=== PATIENT | female | born 1980 | race Caucasian/White ===

== ENCOUNTER 2022-12-22 07:25 | Outpatient (OUT) | payer OTHER, SELFPAY ==
[2022-12-22 08:07] LABS: Basophils Absolute Auto 0.1 10^3/uL (0.0-0.1); Basophils Percent Auto 1.2 % (0.2-2.0); Eosinophils Absolute Auto 0.4 10^3/uL (0.0-0.7); Eosinophils Percent Auto 6.7 % (0.9-7.0); Hematocrit 36.4 % (36.0-48.0); Hemoglobin 11.6 g/dL (12.0-16.0); Immature Granulocytes Abs Auto 0.01 10^3/uL (0.00-0.03); Immature Granulocytes Pct Auto 0.2 % (0.0-0.5); Lymphocytes Absolute Auto 1.7 10^3/uL (1.2-3.8); Lymphocytes Percent Auto 29.3 % (20.5-60.0); Mean Corpuscular HGB Conc 31.9 g/dL (29.9-35.2); Mean Corpuscular Hemoglobin 26.4 pg (26.7-34.0); Mean Corpuscular Volume 82.7 fL (81.0-99.0); Mean Platelet Volume 9.5 fL (9.5-13.5); Monocytes Absolute Auto 0.6 10^3/uL (0.3-0.8); Monocytes Percent Auto 10.1 % (1.7-12.0); Neutrophils Percent Auto 52.5 % (43.0-75.0); Platelet Count 278 10^3/uL (150-450); Red Cell Distribution Width 15.1 % (11.0-15.0); White Blood Count 5.7 10^3/uL (4.0-11.0)
[2022-12-22 08:34] LABS: Free T4 0.96 ng/dL (0.76-1.46)
[2022-12-22 08:36] LABS: Alanine Aminotransferase 23 U/L (14-59); Albumin Level 3.4 g/dL (3.4-5.0); Alkaline Phosphatase 83 U/L (46-116); Anion Gap 9.2; Aspartate Amino Transferase 15 U/L (15-37); BUN Creatinine Ratio 13.8; Bilirubin Total 0.2 mg/dL (0.2-1.0); Calcium 8.1 mg/dL (8.5-10.1); Carbon Dioxide 26.9 mmol/L (21.0-32.0); Chloride 104 mmol/L (98-107); Cholesterol 161 mg/dL (<=200); Estimated GFR (African America >60 (>=60); Estimated GFR (Non-African Ame >60 (>=60); Globulin 3.5 g/dL; Glucose 99 mg/dL (74-106); HDL Cholesterol 40 mg/dL (40-60); LDL Cholesterol Calculated 104.4 mg/dL; Potassium 4.1 mmol/L (3.5-5.1); Sodium 136 mmol/L (136-145); Total Protein 6.9 g/dL (6.4-8.2); Triglycerides 83 mg/dL (<=150); VLDL CHOLESTEROL 16.6 mg/dL
== END 2022-12-22 07:26 | disposition home or self-care (01) ==
LOC: LAB 09:13
PROVIDERS: Visit Provider Physician Assistant
DX: Z00.00 Encounter for general adult medical examination without abnormal findings (principal); N93.8 Other specified abnormal uterine and vaginal bleeding; D50.9 Iron deficiency anemia, unspecified; Z13.228 Encounter for screening for other metabolic disorders; E03.9 Hypothyroidism, unspecified; Z13.220 Encounter for screening for lipoid disorders
CPT/HCPCS: 36415; 80053; 80061; 84439; 84443; 85025

== ENCOUNTER 2023-03-27 20:06 | Outpatient (REF) | payer OTHER, SELFPAY ==
--- OUTSIDE RECORDS SUMMARY | 2023-03-28 10:11 | XMS_ITS | CCD ---
Author Name Unknown Address [address] [facility] [address] [place] [address] Organization [facility] Care Team Providers Care Instrument Repair Specialist Name Role Phone PAMELA RUIZ Admitting Unavailable PAMELA RUIZ Attending Unavailable PAMELA RUIZ Primary Care Unavailable PAMELA RUIZ Consulting Unavailable KARASIK, DR RODRIGUEZ Admitting Unavailable KARASIK, DR RODRIGUEZ Attending Unavailable PAMELA RUIZ Primary Care Unavailable KARASIK, DR RODRIGUEZ Consulting Unavailable LISETTE, ANTWAN Admitting Unavailable LISETTE, ANTWAN Attending Unavailable PAMELA RUIZ Primary Care Unavailable WEST, DR VINEET Cruz Consulting Unavailable LISETTE, ANTWAN Consulting Unavailable KARASIK, DR RODRIGUEZ Admitting Unavailable KARASIK, DR RODRIGUEZ Attending Unavailable REQUEST, DR GOMES LISTED Primary Care Unavaila ble KARISABELK, DR RODRIGUEZ Consulting Unavailable WEST, DR VINEET Cruz Consulting Unavailable Guillermo Esparza Attending Unavaila ble Angelina, Taiwo Bahena Referring Unavailable Alfaro, Taiwo Bahena Admitting Unavailable Alfaro, Taiwo Bahena Attending Unavailable Alfaro, Taiwo Bahena Referring Unavailable Allergies Allergy Classification Reported Allergen(s) Allergy Type Date of Onset Reaction(s) Facility (1 source) No Known Medication Allergies; Translations: [No Known Medication Allergies] Propensity to adverse reactions (disorder) [facility] Repository Problems Active Problems Problem Classification Problem Date Documented Da te Episodic/Chronic Other screening for suspected conditions (not mental disorders or infectious disease) (8 sources) Encounter for screening mammogram for malignant neoplasm of breast; Translations: [Encounter for screening for malignant neoplasm of cervix] Onset: 06-27-2021 Episodic Unclassified (3 sources) CONTACT W/AND (SUSP) EXPOS COVID-19; Translations: [CONTACT W/AND (SUSP) EXPOS COVID-19] Onset: 04-20-2021 Past or Other Problems Problem Classification Problem Date Documented Date Episodic/Chronic Immunizations and screening for infectious disease (1 source) Encounter for screening for human papillomavirus (HPV); Translations: [ENC SCREENING HUMAN PAPILLOMAVIRUS] Onset: 06-30-2021 Episodic Other skin disorders (4 sources) Localized swelling, mass and lump, neck; Translations: [LOCALIZED SWELLING MASS AND LUMP NECK] Onset: 10-19-2021 Episodic Unclassified (1 source) CONTACT W/AND (SUSP) EXPOS COVID-19; Translations: [CONTACT W/AND (SUSP) EXPOS COVID-19] Onset: 04-14-2021 Results Test Name Value Interpretation Reference Range Facil ity Coding Summary.on 08-09-2022 Coding Summary. CD:[id number] Ww +PGhlYWQ+IX5MBWVbM47sy YJzgU2iK2CPXPvBDgmgCVK HHJfCLdOcxpPzIE1lqZIqV XJu IC8+PF4iPRVcAzfxnINoj6 R0dOP6M33aky5gYUmkmKZ1 BCGnNvAbjnpmw1tzcTc7TC cuNmluOyBt YEXasL76MNN5yG78Xs19pG JvfQEkj9aabRz2NfPmASWo OMP8yPujGOunm5IeTOZiW5 2gmSHdh5Z8 ZPMecXlxuCPeXyUjlBN4oA 2yOOizjubbq4rfcyesHao3 lv26zSLtg0C4aBZ1M0Cvox V6OPYnlTGo KyogaQFWxH7jdohfs4xcbr kmXxCvCCTjKXn9IIq9KZJr xAbvDcXrEK06ADH4HGQcwl ExO3YcKJHw oWfvHuE8o8S8Lk3IZ9QOKs ccP9STLUGDJDnriUB+PC90 tx93C8ToVgzdMvf6UCQeFU V4gNG6gB5u TTHqVKazb0O7pBB0G3Iewv Hduj6sm3erRRHzODhgO11l tZKbc5R6AUDdpXO3DADqyN scOdXmtW16 Oyc+XPRomCnnp2TwTkcvv5 rdt2lhwQu0NgdfKCRhoeZj dZpiWOO1o0UsIy7gGOGjvO J4oXW8uI6q NqShPpF3DQqaA519FvLidC PjWcxdO78rG8TtjRK+PHRy Auh8RAZvzVlpNB4iP4GvSJ RpbmctbGVm nCukOA6xWMGqhxvaDVCnzT 9tWAAdR6j8XcVxCrL5YTfc B1RnJRNzubjhGm45qO6xYd ZvLhF7UOzs E9FmmaT0OXFboQDhDVroUL V7B61hj1K8XDDpOABmDGA0 oKU3tH1tlTecrmgfiGQioU sgdmVydGlj MXwhKJszS932HBVngDvuDf NvZGluZyBEYXRlOiAgMDUv MDQvMjAyMzwvdGQ+PHRkIH R8wXfzAHIs tFZwQRmbYp0bmGkdfOteQL 5aTTAcqqdhRRXahA4qRDGs rLQncEueEF3fGUCawtukk9 75IyLeZPW7 YFQktKClB9XiaW3dPmVvON YaNNYdO9RtsSVkSMztW153 LOaxBpO9VYHvvyKiO8YbOY FsaWduOiB0 h9M1Uv7Sg6HsavszR3OdxL AwBlBxHbpgIRc1M0UcJrst dHI+QV33NRXeAE94XHt9XE C8tEwtLOtt GVLgD1WnjE2aXuOmBPJiJN RkOyc+PHRhYmxlIHdpZHRo HJapOONzXyQcrQxeKK5oSa 9yZGVyLWNv sNylxYRpNiIeq2moNNMpMI eaUN1deMppE8DptXH4AJSf n5x6Ph52A61jE5LozTF+PG CifCU6vUZ8 gC1wFtPrBjK8WGdwI196Sp BuxLLuEmifu3cpu0auvXg4 ExW3TLNyvqRvsEmeCUP5d5 SsQn07Z09h IHdpZHRoPSIxNSUiIHZhbG bozc8rmN1mXg0+PGNvbCB3 qEC2mJ1wUfZuEnL6DRtoK0 49InRvcCIv Rrncj3qff2sukHl0YpPpBL BixsKguNseRDC1c0PsHe53 H1DlfLbrb5NpSql2zj63aB Pjn4P9qNP6 J0IaZAGusmbnkXOdwYrwDP 3vIBGobaxhPHYjkS0rOXWb A5g6EoXzBvT5XEqsW7Qnze U8UTQduOHc GBFpbGVXqQ6pzksxs6mwum dnLzGwRJXnXQh7BJi6VHRh fWxeHxUsKBY8KaN4QFT3bX CfpP8jdQdm ackzvI9oRmx+IWB9rROznX RSUF2bZtccjGC+PHRkIHN0 tNzmZYcbZSSqiW9aNNCxU8 b0JuMaZxR2 EUocB8CjssK5ZRHldFLhIW WrgNDKvN9bztsrp0ixudva GzKbOJIzUQy3WYk3SGAggB duOiBsZWZ0 HjG3TIM7fVCxjL0ekTbllz bxyQ6gMdr+QmlydGggRGF0 NZt4G3UtSaf7QTNlmDucOV 0ncGFkZGlu Mw9meNhodPpdGP0iVRWnyc zfg188JiOmo2wpOXJrvSUm HMluSJR7M68pw3R9BZZqSK GvIJO2uEQ8 mH7xxEqgqnxdgDYkiViiyf OyvVicSWxeWFuuM247YKAk cIinBbJrMYb8F2IzRex1EC XhxKlhWJ7v yOTgJQywIz7pdUqytIqxCA 1iXCDttgpqg382HuDbj8js CTZwgTQfDAkgXTA4G68jk8 J5YCKlCVPz DKF5kQU1uN8neVjnkkxjdC VmdDsgdmVydGljYWwtYWxp K583MXQewBmkYbSwhSm8A9 OrQfd5LSGz yGekLC1soHKbHOtfDe9xlS pxjZedFE9mATEvdyhhu761 SnYsd6iqIEKkmDLtSHkoDR Z3Q00ba5X9 XPMpRMOuHRZ4fDL0rT9zhB lnbjogbGVmdDsgdmVydGlj EKilSPhpE669GWLlfYwcTw BhdGllbnQg BVzqFLh5K9SfYsxijWA+PC 73UYToZZ24aYFsmSZkv0au dYl0VeYjTYPkSJV7jPooGW rmq4DkBYQr T61vgTKwy9U1DQRcwWbyjL IjKiJlbAE1vU8cFYylskrr a8cvtrsgZwsml8djvz62rW 06Z17dRNxu ZHRoPSIzMCUiIHZhbGlnbj 2yeK6jYx2+AIAxxCJ9mBR4 iI6gRPSfNkY0QFaqM163Md RvcCIvPjxj y1akr8cajNw7GhW9LNLqws XzvInkIHT4i7IoPn75N20k IHdpZHRoPSIyMCUiIHZhbG rtpj9boB7q Ii8+AQEyoOV1bUP3rN7kKz NjKdU5UOazL981PjYojLNa KaulW98rU0EteUJ+PHRyPj y4DLNvmNxa UO0klAExWLpgCg5aSNH8Vu NtAjBwPRpoR4RpWLCciqgg vldavDS6ACBeBGFtaG59Aa 9udDogMTBw gSFXaZ2yropfx4nwulfvFq CeJVWbJKa5FNd4IPQmeYdo FxVvESF7SwP5LFG2sFRtgP 1hbGlnbjog tX6wA2TsPALhkgjmOw89gS 5uAbJzOzL9HUjaOwp+SkFS RuBSRGoaQIJLP0dxGlodwU Q+PHRkIHN0 nYeiOOnqXHKwiW2pMQLnX3 g8WxEeByD9CAntN4QdUPNf stsgEr97fZ8zIvPnCiM0XB woD9LcbeP3 LUTxoIMuFOjvGIU2E28qg7 P8SGOsBHVoVYB4vYP1aG8d bGlnbjogbGVmdDsgdmVydG ljYWwtYWxp S400YHLqhStsWyO6HmN1Qz C2ASI3C4IaBqu0DYBvdEvb ZG0ymYNfTRlrNq7plPnhrA wcUX5cXRUf ogvnBPMheA4rQCZhqKHtoK qlDU0lJCBqacqaw422TzFy VHC5SXRygKKqW8DjoE2eNd AjMDAwMDAw J4TelTZcOCpqJ304INinMm J8MJBtalUbI1LqJZFhyPmn KrY2q8W0Zx54LXBETXYeaa wvdGQ+PHRk FQP1yJeeXLsxFHFqkP7iHX LfO8e9HmJpJdE5HCkgQ9Uo SFOfkkreJe98jP1hJtNlZm U6SHwmT2Ti qwG0NLGaaNPwGBcuSDP9Q7 1dd9M6BAAzIJSyDQT3gJJ0 uD4arAvykvdztUExfOdysq VydGljYWwt TTtpN916HJPbhTqyRbMwrZ FsZTwvdGQ+USNcQGJ7qPzk RHmjIPXdaB3lPSLgO7o2Yt RqVwQ6TXjx D9RgTRCumwhxUu55pL6tLc JkLeX7LHplX6MreyX5LSDv qIGbUOllYFM3P14ka9C1RZ MwMDAwMDA7 lKC9eK6ktKbikxdlrNPvwP bbgxTxdMsfDQbaPSbpL745 ZWSigYdgFq89lBDtbZvpao W4B3PpAsmc dHI+JB88MTMyFO07qGZooT Hsq3jseUp8ToAnRNJuADX1 kQmeZMhax5TuCUOlU32stY Nql1E1OLWi pNlaqPTvNtCibYA3lO6uLK lfxizon5kizlboYkbip1wi ip80iG89C07vIAtvIFXzHU IzMCUiIHZh jKiyjg6nkF2tQk5+PGNvbC Y6zAL3hA3eLoPbEhX6TBvo Q488DfGmfTPnBluxw1ykc2 gmvLk7OlJy DWNygnUouHcdCXL9t5HoYu 83C73mFIdeTZWdQNQcEOMe IYXeiEqntt3lsH2rXu7+PC 3nu3eror67 hZ55iRH+VLEzNWJ9sDyhFB eyCQOqnX2vLEncLsU4BNOv NdOapO37yJYsJJsgAm5wrE hiyAcnAN2f XMVbjrlba197JxJdx3ygLO RooYXrSRzcSOV0G02rw3J1 CDQgNKQqZPR2yBE8jQ3jmM lnbjogbGVm dDsgdmVydGljYWwtYWxpZ2 65FLJcaWgsSkImsDKbL8ph tqMAPI0fIgvswRZ+PHRkIH W2gCzfGEnw XFNhoZ9vRQXjW5f8PdVxPh V2FOyyB7HzgrO3JHSkdSUe XGMuhJMXxJ3vfogai2vjre ogIzAwMDAw OLl7BZs0OHIpdXnxZoWwPZ H9PdA5DKP0sWIhqK9pcRiu ltrveM0vLrt+RklOOjwvdG Q+PHRkIHN0 uQgoQNuxTBHetJ2cPUEjZ1 u5SeGhRtU0HKpwM7HlexP4 ODFjhILvCLHbcIOWzQ0xbg mlg4buhqms DfAqDEAgBIy5KIi3QVOjfK sfWeLsEVT5OmJ8YEZ1eEXf gB8snZzruwjjeD5yThw+TV JOOjwvdGQ+ UHKrBCK3zTtoPIemQOVjhF 1hKYZhS6w8JfMrVoJ1CUti T4NbnzF0RHFitMMsDFEljH WYtZ8huxfb w6ohzifqLxXqQCEyRRt0YS g4WUVrvKxqHdHzTTA5TgP6 VNS1nXYmbY5fzUsxpfdsqS 9wOyc+UGF5 UQN2XM73KI98A3ZbCitpnE FibGU+PHRhYmxlIHdpZHRo EBaxIXLdIdZpuKbaON3fCb 9yZGVyLWNv bGxhcHNl (more content not included)... Normal [facility] Coding Summary.on 07-25-2022 Coding Summary. CD:[id number] Ww +PGhlYWQ+YY0NGXOdQ54ej PXinD0vL2ZAETgRFfonDRL NCArUUxBbptIeBU4odMGoD XJu IC8+TP3jCLGsImoyqQFif6 Y3oAC1E28eoh2iYUmhlMJ3 XGVdFlCzrjrdh6bymIc6RZ cuNmluOyBt JTKxiG93AZX5pR34Vq68pR KylECch6rcrQy0MbKrBBIj BYO0wHnwZFntq5PpXUTvH8 2hzSOqh0H8 EQYjeHbnmINnMbTavSU2fC 9mBKghlekmj1vrhshhIkf5 hv08vWPde8H3uDK9K8Wxtu A8FGIlaICy NagvcHQZmO7ifleoh4fcho avTxYsMJAfRFq4IIr4IGXf bMwsZqPdDK62DJI1NEUbwg XrD2NnGONw pWboJcC8l1F7Jm4BA0DHOt irT2WNBGXOMHttkYE+PC90 xs83P5QdCxfmAdv9JZPoJP G6jSU4pX7a QALaAApij2F0gZH2R1Egdg Yjab4by9czWCIrUZjtN67h iIEam6J6DZIfvND5FGEafK dgTiAunN48 Oyc+QWYwwGxhf7OnEtvwd2 ino4qwdVh9IfxtWMWojrHo kArlQYW6y7KbDv9bRMMvvX W9aFN0qY2q DjTgVrZ4ACxwI152RoEpiN UoJtscB60aO0KpwGR+PHRy Ave2PWDndWpsTZ2iW2IpEX RpbmctbGVm nNacJP4dMKJskixsLNFhqS 5vMTKeS2n3GqWhQgH5LVoy L0YlNSFbavudVn82zA3bFc QjXsA3GMkt D8HwsxF4SEYpdCTpGUofRB B5A19sg8U6WEBtBMVbSAH5 wDR2cQ9qsQosjfgrxFShvR sgdmVydGlj VBzbAKuzB040GHYogXecMb NvZGluZyBEYXRlOiAgMDQv MTkvMjAyMzwvdGQ+PHRkIH L7uUumSJUx wJMwWOihQm3htNbwrNjoYE 4eQUSiqscfSSGrtL7vDVMz nQPonIgvFE7rXLLgbjukm5 69QkOsJLB6 RMXkbAUcM6GqkW4nRvHpZB QlTAJuN3WheGGpDJboC758 VIfrWqV7LJNqzbGkH4CzWO FsaWduOiB0 v8Q4Rm4Lz2YzxkxnN9NohR HyDtNcYjaiBNr1F0ElZfng dHI+ZO04NZCrRG60DDw9BA Y6xCnsHAey DZSsS5HthP4pGoPmYUPjPG RkOyc+PHRhYmxlIHdpZHRo ECyoPWOjXfRufJnsLD1xXb 9yZGVyLWNv iRclbYExKlAtn2ddEROnQZ arVS5ivYifR2UhzKR8LGPx u1n2Fm17T84oM5TycHB+PG XmnQU8rIE8 rG2cIbEhSoM3GJgzG971Gv BukLXhIvnib5dsw3ywlGc7 BwJ3FCWkxnZbcUgwWPN2i5 BqAc98I12b IHdpZHRoPSIxNSUiIHZhbG rdex1muJ6hZf4+PGNvbCB3 aGV1nZ7jQwOuViF7YYapV5 49InRvcCIv Fmuee4vqj4zbeLp8WjIaPB WkmhSkdYxoCDG5j0VkUk54 F9GzpLmxq0SoMde4kh26yF Llc6N5xLL3 D9WiPAYcswhmfRVwmWwfIO 7jNQMckuvwMRDebR2wFKCr S9z8DcWrHdQ3RLppI8Lsbl K2UZXqyAXn AJKqsWXAeU5rzyzxx4bimr qsUeDoLZHhMFh6VRa5AASn mDgmYdTvUDL8HxK5KJO0jN IjeP3hfCcc oeuzoK5yRnd+SVU5oTDpjP UQBL7dWrbdyUU+PHRkIHN0 tShuPDvzLWVtkI2tIOEoG3 z5FwPjLlI8 ITguE6WhodB4TZMelDSvCN LqwQZFyA4jgvzti3xdazcc MyNqNXLmOJw5NUf7DARfoE duOiBsZWZ0 BoT7GVX2zZQydQ9gsPwnfa gxwT4rCtv+QmlydGggRGF0 LOe3M2XiDnl3VUCsbNuxYI 0ncGFkZGlu Rn6qrHoxiJcvDO4wKGGqtg epm048EuSne3glMWCehQIt DIbbERP9P53xk2Y8IOPfJL FaMTF1bDY4 aM6tjUmnrbtepLFbzDbkvn XufMkwZEmhYWseT053XNDn oKksEtXkIUw9W5AaGrg7UM KeyAwqBK2j gADwCTxuFq1hyRjfwGblZZ 0vJRLyotchj892KxNqy3ap THMghGAvMCnkVVY8B17bo1 Y1AAWpNZXs KNP0xKD5jO8gkYqglgenmA VmdDsgdmVydGljYWwtYWxp O610QXIxfBsbSmJkdWo8U2 WgWha1ZLWv uAjuHQ0ppHCyRLyhIi5huS ouoYzqNG9gTWGtejojw246 NfOzb1zdSGKpwVRwDXglPQ Y3J64ev3P5 TAHjIEAwPPV9jQP6jC2qgF lnbjogbGVmdDsgdmVydGlj JUqzNHpcC609PSQkuPzzYo BhdGllbnQg HGvfROf2F1KqAnhehYM+PC 66TIIxSX39qZLlpJUge7ro qQx4YiPmNLLmAFZ0jOroHJ xfz2NfWMPz T97jrDEdm6I5VKAiaPalhS MsVaZtlCT9mY4nDXflqnck m6lxzlggEfmqx4gsty97hD 90Y38lXWdw ZHRoPSIzMCUiIHZhbGlnbj 8hrI4kOo7+TZEypRY0nUH0 rN8sRSDkHcY5NApqL744Gm RvcCIvPjxj i1qbd4jgkOs3XzY6PPNbjj WsuGlgXLX3h5HkDr42O92e IHdpZHRoPSIyMCUiIHZhbG ckya8eeQ4a Ii8+IVRokXH6sLM4hV1vQx FpFzJ8OCesK663GtRygOEk WuadX58tY8TkqVQ+PHRyPj j5YYVnrAbe LZ8mrXMwRTouOn3qTGX4Fb UtBfUjFDpkD6DyACZjgowk knoscTQ8CAWgTGHnsI69Rx 9udDogMTBw wTXFsI6whusky7ndfwjgSx RdGYTxCGp7FSw3WDGguBxp XdFaLAC5EuZ3GZI0iCJwbY 1hbGlnbjog mE0bJ4ZhCMRieqwdVe52xL 6uBtVmLqX9IVnyKqu+SkFS HkRTVZyuCMCZK5lfKzsczO Q+PHRkIHN0 aUxwCIrcFUKmpE8oEOYnB7 g0TpWrQhY4RAjyK1JxIURe lrcnKf75kW4rJeDqKqU8YY wkR5QkghI5 DHBoyWHsDUefJEN1E58xg1 M1JQYzYBVdZCD1uVW7zZ4d bGlnbjogbGVmdDsgdmVydG ljYWwtYWxp J742MSFacZubTwO1JuQ3Xy N1RZS0K9PbKlb0RFNwkIoo CD7yuIOrWGitXn8qnKarlR skVX8bIADp ecjmSTAdoK0jGTAubSHzaF wlAY9uWYGsrvsqn634EuJz UXJ9VKPpgCHqE7KfaE4pOg AjMDAwMDAw D9ZldQCcWPgaW964GNnnKv H8SXKohmYsI9JgCMCbmRsk UdD2t3B7Iv36UNJBEHSrea wvdGQ+PHRk RNX2hKltHBegVYIfgA6jRO XsJ0k8JsSsDoB6OVziO8Td LGPzvazoJx80mK0sQfNmHv O8DNkxE4Lx xiU0LNHfcYDpFPmwRHY5P8 7zk6W6KNNpNRKdCDB9dHY1 vS9thCbbzqluuFIdhNrfaf VydGljYWwt NWxqN609WPEqtIpzVvPcnT FsZTwvdGQ+UHImSPQ2lVch BAssTWUngI1vOJLkP9x1Hl ExPfL1BJve Z4YwHPHuegurLk31xT2hEt AlNsU1DPvbI7OhkmY7ARHi iLQrYExtKRD7D02mp1B3WR MwMDAwMDA7 yWR9cI1wiWubbahnvQQtsC bhmvJzzDabTKeuWOrcP173 CXRcgJggQp02rMDmmLgygb A9N8GlHlih dHI+HD89DXSxSL33kMGwwF Jnx1casAn8SfRgXNWeIEA4 fZmiPNfcm6FwPOOcF01ttU Cms4Q4PKMk mZpnyMXsIrPrqZZ9eC9lLJ kvjowit8fhgikyUceeu9rv bs48xC63H21dQCwyXEMqMP IzMCUiIHZh kCpvcw5hyK3gPd3+PGNvbC M2fRX0cH1pQcWlFmQ3BVps N392MfQaxXLbLygpm5olq1 blmZf5YbSb DYPxtnUamTnrCGZ7h4WzXe 17G00eUIhuPIQmBONoISWu ECIfrBmptv8hqM3hOo5+PC 1yk6cguo38 pV37oRQ+NHZjQUM3bCjqJY giBUJklX5pIVyiKkW8KSMa ShWjkQ65mXJhHHjoHf8fyW ezhYsqLK6c IRKeobsie804CvEjg4kxPI CbhTQfOCvaHBG5V17wf6N2 WBSoKLVpJPY1dAI0wR6qbD lnbjogbGVm dDsgdmVydGljYWwtYWxpZ2 23LCXwaKutFoXktFIcQ5wb eiDMLZ2kWwqfhWN+PHRkIH L2pIlkGDkk XFHepJ0eJRArL9w4SoOrXo R0QNyjG0HrbbI7XHIydIJi NGZeeKBWmA4xncyds4pjzp ogIzAwMDAw BGl4SZx6ISJcrCkrUuCfYG S9DnL3PIO4oIJokJ8hsCxo kjkytZ4jDef+RklOOjwvdG Q+PHRkIHN0 oCpuLAoeZOVjmS3zZRQgV6 x4UmTcIjA3KDzlN3WjutV2 IMGbvLVyXZDsaKTXkL8mds urj3lwpylw BaUbICYjSIk8JPn1CIUhwG rsRsJsZZH1RcZ3HCG6mKSa gD0rjKtyxuhvpC2xXla+TV JOOjwvdGQ+ HLMqXLH2jPwcPSlvOATsvE 2xMAGaJ2a2QuCfMrZ4HTxc P0KssaU8WQMqdFTdAFGnrW COwR5kotch e9mnshszZrKpTIEsFQk3BR q2MPHrmDzuWfAvVRJ2IaA6 QIF7sONhkD9jdIbxjqsptR 9wOyc+UGF5 IZQ4RV82FX29Q2BuGutjmM FibGU+PHRhYmxlIHdpZHRo EJrpDRMoIzSliUktTF9oMc 9yZGVyLWNv bGxhcHNl (more content not included)... Normal [facility] Consent for Treatmenton 07-07 Consent for Treatment [id number]#[id number] 0CD:127 Normal [facility] Heart and Vascular Office/Cl inic Noteon 07-24-2022 Heart and Vascular Office/Clinic Note Chief Complaint patient here for cardiac clearance History of Present Illness Karma Nieto is a 41-year-old female who presents today for cardiac clearance for an abnormal EKG. She is accompanied by an adult male. Karma reports that she is scheduled for a knee arthroscopy on 07/27/2022. She had a presurgical EKG last 07/20/2022. She was called today and was told that there was something abnormal. She denies any cardiac history. She denies any chest pain or difficulty breathing. Prior to her knee issues, she was able to walk upstairs, go uphill, and ride a bike. She did a walking challenge from [employer] in 05/2022. She is not diabetic. She denies any pain in the posterior aspect of her legs when she walks. Review of Systems Constitutional: no fever, no sweats, no weakness Skin: no rash, no lesions, no bruising/petechiae ENMT: no sore throat, no congestion, no hoarseness Respiratory: no shortness of breath, no cough, no orthopnea, no wheezing Cardiovascular: no chest pain, no palpitations, no edema Gastrointestinal: no nausea, no vomiting, no diarrhea, no GI bleeding Genitourinary: no anuria/oliguria no hematuria Musculoskeletal: no back pain, no trauma Neurologic: no headache, no dizziness, no numbness, no weakness Psychiatric: no sleeping problems, no irritability, no anxiety/depression. Heme/Lymph: no bleeding tendency, no bruising tendency Allergy/Immunologic: no recurrent infections, no impaired immunity Additional ROS info: Except as noted in the above Review of Systems and in the History of Present Illness all other systems have been reviewed and are negative or noncontributory Physical Exam Vitals & Measurements HR: 91(Peripheral) BP: 132/82 SpO2: 98% HT: 68 in HT: 173 cm WT: 122 kg WT: 268.4 lb BMI: 40.76 General: alert, no acute distress Skin: warm, dry intact Head: atraumatic, normocephalic Neck: trachea midline, no JVD, no bruit Eye: normal conjunctiva, sclera clear ENMT: oral mucosa moist Cardiovascular: regular rate and rhythm, no murmur, normal peripheral perfusion Respiratory: lungs CTA, respirations non labored Chest wall: no deformity. Gastrointestinal: soft, non-distended, no tenderness, no guarding. Back: no tenderness, normal ROM, normal alignment. Extremities: no edema, no deformity, no trauma Neurological: oriented x 4, LOC appropriate for age, sensation equal & normal bilaterally, speech normal Psychiatric: cooperative, affect appropriate for age, normal judgement, normal psychiatric thoughts. Assessment/Plan Karma Nieto is a 41-year-old female with cardiac clearance, had abnormal EKG, said septal myocardial infarction, has a history of hypertension, and family history of coronary disease. She is not a smoker. She does not have any chest pain or angina before her knee had a problem. She was able to exercise without symptoms. The EKG here does not have septal infarct. She actually has R wave, so I think it was a false reading on the previous EKG. She is not symptomatic. We will say she is acceptable risk for surgery. Follow Up: As needed. Chest pain (R07.9: Chest pain, unspecified) Documentation services were performed after patient or guardian consented to allow Olamide Martínez Yue to record this visit. GAEL talent acquisition specialist and provider reviewed before signing. GAEL: Jenn Meza Follow-up No qualifying data available Problem List/Past Medical History Ongoing No qualifying data Historical No qualifying data Procedure/Surgical History bilateral carpel tunnel release, dx laproscopy, Hysteroscopy, Tonsillectomy and adenoidectomy. Medications biotin Multiple Vitamins Tab, 1 tab(s), Oral, Daily Synthroid 100 mcg Tab, 100 mcg= 1 tab(s), Oral, Daily Vitamin D 1000 intl units Tab, 2000 International_Unit= 2 tab(s), Oral, Daily Zyrtec-D Allergies No Known Medication Allergies Social History Alcohol - Low Risk, 02/10/2015 Substance Abuse - Denies Substance Abuse, 02/10/2015 Tobacco - Denies Tobacco Use, 02/10/2015 Never (less than 100 in lifetime) Tobacco Use:., 07/24/2022 Family History Heart disease: Father. [facility] Comment on above: Result Comment: Elec tronically Signed By: Isaias TUTTLE, Guillermo Arteaga\.br\Date and Time Signed: 07/24/22 21:56 EDT\.br\Electronically Co-Signed By: Jenn Meza\.br\Date and Time Co-Signed: 07/24/22 16:08 EDT Physician Orderon 07-24-2022 Physician Order [id number]. 00CD:127 [facility] Physician Order [id number]. 00CD:127 Normal [facility] BMPon 07-19-2022 Anion gap [Moles/Vol] 11 mmol/L Normal 6-16 [facility] Comment on above: Performed By: #### 2 [id number], [id number], [id number] #### [facility] [address] [place] [address] Calcium [Mass/Vol] 8.8 mg/dL Low 8.9-11.1 [facility] Comment on above: Performed By: #### 2 [id number], [id number], [id number] #### [facility] [address] [place] [address] Chloride [Moles/Vol] 103 mmol/L Normal 101-111 [facility] Comment on above: Performed By: #### 2 639689, [id number], [id number] #### [facility] [address] [place] [address] CO2 [Moles/Vol] 27 mmol/L Normal 21-31 [facility] Comment on above: Performed By: #### 2 [id number], [id number], [id number] #### [facility] [address] [place] [address] Creatinine [Mass/Vol] 0.9 mg/dL Normal 0.5-1.3 [facility] Comment on above: Performed By: #### 2 412295, 7851751, [id number] #### [facility] [address] [place] [address] Glucose [Mass/Vol] 95 mg/dL Normal 55-199 [facility] Comment on above: Result Comment: If t his glucose result represents a fasting glucose, interpretation should refer to the following reference range: 55-99 mg/dL Performed By: #### 2 404378, [id number], [id number] #### [facility] [address] [place] [address] Potassium [Moles/Vol] 4.4 mmol/L Normal 3.5-5.3 [facility] Comment on above: Performed By: #### 2 537674, [id number], [id number] #### [facility] [address] [place] [address] Sodium [Moles/Vol] 137 mmol/L Normal 135-145 [facility] Comment on above: Performed By: #### 2 863408, 5995091, [id number] #### [facility] [address] [place] [address] Urea nitrogen [Mass/Vol] 12 mg/dL Normal 5-21 [facility] Comment on above: Performed By: #### 2 582761, 2162306, [id number] #### [facility] [address] [place] [address] Urea nitrogen/Creatinin e [Mass ratio] 13 No Units Normal 10-20 [facility] Comment on above: Performed By: #### 2 565844, 8558394, [id number] #### [facility] [address] [place] [address] CBC w/Indiceson 07-19-2022 Erythrocyte distribution width (RBC) [Ratio] 16.2 % High 10.9-14.2 [facility] Comment on above: Performed By: #### 2 556834, 3131591, [id number] #### [facility] [address] [place] [address] Hematocrit (Bld) [Volume fraction] 36.4 % Normal 34.0-46.0 [facility] Comment on above: Performed By: #### 2 350996, 6369027, [id number] #### [facility] [address] [place] [address] Hemoglobin (Bld) [Mass/Vol] 12.0 g/dL Normal 12.0-16.0 [facility] Comment on above: Performed By: #### 2 454995, 6171972, [id number] #### [facility] [address] [place] [address] MCH (RBC) [Entitic mass] 26.1 pg Low 27.0-34.0 [facility] Comment on above: Performed By: #### 2 757862, 4883893, [id number] #### [facility] [address] [place] [address] MCHC (RBC) [Mass/Vol] 33.1 g/dL Normal 31.4-36.0 [facility] Comment on above: Performed By: #### 2 341722, 2837019, [id number] #### [facility] [address] [place] [address] MCV (RBC) [Entitic vol] 78.8 fL Low 80.0-100.0 [facility] Comment on above: Performed By: #### 2 361591, 2772159, [id number] #### [facility] [address] [place] [address] Platelet mean volume (Bld) [Entitic vol] 7.6 fL Normal 6.4-10.8 [facility] Comment on above: Performed By: #### 2 845947, 2356792, [id number] #### [facility] [address] [place] [address] Platelets (Bld) [#/Vol] 346.0 E9/L Normal 150.0-500.0 [facility] Comment on above: Performed By: #### 2 987835, 6360018, [id number] #### [facility] [address] [place] [address] RBC (Bld) [#/Vol] 4.6 E12/L Normal 4.3-5.9 [facility] Comment on above: Performed By: #### 2 315295, 1771165, [id number] #### [facility] [address] [place] [address] WBC corrected for nucl RBC Auto (Bld) [#/Vol] 7.5 E9/L Normal 4.0-11.0 [facility] Comment on above: Performed By: #### 2 511256, 7494883, [id number] #### [facility] [address] [place] [address] Consent for Treatmenton 07-07 Consent for Treatment [id number] 0CD:127 Normal [facility] Physician Orderon 07-19-2022 Physician Order [id number] 0CD:127 Normal [facility] eGFRon 07-19-2022 GFR/1.73 sq M.predicted among blacks MDRD (S/P/Bld) [Vol rate/Area] mL/min/{1.73_m2} Normal >=59 [facility] Comment on above: Order Comment: Order added by Discern Expert. Result Comment: eGFR is race adjusted. AA=. Performed By: #### 2 406727, 4000671, [id number] #### [facility] [address] [place] [address] GFR/1.73 sq M.predicted among non-blacks MDRD (S/P/Bld) [Vol rate/Area] mL/min/{1.73_m2} Normal >=59 [facility] Comment on above: Order Comment: Order added by Discern Expert. Result Comment: Child Support Specialist mark kidney disease could be indicated at eGFR's of less than 60 mL/min/1.73m2. Kidney failure is indicated at less than 15 mL/min/1.73m2. Performed By: #### [id number] #### [facility] [address] [place] [address] MG MAMM SCREEN 3D RONEN CADon 04-03-2022 MG MAMM SCREEN 3D RONEN CAD Patient: KARMA NIETO Exam Date: 04/03/2022 : 1980 Gender:F Ordering : DR MICHAEL RUSSO . Admission #: [id number] Family : Order #: [id number] CLICK HERE TO VIEW EXAM RADIOLOGY REPORT PROCEDURE: MAMMOGRAM SCREENING 3D BILATERAL CAD COMPARISON: None. INDICATIONS: Screening mammography Calculator Name NCI Breast Cancer Risk Assessment Tool 5 Year Breast Cancer Risk 0.60% Lifetime Breast Cancer Risk 11.10% Personal Breast Cancer No Personal Ovarian Cancer No Treatments None Family Cancers None LOCATION: [facility] BREAST COMPOSITION: Extremely dense, which lowers the sensitivity of mammography. FINDINGS: DIAGNOSTIC CATEGORY 1--NEGATIVE. Scattered benign-appearing calcifications are present. Scattered benign-appearing lymph nodes are present. RIGHT BREAST: No significant suspicious finding. LEFT BREAST: No significant suspicious finding. RECOMMENDATIONS: ROUTINE MAMMOGRAM AND CLINICAL EVALUATION IN 12 MONTHS. PLEASE NOTE: A NORMAL MAMMOGRAM DOES NOT EXCLUDE THE POSSIBILITY OF BREAST CANCER. A CLINICALLY SUSPICIOUS PALPABLE LUMP SHOULD BE BIOPSIED. Dictated by: Vineet Woods MD on 04/05/2022 at 07:59 Approved by: Vineet Woods MD on 04/05/2022 at 08:01 Normal [facility] MRI Knee w/o Lefton 12-28-19 MRI Knee w/o Left HISTORY: Left knee pain and weakness. Concern for medial meniscal tear. TECHNIQUE: Routine non-contrast MRI of the knee LEFT COMPARISON: Radiographs 12/19/2021. RESULT: MENISCI: Medial Meniscus: Intact Lateral Meniscus: Intact LIGAMENTS: ACL, PCL, MCL, LCL complex: Intact. CARTILAGE: Moderate area of full-thickness chondral loss involving the medial compartment. No distinct full-thickness chondral loss within the lateral or patellofemoral compartments. TENDONS: Distal quadriceps, patellar tendon, and popliteus tendon intact. BONES AND MARROW: No evidence of fracture or bone marrow replacing process. MUSCLES: Muscle bulk and signal intensity are normal. JOINT FLUID AND SYNOVIUM: No joint effusion. No synovitis. No Malcolm's cyst. OTHER: Subcutaneous edema anteriorly. Small amount of edema signal in the superior lateral infrapatellar fat pad. Patella ambrocio. TT-TG distance measures around 7 mm. IMPRESSION: Intact menisci and ligaments. Moderate medial compartment osteoarthritis. 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 Report reported and signed by Patel Bhardwaj on 12/27/2021 1455 Normal [facility] Parts Representative US ST HEAD_NECKon 10-19-[address] HEAD_NECK EXAM: US ST HEAD_NEC K HISTORY: Mass of neck COMPARISON: None. TECHNIQUE: Grayscale and color ultrasound FINDINGS: In the area of the patient's palpable abnormality, right neck. 2 focal lesions are identified. Lesion 1:1.1 x 0.6 x 1.0 cm. Oval, well-circumscribed. Hyperechogenic hypervascular hilum Lesion 2:0.7 x 0.3 x 0.6 cm, oval, well-circumscribed, hyperechogenic hypervascular hilum IMPRESSION: 2 normal size normal morphology lymph nodes Electronically authenticated by: VINEET WOODS Date: 2021-10-19 19:21 Normal [facility] PAP ACOG PANEL 2: 30 to 65on 06-30-2021 . . Normal [facility] Comment on above: Result Comment: Perf ormed at: WB Performed By: #### [id number] #### [facility] [address] [address] [address] Rosa Maria Frazier Age Gdln ACOG Testing 30-65 Normal [facility] Comment on above: Performed By: #### [id number] #### [facility] [address] [place] [address] Dr. Rosa Maria Frazier DIAGNOSIS: Comment Normal [facility] Comment on above: Result Comment: NEGA TIVE FOR INTRAEPITHELIAL LESION OR MALIGNANCY. Performed at: WB Performed By: #### [id number] #### [facility] [address] [address] [address] Rosa Maria Frazier HPV Aptima Negative Normal Negative [facility] Comment on above: Result Comment: This nucleic acid amplification test detects fourteen high-risk HPV types (16,18,31,33,35,39,45,51,52,56,58,59,66,68) without differentiation. Performed at: =G Performed By: #### [id number] #### [facility] [address] [address] [address] Rosa Maria Frazier Methodology: Comment Normal [facility] Comment on above: Result Comment: This liquid based ThinPrep(R) pap test was screened with the use of an image guided system. Performed at: WB Performed By: #### [id number] #### [facility] [address] [address] [address] Rosa Maria Frazier Note: Comment Normal [facility] Comment on above: Result Comment: The Pap smear is a screening test designed to aid in the detection of premalignant and malignant conditions of the uterine cervix. It is not a diagnostic procedure and should not be used as the sole means of detecting cervical cancer. Both false-positive and false-negative reports do occur. . Performed at: WB Performed By: #### [id number] #### [facility] [address] [place] [address] Dr. Rosa Maria Frazier Performed by: Comment Normal [facility] Comment on above: Result Comment: Dayo De Guzman, Edi Programmer Analyst (ASCP) Performed at: WB Performed By: #### [id number] #### [facility] [address] [place] [address] Dr. Rosa Maria Frazier Specimen adequacy: Comment Normal [facility] Comment on above: Result Comment: Sati sfactory for evaluation. Endocervical and/or squamous metaplastic cells (endocervical component) are present. Performed at: WB Performed By: #### [id number] #### [facility] [address] [place] [address] Dr. Rosa Maria Frazier Covid-19 PCR (CVDTB)on SARS-CoV-2 (COVID-19) RNA OLU+probe Ql (Unsp spec) Not detected Normal NOT DETECTED [facility] Comment on above: Result Comment: This test is not yet approved or cleared by the [place] FDA. When there are no FDA-approved or cleared tests available, and other criteria are met, FDA can make tests available under an emergency access mechanism called an Emergency Use Authorization (EUA). The EUA for this test is supported by the [place] of Health and Human Service's (HHS's) declaration that circumstances exist to justify the emergency use of in vitro diagnostics for the detection and/or diagnosis of the virus that causes COVID-19. This EUA will remain in effect (meaning this test can be used) for the duration of the COVID-19 declaration justifying emergency of IVDs, unless it is terminated or revoked by FDA (after which the test may no longer be used). When diagnostic testing is negative, the possibility of a false negative should be considered in the context of a patient's recent exposures and the presence of clinical signs and symptoms consistent with SARS-CoV-2. Performed By: #### C [id number] #### [facility] [address] [address] [address] Rosa Maria Frazier Encounters Encounter Date Encounter Type Care Provider Facility Start: 07-24-2022 End: 07-25-2022 ambulatory Guill[place] Esparza [place] [place]: 07-19-2022 End: 07-20-2022 ambulatory Taiwo Alfaro [place] [place]: 04-03-2022 End: 04-04-[address] MICHAEL RUSSO Facility: Start: 10-19-2021 End: 10-20-2021 ambulatory ANTWAN KNOX Facility:[facility] Start: 06-27-2021 End: 06-27-[address] MICHAEL RUSSO Facility:[facility] Start: 04-14-2021 End: 04-14-2021 ambulatory PAMELA RUIZ Facility:[facility] Payers Date Payer Category Payer Unknown [id number] 1980 Unknown [id number] 2.16.84 [id number] 1980 Unknown [id number] 2.16.84 [id number] 1980 Unknown [id number] 2.16.84 [id number] 1980 Unknown [id number] 2.16.84 [id number] 1980 Unknown [id number] 2.16.8 [id number] 1980 Unknown [id number] 2.16.8 [id number] 1958 Unknown [id number] Summary Purpose Family History No Family History Records FoundNo Family History Records FoundNo Family History Records Found Advance Directives No Advanced Directives Records FoundNo Advanced Directives Records FoundNo Advanced Directives Records Found Additional Source Comments INFORMATION SOURCE (unrecogn ized section and content) DATE CREATED AUTHOR 01/07/2022 [facility] dical Specialist DATE CREATED AUTHOR AUTHOR'S ORGANIZ ATION 04/06/2022 [facility] DATE CREATED AUTHOR AUTHOR'S BELTRAN ATION 09/15/2022 [facility] FOR RECORDS PERTAINING TO PATIENTS WHO ARE OR HAVE BEEN ENROLLED IN A CHEMICAL DEPENDENCY/SUBSTANCEABUSE PROGRAM, SOME INFORMATION MAY BE OMITTED. This clinical summary was aggregated from multiple sources. Caution should be exercised in using it in the provision of clinical care. This summary normalizes information from multiple sources, and as a consequence, information in this document may materially change the coding, format and clinical context of patient data. In addition, data may be omitted in some cases. CLINICAL DECISIONS SHOULD BE BASED ON THE PRIMARY CLINICAL RECORDS. [facility]. provides no warranty or guarantee of the accuracy or completeness of information in this document.
[2023-04-03 00:07] LABS: Age Gdln ACOG Testing Note (.); HPV Aptima Negative (Negative); IGP, Aptima HPV, rfx 16/18,45 Note (.)
== END 2023-03-27 20:07 | disposition home or self-care (01) ==
LOC: LAB 20:06
PROVIDERS: Visit Provider Obstetrics & Gynecology
DX: Z01.419 Encounter for gynecological examination (general) (routine) without abnormal findings (principal)
CPT/HCPCS: 87624; G0145

== ENCOUNTER 2023-05-13 08:49 | Outpatient (OUT) | payer OTHER, SELFPAY ==
--- OUTSIDE RECORDS SUMMARY | 2023-05-13 08:51 | XMS_ITS | CCD ---
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 Name Role Phone PAMELA RUIZ Admitting Unavailable ROSS, PAMELA DE PAZ Attending Unavailable ROSS, PAMELA DE PAZ Primary Care Unavailable ROSS, PAMELA DE PAZ Consulting Unavailable KARASIK, DR RODRIGUEZ Admitting Unavailable KARASIK, DR RODRIGUEZ Attending Unavailable ROSS, PAMELASRI DE PAZ Primary Care Unavailable KARASIK, DR RODRIGUEZ Consulting Unavailable LISETTE, ANTWAN Admitting Unavailable LISETTE, ANTWAN Attending Unavailable ROSS, PAMELASRI DE PAZ Primary Care Unavailable WEST, DR VINEET Cruz Consulting Unavailable LISETTE, ANTWAN Consulting Unavailable KARASIK, DR RODRIGUEZ Admitting Unavailable KARASIK, DR RODRIGUEZ Attending Unavailable REQUEST, DR GOMES LISTED Primary Care Unavaila ble KARASIK, DR RODRIGUEZ Consulting Unavailable WEST, DR VINEET Curz Consulting Unavailable Guillermo Esparza Attending Unavaila ble Chen, Aleja Bahena Referring Unavailable Chen, Aleja Bahena Admitting Unavailable Chen, Aleja Bahena Attending Unavailable Chen, Aleja Bahena Referring Unavailable HOLDENDWAYNE SIN Attending Unavailable HOLDENDWAYNE Attending Unavailable CHEN, ALEJA Bahena Attending Unavailable CHEN, ALEJA T Referring Unavailable CHEN, ALEJA Bahena Referring Unavailable Allergies Allergy Classification Reported Allergen(s) Allergy Type Date of Onset Reaction(s) Facility (1 source) No Known Medication Allergies; Translations: [No Known Medication Allergies] Propensity to adverse reactions (disorder) [facility] Repository Problems Active Problems Problem Classification Problem [...] Facil ity Coding Summary.on 08-09-2022 Coding Summary. CD:[id number] Ww +PGhlYWQ+PG4PQQKoG58hj LBsuS8bP7FGSIdWXfjaFHY LIZuLNySakiHmXY0nwXGwD XJu IC8+XW5cIXJtHhqjvIZtu8 U5nDQ4A13fpz6lFZsiiDR6 RXJmSgLdrqicu5bxtVo6BZ cuNmluOyBt WAKhgX95RQZ3yC19Vy24zK VkcXVxh8irhBu2EyOfKILb VZL0hZveQTkvk0InKTTsI1 3twZAvm1R9 WHWiyUsdaCUnHyVtoLF0lD 7mSReijpoiv5gahkhoDvd0 zg94oCZoa8D4aEH9U9Cqqe Q5RFRnkKZu AdfagGGClT8vksyrc3yhva qtYfEeEXNqCOc3OXr7AFGo vQivLmLzUL44XAP4CHJobo CrT3CpZVUk cGalMpD4j0Q3Do6LU4NLHk xyI9ZFFTZHSGncxPG+PC90 rz02M5DuVdjsRwn3ZKVaLB E0cVH3iR8b ZYKtEIqob8F3oTN3R6Jlku Nvpe0xd0nrRZTpCLsmK85c lZUac5P0FRAdtSY8XXEsjI hyLrVzrD51 Oyc+CTXinBrwz3OuEdcgz2 jls7cglFy3UbqzPQAvvaSk pUidJQL0j8QdQz6bAMCglS D4hZW8xY4o CwPjYuC4NSxqY709SmEunW AhVfzzI30zY0NfqXQ+PHRy Rsg6PQWirXjeCC0mL8CnLP RpbmctbGVm hDozVV2yMNLdsmxeOJTjjY 9uZBIbK0t1LnLoWaV4HIiv M7TeUUYnwpcmEq70xX3bGc HsPjJ1BHpk Q5MabrY8XVZuvUAmNJgnSD D1A97jh9X1LFBfEUBzNJO6 cJL4qP6trWcipvefdHDrhH sgdmVydGlj KCpbEFrcS561NNTxpNyhYv NvZGluZyBEYXRlOiAgMDUv MDQvMjAyMzwvdGQ+PHRkIH P5lBcvNFCa rMJjXKynGa7xuMqgnVhdZY 3tPPIorijsRIOurL3xMDKg xFQnxLzxBB4bKZOvsrvqv3 17IiQeRXH3 JIVdkJNiW4FyhD4lJwSoRV VvQLNqF2BqtTBiMNsgA376 HZerGyH2NKQdvhQlN5PvEH FsaWduOiB0 z7O7Wy1Sn1NxhcxfM4ZqdH RiIeYrSdifDTp8H3TjDdwr dHI+XM07ITLsUE61QPt4EQ T6uEadVUqx UBQtT8VfhN8jLdVbBTOoJB RkOyc+PHRhYmxlIHdpZHRo DQarJIVqBxOthVbsHV7wKh 9yZGVyLWNv fFbzaQJdQsJwk2qhXNYuYM ndLW3axMocE1WaoEH5YYYw o5z1Th31L99sK0IcpRD+PG SvrZN4lMQ4 cC0xBvVaJmG9FKvsL145Kd EphJKwYxpjc4zxg2zmxKx9 YcE9OYKhqyNmzDwlUBQ1h1 NoYp68O08b IHdpZHRoPSIxNSUiIHZhbG byet5jdS4aBh3+PGNvbCB3 iQN9kA9vGpTvWvT3VMbpS5 49InRvcCIv Wbhpm4hxr0gzcLg2IbCvJV RkpzYdqYivEUR5t8GqEb68 Q1XchMpzx3MfBko5ji73iC Wmb4M1jGD9 L8IgCSUkwoiyuXBddHuuXR 8vBAQaztqbJXHjcW8hAXXg U9c3UyDxNuF7WCrpX1Riow I1NNLzlTGi YLPdaRCXhZ2pfztkr9cawm egDkIzXEJoYUd6PKi2LJBk xQouViDdQTA7LtX6UMB5cU FpqD6fiPav noodnQ6kXwx+OWH1cAWjlT ESBL8xJjxgsVF+PHRkIHN0 zEyfGUapOQItyP6qIKVwG9 o9EkWvWlH7 FTiwF5EzdhR2BZRzxYViUO KtuYDLeF1duvltf2oirgrj WnVdVYZxEMz9HMw5BSXmaX duOiBsZWZ0 XpE0ZTF8yLMhdI1etOsxlf obfC6tYsg+QmlydGggRGF0 UVe2E8GkBll3FKKsiRpmKB 0ncGFkZGlu Tu8jiSyzyBxcXT8pSDFtzb dkj256VsVgu1waKXLwvXTw VIbtLQM9J69tk4H8NRBoIB NaUDH6sIM6 fK0miRsneznfjKKhlKrobs KbrXpxDMbkBQwnR416YTGg vTglEiDqFQd0L8AlTtl5VB MbiTjwZZ5z nOTdZUykBw5jkDcdyGgsAJ 5gKWViilkih950MmCwp0mp MHMxjEWmRSbhMCB0L12ta7 K0TFHvTFAf AGG1nZD6pV7sfVkgpxpffH VmdDsgdmVydGljYWwtYWxp U597JLSmbXjlVlTszAx3Y1 LbCax0VKYl nHxbUR3slNEtYOotGu1uwP bhdWvmNP8dKNUtkfrda273 FeHsu6bsCAMepKByVEfmDR W9O57qz2X7 SXKpIVMaKHR4zOA5fM6vdB lnbjogbGVmdDsgdmVydGlj BPxjCSodD856KGHbzZkyFu BhdGllbnQg VJbaKDy9W1ZwPwwisHF+PC 93ULGiDS00mJTfdUXvl1ld hJg8DnUvJSSeEWM9bKilBJ hhd7EiBRJg M09qwBGiu5L9OQBzqJtqbC SkXhNukWT3zS5sACsxapnb k7jsfdavTjssz4nplm75hN 82P81jSVsr ZHRoPSIzMCUiIHZhbGlnbj 8yuR5eQd5+TIYndAP0vPK5 iJ0rTETdNoW5RDotS290Lf RvcCIvPjxj v7kre5ruiWx5DbW0RHThnn ZyzChyOXB5n5YcGs18L71k IHdpZHRoPSIyMCUiIHZhbG gcbu1fyO3q Ii8+LDGgoNH8fXU4gE7pCo LdHgY8UWqeX968HtNimDCh IblmJ32jH7UsvCU+PHRyPj a6DYNfbUdx MR6euYQlQLqjVq6cRTO2Tr GgWwMgRDytD5QtPPSexzar vymdnMD1QQJrXOLrmN22Qz 9udDogMTBw uEWAdZ5bqldhb8lsbqvoBm BaFKZdJUe8WJa0KZZeoVck SlZpBVF8WeB6LQL9pFZlpP 1hbGlnbjog jW2sF3InCDZzajkbBu00hM 6oQdThFuU7WDmaPrb+SkFS AoYBEQigWXVXT4qdCfynwG Q+PHRkIHN0 yNqbVJuwBICwiN8cOCLcE4 l6RrPoRlY3JDvzU3RfBPYd gpvwSh19mQ6zRfFrIuP9OJ caJ0YugpE6 UMXjiLZiMEzuLKM4L13fj7 P5QQRlFOAsUCO0rFN1rR3x bGlnbjogbGVmdDsgdmVydG ljYWwtYWxp C872NNPdmDlzRfU3QlB2Or J3YWR7S6BiAdz0ACHbbDay EN4zrVQpHAcfRu8gxRbmhN ycDG3uZKKn ugacGYYlmT1rWQFsrIGkrY tnBK2xGFKhkaqnx403FtTc FVL2DECvuNKpE7MwsK1uJi AjMDAwMDAw K3VgvSYbIZbkL707XNkwOa S9FREphrReZ8XtJKAwgZmc GhS8f5O0Dl98VNJHKBWvzf wvdGQ+PHRk SRT0mEywDOurHIMfbA7jLF ZkB2c2BxNtPhD3OWvqP3Vz DXKwabdnRe77kA5aRkCaVa D4JGkjK8Qy hnL8WMTiaZHtCEbcHLZ5S7 0nb0K8NVWvDNTtEYB1dJU5 vT9qaCbsfuywiYBvhDuhrr VydGljYWwt PXpiM196QHLyoEkaCeUfkB FsZTwvdGQ+JUGxHNL8vJoq MJovDEEzbT6yBUAeQ8r6Oi JpWkM4BGvs R7CkIMDmohvkAv54pS5fZw PuExA4BNutR8UafdO6XNRt lTDaWKygYSD9K25ht5O6KD MwMDAwMDA7 dDG3jT2zmPgnifujgJEfjB gbphOpmOnfWMakIXloD667 RPJglNnyPp73zAXdtHtbvh I4M1AzIjoy dHI+FV50BSNsKV38uZMqgK Auh1jfwOc5VtSwJTJoGFR3 gRomTBgwp8BzJOHgC88ulJ Vrg9Q1XBAy xTogkVGoYxVjyGE6lL2tWP tqtgkqn7agqqswZdusr6un rp78eP84E45sLZzePDKlKR IzMCUiIHZh tVwacc1pyS0qHo5+PGNvbC F7qBU9wI4wSnSpKuL6SNil K050ZfUqdBIdQorar4shp3 iviUj1XvNl OZOgrbPmdVxhIJB7q5WcEj 37M75xWPrqCATbLUWzCOQx VTSgdTppse1veP5pKh0+PC 2rb4trcn70 iW38dVJ+ABUjEOW8zOlpKY lnKDUwlS2tEEfzSfO3XNYc SnGirC89rJRyRZtjJz4maD hmvMvuCK7d ONKomedze860XgCxx0qfOX QbvQLhAXwvOPS7N57gg7F0 EYNuNTOgWKO7aNS2tZ3ivX lnbjogbGVm dDsgdmVydGljYWwtYWxpZ2 33AIMvjIinIzUdoVBkP6js epMZHZ5jYzofeLP+PHRkIH R3qZoaABbb BWXwqC5sXTNpB4e3KyXrKl I6RNifU8AhyfT8ILBlqDXe CXQsnFRBmK0xjsuvi4apfq ogIzAwMDAw LUo5PJr8WXFerEtcRaGpZJ D1PaP3VMP8kNOwnX1zuFgm jwikeL1pJbs+RklOOjwvdG Q+PHRkIHN0 sZvxLZqkJFGriB8zACKjS4 i6LhQbRbD8CQvbV9UkdbP1 HSDdrJAfPQKeuEJCnW5tdm ffn5dlfdco AtGvQJWzUKj8LJz3HWXpkA miHnKmKFK5LyZ9WRP8zEDc iL6ueEhhhqlimX7oXhb+TV JOOjwvdGQ+ EBRiYRC0cFxnDMqwYTFktP 8tMGCdO3i2HrXtJeT4KRmi J5MaarS9SKYicKZtCOOkxK BTxP3rczim r5jqsqtcYoWkKGCgTBb8LW e4EDGsrEupMuIjQJJ5JkL7 TFZ9wHUazC0psXexdcamyH 9wOyc+UGF5 NSF0VX55ND46S4IaEdynpI FibGU+PHRhYmxlIHdpZHRo KXmxTGSeRpSdhNwkWD6jSr 9yZGVyLWNv bGxhcHNl (more content not included)... Normal [facility] Coding Summary.on 07-25-2022 Coding Summary. CD:[id number] Ww +PGhlYWQ+GJ0LPJQoV67su RCwzI1tT8SYNIkTZjmhIVG CZBfWSwLmmjGtEQ8qvQQdD XJu IC8+AK5wVMAjOywtmORsw7 A2mUV2M97bry5uZEmpbNC2 BAKhZgUmodnhq1hdeNd9JN cuNmluOyBt XFRsiE56TYR9gE56Da07rJ BahJSlc2kaoNr4LhUmNOKf SSC5mYrqKNcaj9IbDCPtY6 2xeRCwx9Y5 EESduIekmZXcFpDtoEA5lL 5lCLdyogaur1ypcfyxDff4 qb67zUKzd8E8yWL0S3Glkj D6JWLdxVZh NydqsAVWyM3kotuca5ikal iaOlDpVFDjMFb2GAd2DBXt yRtfCmUmGH89JQS1FWWbsq HuL7DmEGPr jDmjQgG8c1X0Al4ZT0RDDa nwH8BAIHMNPVgqoAU+PC90 gu91S5QaNtnrNfe7KTJoUD O9yAZ3mW2s WAIeJPpsd3E3vKJ3V8Kppa Gpsn4tb7qeJFGjBTroP87s uKKdl9Z4ZHEieGG6NJXuzO poGcThaX31 Oyc+CUAcnFjeo9CeJltbi2 iez3ilcSp7DtkdRLStmeDy kDetKTL3d2FlJw2gFMKjtC T1oDQ7iC7v ElAxZpM2QNnsB394RvRxaS EfQyfjV62uM0PbrKT+PHRy Tal0LCNoyQzjOH8aQ4IxKK RpbmctbGVm vVcuQK1oJCNlmgorOPPcbW 3eUWLqV4t1EiPyJoD9CDtb Q6HfGYGvmaazVb08dF9aBb SmJkN1QErp E8FatgS0ESDraYMuBUtpWF L6W44ej4L1NQCqDAExHYZ1 dEX0nD8gkHwzqeuonYSwyS sgdmVydGlj ENxmXSjiV825DFLwrXirUd NvZGluZyBEYXRlOiAgMDQv MTkvMjAyMzwvdGQ+PHRkIH D3bVntCUKk rZYsRWhvAo7cjGhkjWrzQE 9pCJShgribEMPbpE5hKUDd bKRlrUbkPB8iLFEqfthlt5 00OuTgYNX0 UCNmfEDdQ5HhkB3xDxYtYS AmOWIuI9NiqMPfYJehH826 FKskUwD6EBVwlrKgU2ItMU FsaWduOiB0 g0O1Yo0Fa7RblhgyA3XdoY AgDvSiMqdoYVi4I2ZbZdhk dHI+JY06MKUzHT36NJn2DF I0gXfnTBgj WTTfW9UyrB8wLrRjZVDoAY RkOyc+PHRhYmxlIHdpZHRo OEviAOXlOrAdrMpmDJ3gTn 9yZGVyLWNv dWqgtNJhZnLiq1zzVLKpSM rtBL5dbYmmD5NevPZ5FBJl i8r4Ty23K32hV7AlrNU+PG GucAL0cNE0 oP8dIgUqIzQ5LSzhH066Rj MgdEQoTrpll3cvs4qfyTy1 RgI5JXRccqNnuHpqXCV9t1 OtVn13S87z IHdpZHRoPSIxNSUiIHZhbG oggq3hjD5lWz5+PGNvbCB3 nYW1zV5aVfYlDhG2DPmpU9 49InRvcCIv Ncduk1ytg3bbxRu6QpWxFX DqrlIklKnyRCO9d6KjRz06 U6LvhYdyy0CfXyt4ej38zS Tyg6O8zQO7 U0TeSBXekypknUKsrWohUQ 5tGSGmrvqxFXXsjS7zQLMn O7n6LeCbIhN3DCscQ7Urnm G2QQFdfWLt TYVwiGKHeH8axwavf9gaym twVrXxKICyJEh6MMl9NASl fRwfVtZsNEA4TrS7WHS9wY SqhP5rqSmn gqnsjI1wOld+YLL9jWLtcY BKHL0uXyxkqBL+PHRkIHN0 gAqyFNndYDHsiA0jRQDzM2 w1YpHlEzJ2 OMqyT9UnqdU6WRYkhRFkOM BosGEYjU8mkcylr4iccfij PrHfJNBwWUz8ZOm1PQHknR duOiBsZWZ0 GjW1HNW9uVIghL3ncVifee eeqU2mQet+QmlydGggRGF0 QWi6B3DbRcf3HBKorYufPJ 0ncGFkZGlu Pk0mqOkreZgnMJ1uGAOliq rxr394VlQft2ctZRAwdSQp TIzrHXJ4B81bt9R1NSNiFE AlXBY3iZM5 mN5ubQtkdetdzCBpvPykza NqoLhtDCtmTYlhI848XXXr tXztDaKcTUp8F9YtXue5JM AvjEacWR9l gXYdWJixHh9sfCxojJoxNO 0sRTAoetwva333LeIqv9gh RZGxmOKyKVbsEES2T82ne8 T1UEQrBSHl XOW6pNQ3oL6fgIlalpslsA VmdDsgdmVydGljYWwtYWxp U731IKIvcOvwWnEnlSa6A6 FdQig1QDPi oCpwLB2jzNOsZScsFo3itN zdcBdnLL4wGAPscyrze941 UfSpx6otMSJeoYXwUMiiAE V7W67iq7Q0 DDJgSYTvIVR5hYA1sY8zgS lnbjogbGVmdDsgdmVydGlj JDjfMMuhJ963MZNmwGarIa BhdGllbnQg KAcuPEr9Q2BgOdwheWX+PC 05KAPlFT41mCXbmSGoa9ns eFu7RcYiQXQtUYY0gMqxKQ akx6DcGPOz G26lfZDyw9T2EUEzkSknhF OfPtZobCS6gE8kBWnghctt p6midninIusnn3povh97pO 48U54jIJjr ZHRoPSIzMCUiIHZhbGlnbj 7pxO3vMu2+GBNnrEJ6xLI8 gU2eEORjBgD2PVecD547El RvcCIvPjxj d5wrj1mlzQk6PeB7LOJacf JdaReoAYL3l9ZhCi73Z19n IHdpZHRoPSIyMCUiIHZhbG hcmw5otZ8m Ii8+ACBcySC2dVX9vT2zHa PsPtQ0UDvkQ900OqZvgFVh TkliQ26vB4KypXV+PHRyPj m2ANIlwOde TD6erOHrURwsNo2nZTV0Vp KwUkZjRXddZ5AnUMSuexvd vwfwgHV7KTJxBXNmhN01Wu 9udDogMTBw dNYBgD2werbdy2agjbsnMc ZgSANoFSx5DHr4YSJtgVaw OfCnRZJ1ZnH0REC2nIGxoU 1hbGlnbjog pZ6dX3UnVCRdgifzCg38vE 7vIfEnPpR8RKblYaj+SkFS YrQTFCqjCBEQJ0nmRvakwK Q+PHRkIHN0 pNzvHApcSCSstY8nEEYfK6 f9PkHrJgQ0YJyxF1GoCKOa firyXu58pV4sWzFkKnN3KI mbL9JxwdF0 FEJhlDHgCNrkQFF8C29mh1 U3WZVpOOJpNWI4vXK3lY4q bGlnbjogbGVmdDsgdmVydG ljYWwtYWxp E529HIFndTjsZlV7OlK1Fb I1AWL9M2BkUai9QPVsnVeb OO5qeFVgPRwySd1arRrgvM gfFH3sFULv xbjvCVYdwA3mKXRxtLUzzI lrWR5qGBBedevvc736FzNj PAW6EHEhrNXkY5EbpD7qQp AjMDAwMDAw K0YtuTVtAMqmP141EEhrGd H7DSEwyfKeH1HoOZDchRio DiD1c7B5Nf19TREBKQVozw wvdGQ+PHRk XVN9lGwvDWeeQGHdqI0rHM BdS6b4UmVsRlZ2WYrfH5Nk QZHdqhtbAq01zN6vOtNkAo W0CSrwD3Hq fcT7OYPmsVDwJRcnAMM2N3 6wb6C9CDGoRYXyBCU5lVT2 xJ7ttNgtaavxrDVkjJigwt VydGljYWwt MCvuV502UHRejJuqIxTzdY FsZTwvdGQ+TIOcOUQ2mCik JHhxEBRprL7tBSKpF7e5Sg WjPuS3NYdr R6HfVYRgcgajSo99yN1xWd PpAcO3QZirL1OpzcV7YOAj dSRrKVxwJSS9R09tx6N3UE MwMDAwMDA7 tKZ3mU1lpUtzddorsOUhdT oiulJzbBatOWwiWEzuI336 EUJcyCczGd71yPYmpBfade N0R6NfJzed dHI+TF59NUOlOT49uUXxsN Rcd4xelYh1XxXnDYCtWHX6 kCjnNBqht1ZbCTYxK96irJ Opf8P8XGCo fZjqvZDgObGltNC4nC5vTM nfedkga5jeculzEawwa4ds ze38qR37F95yQDupEETkHA IzMCUiIHZh gSfegc3nhI1qLv4+PGNvbC W9tNC8yV5eNdYoJjS7SImp S816EfAfkWJvCsoea2zln6 jyqAo0IaCh BPDhvdLowBynVOJ1z9ZpNb 10X10xRWrzEUXqBCEsUBXh MCDqtBgujt1xmB5nPz6+PC 0bn6osel01 sQ24hZG+QJQlNYW9kAjaKV uoHWWhsF0kLDtpRxK6YBXx CoSnmE36aQErMLgiJn7uzJ aecCczWT7o YABaabcfa619WrXko1waPX NsmTWmLXlmGES9Z87tk6K0 LTJrEUHgGED2eCM8cQ7aqX lnbjogbGVm dDsgdmVydGljYWwtYWxpZ2 62PNHleKsdTsNyrAEoN6ve bwTSUO5aFjwrzVN+PHRkIH V9fPfpTHqe ZZGisC9eMCMpS9j8IiHkFh A0SLddV3BpolV3LPRtoZLv LSYpvVCKnQ0cicywy9amzw ogIzAwMDAw WYl4UUq5FBDjsOqiXhKsVM Z8MdF9YJT0gXGvjZ0izDfr hdxlxI4uJdx+RklOOjwvdG Q+PHRkIHN0 hDvyUZllYUGvtC1uAEVhJ4 c0YlKqTmI7RHvwI3RbtvS7 QFCztBMyYYCtyZMRfM9qcp gkp6tfcaye BmOoRTXtCTp5QLd8TBIxwZ yjStRqRNT5WrX3WPR9eGKz mQ5ynZuhipvbdX8pCru+TV JOOjwvdGQ+ NKYfJDC2tLlcUVzaSIQstZ 4yTQNxM0z2UwXdPlK4FKpn O7OujnP3AHYqtLGwGFJzbU GIpQ3cquze k8drcfsnTxFsOVMkTFq7SW x2DBDbuYaiEcEyZXV1GwQ9 XZA4bTHefL8fmTzypeuwfA 9wOyc+UGF5 OBV3UO06MB67U9PzQoiphY FibGU+PHRhYmxlIHdpZHRo MLvoVOYnQcOykCseIX7jNj 9yZGVyLWNv bGxhcHNl (more content not included)... Normal [facility] Consent for Treatmenton 07-07 Consent for Treatment [id number] 0CD:127 Normal [facility] Heart and Vascular Office/Cl inic Noteon 07-24-2022 [...] bike. She did a walking challenge from [employer] in 05/2022. She is not diabetic. She [...] patient or guardian consented to allow Olamide Tanya Turner to record this visit. GAEL loan documentation specialist and provider reviewed before signing. GAEL: [...] Use:., 07/24/2022 Family History Heart disease: Father. Normal [facility] Comment on above: Result Comment: Elec tronically Signed By: Isaias TUTTLE, Guillermo Arteaga\.br\Date and Time Signed: 07/24/22 21:56 EDT\.br\Electronically Co-Signed By: Jenn Meza.br\Date and Time Co-Signed: 07/24/22 16:08 EDT Physician Orderon 07-24-2022 Physician Order [id number]. 00CD:127 Normal [facility] Physician Order [id number]#1. 00CD:127 Normal [facility] BMPon 07-19-2022 Anion gap [Moles/Vol] 11 mmol/L Normal 6-16 [facility] Comment on above: Performed By: #### 2 [id number], [id number], [id number] #### [facility] [address] [place] [address] Calcium [Mass/Vol] 8.8 mg/dL Low 8.9-11.1 [facility] Comment on above: Performed By: #### 2 [id number], [id number] #### [facility] [address] [place] [address] Chloride [Moles/Vol] 103 mmol/L Normal 101-111 [facility] Comment on above: Performed By: #### 2 679657, 3378278, [id number] #### [facility] [address] [place] [address] CO2 [Moles/Vol] 27 mmol/L Normal 21-[address] [facility] Comment on above: Performed By: #### 2 010365, [id number], [id number] #### [facility] [address] [place] [address] Creatinine [Mass/Vol] 0.9 mg/dL Normal 0.5-1.3 [facility] Comment on above: Performed By: #### 2 007321, 5351204, [id number] #### [facility] [address] [place] [address] Glucose [Mass/Vol] 95 mg/dL Normal 55-199 [facility] Comment on above: Result Comment: If t his glucose result represents a fasting glucose, interpretation should refer to the following reference range: 55-99 mg/dL Performed By: #### 2 899847, 7189432, [id number] #### [facility] [address] [place] [address] Potassium [Moles/Vol] 4.4 mmol/L Normal 3.5-5.3 [facility] Comment on above: Performed By: #### 2 377154, 6780662, [id number] #### [facility] [address] [place] [address] Sodium [Moles/Vol] 137 mmol/L Normal 135-145 [facility] Comment on above: Performed By: #### 2 878726, 9254360, [id number] #### [facility] [address] [place] [address] Urea nitrogen [Mass/Vol] 12 mg/dL Normal 5-21 [facility] Comment on above: Performed By: #### 2 727535, 4147764, [id number] #### [facility] [address] [place] [address] Urea nitrogen/Creatinin e [Mass ratio] 13 No Units Normal 10-20 [facility] Comment on above: Performed By: #### 2 036532, 4721530, [id number] #### [facility] [address] [place] [address] CBC w/Indiceson 07-19-2022 Erythrocyte distribution width (RBC) [Ratio] 16.2 % High 10.9-14.2 [facility] Comment on above: Performed By: #### 2 386680, 9469996, [id number] #### [facility] [address] [place] [address] Hematocrit (Bld) [Volume fraction] 36.4 % Normal 34.0-46.0 [facility] Comment on above: Performed By: #### 2 895046, 5801285, [id number] #### [facility] [address] [place] [address] Hemoglobin (Bld) [Mass/Vol] 12.0 g/dL Normal 12.0-16.0 [facility] Comment on above: Performed By: #### 2 898988, 2938937, 82902585 #### [facility] [address] [place] [address] MCH (RBC) [Entitic mass] 26.1 pg Low 27.0-34.0 [facility] Comment on above: Performed By: #### 2 489252, 2734985, [id number] #### [facility] [address] [place] [address] MCHC (RBC) [Mass/Vol] 33.1 g/dL Normal 31.4-36.0 [facility] Comment on above: Performed By: #### 2 085071, 2217468, 35406962 #### [facility] [address] [place] [address] MCV (RBC) [Entitic vol] 78.8 fL Low 80.0-100.0 [facility] Comment on above: Performed By: #### 2 905960, 4703435, 16924234 #### [facility] [address] [place] [address] Platelet mean volume (Bld) [Entitic vol] 7.6 fL Normal 6.4-10.8 [facility] Comment on above: Performed By: #### 2 716397, 4126384, [id number] #### [facility] [address] [place] [address] Platelets (Bld) [#/Vol] 346.0 E9/L Normal 150.0-500.0 [facility] Comment on above: Performed By: #### 2 029605, 0041164, 11279798 #### [facility] [address] [place] [address] RBC (Bld) [#/Vol] 4.6 E12/L Normal 4.3-5.9 [facility] Comment on above: Performed By: #### 2 963427, 2786781, 49038190 #### [facility] [address] [place] [address] WBC corrected for nucl RBC Auto (Bld) [#/Vol] 7.5 E9/L Normal 4.0-11.0 [facility] Comment on above: Performed By: #### 2 823961, 9039826, 24752497 #### [facility] [address] [place] [address] Consent for Treatmenton 07-07 Consent for Treatment [id number] 0CD:127 Normal [facility] Physician Orderon 07-19-2022 Physician Order [id number] 0CD:127 Normal [facility] eGFRon 07-19-2022 GFR/1.73 sq M.predicted among blacks MDRD (S/P/Bld) [Vol rate/Area] mL/min/{1.73_m2} Normal >=59 [facility] Comment on above: Order Comment: Order added by Discern Expert. Result Comment: eGFR is race adjusted. AA=. Performed By: #### 2 451997, 9931635, [id number] #### [facility] [address] [place] [address] GFR/1.73 sq M.predicted among non-blacks MDRD (S/P/Bld) [Vol rate/Area] mL/min/{1.73_m2} Normal >=59 [facility] Comment on above: Order Comment: Order added by Discern Expert. Result Comment: Lead Massage Therapist mark kidney disease could be indicated at eGFR's of less than 60 mL/min/1.73m2. Kidney failure is indicated at less than 15 mL/min/1.73m2. Performed By: #### 2 133360, 9354900, [id number] #### [facility] [address] [place] [address] MG MAMM SCREEN 3D RONEN CADon 04-03-2022 MG MAMM SCREEN 3D RONEN CAD Patient: KARMA NIETO Exam Date: 04/03/2022 : 1980 Gender:F Ordering : DR MICHAEL RUSSO . Admission #: [id number] Family : Order #: [id number] CLICK HERE TO VIEW EXAM RADIOLOGY REPORT PROCEDURE: MAMMOGRAM SCREENING 3D BILATERAL CAD COMPARISON: None. INDICATIONS: Screening mammography Calculator Name NCI Breast Cancer Risk Assessment Tool 5 Year Breast Cancer Risk 0.60% Lifetime Breast Cancer Risk 11.10% Personal Breast Cancer No Personal Ovarian Cancer No Treatments None Family Cancers None LOCATION: [facility] BREAST COMPOSITION: Extremely dense, which lowers the [...] MD on 04/05/2022 at 08:01 Normal [facility] MRI Knee w/o Lefton 12-28-19 [...] by Patel Bhardwaj on 12/27/2021 1455 Normal [facility] Artists' Model US ST HEAD_NECKon 10-19-[address] HEAD_NECK [...] by: VINEET WOODS Date: 2021-10-19 19:21 Normal [facility] PAP ACOG PANEL 2: 30 to 65on 06-30-2021 . . Normal [facility] Comment on above: Result Comment: Perf ormed at: WB Performed By: #### 4 [id number] #### [facility] [address] [place] [address] Dr. Rosa Maria Frazier Age Gdln ACOG Testing 30-65 Normal [facility] Comment on above: Performed By: #### 4 [id number] #### [facility] [address] [place] [address] Dr. Rosa Maria Frazier DIAGNOSIS: Comment Normal [facility] Comment on above: Result Comment: NEGA TIVE FOR INTRAEPITHELIAL LESION OR MALIGNANCY. Performed at: WB Performed By: #### 4 [id number] #### [facility] [address] [place] [address] Dr. Rosa Maria Frazier HPV Aptima Negative Normal Negative [facility] Comment on above: Result Comment: This nucleic acid amplification test detects fourteen high-risk HPV types (16,18,31,33,35,39,45,51,52,56,58,59,66,68) without differentiation. Performed at: =G Performed By: #### 4 [id number] #### [facility] [address] [address] [address] Rosa Maria Frazier Methodology: Comment Normal [facility] Comment on above: Result Comment: This liquid based ThinPrep(R) pap test was screened with the use of an image guided system. Performed at: WB Performed By: #### 4 [id number] #### [facility] [address] [place] [address] Dr. Rosa Maria Frazier Note: Comment Normal [facility] Comment on above: Result Comment: The Pap smear is a screening test designed to aid in the detection of premalignant and malignant conditions of the uterine cervix. It is not a diagnostic procedure and should not be used as the sole means of detecting cervical cancer. Both false-positive and false-negative reports do occur. . Performed at: WB Performed By: #### 4 [id number] #### [facility] [address] [place] [address] Dr. Rosa Maria Frazier Performed by: Comment Normal [facility] Comment on above: Result Comment: Dayo De Guzman, Artists' Model (ASCP) Performed at: WB Performed By: #### 4 [id number] #### [facility] [address] [place] [address] Dr. Rosa Maria Frazier Specimen adequacy: Comment Normal [facility] Comment on above: Result Comment: Sati sfactory for evaluation. Endocervical and/or squamous metaplastic cells (endocervical component) are present. Performed at: WB Performed By: #### 4 [id number] #### [facility] [address] [place] [address] Dr. Rosa Maria Frazier Covid-19 PCR ([facility])on SARS-CoV-2 (COVID-19) RNA OLU+probe Ql (Unsp spec) Not detected Normal NOT DETECTED [facility] Comment on above: Result Comment: This test is not yet approved or cleared by the [place] FDA. When there are no FDA-approved or cleared tests available, and other criteria are met, FDA can make tests available under an emergency access mechanism called an Emergency Use Authorization (EUA). The EUA for this test is supported by the [employer] of Health and Human Service's (HHS's) declaration [...] consistent with SARS-CoV-2. Performed By: #### C COUNTS INCLUDE 234 BEDS AT THE [facility] #### [facility] [address] [place], [place] [id number] Dr. Rosa Maria Frazier Encounters Encounter Date Encounter Type Care Provider Facility Start: 04-24-2023 End: 04-24-2023 ambulatory DWAYNE HATCH Not Available Start: 03-29-2023 End: 03-29-2023 ambulatory ALEJA CHEN Not Available Start: 03-27-2023 End: 03-27-2023 ambulatory DWAYNE HATCH Not Available Start: 07-24-2022 End: 07-25-2022 ambulatory Guillermo Esparza [place] [place]: 07-19-2022 End: 07-20-2022 ambulatory Aleja Chen Facility[place] [place] Start: 04-03-2022 End: 04-04-[address] MICHAEL RUSSO Facility:[facility] Start: 10-19-2021 End: 10-20-2021 ambulatory ANTWAN KNOX Facility:[facility] Start: 06-27-2021 End: 06-27-[address] MICHAEL RUSSO Facility:[facility] Start: 04-14-2021 End: 04-14-2021 ambulatory PAMELA RUIZ Facility:[facility] Payers Date Payer Category Payer Unknown [id number] 1980 Unknown [id number] 2.16.84 [id number] 1980 Unknown [id number] .16.84 [id number] 1980 Unknown [id number] .16.84 [id number] 1981 Unknown [id number] .16.84 [id number] 1981 Unknown [id number] 2.16.8 40.1.881935.3.579.2.727 1981 Unknown [id number] 2.16.8 40.1.689201.3.579.2.727 1981 Unknown [id number] 2.16.84 0.1.592269.3.579.2.9 1981 Unknown [id number] 2.16.840 .1.641562.3.579.2.1259 1980 Unknown [id number] 2.16.840 .1.908049.3.579.2.9 1980 Unknown [id number] 2.16.840 .[id number] 1959 Unknown [id number] Summary Purpose Family History No Family History Records FoundNo Family History Records FoundNo Family History Records FoundNo Family History Records Found Advance Directives No Advanced Directives Records FoundNo Advanced Directives Records FoundNo Advanced Directives Records FoundNo Advanced Directives Records Found Additional Source Comments INFORMATION SOURCE (unrecogn ized section and content) DATE CREATED AUTHOR 01/07/2022 [facility] dical Specialist DATE CREATED AUTHOR AUTHOR'S ORGANIZ ATION 04/06/2022 [facility] DATE CREATED AUTHOR AUTHOR'S ORGANIZ ATION 09/15/[address] [facility] DATE CREATED AUTHOR AUTHOR'S ORGANIZ ATION 04/25/2023 [facility] dical Specialists [facility] FOR RECORDS PERTAINING TO PATIENTS WHO ARE [...] BE BASED ON THE PRIMARY CLINICAL RECORDS. [facility] [employer] provides no warranty or guarantee of the accuracy or completeness of information in this document.
--- NOTE | 2023-05-13 09:21 | ECG_ITS ---
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
== END 2023-05-13 08:50 | disposition home or self-care (01) ==
LOC: PST 08:50
PROVIDERS: Visit Provider Obstetrics & Gynecology
DX: Z01.810 Encounter for preprocedural cardiovascular examination (principal); R10.2 Pelvic and perineal pain; Q51.3 Bicornate uterus; N92.6 Irregular menstruation, unspecified
CPT/HCPCS: 93005

== ENCOUNTER 2023-05-14 15:52 | Outpatient (OUT) | payer OTHER, SELFPAY ==
--- NOTE | 2023-05-14 15:54 | MM_ITS ---
Patient Name: RUIZ NIETO MR#: [id number] : 1980 Exam Date: 05/14/2023 Ordering Doctor: DR Vincent Edmonds . RADIOLOGY REPORT PROCEDURE: MM TOMOSYNTHESIS SCREENING BI COMPARISON: MG MAMM SCREEN 3D RONEN CAD, 04/03/2022. INDICATIONS: screening Calculator Name NCI Breast Cancer Risk Assessment Tool 5 Year Breast Cancer Risk 0.70% Lifetime Breast Cancer Risk 11.00% Personal Breast Cancer No Personal Ovarian Cancer No Treatments None Family Cancers None LOCATION: [facility] BREAST COMPOSITION: Extremely dense, which lowers the sensitivity of mammography. FINDINGS: DIAGNOSTIC CATEGORY 1--NEGATIVE. NO CHANGE FROM COMPARISON ASSESSMENT. Scattered benign-appearing lymph nodes are present. RIGHT BREAST: No significant suspicious finding. LEFT BREAST: No significant suspicious finding. RECOMMENDATIONS: ROUTINE MAMMOGRAM AND CLINICAL EVALUATION IN 12 MONTHS. PLEASE NOTE: A NORMAL MAMMOGRAM DOES NOT EXCLUDE THE POSSIBILITY OF BREAST CANCER. A CLINICALLY SUSPICIOUS PALPABLE LUMP SHOULD BE BIOPSIED. Dictated by: Felix Simon MD on 05/15/2023 at 07:23 Approved by: Felix Simon MD on 05/15/2023 at 07:24
--- NOTE | 2023-05-14 15:55 | US_ITS ---
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 FINDINGS: The uterus measures 9.2 x 5.2 x 5.6 cm. No focal myometrial mass. Identified in the cervix is a complex soft tissue echogenicity mass with vascularity measuring 2.1 x 1.5 x 1.9 cm. Endometrium measures 1.9 cm, correlate with the menstrual cycle. 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 The right ovary measures 4.1 x 3.7 x 3.4 cm. Area of anechoic echogenicity measuring 2 cm, simple cyst. Normal color Doppler flow The left ovary measures 5.1 x 3.5 x 6.0 cm. Normal color and Doppler flow. Area of hypoechogenicity with no vascularity measuring 3.3 x 2.6 x 2.5 cm, complex cyst favored. No free fluid US/US pelvis w/ transvaginal IMPRESSION: 2.1 cm vascular mass in the cervix, direct visualization is recommended Electronically authenticated by: VINEET WOODS Date: 05/15/2023 09:27
--- OUTSIDE RECORDS SUMMARY | 2023-05-14 16:12 | XMS_ITS | CCD ---
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 Name Role Phone PAMELA RUIZ Admitting Unavailable [...] Attending Unavailable Chen, Aleja Bahena Referring Unavailable DWAYNE HATCH Attending Unavailable HOLDENDWAYNE Attending Unavailable CHEN, ALEJA Bahena Attending Unavailable CHEN, ALEJA T Referring Unavailable CHEN, ALEJA Bahena Referring Unavailable Allergies Allergy Classification Reported Allergen(s) Allergy Type Date of Onset Reaction(s) Facility (1 source) No Known Medication Allergies; Translations: [No Known Medication Allergies] Propensity to adverse reactions (disorder) [facility] Repository Problems Active Problems Problem [...] Facil ity Coding Summary.on 08-09-2022 Coding Summary. CD:[id number] Ww +PGhlYWQ+SN4YLDZaH10ao LNgyO7lB3GUHIaRHwtnEUV VXLcOYdFcriNoQV7lqUBhW XJu IC8+CY1qGWNwMmkkzJVkj4 S3iLY3H88jtu0uUXhgxDO3 OZDnRnLyprkmi6ccaEe4XO cuNmluOyBt ILOunZ34AEG1zH24Jl99eK LcfTRft4gaeTe2DsDyZFAu ZKV3uIdzRZbkk8AzPIMfX0 7ivHGym7M7 TVNfsOatxVKhBwAyiLL5kT 6zLPjtwvurn6cseayaCyz9 fb00eENhf4L0kAX0E7Prut F9DMJwtJXp NqeteIUGvB8obzqzp6dfbf ggZxOdZFFvIXv4OGe0EAPn nWsmFfVxGR80BCR2FWGyle JpB8GbRNNw kNraFtO8b5E9Tk9FR5QIWb duF2UIUTWHVUtymPS+PC90 dz78O0HnIxqcGyd4EZZeNS G1gNK7nB9z KKHaWDxdp7P0cCM9Q6Oznq Eyip8cl6tmPMYwXCtjY21w aTWvf5L8XCOzaXR2OTRexE oyAcWfdK55 Oyc+RRThvJaft6IwJlxik5 yay6ggyDh5SybsXQQhyjEp wMhsGTU8f0OuRm1kOIQbmZ X8zXH2iM4n ZcDfWoE1ZGlzX666TpQcaA IkJdckY98cZ7VrmKI+PHRy Bhs0LQUghLtvTO2bS0CgGH RpbmctbGVm dVyyCC0tMYOpjtufTIXgsS 9pGDDfZ5d0BnIyJrJ2UOiv X5ZhMXLmdkicBy58eG9iIm BoDjB7ZYcu G3DhodO5QIAqtKJbZGcjFD L7V68rq7T5MHJpKADoORW6 hCZ8mK2oeEyoejeriCEqsZ sgdmVydGlj CVljZKpkI130XHStgJymBt NvZGluZyBEYXRlOiAgMDUv MDQvMjAyMzwvdGQ+PHRkIH X9cKwvMFPv wJYbOPelSx1edSwgcBvuQL 2pJYRskemgEWKfjG5lPCFc tJMvhEzeAY6vRGTluoxyk6 32MrNuPDG0 IIBhcKBoB6ThzP9pYiKjXZ QyQEZsM1OgsKBcSEblH134 VIhyCvA2QTOgxoTuA9EcZE FsaWduOiB0 y0Q2Va4Ah7CakjowK5LqoX LlFlEpEajhIPl4Y5ZgGhlq dHI+EI63LXTtEZ87CNt7WU X2zEidOPde ODWjB6FekK4eGhYrOQFoQU RkOyc+PHRhYmxlIHdpZHRo MIrpEDSpKtAlyZsyXF3sMh 9yZGVyLWNv wPfqwMQnIhSpm2cjYTMwCE utQM2lyNnfC7TivNW0DPEe f5v9Gm34V20gZ0VrtYF+PG NvgKE8vKA5 xQ9jRbOmKwM4DJrbG791Ue CujCEuCkdbw7dpr4nydEj4 RnQ5UXKzxjLuxZnxVYK6c3 AcRo66R39o IHdpZHRoPSIxNSUiIHZhbG kdif4mvK6mGu1+PGNvbCB3 yDR8jR6kVsWfXjU5QHaoR0 49InRvcCIv Ujcya1dlk2ndkPb7RkKmVM WgerAztPvrNTF7z9DqMf64 B5NlySejp8AeIfs3ko21yG Khi7Z8hDR1 V7HmAZIutzhooMJqnYqoUY 2tSNYkovlyYMLduM6nYTLn U1n7EeUhYkX0SGvvJ2Zdvq H5KRDvdJSx RTEjrYKBuA2oyucgq9wutp tzJoHcQTUxXJv1VPb5JGQq nGwcExNgFZB9DhH3VJN0cJ XouD1hnKkw iujvzQ9qFkz+OQO2wFNdfT QRGV7gOxtanGS+PHRkIHN0 dPjhVCyzGGAjvO6pYUJbO4 k3MyZcCdA2 BCvsU0QnzzH8RGQmgTWjOQ FpyOJUkA3augkef0rrhqll MdReNMFrZAb6IJn6UYCgaK duOiBsZWZ0 CkD4WFU5fCHfcW2znChkqv nkhH4xWkw+QmlydGggRGF0 RIg4U0IaSmd3TDRrmZreSK 0ncGFkZGlu He5jmYzjnCajMB7vZEQkjo kws879YrGso1bhNUPutYLh IHseAOK6I21vv8Y9KGAkMR ZuBMX6rRP6 oG2bvNsllkswoRDzcIeobz BowOglHBjfIQhiS930KQNx pFyvIeIdZFg4M1YmSsn9VF RiuQncXZ0a eGGuXKbgPo7lpOkzlBakZX 8lOACuxpnut781OpQvp6hr ATOlzQAwEAebVUO6M50zm3 K0OSIrULEr DVI0iCM4kT9kiUjguhpwcT VmdDsgdmVydGljYWwtYWxp O977MXBbpUeaDzNszNh6C7 SrHgq6AXQg cAftNW9fnBPmIGeaJv9iyI wteJgzGO6nTUOyheydw755 ZiIbe1khZNNmbNKoNGxlWN T9X11tl7T8 BPGjEGKlHXB7wRK5nS7pxU lnbjogbGVmdDsgdmVydGlj CUslICfyS326PURbkXvzXf BhdGllbnQg JCguWVy4G8TxYzjtjNK+PC 22CGUoOH04lGBflINyv4ge vMx7IqUdSASyBKR6iUpaZZ spq3NvGIGw N74zbTHhf7I3WZRwbLvnfK QaHiIrjBJ0eV5eZEnwaiuf j2nqjxpyNoltw9rvns22jO 64B60pWQae ZHRoPSIzMCUiIHZhbGlnbj 1deM9wWm8+QFUpqMI4sYJ5 iV4sXFLgOvQ6NRubJ268Pi RvcCIvPjxj l1blq9tsuJi1SaF8BNAorq ZszSxzIMG2x0AnAv55Z51t IHdpZHRoPSIyMCUiIHZhbG eemi6slX9j Ii8+EBCiaKH7gSH0uS0fMz XhSfD6XJouA703AfWptHZg AulcR49gW9BseBT+PHRyPj f7ZBRnvEzw PQ2piRCiFTaaSw9uOOW5Op XrXePvQEajV3GyPVWiuifu hzsvtLP9GKMsRCIrtH95Gq 9udDogMTBw uNZSrG8juezpi9edocsfWp BlQYIeWVl6MGx2NCNfmNrt YoAzWVF5TgO5YZN9aBVrfG 1hbGlnbjog lT5xC1FaTCJdxzssUy78zY 9eHbAzNpP5XDplGug+SkFS AjWAVZffYICZV1cdOdpwgR Q+PHRkIHN0 bKqqOVsuXRJwjA3zNCWwP0 l1RaHkHkF2NYinU9JzBEEo phyzKt98iZ8sNgIeNuE0PD cnD3FmgqL8 JDGkgLSwIKztCQZ1O87sn6 H5QHHvUJNrKUC6aXT0oY2s bGlnbjogbGVmdDsgdmVydG ljYWwtYWxp S313LPBfoGfyJdE5WpU0Tq E1DDR8C1MkHle5XPXkoOjc OI8ocMSjSTrpOg4yyDakmM xqOU0pHXFz qhtmKFGdnA2lSXLuwOBtcN hfJC7dUVMnzapyp201McCq GXL7KFMwdODnJ9LkxN4bMj AjMDAwMDAw D3EggUJlXXbjY460ZXtdEf W1AGDmhvRfV5FdBVKatNav HsN3q8W3Hu14ODVPHZPhzu wvdGQ+PHRk QIY0jKjqKSpzOUZpwL1rLO NhK7u2PmGzSnB9SVorS8Ze CZEmtsztDy79wZ4gCaHtJq Y1UHkuG3Ot sqV3XPPbySKtYBukICC0C4 1iv0I5PFEhEIZyINW4zAA2 nE7oxAvcwqtbmQTcpNbfcl VydGljYWwt KDjkF822QCIowXmrLfRrkQ FsZTwvdGQ+XFPgSPR4jNlj IRqlCNKzyX6rDXHoO9o4Qf TxDfR4OKpv G9QgOZZdphqcFq37iZ7zJd EjBoH6WIrcL8KoxoW7NGNm kTGlGKdxAPS3H67eg7U6YR MwMDAwMDA7 cIO2vD3aoNeijbtkyKTqmT cmbdSveRqeDRveIKofO855 QSBfgQaaJb75mIHwlSbpqb F1E2YsEvqo dHI+NM70VKGpYA42pUGaqY Oey4hygCr1LwWqOZUbWNW0 qDkyFHscx6XpAPYgR02btK Wxx3T1XWTw nDchoQPbUgTwmDV3nT7cKS ckkyoeq6angemlAdcsu9sx wr36xR75X25cUByjYYBuMH IzMCUiIHZh wYjciy4jnS7qWq7+PGNvbC A3oJY8bG9dBxEfYvH0OQha W610AgBpxBQbDeadw2npx7 ksmWg2KeHb ABYxdnKetNwcXAO7t3KxTs 07D77eDPqhDYVcRCMiZIWn AWRkvRfwvv8cgV9fDf3+PC 6xk5udgw57 bQ93kCT+NYGiOYQ2gPgpXK waDQGraT3xDQtkBhI0VVMg StUtcS13cOAaMDslIl7tqH axnQjgEA8d OJXhtcpnz428BrSeb1hyKI IqiNHoIIszXUR6I71lf3U2 BCNsPZGmZXO8eEC8pP0shQ lnbjogbGVm dDsgdmVydGljYWwtYWxpZ2 85HXRnpSyvRrHadNQlJ1wz heHYOD3kScyqgGS+PHRkIH M3yGoeXHxl BUVdpN6fPXHvC0n1RzWbQw M1JPvjX9UhjuE6TLJukZTe QPDhyOJEtW5jwfeyw7jojk ogIzAwMDAw DZk9ZNj1MZLdeAfhGhXgAA Q7DhB2GKP5fRFppN3isPaa qnhvwE7iDlk+RklOOjwvdG Q+PHRkIHN0 kXmhKZycFELyvM0xCRWfY2 x7VsYrDeD6TMgnA7HqroX8 XOEesUMwIGCgjPONaR3qsg igj0pugkxi KtXkAWOoOYj8AMf9YUUagB lmOqDiFHX5NeJ7ISX4vPVv nD7ijQcnofnpuT9jQsg+TV JOOjwvdGQ+ QSTvWQN3sGapIEunWALynX 8yWGXhG7d0HwSmKtZ9GRgj P3KscyT1MZVocZJyRZVyeE QOuP2ezzjw e3sjozyoLgEgSNHwLWx7LS x3AWGcpBdkKnKbDKZ4MzZ0 ZBW7fBAmkQ9pqIfsifbmfD 9wOyc+UGF5 HYT8QN26KJ20L0OyDewnsD FibGU+PHRhYmxlIHdpZHRo EZzeBWClNhEhdIliAA2qSj 9yZGVyLWNv bGxhcHNl (more content not included)... Normal [facility] Coding Summary.on 07-25-2022 Coding Summary. CD:[id number] Ww +PGhlYWQ+SQ2TAXHrS37ur JAthP1xA9CZKRpHXipeGKC ZKSmBIkExixMoZR0wiRLiA XJu IC8+UT5vOSIjAoytsFLnx7 J8xKS0W42fac8rIUbwzDC5 APZtHqAbwbwgr8uixFx1PQ cuNmluOyBt ROLfwP04KWH6qY64Jo08rI XqyKIfm0xlwPe1HqNhJUVl LGB3pTamQYoge4XxYWDoS9 4zuZCyg1R4 SYZalBmolDVhOuEniWT8tM 3cYArlnwpfy9zfqqddUnh6 gu65vGBhr3T6wPM4E7Grwp G3ELFlzQLi EkeqzRSYxS5hqsnya9niyf zwWaUuXVBlCNv4BUt2PQMg iYreNyWbPW93UGM2WIGdof BoV4JtLUTo mQroToJ0n4B7Yf7XU8UYLk clC5SHKPFMDEybvUD+PC90 jp73R8DhNqqwJsg6CEPnXP D4hSC5tU0b CWNwNGstz3B9uCG8I7Dvyn Hvjh7rh6atPJLsIUkxT37i hESkd0G2HGSyaEK2TWAfyZ jlRdAqdL06 Oyc+KTIsfKuut3ZuDaqas0 sst9virDb0KtqwSZJcbjWe yNqyDKV1n9GyGg6qIZBghC K9zEY9jB1z UaZvRjM7OCbzG970MpGqtH VaPopwR47yA7ElhFH+PHRy Ueg0EEAawTvbSW1kB1HsVJ RpbmctbGVm uMuyIZ5dYOWddugeLKJrgV 4jEIBjV9v3ZiOsVhO2MNay P3JyAMQencxuId02kX2uHn RtNvR2DFlz B1WnbyT9DWOvlEKxLBisFN W7K84eg8X9QHKfATKnTDM7 uEV2mP0ahDjufocbkTBquF sgdmVydGlj BUwmJXvmL757BGTzeGzuBb NvZGluZyBEYXRlOiAgMDQv MTkvMjAyMzwvdGQ+PHRkIH Z8pUyhGGRs pMTbGKvzSn0phAvcnKagRZ 1gKGYvlotjFKIuvK9wQESn wSUhaUcfUA9aHMVhssqkx1 63YjVhPVS8 YPNbxELwW7IsjX4wRdSuMX VqDGYmS7YnqEXuJTzdP578 TXawToP9MGKrgbTcX1EqQS FsaWduOiB0 k3C8Sq4Cu4EoenthJ7PsxM OxFnAjRdbnPVg4K6YqCgtd dHI+BL26FSIaEW79HUe8XN U8mRhvHVpa JOAlQ4AirP6oMkXkWIBuZF RkOyc+PHRhYmxlIHdpZHRo JLqoHITzZeDirAcwLV6kTm 9yZGVyLWNv vCcovYZdScGqs8bfLROgWP hzDG1ihTcaO3NupGV6YWWd a1u8Yk75N65dP3RioTX+PG GnqKY8sUP4 oH0aMmShVaT7DLhcY871Nz KjsEFfDsauv3una8tojLu9 UyV2IJPopkHswBatXWJ0g8 YrEf69A89i IHdpZHRoPSIxNSUiIHZhbG xfbq6gxR1fEk5+PGNvbCB3 gFP0uD8lSmOaDhT6NPuzA2 49InRvcCIv Wyyff9hve8hctPh0VzIpSP EefsTjtEfqKLY1a2TsCe31 E4SwhFtqo0YoYrb1zq25gY Est6Z4mPP4 I6CzVOYaniatbBSzbVwwNS 9dTHNzugqiGUBwfW7fKEOi J5j7IwQbNaW3JPouR4Rqsx U0UKAifGBf CKBquTXJyC7pqycct5lfdz nbVpTaXWDsDPx8XZr1XJGp lWzfKfQrJXC3UiD0LWB2uG IsvS3ekSmn whskwX7iSxn+DAA3tZZgoP SUUJ4tQnoqiDN+PHRkIHN0 kYraQRlyUZDksL9pFZMtD8 s9LvJhEhH2 WZcgI0JhpyA5KUDiuOCoLZ ZqgUTQpT5kwvcdb0ifiywg ZgLaESTfTJy6AIx4MKWmzK duOiBsZWZ0 DrM1PAE9sWRvkB4bfFlmip sneV6gDfr+QmlydGggRGF0 WZt8B4AtZyb6AGFpiRisDN 0ncGFkZGlu Ah2twVjaiZasPN5eNUSbdc nka452CcLvf8fgKWAtbMZv QSwhJTW3X74bp4Y7VJPxBW EcLOD6pMV0 pQ8xvLietshocBBtjWhcoq LpcJosMOmbXZfxC165DSRd tTtaGhMzWPf7E6EuMrm0MO BzdEiqCV6f jGJiSNchEn6jdBqisObaWR 4cMPSdomfoi373PnHze5tf DVGymOPxIHbuCAE5Z28oi4 B8MDUgNWPl ZYV4jTC4eM0jbOxncibfqE VmdDsgdmVydGljYWwtYWxp O738XJMlhEpgNcJqdLf3G0 BnAlx0WWVp lFwnME2evQFvFGwuVf8pxN yikFtnGZ5zOMKpryqzx734 HaNvk5vfUENoiJIoFNgiQH T1A49ft7B3 ZHPdTNSmOHY7mGR7rK2pdH lnbjogbGVmdDsgdmVydGlj PBmeMIlrR456QNWjrDnwBr BhdGllbnQg DJlsSJq4C1FnWlbkfCA+PC 36YJQpBY39xWBjyRGfx2dd tGw6XmPjXONpHSF7hLizWM idb2BnBPQk M35blYOzm9K6RFKibJywjH GoDrIdzWP8tI5mVVsoxrwq o6mcwdafTtkid5sdqy38aP 34G68sKVrr ZHRoPSIzMCUiIHZhbGlnbj 3kiU3qIu1+DFPrtZT2oDY9 iU9xYNPtRtK6YQquC902Ac RvcCIvPjxj v4dlx5sqqUw3YxJ3VWRjan QdjQkwEEQ1u4VjPy71J84b IHdpZHRoPSIyMCUiIHZhbG qmss5epQ9i Ii8+YRNiyQM7fSA5mW2iWb TaMxR4DWdwL532HmZnzRRt UpuvP34xD9PbaUL+PHRyPj y1NVFeqVjb ZE4zvVPiOPixYg4uXZQ0Am YfKfAnDUlbE9NvWDSixwsa hjbbjWC1BRXhGRMdcZ58Ni 9udDogMTBw aUGAvP6lzlobk5yktbbzZq AzNBWvGNd3XKf1DGOimLbk HcJgNPZ3AcP3NXG7uMIsjF 1hbGlnbjog nQ3xW8FqQNBgioucUz02tQ 6aNiTgPdK6UZuhVja+SkFS ZaIILVxkZBSHZ1ukHaidxI Q+PHRkIHN0 fDqhENlyFRMwdK0kWOLqO6 w5GeUcDvM7YThsX1TcHPTd bapiDx45oU0yWoIcGmF7XV atJ5FctnZ4 UXGbtYIiLYhwFTZ3V93xj9 W4OUGzYCFiTSZ4kKU7oF2c bGlnbjogbGVmdDsgdmVydG ljYWwtYWxp M639QXGcdQrnWxO2RpF6Kn E2OYQ0J8ItSch4EMEdvAjy VJ0jmCZcLSxoXi5zkLexfA wnMX9aFLFz kidzJUCjvV6qPGCvyVCdoN evRO4dOJWlbokhj087LtMd TNM9GDKkkMWsK1QzeJ3eBl AjMDAwMDAw K2ZmvGXrKHrvW668AVurIf Y4QNMbviBoC5SxCUOsgYhm NfG1c3I7Og24SKSGVOMfer wvdGQ+PHRk LDW5yRvzDFyaHQXglE4eYP PiC3y2LyOzFuZ6AGdoO9Lx TBMkqpctIv87nW1rIcRvQv R7LMyqX0Vv noU9OFEvxHElUNxkXVV4U7 8jl5C8ZKZxRZGoOOV4kSX6 fM6seOiptvthaXGpuWzfrd VydGljYWwt FLdvX276VLAwqTgeKcQkkO FsZTwvdGQ+EFHzWOJ9tBfr UOjeJCUmyS6dGMPlI1a3Zg ZkKcO4PBwy G9YjDDAhbfchEr35zT9mKm XyKtQ6QBzuO7JdyaH1AZAg iJQwAFpwDKD4S80jg3D8DP MwMDAwMDA7 uET3pG4lvIlflohgbQTjnS mbbaSbuVunXWcrDGmpA992 YUGwoCwlCr43rPUzxHclqd V6U2YlJrbs dHI+ZI14AFQqQD81wWSxrV Mrd7gufSd4SpIsSAEaNWV2 hHzeGFspt3SlGVEvB57nfN Aga9K3BPXd lIuanCQkOeGubTK6jL1uOT ezhjonu6ecohvvGsdyl8fo cg04xV01H88bBEnwAEBlGI IzMCUiIHZh rCgwmx9uoL7fPn4+PGNvbC J5aVO8xU1zNoIkWrH8NAwk G439DgKpeHHgJizlf7adn7 fmzBu2QkIz RLNrncTsaWffJFH8q3JsXn 62Q31vALxeBJVqMWXqEKHz KDBueKqkae3kiY9xPh6+PC 0zn8ulrr84 oR14vUQ+AYTaERJ5cVhaFW yeATRenM4mNJpmZoB9FNAx IgZeqZ25nEOgEHsnMz5kjK ldsIvbQT4l VSPwdmpes996VmVys2fzCI TpyPOtNCktHXW2F17ke8X5 PWQpWHJyTDA1tCL6hH5hxY lnbjogbGVm dDsgdmVydGljYWwtYWxpZ2 30AABtgGhyMwRlvAKsQ7sv nxEFQN9nBjdchXX+PHRkIH J3zGquNTuu ONPgqR4mXETuJ0i3LgLuKk C4WGesU7TgiiY2JWLptNZg NGNibDVOhE8uaszmm4wgwx ogIzAwMDAw TGd1TRl2QAPszLpfRhJqFD W9ElK6NWW3yVXuvL4puTao yvobiC1tVek+RklOOjwvdG Q+PHRkIHN0 cDxqOBeyZOYzeA1qEZDhU6 r9FfYyYiM9VDoxU2FiuwE8 ELAimKQwEDFsxSIHwK0tnz biy6dytyow GoJdLHFfUQw2VOo8VBJnwK inJdLiAWH9AiM1SGL8eGRc fG5rvYjghxkejK2mHlm+TV JOOjwvdGQ+ ONDkFTL7nNzwQGxvAFXtwT 9iDGJxM7v1GdEiJyS3AHtm Z1DyngH8SAFjqTWbVWGwdR MGjG6dlvdj a8wxytpaFhSbBHBqVOv1PA x3HUWduBhfEhOxMRN5PcK0 DQB0fJZniR1hvOndhbsgsM 9wOyc+UGF5 VYQ0MJ43BJ88S4DmZtnpaZ FibGU+PHRhYmxlIHdpZHRo RLwyVNVcVkKhtTufJD9jIq 9yZGVyLWNv bGxhcHNl (more content not included)... Normal [facility] Consent for Treatmenton 07-07 Consent for Treatment [id number] 0CD:127 Normal [facility] Heart and Vascular Office/Cl inic [...] bike. She did a walking challenge from [employer] in 05/2022. She is not diabetic. She [...] Tanya Turner to record this visit. GAEL customer quality specialist and provider reviewed before signing. GAEL: [...] 07/24/2022 Family History Heart disease: Father. Normal [facility] Comment on above: Result Comment: Elec tronically Signed By: Isaias TUTTLE, Guillermo Arteaga\.br\Date and Time Signed: 07/24/22 21:56 EDT\.br\Electronically Co-Signed By: Jenn Meza.br\Date and Time Co-Signed: 07/24/22 16:08 EDT Physician Orderon 07-24-2022 Physician Order [id number] 00CD:127 Normal [facility] Physician Order [id number]#1. 00CD:127 Normal [facility] BMPon 07-19-2022 Anion gap [Moles/Vol] 11 mmol/L Normal 6-16 [facility] Comment on above: Performed By: #### 2 [id number], [id number], [id number] #### [facility] [address] [place] [address] Calcium [Mass/Vol] 8.8 mg/dL Low 8.9-11.1 [facility] Comment on above: Performed By: #### 2 [id number], [id number], [id number] #### [facility] [address] [place] [address] Chloride [Moles/Vol] 103 mmol/L Normal 101-111 [facility] Comment on above: Performed By: #### 2 923256, [id number], [id number] #### [facility] [address] [place] [address] CO2 [Moles/Vol] 27 mmol/L Normal 21-31 [facility] Comment on above: Performed By: #### 2 852600, [id number], [id number] #### [facility] [address] [place] [address] Creatinine [Mass/Vol] 0.9 mg/dL Normal 0.5-1.3 [facility] Comment on above: Performed By: #### 2 995109, [id number], [id number] #### [facility] [address] [place] [address] Glucose [Mass/Vol] 95 mg/dL Normal 55-199 [facility] Comment on above: Result Comment: If t his glucose result represents a fasting glucose, interpretation should refer to the following reference range: 55-99 mg/dL Performed By: #### 2 686386, [id number], [id number] #### [facility] [address] [place] [address] Potassium [Moles/Vol] 4.4 mmol/L Normal 3.5-5.3 [facility] Comment on above: Performed By: #### 2 590070, [id number], [id number] #### [facility] [address] [place] [address] Sodium [Moles/Vol] 137 mmol/L Normal 135-145 [facility] Comment on above: Performed By: #### 2 730004, [id number], [id number] #### [facility] [address] [place] [address] Urea nitrogen [Mass/Vol] 12 mg/dL Normal 5-21 [facility] Comment on above: Performed By: #### 2 882810, 3369155, [id number] #### [facility] [address] [place] [address] Urea nitrogen/Creatinin e [Mass ratio] 13 No Units Normal 10-20 [facility] Comment on above: Performed By: #### 2 717758, 9061766, [id number] #### [facility] [address] [place] [address] CBC w/Indiceson 07-19-2022 Erythrocyte distribution width (RBC) [Ratio] 16.2 % High 10.9-14.2 [facility] Comment on above: Performed By: #### 2 112713, 8740001, [id number] #### [facility] [address] [place] [address] Hematocrit (Bld) [Volume fraction] 36.4 % Normal 34.0-46.0 [facility] Comment on above: Performed By: #### 2 373768, 3101175, [id number] #### [facility] [address] [place] [address] Hemoglobin (Bld) [Mass/Vol] 12.0 g/dL Normal 12.0-16.0 [facility] Comment on above: Performed By: #### 2 754054, 4535523, [id number] #### [facility] [address] [place] [address] MCH (RBC) [Entitic mass] 26.1 pg Low 27.0-34.0 [facility] Comment on above: Performed By: #### 2 610296, 7483753, [id number] #### [facility] [address] [place] [address] MCHC (RBC) [Mass/Vol] 33.1 g/dL Normal 31.4-36.0 [facility] Comment on above: Performed By: #### 2 314578, 1269083, [id number] #### [facility] [address] [place] [address] MCV (RBC) [Entitic vol] 78.8 fL Low 80.0-100.0 [facility] Comment on above: Performed By: #### 2 358529, 3547269, [id number] #### [facility] [address] [place] [address] Platelet mean volume (Bld) [Entitic vol] 7.6 fL Normal 6.4-10.8 [facility] Comment on above: Performed By: #### 2 212126, 4594592, [id number] #### [facility] [address] [place] [address] Platelets (Bld) [#/Vol] 346.0 E9/L Normal 150.0-500.0 [facility] Comment on above: Performed By: #### 2 683622, 9147119, 37067962 #### [facility] [address] [place] [address] RBC (Bld) [#/Vol] 4.6 E12/L Normal 4.3-5.9 [facility] Comment on above: Performed By: #### 2 074232, 3427661, [id number] #### [facility] [address] [place] [address] WBC corrected for nucl RBC Auto (Bld) [#/Vol] 7.5 E9/L Normal 4.0-11.0 [facility] Comment on above: Performed By: #### 2 332063, 8323694, [id number] #### [facility] [address] [place] [address] Consent for Treatmenton 07-07 Consent for Treatment [id number] 0CD:127 Normal [facility] Physician Orderon 07-19-2022 Physician Order [id number] 0CD:127 Normal [facility] eGFRon 07-19-2022 GFR/1.73 sq M.predicted among blacks MDRD (S/P/Bld) [Vol rate/Area] mL/min/{1.73_m2} Normal >=59 [facility] Comment on above: Order Comment: Order added by Discern Expert. Result Comment: eGFR is race adjusted. AA=. Performed By: #### 2 404958, 1732142, [id number] #### [facility] [address] [place] [address] GFR/1.73 sq M.predicted among non-blacks MDRD (S/P/Bld) [Vol rate/Area] mL/min/{1.73_m2} Normal >=59 [facility] Comment on above: Order Comment: Order added by Discern Expert. Result Comment: Propeller Inspector mark kidney disease could be indicated at eGFR's of less than 60 mL/min/1.73m2. Kidney failure is indicated at less than 15 mL/min/1.73m2. Performed By: #### 2 377905, 6860851, [id number] #### [facility] [address] [place] [address] MG MAMM SCREEN 3D RONEN CADon 04-03-2022 MG MAMM SCREEN 3D RONEN CAD Patient: KARMA NIETO Exam Date: 04/03/2022 : 1980 Gender:F Ordering : DR MICHAEL RUSSO . Admission #: [id number] Family : Order #: [id number] CLICK HERE TO VIEW EXAM RADIOLOGY REPORT PROCEDURE: MAMMOGRAM SCREENING 3D BILATERAL CAD COMPARISON: None. 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 . Normal [facility] Comment on above: Result Comment: Perf ormed at: WB Performed By: #### 4 [id number] #### [facility] [address] [place] [address] Dr. Rosa Maria Frazier Age Gdln ACOG Testing 30-65 Normal [facility] Comment on above: Performed By: #### 4 [id number] #### [facility] [address] [place] [address] Dr. Rosa Maria Frazier DIAGNOSIS: Comment Normal [facility] Comment on above: Result Comment: NEGA TIVE FOR INTRAEPITHELIAL LESION OR MALIGNANCY. Performed at: [facility] Performed By: #### 4 [id number] #### [facility] [address] [place] [address] Dr. Rosa Maria Frazier HPV Aptima Negative Normal Negative [facility] Comment on above: Result Comment: This nucleic acid amplification test detects fourteen high-risk HPV types (16,18,31,33,35,39,45,51,52,56,58,59,66,68) without differentiation. Performed at: =G Performed By: #### 4 [id number] #### [facility] [address] [address] [address] Rosa Maria Frazier Methodology: Comment Normal [facility] Comment on above: Result Comment: This liquid based ThinPrep(R) pap test was screened with the use of an image guided system. Performed at: WB Performed By: #### 4 [id number] #### [facility] [address] [place] [address] Dr. Rosa Maria Frazier Note: Comment Normal [facility] Comment on above: Result Comment: The Pap smear is a screening test designed to aid in the detection of premalignant and malignant conditions of the uterine cervix. It is not a diagnostic procedure and should not be used as the sole means of detecting cervical cancer. Both false-positive and false-negative reports do occur. . Performed at: WB Performed By: #### 4 [id number] #### [facility] [address] [place] [address] Dr. Rosa Maria Frazier Performed by: Comment Normal [facility] Comment on above: Result Comment: Dayo De Guzman, Groundman (ASCP) Performed at: WB Performed By: #### 4 [id number] #### [facility] [address] [place] [address] Dr. Rosa Maria Frazier Specimen adequacy: Comment Normal [facility] Comment on above: Result Comment: Sati sfactory for evaluation. Endocervical and/or squamous metaplastic cells (endocervical component) are present. Performed at: WB Performed By: #### 4 [id number] #### [facility] [address] [place] [address] Dr. Rosa Maria Frazier Covid-19 PCR ([facility])on SARS-CoV-2 (COVID-19) RNA OLU+probe Ql (Unsp spec) Not detected Normal NOT DETECTED [facility] Comment on above: Result Comment: This test is not yet approved or cleared by the [place] FDA. When there are no FDA-approved or cleared tests available, and other criteria are met, FDA can make tests available under an emergency access mechanism called an Emergency Use Authorization (EUA). The EUA for this test is supported by the Integration Aide of Health and Human Service's (HHS's) declaration [...] consistent with SARS-CoV-2. Performed By: #### C [facility] #### [facility] [address] [place], [place] [id number] Dr. Rosa Maria Frazier Encounters Encounter Date Encounter Type Care Provider Facility Start: 04-24-2023 End: 04-24-2023 ambulatory DWAYNE HATCH Not Available Start: 03-29-2023 End: 03-29-2023 ambulatory ALEJA CHEN Not Available Start: 03-27-2023 End: 03-27-2023 ambulatory DWAYNE HATCH Not Available Start: 07-24-2022 End: 07-25-2022 ambulatory Guillermo Esparza Facility[facility] Start: 07-19-2022 End: 07-20-2022 ambulatory Aleja Chen Facility:[facility] Start: 04-03-2022 End: 04-04-[address] MICHAEL RUSSO Facility:[facility] Start: 10-19-2021 End: 10-20-2021 ambulatory ANTWAN KNOX Facility:[facility] Start: 06-27-2021 End: 06-27-[address] MICHAEL RUSSO Facility:[facility] Start: 04-14-2021 End: 04-14-2021 ambulatory PAMELA RUIZ Facility:[facility] Payers Date Payer Category Payer Unknown [id number] 1980 Unknown [id number] 2.16.84 [id number] 1980 Unknown [id number] .16.84 [id number] 1980 Unknown [id number] .16.84 [id number] 1980 Unknown [id number] .16.84 [id number] 1980 Unknown [id number] 2.16.8 40.1.003539.3.579.2.727 1980 Unknown [id number] 2.16.8 [id number] 1980 Unknown [id number] 2.16.84 0.1.374577.3.579.2.9 1980 Unknown [id number] 2.16.840 .1.359960.3.579.2.1259 1980 Unknown [id number] 2.16.840 .1.172945.3.579.2.9 1980 Unknown [id number] 2.16.840 .1.821890.3.579.2.1259 1958 Unknown [id number] Summary Purpose Family History No Family History Records FoundNo Family History Records FoundNo Family History Records FoundNo Family History Records Found Advance Directives No Advanced Directives Records FoundNo Advanced Directives Records FoundNo Advanced Directives Records FoundNo Advanced Directives Records Found Additional Source Comments INFORMATION SOURCE (unrecogn ized section and content) DATE CREATED AUTHOR 01/07/2022 [facility] dical Specialist DATE CREATED AUTHOR AUTHOR'S ORGANIZ ATION 04/06/2022 [facility] DATE CREATED AUTHOR AUTHOR'S ORGANIZ ATION 09/15/2022 [facility] DATE CREATED AUTHOR AUTHOR'S ORGANIZ ATION 04/25/2023 [facility] dical Specialists [facility] FOR RECORDS PERTAINING TO PATIENTS WHO [...] BE BASED ON THE PRIMARY CLINICAL RECORDS. [facility] [employer] provides no warranty or guarantee of the accuracy or completeness of information in this document.
== END 2023-05-14 15:53 | disposition home or self-care (01) ==
LOC: US 15:52
PROVIDERS: Visit Provider Obstetrics & Gynecology
DX: Z12.31 Encounter for screening mammogram for malignant neoplasm of breast (principal); N83.291 Other ovarian cyst, right side; Q51.3 Bicornate uterus; N92.6 Irregular menstruation, unspecified
CPT/HCPCS: 76830; 76856; 77063; 77067

== ENCOUNTER 2023-05-24 06:09 | Day surgery (SDC) | payer OTHER, SELFPAY ==
[2023-05-13 09:25] VITALS: BP 135/91; PULSE 79; RESP 20; TEMP 36.2; O2SAT 97; BMI 42.7
[2023-05-24] VITALS (9 sets, daily range): BP systolic 103–143; BP diastolic 69–99; PULSE 66–73; RESP 12–20; TEMP 36.5–36.7; O2SAT 93–99; BMI 42.5
--- OUTSIDE RECORDS SUMMARY | 2023-05-24 06:11 | XMS_ITS | CCD ---
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 CD:[id number] Ww +PGhlYWQ+IN1QXKNiT44od LHsaQ4oM9VGHNcGUuvmZSL ANUvNZqVuomIzZC1enVFkP XJu IC8+UR6rNVJsTomksJGqk6 B8qLY5H70ige5uEPpasVC2 EFShSxJhpsydf8ftbQa8KH cuNmluOyBt PBAzgE06ONG3gB13Mo32gG PajJMld9jmjDh4VePcTXKj UBP6cNslCWfyw2NdKOWwR2 9mpOWdl2Z8 USKanImpuICtTdPvzLS6dL 9sVJylkclgn7uqljzjEkn1 ry64nRJtr2T0bJV7B0Ocqd I8QGQgfYWv HmldcTCOoL8flbdgc0thru wsRyJlHDJoGBi2ZXw1IAKe sMssFoCcAA26AGG4DEMcqq JcP6SdVJVf oUitWyK7n7A6Yx5EI4IVBt hdK6WOIFQTPRuvbVG+PC90 qm85H9IqGwiyAfc4XWWsSD A0kHL4vJ2h AIWhJLyfo0Y4vAO0G6Xnmo Sjdi0ab1mkYLLfLXxhL60b nOCvj5D6CPIkgFR6PTRokQ zdKfTxbI52 Oyc+EFEwrBsqi4CmOtjkr3 sum7qaoDy0UwwhTFBeobGf qVsuQWE6q4RyZp9vCDCtcK Y3tSW1uT8q HjRwLkX7JOwzL600FtVszX EvNqhaK54xP7LviKR+PHRy Jab0OHXchGgdGU8gU0LsZL RpbmctbGVm fVvbXA1vVFErjajuOVDfbQ 8lKOShU8d9EqMrCiM5OYjd G4NxGVFiqsoxDz28uB6kXt SpMtH9JNbr O9NtbzX1ARPbzOOnUIdrSU F6L74xn8Z8QQFaYQYkRXA2 yPV4oT6wdWkuoehnaDSmkP sgdmVydGlj AGfuQGheG677XKBgsZdlLo NvZGluZyBEYXRlOiAgMDUv MDQvMjAyMzwvdGQ+PHRkIH B2rKjdJSIe oORoUDrwLr4yjWjsrWcyCQ 0bTRKosezdTLNavH5yMGPt zXDsiOxjVF1cIWLxpinzn0 28UyTzZSU7 SHLfmINqI1GgqC3bNnHfBR QqKREmU4IqiIIsBPcbV668 NNrhZtG2LGFgocGeD8GqFI FsaWduOiB0 g8R5Dd9Ll6JlvmowG4RlmN OzLzCmRpvpRBm9H8KpTlvi dHI+ZM53SOQyQP13DNp7PR F0tExoNEjy URDlS0NizZ4xWbTqEXSpEK RkOyc+PHRhYmxlIHdpZHRo VVgjWJIoCjPwyGajUY7jXg 9yZGVyLWNv fRcbuBZrKcZzo6hzOTNqXJ uyIO8zqCssC7IglPG2UAGp q6r7Wx88U07dI3IeqUN+PG NdbDK7nZV6 zC4mZbKmXbM8WVksO684Hk QsuRYtOdziy3cin3ntfUg5 YzS3TPDbyjUuzMcrNHG3p3 YpKi05N75i IHdpZHRoPSIxNSUiIHZhbG bynu8hkP0gTb0+PGNvbCB3 vPE1lK4lIkAzJwC0NXznV5 49InRvcCIv Fsavz3gct1edqZh0PlWoHD EsxgLcxLjpBDE3j3WoEw82 Q9EsrKyez2TnZcv0kl61uG Onf0L2zXR6 O4DvLZIcpkabzYQhmPwqXK 2oINEsxsugGUByrH2lMCWu B2g6UpJjHuJ7SNwoB8Dosl A7NGEzgSJt GVBuyYLOpI9trnmig0cjsy rzGsOkIVCnJCk3BLr8MDHd sKlrQnNbBLT1DaF0FYA4tB ItbT7dfVme dmwasO3hGkj+MLJ0eWIpvP DKCN4tAldprCO+PHRkIHN0 hBlkTUmkBANqyH4kIBElH0 h5EmGiWeN6 DYiaQ7IiyqM1TACnjHOtFN CjwIXKnO6awhkre4qlowkc BeSbKNSnXYf1KRf6STOiuR duOiBsZWZ0 GuN3HJW4pYLnuT3qoHmucv pvqC9eMuj+QmlydGggRGF0 GMs2L7RgZec0KJOhjTfqSH 0ncGFkZGlu Ml1cwEysqZzrPT3aUKHmds haq417YkDev5huIGDklWDu BUlcIUC9G88ql7W0BJBlTI PgXYA5gRD9 aM3nmWozbpoafHUwzYgqpx AvhHmqYCioYGgyQ019POSi vNzdIdCdXQz8V2KvEhy1IF BwvDohKD0a kNUnBLptKp1inHfagOaeGN 3gHCCsmkgdv943BuXmv7iv AUNckCUfCQpkTRC9S44hi9 W1OOOnFTQg NEN2mRC7tQ7akElcyyvnrC VmdDsgdmVydGljYWwtYWxp N807RRGejWefFzAdcDc3V7 VbSwl9LGRx wBuiZW5tmWSgDTggBu3osR ctnTarBX9cMHKpptnyd383 CmGek9wqLQGxgSUxZBusPI G2B71lu8E1 QBQlCBErDKX4eGR1sX9ucX lnbjogbGVmdDsgdmVydGlj AKopMBgbM963FLVsgBkzTd BhdGllbnQg NTdvVEy5D4TuPklidRT+PC 52LIXtCV44qBJrhBQlp3uq tEq1XzJxOXOrAXV1mAnjSQ itv1FpYVCm B92muVKxi5H0JUXghJhqxA IkQlPfwCW8qR2fZJojbbui y6egfbggEwyoz7mwgk42aT 78D62nKWxy ZHRoPSIzMCUiIHZhbGlnbj 5iqB5fRb3+AOEslRO0gWN0 lX9iGKRsInN8KPneO735Gf RvcCIvPjxj g4yhl6toyRp9WoH7ZTJufq DhcUqiYSN4y8ClAm90V88n IHdpZHRoPSIyMCUiIHZhbG uysk2giP3u Ii8+PSCksKI4yFU8fJ4gSb SaEeN4EPmcJ731NtAscMPw GlrvX10eZ0SlnOW+PHRyPj v3GRFasQhl KG6bxXQgDImmMs6fKMB9Hp BaOdFaQUrxW6ArUOBvfgfu ioajjNL5VJFpUNZhtW39Xk 9udDogMTBw xCKHgZ8tzwykw5xkrazkHy VnYOPuKNy3KIx1ZCYxqRls JvKqZSJ2QaD3HBP2eBDgtH 1hbGlnbjog gF6gQ9McRUEneeijSn37vY 3cYeDsApP5PWyePhx+SkFS RtTRVCbfUJPMQ5cvEqazlA Q+PHRkIHN0 vFtmGXpjIDNyvV5rEWSxH2 s9ZrPeGkM4FCxeU6TiCWJv efabNd08hK3sSnVuPpY5KL ioI6PrnqR9 OGXatYSaDAvwJGC1P36cp1 P5TBUkCSLiQSC6rFF0uV8z bGlnbjogbGVmdDsgdmVydG ljYWwtYWxp Y614FVIeeNqiXgX2OmL3Hg N5RXG7K7SdLzn8KAPgrLjx NW0dhILlVXhmNm6juAnkrX gyAB4rDQTr vufiNOXeyL3rSYFvwDEukP zlXG3pQAQkwempc250EpVd JXW3MKUadVCeJ9BtpV8zGb AjMDAwMDAw K1KisFMdCNrlF125TOgxCe E8WLBhufLyJ2KvNDRmrIct WkY6c5T5Pu49SJNZYEJzwj wvdGQ+PHRk PZR9tBfyCSxiYQJpoR9lFY ZwM4n5SbMpMkA8EOegX7Xm KIWutxigYp20bL0fDtLoTv Q3TQheI8Sn ljY1WWNssDSfPMwlWWT2L1 9co8G9YTHlRUBqMOQ1eWL4 yO5shBxwljqokCCvjQeqha VydGljYWwt HMvlN612TKRosQnfRkLypO FsZTwvdGQ+QJSoAMN1uOeg LWpaKHUuhJ6hRJYeK5j1Yp PwItX2WNla C0YcFFYepfbfUo19eK7vYn CvCsY1TGueV5AkkkG7DCFs wVYhLZgvHDX8F72mt4F4RG MwMDAwMDA7 oZX1fF1gmPzqinifgYLlzV wwukValIuxTJhwFVpqL630 BQDxzDlkOq01zLUpeIoivt E8A9JoVqqr dHI+UL51LPCdNM49tHVuoF Ckp4ygzOu2GrBhLKPyJCO9 jDjjBYihf6OrAOCuY98hnB Eis0K1FBLk zYcbgATgLjLccGQ3pT8rZC jrrbfis7scawibGwzmg6ph bq96rT45F79jRYkyKDEnZF IzMCUiIHZh tJdzdn5mzD9hOs0+PGNvbC R9mIJ2iK4mLsAjLwJ3CYyr F299JkNswGKoWfqcx3ria9 aeiJn9CzBb UWKtuyHesOchLTT4d8OzHa 61H87nDFqoMSHaSBPpQYVz IGUzdOktrz8yrI6fWg9+PC 3wi0lmax34 fL40qUU+ZMDhOVC6jMfvSI geWDPhqX1tEOaaIsO8KIDr WoHgbY18xQEhCGupYo2ufA yglQmsNE4w OHXmuuvor914LaYwv5rhDI QoaSYrKZkeHBX2B65cn3K5 ADCxTMWkQJL5wUX1sT8teO lnbjogbGVm dDsgdmVydGljYWwtYWxpZ2 65MBVzuPzrZxQnfVRzY1cf ucWFBI5dKdfyeSH+PHRkIH T4lQabZHhd EOInpT3vAUQfL2e0EuXvBg J8YLsyS5TxvyP6MQYpcEBp ORZflBCGzW5xisfan6gcaj ogIzAwMDAw XWk8JTk0OHOzvAioEsUiRF O6ZaT6BGI1fEMziZ2cpWfz tifqkI4mFgy+RklOOjwvdG Q+PHRkIHN0 yQwrIYkdNCOgmE5tXNQfA9 e9BbWcDsQ7ADclO2XgpqV6 CCBiuIAbCAWcmIBStC0tfo ceq4bmzauv BpBiDEHqCZb3YXl1DCTwqB ndNbImLLW7WyF5CZS0dVOi dU4alMracupuiV0vRvm+TV JOOjwvdGQ+ JKRzVBB0uSfzIZhxRMNxdG 1nIECvS6g3XrFpIrZ6THkc N1BjmeM1WRQmhTIzHVVpzP YUjC8lwrly m7lqicggAdJrQVHkLSc6BY e6NJLbwOzuByPvPXS1LhE7 ZAW4eHRgtE6mzRzcajabgF 9wOyc+UGF5 BTL9AW28FZ34O4AzBbmatI FibGU+PHRhYmxlIHdpZHRo CJcvHNZfUrTriOchVR3gOo 9yZGVyLWNv bGxhcHNl (more content not included)... Normal [facility] Coding Summary.on 07-25-2022 Coding Summary. CD:[id number] Ww +PGhlYWQ+MV7DJUVkW49fx XAuoY9oS3LKNLpQHcsmTPB DPQhROgNoxhLsMO3qeIMoF XJu IC8+OF5jKMOzAdkoyCYoe8 X5gTE0P11ory0hEJtdgHF1 BMEcEtEzxfxuo9mkfNt8CH cuNmluOyBt IGNzmD45BSE4iW37Kz00dA FagDDws0docPs2ZrBxRYCo GFZ8vNdeRTmfk6EqROPaQ2 2khVCyl7N4 CRHraDyriWHkEgGpdVH0uC 5uGJbxcywqe0qbbogpUis2 kn08uTMox6M2jSJ0A5Eigi D0HRPacLUy ZyeqhZGPlV9vusijo2lmcp rdImMbEDGgAYh5IIi6FXSg sJmxAjYvNW62OTW9WJYsue CcQ2DrJLMu gIqxAuA3z9Z2Ke0CK7GTHp urX2PBXCMJIRvxeVO+PC90 xp37I7QyJdshYwe9TEGxZL G7cRV0wH5o QOGlOVkoq7H1iSV4P9Ywyp Upan4iu8zzXURjBBhoU19e kWStd5H1VAZjbVH4TNQquW lrGlSeoV15 Oyc+UWQqpUzkn1JeTnovl5 uhz7crqNc2BzqmDPCrdtIl jMcdSQN8g5VeZd7gLSAwxL Z8aMH9kS1r SuGyToN5JHprP780CpAyrU LuRkgpJ35eP0CsyZR+PHRy Qwk6IPBdhYkwHB2pS7KhYZ RpbmctbGVm jCxlAU4rLXIgygncCELuyZ 1aFFDqF4e8VdRpXbG0RAak X0PoVHYyboveCd60wY6kWk QvOsJ2LLze C2YcngP9TMKywVYiHCtqXS F4V39rw0V8DCNmMNCoYGV8 eMS4jO9lgIfudouwvFOpwX sgdmVydGlj GCdfSSdzL249QBVhfJkoWd NvZGluZyBEYXRlOiAgMDQv MTkvMjAyMzwvdGQ+PHRkIH T0jYxcABFa bUGiWXkeXo8lgPdnkLujFF 1eFKMwlewzEXTseM3rVTIk bNNayAvxHV1kXJPbafriy5 96MsHaNAO1 EAOlpPDmR3HkjD6uIiHvBQ GnGQJhC3NmeOIqSFpvR812 RMpdQxX4BZGqixTyM0VpRR FsaWduOiB0 z0Y9Ri6Yg1MluhaoA1OupH GcGdFgHvywKNw7P6LjFypf dHI+SG81VAJmBW99UQg5DT O6sAvrDTni WTXvP6IvtW4nAzDmQSIyHR RkOyc+PHRhYmxlIHdpZHRo YXliTFViJzCvxNcfQB0dDi 9yZGVyLWNv qIeroHAkIrJcw6otBWDuUO jeUU3cgRcpL4AjiLN7EZXe b0x3Tu07P75dX3MefQQ+PG PzmGC5lLD1 qB3mYtCtNjZ2CKkbY951Da MroNLuGpxfs2ehf0jfrZn5 KtO9IUZkzoXamFvwMZB0o0 DrZp90Z67a IHdpZHRoPSIxNSUiIHZhbG aiwg9xvA0aGj4+PGNvbCB3 sIZ0sY4hArClAhO1IAepV9 49InRvcCIv Vcuga2fwa3qapAf1CpRmPA ZxpxHtcRyiZNN1u3SfAg40 N7YziFmlc0CrNgm2aa36tO Qkc9Y8cFV1 X2TpKRVooqalgJYjlBwjSS 1wGZOberznGTTmuD4iCWBx H9h0BpXkLlW7QHztL3Cwrt Q4LMGkiVQb CTOtjQEQhU2wkhapm4pora rbChWqGSBuPOv3EQv6KUAm kMnjBiOfSMC7PcF4DNQ9bS CetO8nxOzg wosteL0lEtu+BEG2zGMhpH YDXZ1pMuiviLG+PHRkIHN0 wNcpOJzkOOIpoB7rJNNmE3 e0HfAbXmS9 MVsbD0HobwK8GIJqeGTgHS TumLEAsP4vuhlch1qcauvg CfFmJRGaLTa2DIw4MYPsdF duOiBsZWZ0 EgM6IEB1cYIshF7lfFerax jvhB2fZft+QmlydGggRGF0 NBw2O2AqOsl4OTUvzWjyII 0ncGFkZGlu Yz2beTsrnHogIL3uDUJnfb mmf331JkPum7voBLTkaUCc YCqcMJM0M67ps7O7EOLaKJ WjXFJ1tDR9 dT4fjQumzbdmvUMqxStxfw YqhPguBUfzMAlwS326KTBd zMxfBtHuQOh0L6DoSeo3BT JbxFqpVH8m kCArXGuxEi1uvMzdjSugWO 6kVOVfrtsvo698GbGja8sq NQTzjSSvOAyaSVD2Z93ay5 I9SQUzALNw CXE2aIN6aV3yxEajlwuchK VmdDsgdmVydGljYWwtYWxp S139MEBpgUkhRpNtmXo5V2 PdJiq7MPMg cBjzOX4ccRNeMCjcQa9jkN dkuXvoUZ9qCDFzenqbd218 YbNyz5wtHWOryEKuQZydLX F3C38uj2V1 EASzNHOhTJV8jVK7cB2dzX lnbjogbGVmdDsgdmVydGlj EQnsKXxiH492SBGvnEuwDo BhdGllbnQg WKvoUZy7L0PuCylduHZ+PC 86TONcRN94rZSjjGPjl3wq aLh2FdRaPRRcWEP2mEftVI mzv2IxCXJe F03biPNys1Y1MEDhlVmxgF DuEnCirSW9dE1xDQcucwpy j7aouhquJozdp0aaew05wD 78B82gXRic ZHRoPSIzMCUiIHZhbGlnbj 5jhM9dVl1+ULOxqAZ8gJI1 hC9qVDZfSiX3MYzpS668Cu RvcCIvPjxj t7dcc4yvuOf3EdM0RCBesk VxiZipLDZ6a0HsSy21D95c IHdpZHRoPSIyMCUiIHZhbG qaea3rdP4s Ii8+VJLmpKF7cNK2sQ8dJw XxSbY1UKaxS076ZbWrsUZy DhbuR91qB5TxvXW+PHRyPj a2TQXxpDyc OR0nsHGdAKzhZu8nKYL0Wq BqXeWuQGrkX9UzGMUnmgbj zopjrRC3GQKhEBNzrH97Dh 9udDogMTBw rFAVxB2cpxtbe9iiwzsgNl SwMFCqRGc1VHj4VSQkdWqr AbRbMMB1CaN8ZIN1iMRajJ 1hbGlnbjog bD5yD3JkEPGeafjdIj03hX 6lVjCtWaX8IPneZwe+SkFS CcQBCKneVWEQX8rtMcccvJ Q+PHRkIHN0 yJfsFTbcPNYrtO4xCNHbP3 o4FqRtIcS1HSanC3PtSMNf lrfbBk09jM7yTuGuCgV9FH nbD5ExqqD4 GMPrpSKdNAynKRA8P16gh7 F3YRIvBQLwLEY0sMT1dK6j bGlnbjogbGVmdDsgdmVydG ljYWwtYWxp T535NEEbwIqjKhN0KfT0Zj W0DIB4M3DfXhl3HFQwrGzb DE3exABxUIhiWo3txLgaxR wtYO9aXLQc ewozVHVslA6yMXZyqMAchH nqJL0wUGRetisfz258CtIv UMU2QCVupDIjW1PjqL1qPq AjMDAwMDAw E8QveMInDIqzL238DEpiZa G1IYLefcDiE6NyVGXyzYlz YyX4g7I3Po26INEOPDWuss wvdGQ+PHRk KCP2fVpzRVgdMSRbiC9oYS UfQ3t7PhVsXqQ1SEaoG3Ex JMAtcywpIq30mL9mNaVoZu A1AGaeH2Ps tkW2SOXqaZXiIRvzTCV6Q1 3qr0M6BZOlYFLlHNW8iSQ3 cP3ymInjrfohnJQedVtall VydGljYWwt SLtrM973ASOimSutSmRisE FsZTwvdGQ+YAHtMDJ0pIhf ZEwnDZFwaT8yZCEkR6j7Dv BlXpG9ANon L0NvWHSflqykTm44zZ3vTz CkLmU2UPraP4YrgxM7JSAm oCOtVAhfIAG2Y31bb2M6CU MwMDAwMDA7 uAW0oM7rdYobtvvmwGDfvJ bdiaFwmCvuYEjiDHkdH732 MFEcvXybAy11tCJbcZbtap Z4X0PuHphn dHI+EM13PBUcTA99gQUzwV Pwt1gsfZn6RmNwMTVeLVM2 yHbpODvwy5GnXBSpW74ivH Bxz1S2FGKq jStjfXXqFrYqaOU1jZ1nDC jnncrtb8jhdyiuYnclo3zf lf39pF18A90pBTahSAVeGP IzMCUiIHZh qDcgco2voP6oGa8+PGNvbC L6pRP1gR6aVwFtNwF6VWbe Y444CaYeaWOzZzlxw3pak5 xgcIn0OyYp CQWgssXcwOyfSQE9p1AeFg 69Y63kVIfzWIDnJOMtPMFn GMRjdQyvzv7nbC9pUh4+PC 9yu0kiwu79 wE17oTP+WPIpNUD2iThqPY taTBFalN1hRDsxAbB9XEAd YfQudN23nGOvVNkcTs1pqF nbrTyjDF9p UFRblljme551TdPxn4gcYE LocOBtLUnlHEV4E40ye9V4 ELXaGMVqQRT5fMR5qV0lqL lnbjogbGVm dDsgdmVydGljYWwtYWxpZ2 56BLBcyNkqZxQewOCyZ2wp lmHLLS3dZtoocJX+PHRkIH E1eBnxGIyc UMAfkJ3pIIXiI9h4DzMnXd N6EVsiS6HcyiY9XGRqnXLs YOWnbJTLxU2nfcgot4dwuq ogIzAwMDAw QAr6VGr2AERgsLvxCwSyFO D6YtC8HQN6nHFfnO7efYbb cgxzaZ3mTvh+RklOOjwvdG Q+PHRkIHN0 aBdgWWkbQWJrqO2oNUGnI4 s6TgLpFhF6NLeqV0GksfP1 KJPvwJNnBKNyyGDRpY2qlh drz1zgwufi KoJsTIRyJLt7PIe4PRFvvK fwWiRuJML2MnW6UPV7nDWg dG3plEateicsyF0sJdd+TV JOOjwvdGQ+ FJIbJFF4bUgpHCbxAAYfbD 2aBXZuW6n8WbFuHmM9QKpc Y7WqdrO2EKOvrVQxEQOhnH FVvU3fmoqr k5fsprrhFlRrRIVdTJe2JF t6MRIlrFebQjQaOJT3NtN4 LJP8xQFseX8fvRqbgemkyP 9wOyc+UGF5 IYA8ZZ37JX88B9TgBsaybP FibGU+PHRhYmxlIHdpZHRo FTyvOTGrUlIogPnpOA1qBo 9yZGVyLWNv bGxhcHNl (more content not included)... Normal [facility] Consent for Treatmenton 07-07 Consent for Treatment [id number] 0CD:127 Normal [facility] Heart and Vascular Office/Cl inic Noteon [...] bike. She did a walking challenge from [employer] in 05/2022. She is not diabetic. She [...] Tanya Turner to record this visit. GAEL legal contracts specialist and provider reviewed before signing. GAEL: [...] 07/24/2022 Family History Heart disease: Father. Normal [facility] Comment on above: Result Comment: Elec tronically Signed By: Isaias TUTTLE, Guillermo Arteaga\.br\Date and Time Signed: 07/24/22 21:56 EDT\.br\Electronically Co-Signed By: Jenn Meza.br\Date and Time Co-Signed: 07/24/22 16:08 EDT Physician Orderon 07-24-2022 Physician Order [id number]:127 Normal [facility] Physician Order [id number]:127 Normal [facility] BMPon 07-19-2022 Anion gap [Moles/Vol] 11 mmol/L Normal 6-16 [facility] Comment on above: Performed By: #### 2 [id number], [id number], [id number] #### [facility] [address] [place] [address] Calcium [Mass/Vol] 8.8 mg/dL Low 8.9-11.1 [facility] Comment on above: Performed By: #### 2 [id number], [id number], [id number] #### [facility] [address] [place] [address] Chloride [Moles/Vol] 103 mmol/L Normal 101-111 [facility] Comment on above: Performed By: #### 2 [id number], [id number], [id number] #### [facility] [address] [place] [address] CO2 [Moles/Vol] 27 mmol/L Normal 21-31 [facility] Comment on above: Performed By: #### 2 446439, [id number], [id number] #### [facility] [address] [place] [address] Creatinine [Mass/Vol] 0.9 mg/dL Normal 0.5-1.3 [facility] Comment on above: Performed By: #### 2 506757, [id number], [id number] #### [facility] [address] [place] [address] Glucose [Mass/Vol] 95 mg/dL Normal 55-199 [facility] Comment on above: Result Comment: If t his glucose result represents a fasting glucose, interpretation should refer to the following reference range: 55-99 mg/dL Performed By: #### 2 244709, [id number], [id number] #### [facility] [address] [place] [address] Potassium [Moles/Vol] 4.4 mmol/L Normal 3.5-5.3 [facility] Comment on above: Performed By: #### 2 792659, [id number], [id number] #### [facility] [address] [place] [address] Sodium [Moles/Vol] 137 mmol/L Normal 135-145 [facility] Comment on above: Performed By: #### 2 612570, [id number], [id number] #### [facility] [address] [place] [address] Urea nitrogen [Mass/Vol] 12 mg/dL Normal 5-21 [facility] Comment on above: Performed By: #### 2 [id number], [id number], [id number] #### [facility] [address] [place] [address] Urea nitrogen/Creatinin e [Mass ratio] 13 No Units Normal 10-20 [facility] Comment on above: Performed By: #### 2 281990, [id number], [id number] #### [facility] [address] [place] [address] CBC w/Indiceson 07-19-2022 Erythrocyte distribution width (RBC) [Ratio] 16.2 % High 10.9-14.2 [facility] Comment on above: Performed By: #### 2 186351, [id number], [id number] #### [facility] [address] [place] [address] Hematocrit (Bld) [Volume fraction] 36.4 % Normal 34.0-46.0 [facility] Comment on above: Performed By: #### 2 040454, [id number], [id number] #### [facility] [address] [place] [address] Hemoglobin (Bld) [Mass/Vol] 12.0 g/dL Normal 12.0-16.0 [facility] Comment on above: Performed By: #### 2 651871, 0997968, [id number] #### [facility] [address] [place] [address] MCH (RBC) [Entitic mass] 26.1 pg Low 27.0-34.0 [facility] Comment on above: Performed By: #### 2 471585, [id number], [id number] #### [facility] [address] [place] [address] MCHC (RBC) [Mass/Vol] 33.1 g/dL Normal 31.4-36.0 [facility] Comment on above: Performed By: #### 2 986761, [id number], [id number] #### [facility] [address] [place] [address] MCV (RBC) [Entitic vol] 78.8 fL Low 80.0-100.0 [facility] Comment on above: Performed By: #### 2 682581, 6646574, [id number] #### [facility] [address] [place] [address] Platelet mean volume (Bld) [Entitic vol] 7.6 fL Normal 6.4-10.8 [facility] Comment on above: Performed By: #### 2 428147, 9769956, [id number] #### [facility] [address] [place] [address] Platelets (Bld) [#/Vol] 346.0 E9/L Normal 150.0-500.0 [facility] Comment on above: Performed By: #### 2 694482, 1973550, [id number] #### [facility] [address] [place] [address] RBC (Bld) [#/Vol] 4.6 E12/L Normal 4.3-5.9 [facility] Comment on above: Performed By: #### 2 428143, 6511243, [id number] #### [facility] [address] [place] [address] WBC corrected for nucl RBC Auto (Bld) [#/Vol] 7.5 E9/L Normal 4.0-11.0 [facility] Comment on above: Performed By: #### 2 928263, 0299459, [id number] #### [facility] [address] [place] [address] Consent for Treatmenton 07-07 Consent for Treatment [id number] 0CD:127 Normal [facility] Physician Orderon 07-19-2022 Physician Order [id number] 0CD:127 Normal [facility] eGFRon 07-19-2022 GFR/1.73 sq M.predicted among blacks MDRD (S/P/Bld) [Vol rate/Area] mL/min/{1.73_m2} Normal >=59 [facility] Comment on above: Order Comment: Order added by Discern Expert. Result Comment: eGFR is race adjusted. AA=. Performed By: #### 2 255821, [id number], [id number] #### [facility] [address] [place] [address] GFR/1.73 sq M.predicted among non-blacks MDRD (S/P/Bld) [Vol rate/Area] mL/min/{1.73_m2} Normal >=59 [facility] Comment on above: Order Comment: Order added by Discern Expert. Result Comment: Video News Editor mark kidney disease could be indicated at eGFR's of less than 60 mL/min/1.73m2. Kidney failure is indicated at less than 15 mL/min/1.73m2. Performed By: #### 2 538224, [id number], [id number] #### [facility] [address] [place] [address] MG MAMM SCREEN 3D RONEN CADon 04-03-2022 MG MAMM SCREEN 3D RONEN CAD Patient: KARMA NIETO Exam Date: 04/03/2022 : 1980 Gender:F Ordering : DR MICHAEL RUSSO . Admission #: [id number] Family : Order #: [id number] CLICK HERE TO VIEW EXAM RADIOLOGY REPORT PROCEDURE: MAMMOGRAM SCREENING 3D BILATERAL CAD COMPARISON: None. 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 . Normal [facility] Comment on above: Result Comment: Perf ormed at: [facility] Performed By: #### 4 [id number] #### [facility] [address] [place] [address] Dr. Rosa Maria Frazier Age Gdln ACOG Testing 30-65 Normal [facility] Comment on above: Performed By: #### 4 [id number] #### [facility] [address] [place] [address] Dr. Rosa Maria Frazier DIAGNOSIS: Comment Normal [facility] Comment on above: Result Comment: NEGA TIVE FOR INTRAEPITHELIAL LESION OR MALIGNANCY. Performed at: [facility] Performed By: #### 4 [id number] #### [facility] [address] [place] [address] Dr. Rosa Maria Frazier HPV Aptima Negative Normal Negative [facility] Comment on above: Result Comment: This nucleic acid amplification test detects fourteen high-risk HPV types (16,18,31,33,35,39,45,51,52,56,58,59,66,68) without differentiation. Performed at: =G Performed By: #### 4 [id number] #### [facility] [address] [address] [address] Rosa Maria Frazier Methodology: Comment Normal [facility] Comment on above: Result Comment: This liquid based ThinPrep(R) pap test was screened with the use of an image guided system. Performed at: [facility] Performed By: #### 4 [id number] #### [facility] [address] [place] [address] Dr. Rosa Maria Frazier Note: Comment Normal [facility] Comment on above: Result Comment: The Pap smear is a screening test designed to aid in the detection of premalignant and malignant conditions of the uterine cervix. It is not a diagnostic procedure and should not be used as the sole means of detecting cervical cancer. Both false-positive and false-negative reports do occur. . Performed at: [facility] Performed By: #### 4 [id number] #### [facility] [address] [place] [address] Dr. Rosa Maria Frazier Performed by: Comment Normal [facility] Comment on above: Result Comment: Dayo De Guzman, Office Messenger (ASCP) Performed at: WB Performed By: #### 4 [id number] #### [facility] [address] [place] [address] Dr. Rosa Maria Frazier Specimen adequacy: Comment Normal [facility] Comment on above: Result Comment: Sati sfactory for evaluation. Endocervical and/or squamous metaplastic cells (endocervical component) are present. Performed at: WB Performed By: #### 4 [id number] #### [facility] [address] [place] [address] Dr. Rosa Maria Frazier Covid-19 PCR ([facility])on SARS-CoV-2 (COVID-19) RNA OLU+probe Ql (Unsp spec) Not detected Normal NOT DETECTED [facility] Comment on above: Result Comment: This test is not yet approved or cleared by the [place] FDA. When there are no FDA-approved or cleared tests available, and other criteria are met, FDA can make tests available under an emergency access mechanism called an Emergency Use Authorization (EUA). The EUA for this test is supported by the [place] of Health and Human Service's (HHS's) declaration [...] consistent with SARS-CoV-2. Performed By: #### C [facility] #### [facility] [address] [place], [place] [id number] Dr. Rosa Maria Frazier Encounters Encounter Date Encounter Type Care Provider Facility Start: 04-24-2023 End: 04-24-2023 ambulatory DWAYNE HATCH Not Available Start: 03-29-2023 End: 03-29-2023 ambulatory ALEJA CHEN Not Available Start: 03-27-2023 End: 03-27-2023 ambulatory DWAYNE HATCH Not Available Start: 07-24-2022 End: 07-25-2022 ambulatory Guillermo Esparza Facility[place] Start: 07-19-2022 End: 07-20-2022 ambulatory Aleja Chen Facility:[facility] Start: 04-03-2022 End: 04-04-[address] MICHAEL RUSSO Facility:[facility] Start: 10-19-2021 End: 10-20-2021 ambulatory ANTWAN KNOX Facility:[facility] Start: 06-27-2021 End: 06-27-[address] MICHAEL RUSSO Facility:[facility] Start: 04-14-2021 End: 04-14-2021 ambulatory PAMELA RUIZ Facility:[facility] Payers Date Payer Category Payer Unknown [id number] 1980 Unknown [id number] 2.16.84 [id number] 1980 Unknown [id number] .16.84 [id number] 1980 Unknown [id number] .16.84 [id number] 1980 Unknown [id number] .16.84 [id number] 1980 Unknown [id number] 2.16.8 [id number] 1980 Unknown [id number] 2.16.8 [id number] 1980 Unknown [id number] 2.16.84 0.1.528787.3.579.2.9 1980 Unknown [id number] 2.16.840 .[id number] 1980 Unknown [id number] 2.16.840 .[id number] 1980 Unknown [id number] 2.16.840 .[id number] 1958 Unknown [id number] Summary Purpose Family History No Family History Records FoundNo Family History Records FoundNo Family History Records FoundNo Family History Records Found Advance Directives No Advanced Directives Records FoundNo Advanced Directives Records FoundNo Advanced Directives Records FoundNo Advanced Directives Records Found Additional Source Comments INFORMATION SOURCE (unrecogn ized section and content) DATE CREATED AUTHOR 01/07/2022 [facility] dical Specialist DATE CREATED AUTHOR AUTHOR'S ORGANIZ ATION 04/06/2022 [facility] DATE CREATED AUTHOR AUTHOR'S ORGANIZ ATION 09/15/2022 [facility] DATE CREATED AUTHOR AUTHOR'S ORGANIZ ATION 04/25/2023 [facility] dical Specialists [facility] FOR RECORDS PERTAINING TO PATIENTS WHO [...] BE BASED ON THE PRIMARY CLINICAL RECORDS. [facility] [employer] provides no warranty or guarantee of the accuracy or completeness of information in this document.
[2023-05-24 06:37] LABS: Basophils Absolute Auto 0.1 10^3/uL (0.0-0.1); Basophils Percent Auto 0.9 % (0.2-2.0); Eosinophils Absolute Auto 0.4 10^3/uL (0.0-0.7); Eosinophils Percent Auto 5.7 % (0.9-7.0); Hematocrit 35.5 % (36.0-48.0); Hemoglobin 11.3 g/dL (12.0-16.0); Immature Granulocytes Abs Auto 0.01 10^3/uL (0.00-0.03); Immature Granulocytes Pct Auto 0.2 % (0.0-0.5); Lymphocytes Percent Auto 31.2 % (20.5-60.0); Mean Corpuscular HGB Conc 31.8 g/dL (29.9-35.2); Mean Corpuscular Hemoglobin 26.9 pg (26.7-34.0); Mean Corpuscular Volume 84.5 fL (81.0-99.0); Mean Platelet Volume 9.6 fL (9.5-13.5); Monocytes Absolute Auto 0.5 10^3/uL (0.3-0.8); Monocytes Percent Auto 8.1 % (1.7-12.0); Neutrophils Absolute Auto 3.5 10^3/uL (1.4-6.5); Neutrophils Percent Auto 53.9 % (43.0-75.0); Platelet Count 279 10^3/uL (150-450); Red Cell Distribution Width 15.6 % (11.0-15.0); White Blood Count 6.5 10^3/uL (4.0-11.0)
[2023-05-24 06:56] LABS: HCG Quantitative <1 mIU/mL
--- NOTE | 2023-05-24 08:19 | PM.ONB ---
Brief Operative Note Date of procedure: 05/24/23 Pre-op diagnosis: thickened endometrium, menorrhagia Post-op diagnosis: same as pre-op Procedure: NAME OF PROCEDURE: [ D&c hysteroscopy with myosure] PROCEDURE: The patient was taken back to the Operating Room where she was prepped and draped in normal sterile fashion after being placed under general anesthesia without difficulty. She was also placed in the dorsal lithotomy position. A weighted speculum was placed in the patient?s vagina. The anterior lip of the cervix was identified and grasped with a single tooth tenaculum. The patient?s uterus was then sounded roughly to [? 9] cm. The patient was then gently dilated using Hegar dilators. The hysteroscope was passed through the patient?s cervix into the uterus. Both ostia were identified. fluffy appearing endometrium. No gross evidence of malignancy, no gross evidence of polyps or fibroids. The hysteroscope was then removed from the uterus. Gentle currettage was performed until a gritty texture was noted. The endometrial curettings were sent out to pathology. The single tooth tenaculum was then removed from the patient's anterior lip of the cervix where excellent hemostasis was noted. All instruments were removed from the patient?s vagina. The patient tolerated the procedure well. Sponge, lap and needle counts were correct times two. The patient was taken to the Recovery Room in stable condition.Room in stable condition. Anesthesia: MAC Surgeon: Vincent Edmonds Estimated blood loss (mL): 5 Pathology: other (endometrial currettings) Condition: stable Disposition: PACU Urinary Catheter Management Urinary Catheter Management Urethral: Cath placed during this visit: no
[2023-05-24] MEDS: LACTATED RINGER'S SOLUTION 1,000 ML 50 ML IV (09:14)
--- NOTE | 2023-05-24 09:56 | PC.NURSE ---
suresh pad has small amount of bloody discharge
== END 2023-05-24 09:55 | disposition home or self-care (01) ==
PROVIDERS: Visit Provider Obstetrics & Gynecology
PROC: (CPT 952; principal; 2023-05-24 07:30)
DX: R10.2 Pelvic and perineal pain (principal); Q51.3 Bicornate uterus; N92.6 Irregular menstruation, unspecified; R93.89 Abnormal findings on diagnostic imaging of other specified body structures; D50.9 Iron deficiency anemia, unspecified
CPT/HCPCS: 58558; 84702; 85025; 88305; J1100; J1885; J2250; J2405; J2704; J3010

== ENCOUNTER 2023-08-21 09:55 | Outpatient (OUT) | payer OTHER, SELFPAY ==
--- OUTSIDE RECORDS SUMMARY | 2023-08-21 10:19 | XMS_ITS | CCD ---
Author Organization [facility] Care Team Providers Care Explosives Engineer Name Role Phone PAMELA RUIZ Admitting Unavailable PAMELA RUIZ Attending Unavailable PAMELA RUIZ Primary Care Unavailable PAMELA RUIZ Consulting Unavailable KARASIK, DR RODRIGUEZ Admitting Unavailable KARASIK, DR RODRIGUEZ Attending Unavailable PAMELA RUIZ Primary Care Unavailable KARASIK, DR RODRIGUEZ Consulting Unavailable LISETTE, ANTWAN Admitting Unavailable LISETTEANTWAN CELESTE Attending Unavailable PAMELA RUIZ Primary Care Unavailable WEST, DR VINEET Cruz Consulting Unavailable LISETTE, ANTWAN Consulting Unavailable KARASIK, DR RODRIGUEZ Admitting Unavailable KARASIK, DR RODRIGUEZ Attending Unavailable REQUEST, DR ELISEO LISTED Primary Care Unavaila ble KARNICA, DR RODRIGUEZ Consulting Unavailable WEST, DR VINEET Cruz Consulting Unavailable Guillermo Esparza Attending Unavaila ble Angelina, Aleja Bahena Referring Unavailable Chen, Aleja Bahena Admitting Unavailable Chen, Aleja Bahena Attending Unavailable Angelina, Aleja Bahena Referring Unavailable Dwayne Edmonds Attending Provider Dwayne Edmonds Attending Unavailable Tomás Edmondsy Admitting Unavailable KENDALDWAYNE Singh Attending Unavailable SUZAN BLEDSOE Attending Unavailable DWAYNE EDMONDS Attending Unavailable CHEN, ALEJA T Attending Unavailable CHEN, ALEJA T Referring Unavailable CHEN, ALEJA T Referring Unavailable DWAYNE EDMONDS Attending Unavailable Allergies Allergy Classification Reported Allergen(s) Allergy Type Date of Onset Reaction(s) Facility (1 source) No Known Medication Allergies; Translations: [No Known Medication Allergies] Propensity to adverse reactions (disorder) [facility] Repository Problems Active Problems Problem Classification [...] Facil ity Coding Summary.on 08-09-2022 Coding Summary. CD:[id number] Ww +PGhlYWQ+IW4IRRDrN01ng CSeoS7wN0OKTTaGHemeJDA NSHvTVtQofcSgPF5huJLjN XJu IC8+OH7rVRJsRsuglLIca8 A0yWS0M87hwo7qWUcxsXY1 UUYgKgAwfmohm6ddqWz9ON cuNmluOyBt MRFeyO75VGD7pR35Yt53lT EktEWkx2xqvWu5FzQsMOSs QWC4vNczRYgeb5JwURVbG8 3wxKJgx5Z2 CVXoaXbfmKZfUwIkrOW6fW 5nEQqwgzpmx3sefglaJvr2 qb37lIRkf7U9jPO1E7Csjp H4GDRghPFs BsjfsTSGeL4gtrruo5jzhm jtNzSdXEJwMId7ERm6DREi kEygZxOfNF47AAF9DDVqcm RfP4TfKWZa gDlcWpJ8s1O7Vu8WM2OTAu abS9PDVCLXVXatfEN+PC90 kz19K0EjBdyxWbm9PHNiFY X1fBQ0yZ4w MIHmTAqki1T8hBC6R6Oqav Nzbw0kw0ezMXPnEXxkF73r mSXsn9X1SBPqeQV2JPYhgA laUqLfwM35 Oyc+DUXzfYjnn0QvTixwq6 geq7yyhXc0PqbnWVCrxnFw iWozKBW8j2GtIx9uZKJneO D0rGD1kZ8h YkDmDpC3MBolM981HnPvjR XaWyyhE39rG5WchNP+PHRy Oqr9DFCceEadNQ8dH1CmMY RpbmctbGVm jPomFU8sHALcqjhiXREqkM 6xUQKqW0g1XgRqVcQ7XHpy G2TdLMEmeahfMl80iM1hWj TqXoU4FPba W0PjxwH0HIEvuXTcBPrbDD W9C77ni7U1DKAtIMTfANW3 bQL4gQ2oaYdsyimwiIPurB sgdmVydGlj UDshTAnuH977PAFrsKmjMc NvZGluZyBEYXRlOiAgMDUv MDQvMjAyMzwvdGQ+PHRkIH N2vDhxLGKg dGPzQWvbTw4fpHeniVpaNL 5nDXKsaszcBXJsxF8hMYLo eKKtrFatPQ8xPXBwuycoa4 24ZbNwNMX4 HYGzrGArV8DeaC2bYnKbZX JtTIPnT3RtwCFqNEazM406 KFtsQfL2KCKxhzHpU1NkSP FsaWduOiB0 t3Q1Ad9Xg5IiwfobG1DnnA KaCrZbZovyDOx3S8KnGkzk dHI+MQ37JTLtNC36FAm4EU N7sIyaCElb LQWrQ1VifH9cXoVcXSQlES RkOyc+PHRhYmxlIHdpZHRo QJnpQHIzGzQnwShyKE0iOs 9yZGVyLWNv mNpksPBeZfHcs1dnQQSeDV ltPE3mmSpiD5TvqNC8BROi u8v2Xw13M27wW3YycXA+PG AxnPM8zFZ2 oL2yWcCwZpK5UYmhX718Az VnqSIiXgmmn4hhh4dhzXr6 MxI9LUEqktCyzKuqZZC0d9 AlZy71T59y IHdpZHRoPSIxNSUiIHZhbG wlol2tdV1bSi9+PGNvbCB3 iWW3nF9nGpDgGkM1WEtcL6 49InRvcCIv Qqchm4hjw0scsSy1QhDeHM CehsFtpExsQGE5o5UuUj20 M4EafIswl4CyIpe5sk90hM Ekf2S6yDT2 G7UmVOXlbvswnBMhlGepYM 2iDVOkyyzeARQwfJ9lQVLn Z6s2CgCcTyJ9XShdT9Yvdo W0BWOoiUTj TBVumMLVeY7rivndw1tmgj hsZfCfNFFnGJn9GTx4MFKe hErrNrEwZIT9TqS9LHK3dS TgxN7pqTvm nrzmhU3gPay+ZQD8pCXhgB MDGG0rJqlqlAE+PHRkIHN0 wMioXQuqABPxmP6eMYWhR2 z1CmOePbN7 SAtaD9YiphS7SLXayNXlDP LjrFWSoR1agbipa3uomcrj RuYbCJCnGYq1FSo6TUQxtT duOiBsZWZ0 GcQ1BGP7sARgeK2ifXfxjs devO8hFib+QmlydGggRGF0 XAs0N8SdKte6MNJznJgqMB 0ncGFkZGlu Bx2lkJnwwNqjIQ9dGFHxjm hbp182ZxFhz4knPFJmoMPu FFznUFI4R97xm8R3YNMrZT CoZIW9eNJ8 zF3ayKjvyqgatAUgwNuzhc MgkFqyARvpJPrmX311EGRz yJwcFkPnEVd4G8JiWqv8NC GjhCapWB0i yEQkFZmmZd7vwHzrcSaaEW 7uRMAfvxpzf062KqPvs6hw RJAsoNIyOIylDPG4S63um5 T9PIHsGSFe FCA4kGZ2xM6gbGdumtdbmE VmdDsgdmVydGljYWwtYWxp B583GVAspCoqRlSqbCb0G5 XvIal5HTXn qJcjAZ6fzETeIZjbMu9jhN wlmGgtIN1xIILbwgxnq388 FtVae0qpOJCrxYGiFOuvUQ W8F12tw9Q2 PAQaEHOzMSF4vYF8nV0ngA lnbjogbGVmdDsgdmVydGlj QMjxEAqxJ524JIUjzEgaDl BhdGllbnQg RVnnVDt9M3KvQfeioXO+PC 75ZARsCK32lUClyJJza8dn fKw0FkKuLRPpCLQ5hDjvIG euh7PaPVZd J67ypIPbu8G0LVNasUvbsH FlNpEanKU8lC2vQEfrvlka h7dguznlBjaqk6blib46rB 34C01oEEew ZHRoPSIzMCUiIHZhbGlnbj 0bpU2rGe9+FQMseFD8dRU9 jW6uTCYpUkB5WMcgL181Cv RvcCIvPjxj j8jll5lckQi6JiM9LDXqwj LfkFzeVDY1i7AwGq56Y73d IHdpZHRoPSIyMCUiIHZhbG mupl2skM4k Ii8+ONQagYO0bNK2lX3cXm ZjVlU6RVyzK834PrQgpGSw XhfcH28bN2IwiLR+PHRyPj d8KCEghKum HN1waAVyBXjzFq9iPOP5Kz BxNbPzBBqwE0UuKUGdaijt pcionCT4DVFmNVNvbH62Rn 9udDogMTBw tSLFfG7ohammp7rvcyrpIm IuDEXkQDc1ZMj4LFMmeNyp UmUdWZR3KoD3FZU5fHNrkG 1hbGlnbjog yC9cI6WpYZYxaotgMq32cL 8hFgJhVeQ3HIbnMef+SkFS GpRQILfxFBISS8mmRpsalR Q+PHRkIHN0 xVvaZCtyCPLksY8jLOUuV2 n9NxVmYiU1NCdyH3VxOAVe tknnVa09iI6pIlBjXoC8JR phX3OheuZ4 MAObpSIbPRrkUGC1P19yv8 W9BBVgNIEjPKB5iUN3kM2m bGlnbjogbGVmdDsgdmVydG ljYWwtYWxp R011CDLqcXpiKbR4GuN4Mh H8KWE0N1BnBxu2NXPnrWps QX0vbEAqAFylKp3tjHdiwH lnRI2vIRXk fznfRCEjnY3yVGZwtGKaeS ydIP7pINMyjpqxp920LsDz VLZ3CGHwmOJxH1ZjtD8fXv AjMDAwMDAw F8WgsSPsMYntN958BAjgIr E6HLWdoyXtY9UgRWXbwVos OpC0p3A7Ix59RHEYIAQrgr wvdGQ+PHRk PFW7eMuyBWkeEFTzgC2hJW GkT8w7UpUtXfH3PXvrJ9La CTTtkzcuBz68yX0cXwBcQm U4AGwoB7Zr luO3STVmfAYfJFjnTRF5I0 8hz8L8REWuDBVgSZU4tLP3 jK9wzTylikjzfXJqtOaxwv VydGljYWwt CYwsV038QJXvuMuuOsEcsB FsZTwvdGQ+CMEoFCE8jMrn CBmaQDTftO5xGSXtM3e6Hm XvJrA5LEtt Y1ArTNWuuanjRa82sK4mZy KtGiW6CJycK3FurnE7RDWw xUYaPRfqRXH7R42rw5Q1ML MwMDAwMDA7 dES1kP0thVuehvgssDOszG dnpfKvbRtpVRdpGRboN008 TOUyuUqsUv56qOKclAqhsu Q5X8UnKpah dHI+VG37FYZvXT59pDDuxX Lux2jsfTk3NmLkUAHyIPT2 qOiiTRcrr6RfEJRtU71vcS Mbi1Z2LNEr xHcrhFAoKmNloYA0pS6cFM torxnlf3qbmtxmVicsw2oo wo53pL14K62rFRjjICYhAK IzMCUiIHZh aEzpmq4gjM6mBq5+PGNvbC A3zDX8vM4dTlEwFpM5FFdh V910XpShcXVyEquts6lna9 jrkTd2FlYw AGRhcgUkbNkuLTE6u5AaKl 91A34uZRbhQDMgLCFrYCBy ESOrzYrurx2vqB7sVo2+PC 6yf3jkbn13 lW58nLA+AKWzJZB7fIquUM kjOZIapR8kSLhzMfE8SITw KjLccP39kJLwMPmhIi3vpA kbcWpyWA0k XXHwliszw895TjMzy5irGY NroLSjMNhmHRC1M11ci1R3 IMQiUAQnXHO6yPW5nW4vlJ lnbjogbGVm dDsgdmVydGljYWwtYWxpZ2 50VKYgdTvkMbKjcZQmZ6qs vfMQEY3aTudusEF+PHRkIH L9fNgwUHpk XHPrzL4zTLEiL6w8MuVeMm X7YImiA6XbcjF0BAQpuRYq VAKeuPHOeX9hgrvon2wlad ogIzAwMDAw DTj0GWx8QTErjOypUeNgSX K9HmI1ZVK8jSJotQ7ekMpd xebyjU7sUwx+RklOOjwvdG Q+PHRkIHN0 zGnmTDftKOKdqK8oGCFwR0 f5YgArIvN2KConY5BludP7 QYIjuRZiMDGffAONtM2aag spi9ucfyrp JnTvYRJsCVz4WLk7TDGbhZ tuUhNyYQO3DqS7OVN3qREd lL4iuApbnpbwrL9kCwu+TV JOOjwvdGQ+ NCElIPK1eYzpFKbcBJBuhN 8yUHZeV5y5VaMsVtS3WQvb W7CxzjG5RRDvkTWsPGVakZ CGjZ9zjfsb e8tahpckFhPiSYNrJEi7GN p6ZQIeaWakDiEbODD8EqU9 AJX6fDVzcI9gpEzmntfmfR 9wOyc+UGF5 BYS7GV98UM26S8OfQzikdF FibGU+PHRhYmxlIHdpZHRo RLwuULAvAfUzcZeyIW2yXa 9yZGVyLWNv bGxhcHNl (more content not included)... Normal [facility] Coding Summary.on 07-25-2022 Coding Summary. CD:[id number] Ww +PGhlYWQ+HL8YCPNxR38sq YQwqD8vM1JMNVkFDpdiZZA DRTfYLkHcvpOyLY9kwHPrD XJu IC8+IC3fMAOdPijhgPPeq4 C6eZP9A41cex0cBDmsjEE8 GACrCfYtffuhz3ynmOj4IG cuNmluOyBt STHheR01BGC6pX89Ub35fS YbnRJut8zawDb1YzFpXWDc MZN7pZheLYwet7NuMHYtH6 2nrXKzg1F4 ZIKoxVsnpMOdVgFlmRZ6yC 3aQJpeoaova3lhiwiiJzt4 gi91jHLvr2T0bHQ4U4Okso P0LUNquTOg ClosmGCBsE5zczuse1fltx lwVdBuQEOeKGp8KEv1LAFd cQfpQvIoHK91QKR0YZOenc JbR4DbLHCf lNsaBwD3g9I2Xf8VB1ORFk wcB9VYERKBVTwczWQ+PC90 cu28B4PcXklbAba8GKGjCE U4hTY8yI5w JMNtPAjnj8F4uVG1Q0Jftt Dkcc6ry0yoOMEhWTjqM39u yOPth8L6XMDclWT6PBFyjQ ekArOuuZ85 Oyc+YMTbvFbae9KgBpjku1 bva0hmeLa7VwdrQDMsckBl pUkrZHJ8u8XjWm4jFOSrsX I9vFX0uG4z JjWiUoN0EUwbS079GzHmfR GdJpshY54cZ8NmfBD+PHRy Pqm0ESIepAjfIZ9tC2MgZR RpbmctbGVm eZecRB6uTPAhybucKIVszZ 8pHFCnU1k2JhByXzS3ZMvc G3HjCIOdegxaZr70zV6rOw UsQtA7CYep P2JympP0NNHacWMuHSblKL L8Q08qk4U1VJWtQMDmJRQ0 mUJ0eV3poAcqzdfcqHNjcG sgdmVydGlj YAlpLWnmE437NSEvyBkeGp NvZGluZyBEYXRlOiAgMDQv MTkvMjAyMzwvdGQ+PHRkIH V9oQayJDIo tKPuXPgjZo9wxBtwjMefHB 0dIXFabrfnDJAkcN3fFFXc nFWzbRiuAH8lGBOtemutd7 02EvDwMBZ4 GWMrfXRuT5LdiJ7oMyWuYP BtXYMpB1ThfKPaFNeiL900 OEzaBsV5RMUytbDtP4MgSI FsaWduOiB0 l5O8Yu5Yq6ZdqlirW7XztY TqOgScXfkaGGe3W5PqFtjy dHI+NG82XSLgXU39IBv4ND F7gQtyEMlx IIIkW1WcwZ7hGeKnPSTwNW RkOyc+PHRhYmxlIHdpZHRo ZMkmEMDwAuNhtGkrYC5aHi 9yZGVyLWNv vEgklXXuKdAly0uqXVDlLQ taJX5aiXbpB2LxpIW3UOWq t6l2Xl05O57bU9QidPG+PG McqYY3pGX0 mO8aAsXgBsF8RSbcP984Qd CtzFCnCaxmb5gsi1ohaLk5 KoJ4ZMXfqiSovZpeNQR0r0 WsNm90X99m IHdpZHRoPSIxNSUiIHZhbG nbxg4uvW0aVq3+PGNvbCB3 fIE8tN6eOeHvWnL6RVsgH1 49InRvcCIv Hjatm8iaa9lxbKc0ZpIbCW CbsmEwpGydSBH5u7CnVu16 R7QkdGpju7YeIyf3fk75bV Wpd8E6uUB2 C8IiXIQufjdcxQLodNuaUF 1vDTDaybilVHWaaY0nXBRe Q3g8NkNuKcT4ACwdR8Cwuv N9CKApkBLn RAMhvQYXuG0tovzcc2sxmt quQdMlHWRlLQg6ARu2DQFd bOxyMrZvBXR5BaZ1JFH1mJ ApmJ3npDyg uuoeoK6aUvk+JIX1mPHurS ILLA8yMgnbfFM+PHRkIHN0 xOyrRRsqLZHkbJ0lMWBaJ3 k2JrUoFoN7 NGtpU6HclyP5WHPbzHElYE CuzDNBqL6jiajwx0wsspuk HaIlCXVrTXs6LSj7ICDolA duOiBsZWZ0 ApP7AUK6qESdeU1orWaukp jlfQ4jBqw+QmlydGggRGF0 YPo2U6UlAnu3KFSdjMjlZQ 0ncGFkZGlu Ou9uyWgivGtgLV9yQJJnbz ndn528JjVpg2eoUYTkgWNv FEpgUWY0I45cv5C9FUNgMD HeGIH3pQA8 oP4mcSfafqlrbGQotMdpuw OhaJsvXCbtFWvnA244QUSv sKeaZrZvUKi9Y0GfDhk1PU OdkVgpIZ7p rRUcOLhkId5oeLdtiVilRH 3pOESnkxiih203OgFle1gn XNRyzDXkBSivCAW9T02aj0 K4ZUXaDJVi XFE9eRR8yR3ieYastsghwC VmdDsgdmVydGljYWwtYWxp B747ZYMgkKrtFrWqpPi4X7 JmRgr0KUQr sRxgBB3feOAsHVmwQq8sjU hfrAfeFG0lIKWqwyqtu730 QiXvh0miZCAvwHEnCAjeON P5P40tv6X0 POYlQYFrPXW5xDJ4iJ2qrW lnbjogbGVmdDsgdmVydGlj EJufOXgjD592SAFucVjhFu BhdGllbnQg THcoQVe2D3JgImpfaCH+PC 54LKToIL46sMFihWDvl7bs zOn5LkTpMYOmRLP6eXvnGN clh8TbXKTq S95mvGEjm8U9EGPitFygxS SjQbDkfFQ5rK1zHXqomhhf a6lfsqzcJgtay1zyho68sS 29B19wOVsg ZHRoPSIzMCUiIHZhbGlnbj 7qbJ4pHd2+LZXwvYG0lHQ4 lB9pRJNhOwA9BEfvH571Uk RvcCIvPjxj o5sog8anvAg9CmD4JZXcov OvtHnjWHI0v0HwRg90F53u IHdpZHRoPSIyMCUiIHZhbG pfbx0thU4k Ii8+LJFrtUP5oUO9pX4wLa JbSbB8NBrcU733CfYlmPFj RjlcG79kT6LubEW+PHRyPj q6QDIrbHsr KI3dcCFjFQcdSh1zJHQ8Pb RxSiKtAHtfF7WmLYOxmazv wuquxNA7MOUoGUTkjQ94Bp 9udDogMTBw dWYQzM5otqfmb2mqljsyYl KzCFNtGHp5LGt7AETnnYly HiZxVFG9ChK0ASW1pXPflI 1hbGlnbjog jQ3kG2CnHQOwbsffHj62vD 9dFkHkFcJ1ZPtgNlc+SkFS HaJEBXtsUUWKF3mzWvezxI Q+PHRkIHN0 kOnoFKtfLTDdyS3xYFRfO1 w6WyZsKqP5FQwyD3HwLKQm qltwGp35cV2gOxNmQuJ0RJ yjP0KbftB7 FHWqvVXqZGsfACD4P60ir6 I3SXPqZRQfRUV3cDZ4xV8m bGlnbjogbGVmdDsgdmVydG ljYWwtYWxp R405GMXyvRjiSwE3YuD0Cu U0OFP7K6NvHki5PHZwaLyo YF4kyOEvEUhcAe2mpKnyzE jkEB3pMWNt pfkmLFXbfU5xDACgwXXcyJ xeVV6nUIKiibnlv602ZdOn KIG3AEIfbYXjF5FvkR9oBg AjMDAwMDAw G4DplEMzXPkvA052JYxaOz V9ILXkqlMmE8DdDUXmyWfd AjW5y6S7At75BHZGUUUcrd wvdGQ+PHRk QVP5nWjcSFuaNFXtjK9aRO CfI8t7YqFsIgP0TGlbW6Fg TAKzvrjgIu24uL9yIaGcQo W6PZmrA3Lq xvU9CGRmvAGpCFkcANP0V3 4rm2N1EMCkCQBcAKJ6eKE6 hU1bvPuywkdrlVZotEiurz VydGljYWwt RFhoI852FQEgcIbtTvMqaC FsZTwvdGQ+WQDoOKM1mNum DFenHIKnuV1sNNNrQ5t3Ap MtAaD4TAqu S6AoCUZbecgmNb31bX7aLu DdCwW8GBojD0JelrI0JFHc zITuALrtFQH5R19se7J1TM MwMDAwMDA7 qPN9hS9onJdtossojNZtuG unjgEtrUzdECssWZrtQ134 RLThbWwzHp49jTAszCjbih G6Q6JhVlie dHI+KQ71SVUwTZ44nXCzwA Wja6vljFa7HcGoJRYjTAN9 kKbkCYins7OaDXDoN75iqR Oel3B6PAXp eRmciNRmXvWqwNG9tQ9sOQ ytosivs3aqnfptAddkv3hf vl89eH93J99gYOmvWHYhRL IzMCUiIHZh sWbomr0mdA2hJb7+PGNvbC N6gKL5oW9nEnJtPeP1ZGyt U859EyVemVJoKcdtz0thr1 xfeJi9AxCg CQTecaRklCtnJPJ5l6FdDu 53G07cDCvuTQVbMMZlKRMk PFQiiVcqwn9rjT8iIz4+PC 9et2cbkt97 vI45wGG+RFOeMMZ4kMhyHN rhQVCbsM7eONhlGkD5VWSd FkEgyC92gZEfQPkqDn6tuD xmnTfiDZ9d DLRqnlibv095YtZbo6quUP PtrPHjAAcdHME3L98ld5M9 FDPnKITdBVH6mQP2zR5xwK lnbjogbGVm dDsgdmVydGljYWwtYWxpZ2 06EZPsvYlwIuLlaPIwU5dc ztFTXZ0xOtareUU+PHRkIH O9uGpoULco UUBbiE9rNEYoS1b8TcImMn U2JTceK4KscdS1NESzhWAk XPFchFUWhO7islano2lshs ogIzAwMDAw GTm4CKh3DXGboGlfWoXzEN L4KzS8CGC1uKYmwK4txOaf xnihaT8fXec+RklOOjwvdG Q+PHRkIHN0 mZtkTJlwZYGjwW8eFIXbX6 b1UdYdXwE7VWxnF6RuysE9 BAVnyXPoKMAqmUCPhV6nkk apy3lbntkq SoZsDASkFMv7VNt5VGYazQ wbXsLsHLP6VzU0NLI7dPYm gJ9dcTauozrgtB5sLwu+TV JOOjwvdGQ+ GPEhJES3bNfwTRmmWZKbkU 4rWKRuI2p5LdYgPaN7PFqu Z2WjzrU8LVTouJHvVBDoyN VCkA6ricvv q7jfkitrNsLvMVZlIMp7AU e9QQZjtLdwUgYeWYC4WsS4 WOK0wJEduH3qaCyuxkszkN 9wOyc+UGF5 YSS7NR02CT45X9WxSyqpoI FibGU+PHRhYmxlIHdpZHRo GWiyAFXdJmMznRzyQF3yQv 9yZGVyLWNv bGxhcHNl (more content not included)... [facility] Consent for Treatmenton 07-07 Consent for Treatment [id number]#1.0 0CD:127 Normal [facility]/Cl inic Noteon [...] bike. She did a walking challenge from [employer] in 05/2022. She is not diabetic. She [...] patient or guardian consented to allow Olamide Turner to record this visit. GAEL digital media specialist and provider reviewed before signing. GAEL: [...] 07/24/2022 Family History Heart disease: Father. [facility] Comment on above: Result Comment: Elec tronically Signed By: Isaias TUTTLE, Guillermo Arteaga\.br\Date and Time Signed: 07/24/22 21:56 EDT\.br\Electronically Co-Signed By: Jenn Meza.br\Date and Time Co-Signed: 07/24/22 16:08 EDT Physician Orderon 07-24-2022 Physician Order [id number]#1. 00CD:127 Normal [facility] Physician Order [id number]#1. 00CD:127 Normal [facility] BMPon 07-19-2022 Anion gap [Moles/Vol] 11 mmol/L Normal 6-16 [facility] Comment on above: Performed By: #### 2 [id number], [id number], [id number] #### [facility] [address] [place] [address] Calcium [Mass/Vol] 8.8 mg/dL Low 8.9-11.1 [facility] Comment on above: Performed By: #### 2 [id number], [id number], [id number] #### [facility] [address] [place] [address] Chloride [Moles/Vol] 103 mmol/L Normal 101-111 [facility] Comment on above: Performed By: #### 2 181962, [id number], [id number] #### [facility] [address] [place] [address] CO2 [Moles/Vol] 27 mmol/L Normal 21-31 [facility] Comment on above: Performed By: #### 2 124360, 1196626, [id number] #### [facility] [address] [place] [address] Creatinine [Mass/Vol] 0.9 mg/dL Normal 0.5-1.3 [facility] Comment on above: Performed By: #### 2 816213, 5937552, [id number] #### [facility] [address] [place] [address] Glucose [Mass/Vol] 95 mg/dL Normal 55-199 [facility] Comment on above: Result Comment: If t his glucose result represents a fasting glucose, interpretation should refer to the following reference range: 55-99 mg/dL Performed By: #### 2 128844, 6219322, [id number] #### [facility] [address] [place] [address] Potassium [Moles/Vol] 4.4 mmol/L Normal 3.5-5.3 [facility] Comment on above: Performed By: #### 2 859535, 4582648, [id number] #### [facility] [address] [place] [address] Sodium [Moles/Vol] 137 mmol/L Normal 135-145 [facility] Comment on above: Performed By: #### 2 976221, 9419884, 92340855 #### [facility] [address] [place] [address] Urea nitrogen [Mass/Vol] 12 mg/dL Normal 5-21 [facility] Comment on above: Performed By: #### 2 750951, 1061687, [id number] #### [facility] [address] [place] [address] Urea nitrogen/Creatinin e [Mass ratio] 13 No Units Normal 10-20 [facility] Comment on above: Performed By: #### 2 982182, 4897614, [id number] #### [facility] [address] [place] [address] CBC w/Indiceson 07-19-2022 Erythrocyte distribution width (RBC) [Ratio] 16.2 % High 10.9-14.2 [facility] Comment on above: Performed By: #### 2 702634, 8345754, 44150999 #### [facility] [address] [place] [address] Hematocrit (Bld) [Volume fraction] 36.4 % Normal 34.0-46.0 [facility] Comment on above: Performed By: #### 2 630015, 4250047, 70869212 #### [facility] [address] [place] [address] Hemoglobin (Bld) [Mass/Vol] 12.0 g/dL Normal 12.0-16.0 [facility] Comment on above: Performed By: #### 2 226264, 2759959, 28818637 #### [facility] [address] [place] [address] MCH (RBC) [Entitic mass] 26.1 pg Low 27.0-34.0 [facility] Comment on above: Performed By: #### 2 183465, 4777714, [id number] #### [facility] [address] [place] [address] MCHC (RBC) [Mass/Vol] 33.1 g/dL Normal 31.4-36.0 [facility] Comment on above: Performed By: #### 2 428885, 5100585, 17101726 #### [facility] [address] [place] [address] MCV (RBC) [Entitic vol] 78.8 fL Low 80.0-100.0 [facility] Comment on above: Performed By: #### 2 009498, 5432527, 63897741 #### [facility] [address] [place] [address] Platelet mean volume (Bld) [Entitic vol] 7.6 fL Normal 6.4-10.8 [facility] Comment on above: Performed By: #### 2 934466, 3495841, 56188105 #### [facility] [address] [place] [address] Platelets (Bld) [#/Vol] 346.0 E9/L Normal 150.0-500.0 [facility] Comment on above: Performed By: #### 2 514250, 3302219, 43589659 #### [facility] [address] [place] [address] RBC (Bld) [#/Vol] 4.6 E12/L Normal 4.3-5.9 [facility] Comment on above: Performed By: #### 2 728257, 2422407, 64546175 #### [facility] [address] [place] [address] WBC corrected for nucl RBC Auto (Bld) [#/Vol] 7.5 E9/L Normal 4.0-11.0 [facility] Comment on above: Performed By: #### 2 597165, 7211116, 99554494 #### [facility] [address] [place] [address] Consent for Treatmenton 07-07 Consent for Treatment [id number] 0CD:127 Normal [facility] Physician Orderon 07-19-2022 Physician Order [id number] 0CD:127 Normal [facility] eGFRon 07-19-2022 GFR/1.73 sq M.predicted among blacks MDRD (S/P/Bld) [Vol rate/Area] mL/min/{1.73_m2} Normal >=59 [facility] Comment on above: Order Comment: Order added by Discern Expert. Result Comment: eGFR is race adjusted. AA=. Performed By: #### 2 150516, 2957113, 84024565 #### [facility] [address] [place] [address] GFR/1.73 sq M.predicted among non-blacks MDRD (S/P/Bld) [Vol rate/Area] mL/min/{1.73_m2} Normal >=59 [facility] Comment on above: Order Comment: Order added by Discern Expert. Result Comment: Appeals Coordinator mark kidney disease could be indicated at eGFR's of less than 60 mL/min/1.73m2. Kidney failure is indicated at less than 15 mL/min/1.73m2. Performed By: #### 2 925985, 3894020, [id number] #### [facility] [address] [place] [address] MG MAMM SCREEN 3D RONEN CADon 04-03-2022 MG MAMM SCREEN 3D RONEN CAD Patient: KARMA NIETO Exam Date: 04/03/2022 : 1980 Gender:F Ordering : DR MICHAEL RUSSO . Admission #: [id number] Family : Order #: [id number] CLICK HERE TO VIEW EXAM RADIOLOGY REPORT PROCEDURE: MAMMOGRAM SCREENING 3D BILATERAL CAD COMPARISON: None. INDICATIONS: Screening mammography Calculator Name NCI Breast Cancer Risk Assessment Tool 5 Year Breast Cancer Risk 0.60% Lifetime Breast Cancer Risk 11.10% Personal Breast Cancer No Personal Ovarian Cancer No Treatments None Family Cancers None LOCATION: [facility] BREAST COMPOSITION: Extremely dense, which [...] Woods MD on 04/05/2022 at 08:01 Normal [facility] MRI Knee w/o Lefton 12-28-19 MRI [...] by Patel Bhardwaj on 12/27/2021 1455 Normal [facility] US [facility] HEAD_NECKon 10-19-[address] HEAD_NECK [...] by: VINEET WOODS Date: 2021-10-19 19:21 Normal [facility] PAP ACOG PANEL 2: 30 to 65on 06-30-2021 . . Normal [facility] Comment on above: Result Comment: Perf ormed at: WB Performed By: #### 4 [id number] #### [facility] [address] [place] [address] Dr. Rosa Maria Frazier Age Gdln ACOG Testing - Normal [facility] Comment on above: Performed By: #### 4 [id number] #### [facility] [address] [place] [address] Dr. Rosa Maria Frazier DIAGNOSIS: Comment Normal [facility] Comment on above: Result Comment: NEGA TIVE FOR INTRAEPITHELIAL LESION OR MALIGNANCY. Performed at: WB Performed By: #### 4 [id number] #### [facility] [address] [place] [address] Dr. Rosa Maria Frazier HPV Aptima Negative Normal Negative [facility] Comment on above: Result Comment: This nucleic acid amplification test detects fourteen high-risk HPV types (16,18,31,33,35,39,45,51,52,56,58,59,66,68) without differentiation. Performed at: =G Performed By: #### 4 [id number] #### [facility] [address] [place] [address] Dr. Rosa Maria Frazier Methodology: Comment Normal [facility] Comment on above: Result Comment: This liquid based ThinPrep(R) pap test was screened with the use of an image guided system. Performed at: WB Performed By: #### 4 [id number] #### [facility] [address] [place] [address] Dr. Rosa Maria Frazier Note: Comment Normal [facility] Comment on above: Result Comment: The Pap smear is a screening test designed to aid in the detection of premalignant and malignant conditions of the uterine cervix. It is not a diagnostic procedure and should not be used as the sole means of detecting cervical cancer. Both false-positive and false-negative reports do occur. . Performed at: WB Performed By: #### 4 [id number] #### [facility] [address] [place] [address] Dr. Rosa Maria Frazier Performed by: Comment Normal [facility] Comment on above: Result Comment: Dayo De Guzman, Power Digger Operator (ASCP) Performed at: WB Performed By: #### 4 [id number] #### [facility] [address] [place] [address] Dr. Rosa Maria Frazier Specimen adequacy: Comment Normal [facility] Comment on above: Result Comment: Sati sfactory for evaluation. Endocervical and/or squamous metaplastic cells (endocervical component) are present. Performed at: WB Performed By: #### 4 [id number] #### [facility] [address] [place] [address] Dr. Rosa Maria Frazier [facility]on SARS-CoV-2 (COVID-19) RNA OLU+probe Ql (Unsp spec) Not detected Normal NOT DETECTED [facility] Comment on above: Result Comment: This test is not yet approved or cleared by the [place] FDA. When there are no FDA-approved or cleared tests available, and other criteria are met, FDA can make tests available under an emergency access mechanism called an Emergency Use Authorization (EUA). The EUA for this test is supported by the [place] of Health and Human Service's (HHS's) declaration [...] consistent with SARS-CoV-2. Performed By: #### C VDTB #### [facility] [address] [address] [address] Rosa Maria Frazier Encounters Encounter Date Encounter Type Care Provider Facility Start: 08-07-2023 End: 08-07-2023 ambulatory DWAYNE KENDAL Not Available Start: 06-05-2023 End: 06-05-2023 ambulatory SUZAN BLEDSOE Not Available Start: 05-24-2023 End: 05-24-2023 ambulatory Dwayne Kendal Facility:[facility] Start: 05-24-2023 End: 05-24-2023 ambulatory Dwayne Kendal Work Phone: [facility] Work Phone: Start: 05-24-2023 End: 05-24-2023 Departed Referred Dwayne Kendal Work Phone: [facility] Start: 04-24-2023 End: 04-24-2023 ambulatory DWAYNE KENDAL Not Available Start: 03-29-2023 End: 03-29-2023 ambulatory ALEJA CHEN Not Available Start: 03-27-2023 End: 03-27-2023 ambulatory DWAYNE KENDAL Not Available Start: 07-24-2022 End: 07-25-2022 ambulatory Guillermo Esparza Facility:[facility] Start: 07-19-2022 End: 07-20-2022 ambulatory Aleja Chen Facility:[facility] Start: 04-03-2022 End: 04-04-[address] MICHAEL RUSSO Facility:[facility] Start: 10-19-2021 End: 10-20-2021 ambulatory ANTWAN KNOX Facility:[facility] Start: 06-27-2021 End: 06-27-[address] MICHAEL RUSSO Facility:[facility] Start: 04-14-2021 End: 04-14-2021 [facility] Facility:[facility] Payers Date Payer Category Payer Self-pay [id number] 2022 Unknown [id number] 1980 Unknown [id number] 1980 Unknown [id number] 1980 Unknown [id number] 2.16.84 0.1.512424.3.579.2.593 1980 Unknown [id number] 2.16.84 0.1.310152.3.579.2.593 1980 Unknown [id number] 2.16.8 40.1.888896.3.579.2.727 1981 Unknown [id number] 2.16.8 40.1.186497.3.579.2.727 1981 Unknown [id number] 2.16.84 0.1.708455.3.579.2.1259 1981 Unknown [id number] 2.16.84 0.1.146672.3.579.2.1259 1981 Unknown [id number] 2.16.84 0.1.582522.3.579.2.1259 1981 Unknown [id number] 2.16.840 .1.964033.3.579.2.1259 1981 Unknown [id number] 2.16.840 .1.160823.3.579.2.1259 1981 Unknown [id number] 2.16.840 .1.300063.3.579.2.1259 1959 Unknown [id number] Unknown [id number] 2.16.8 40.1.112906.3.579.2.531 Social History Date Type Detail Facility Tobacco smoking stat [facility] Unknown if ever smoked [facility] Work Phone: Start: 1980 Sex Assigned At Female [facility] Evaluation note Note Date & Type Note Facility Evaluation note No assessment information availa lizandro [facility] Work Phone: Summary Purpose Family History No Family History Records FoundNo Family History Records FoundNo Family History Records FoundNo Family History Records FoundNo Family History Records Found Advance Directives No Advanced Directives Records Found Advance Directive Response Recorded Date/ Time Advance Directives No August 20 8 10:20am Additional Source Comments INFORMATION SOURCE (unrecogn ized section and content) DATE CREATED AUTHOR 01/07/2022 [facility] Specialist DATE CREATED AUTHOR AUTHOR'S ORGANIZ ATION 04/06/2022 [facility] DATE CREATED AUTHOR AUTHOR'S ORGANIZ ATION 09/15/2022 [facility] DATE CREATED AUTHOR AUTHOR'S ORGANIZ ATION 05/26/2023 [facility] DATE CREATED AUTHOR AUTHOR'S ORGANIZ ATION 08/09/2023 [facility] d[facility] Specialists [employer] Care Teams (unrecognized sec tion and content) Team Status: Inactive Member Role Status Dates Dwayne Edmonds Attending Provider Active Start: [place] 2023 End: May 24, 2023 Goals (unrecognized section and content) Goals may be documented in a n alternate section FOR RECORDS PERTAINING TO PATIENTS WHO ARE [...] BE BASED ON THE PRIMARY CLINICAL RECORDS. [facility]. provides no warranty or guarantee of the accuracy or completeness of information in this document.
[2023-08-21 10:43] LABS: Basophils Absolute Auto 0.1 10^3/uL (0.0-0.1); Basophils Percent Auto 0.9 % (0.2-2.0); Eosinophils Absolute Auto 0.3 10^3/uL (0.0-0.7); Eosinophils Percent Auto 3.9 % (0.9-7.0); Hematocrit 40.3 % (36.0-48.0); Hemoglobin 13.5 g/dL (12.0-16.0); Immature Granulocytes Abs Auto 0.01 10^3/uL (0.00-0.03); Immature Granulocytes Pct Auto 0.1 % (0.0-0.5); Lymphocytes Absolute Auto 1.9 10^3/uL (1.2-3.8); Lymphocytes Percent Auto 27.2 % (20.5-60.0); Mean Corpuscular HGB Conc 33.5 g/dL (29.9-35.2); Mean Corpuscular Hemoglobin 28.5 pg (26.7-34.0); Mean Corpuscular Volume 85.2 fL (81.0-99.0); Mean Platelet Volume 9.6 fL (9.5-13.5); Monocytes Absolute Auto 0.5 10^3/uL (0.3-0.8); Monocytes Percent Auto 7.1 % (1.7-12.0); Neutrophils Absolute Auto 4.3 10^3/uL (1.4-6.5); Neutrophils Percent Auto 60.8 % (43.0-75.0); Platelet Count 312 10^3/uL (150-450); Red Blood Count 4.73 10^6/uL (4.20-5.40); Red Cell Distribution Width 13.9 % (11.0-15.0)
[2023-08-21 11:02] LABS: INR 1.01; Prothrombin Time 10.7 sec (9.0-11.6)
[2023-08-21 11:15] LABS: Alanine Aminotransferase 20 U/L (14-59); Albumin Level 3.7 g/dL (3.4-5.0); Alkaline Phosphatase 85 U/L (46-116); Anion Gap 14.2; Aspartate Amino Transferase 13 U/L (15-37); BUN Creatinine Ratio 23.5; Bilirubin Direct 0.1 mg/dL (0.0-0.2); Bilirubin Total 0.3 mg/dL (0.2-1.0); Carbon Dioxide 24.7 mmol/L (21.0-32.0); Chloride 102 mmol/L (98-107); Estimated GFR (African America >60 (>=60); Estimated GFR (Non-African Ame >60 (>=60); Globulin 3.7 g/dL; Glucose 102 mg/dL (74-106); Potassium 3.9 mmol/L (3.5-5.1); Sodium 137 mmol/L (136-145); Total Protein 7.4 g/dL (6.4-8.2)
== END 2023-08-21 09:56 | disposition home or self-care (01) ==
LOC: PST 09:55
PROVIDERS: Visit Provider Obstetrics & Gynecology
DX: Z01.812 Encounter for preprocedural laboratory examination (principal); N92.0 Excessive and frequent menstruation with regular cycle; R10.2 Pelvic and perineal pain; N94.6 Dysmenorrhea, unspecified; N94.10 Unspecified dyspareunia
CPT/HCPCS: 80048; 80076; 85025; 85610; 85730; 86850; 86900; 86901

== ENCOUNTER 2023-09-04 06:00 | Day surgery (SDC) | payer OTHER, SELFPAY ==
[2023-08-21 10:19] VITALS: BP 128/90; PULSE 101; TEMP 36.4; O2SAT 99; BMI 42.2
[2023-09-04] VITALS (11 sets, daily range): BP systolic 94–158; BP diastolic 66–90; PULSE 75–89; TEMP 36.4–36.9; O2SAT 95–100; BMI 42.7
--- OUTSIDE RECORDS SUMMARY | 2023-09-04 06:02 | XMS_ITS ---
Patient Summarization (C-CDA 2.1 CCD) Created on: September 04, 2023 EMILIAKARMA Bahena : 1980 Sex: Female Author Organization Sample organization Care Team Providers Care Clinical Data Management Director Name Role Phone PAMELA RUIZ Admitting Unavailable PAMELA RUIZ Attending Unavailable PAMELA RUIZ Primary Care Unavailable PAMELA RUIZ Consulting Unavailable KARASIK, DR RODRIGUEZ Admitting Unavailable KARASIK, DR RODRIGUEZ Attending Unavailable PAMELA RUIZ Primary Care Unavailable KARASIK, DR RODRIGUEZ Consulting Unavailable LISETTEANTWAN SULLIVAN Admitting Unavailable ANTWAN KNOX Attending Unavailable PAMELA RUIZ Primary Care Unavailable WEST, DR VINEET Cruz Consulting Unavailable LISETTE, ANTWAN Consulting Unavailable KARASIK, DR RODRIGUEZ Admitting Unavailable KARASIK, DR RODRIGUEZ Attending Unavailable REQUEST, DR ELISEO LISTED Primary Care Unavaila ble KARAN, DR RODRIGUEZ Consulting Unavailable WEST, DR VINEET Cruz Consulting Unavailable Guillermo Esparza Attending Unavaila lizandro Chen, Aleja Bahena Referring Unavailable Chen, Aleja Bahena Admitting Unavailable Angelina, Aleja Bahena Attending Unavailable Angelina, Aleja Bahena Referring Unavailable Dwayne Edmonds Attending Provider [phone] Dwayne Edmonds Attending Unavailable Dwayne Edmonds Admitting Unavailable KENDAL, DWAYNE Attending Unavailable SUZAN BLEDSOE Attending Unavailable DWAYNE EDMONDS Attending Unavailable CHEN, ALEJA Bahena Attending Unavailable CHEN, ALEJA Bahena Referring Unavailable CHEN, ALEJA Bahena Referring Unavailable DWAYNE EDMONDS Attending Unavailable Allergies Allergy Classification Reported Allergen(s) Allergy Type Date of Onset Reaction(s) Facility (1 source) No Known Medication Allergies; Translations: [No Known Medication Allergies] Propensity to adverse reactions (disorder) [facility] Repository Encounters Encounter Date Encounter Type Care Provider Facility Start: 08-07-2023 End: 08-07-2023 ambulatory DWAYNE EDMONDS Not Available Start: 06-05-2023 End: 06-05-2023 ambulatory SUZAN BLEDSOE Not Available Start: 05-24-2023 End: 05-24-2023 ambulatory Dwayne Reynoldso Facility:[facility] Start: 05-24-2023 End: 05-24-2023 ambulatory Dwayne Reynoldso Work Phone: [facility] Work Phone: Start: 05-24-2023 End: 05-24-2023 Departed Referred Dwayne Reynoldso Work Phone: [facility] Start: 04-24-2023 End: 04-24-2023 ambulatory DWAYNE REYNOLDSO Not Available Start: 03-29-2023 End: 03-29-2023 ambulatory ALEJA CHEN Not Available Start: 03-27-2023 End: 03-27-2023 ambulatory DWAYNE QUINTEROZIO Not Available Start: 07-24-2022 End: 07-25-2022 ambulatory Guillermo Esparza [facility] Start: 07-19-2022 End: 07-20-2022 ambulatory Aleja Chen Facility[place] Start: 04-03-2022 End: 04-04-[address] MICHAEL RUSSO Facility:[facility] Start: 10-19-2021 End: 10-20-2021 ambulatory ANTWAN KNOX Facility:[facility] Start: 06-27-2021 End: 06-27-[address] MICHAEL RUSSO Facility:[facility] Start: 04-14-2021 End: 04-14-2021 ambulatory PAMELA RUIZ Facility:[facility] Payers Date Payer Category Payer Self-pay [id number] 2022 Unknown [id number] 1980 Unknown [id number] .[id number] 0.1.212035.3.579.2.593 1980 Unknown [id number] 0.1.069955.3.579.2.593 1980 Unknown [id number] ..[id number] 0.1.371788.3.579.2.593 1980 Unknown [id number] 2.16.84 0.1.944783.3.579.2.593 1980 Unknown [id number] 2.16.8 40.1.658790.3.579.2.727 1980 Unknown [id number] 2.16.8 40.1.725898.3.579.2.727 1980 Unknown [id number] 2.16.84 0.1.103299.3.579.2.1259 1980 Unknown [id number] 2.16.84 0.1.044406.3.579.2.9 1980 Unknown [id number] 2.16.84 0.1.338475.3.579.2.9 1980 Unknown [id number] 2.16.840 .1.589354.3.579.2.9 1980 Unknown [id number] 2.16.840 .1.009622.3.579.2.9 1980 Unknown [id number] 2.16.840 .1.719085.3.579.2.1259 1959 Unknown [id number] Unknown [id number] 2.16.8 40.1.382788.3.579.2.531 Problems Active Problems Problem Classification Problem Date [...] Facil ity Coding Summary.on 08-09-2022 Coding Summary. CD:[id number] Ww +PGhlYWQ+PI4KUMWiM31ii IQvsO0kL7EXYSlRZkrxGWR KECxSEtAdakNfZE1dlTXwM XJu IC8+VW3hONJyGgdswTHug7 K0gLX7L69odu0oWVvhxSS2 SFMgBkKwnmsse1hcwHp6SA cuNmluOyBt RLTbbA82HXH6gU30Gj56yF IwsAQhr9mlsVm6OlKoCLAr FJS3bEguZLxnv2WyQPBdG1 6xnHFzp1T4 OSAahZqxvWHmRsZoqLA9zG 0dQQwplraee9yqbbvwJdu8 fm32iVMwu4D9gLA3X2Bjze J9OLTsfPPm RvqzaYGVkL3vgtdvp7ktnf fbKsLeNMSnQDf8SNn3KGZy hEclNtOqKC42HYE7PTZcfa OfW9PtIJHp mAttOvH8a3A0Td0AZ0ZGCl bjA4OIXNQCTAnpiUR+PC90 yc91A6ZxIlorWkm0RPXySB D9zKF5tS5s ZDWeAHnwk9S2sIC5K7Kgjo Iamt0fv6yjHKUoPBpxV56e qRSmo9I2ODDiyXJ5EPYnlO avSoZsjY08 Oyc+FQRmqLixh4BnFgsnj5 mnj1dyoDr2VsgkFJPrrrEi vFgbQWW5a2RkBl4pBPTdmL F3rDS5aF9x VfGuWvH6XZnoW642YkJwtI WeFlfzQ41jT7AcvPR+PHRy Szu3YLPzlJglOO6jY7RcEM RpbmctbGVm aFkzFN7zDITdfcviIFQwgR 0zBWJcX6z1EmGmLbG7MGxl E8RkOOCxvfgmZw71hG3yUj BnLdP6NRao I9AdzsR2BTMylEVsSXbdWQ Y9O91mc9I0LXZxXQBwVTI1 tSO7dT4tlIyzyenlnKPloR sgdmVydGlj VIaqQKgkD335ZFJurLibZy NvZGluZyBEYXRlOiAgMDUv MDQvMjAyMzwvdGQ+PHRkIH K6qZdjKTYh uLFzJZcyOa6wnDpqnQnnFH 9aYFIyootoEVHhdD8kFRZd zAEdkVxxOL6cVGApzrogo1 64BiRlHOK8 YIYroVOqD7YpaR2tUrJuBG GcGUHpN2EjaUGxRSeqC780 EPbxUhD8NHAkkpAsK5WvQV FsaWduOiB0 o6H2Fy3Xh4BouxcfU9ZsoY TsKaKpXfmqFYh6P8OdEdpu dHI+DA19ZOEuYO89QFp6ZM Q0dDzkOBxw QOTqF9ZgeO4aPoQcKGXmQR RkOyc+PHRhYmxlIHdpZHRo LUcnRNOuTxChrXomTW7cNh 9yZGVyLWNv iJwrvFHuBxIjh8uyNTMeTF kiRW4pkEwzZ4AinIW4PUFn e6m1Ss65Y40mP9UhnYU+PG DdzES0iRZ6 iY3yGcCvZqI0UFqxN271Wa IhlGZnThjml4utm6poyQi6 VsW4WRYprtCctVboIGG2i8 ZfXo99P98f IHdpZHRoPSIxNSUiIHZhbG okef9naL6zOy3+PGNvbCB3 kJR5xR3uXsVcFzT8YVqxM3 49InRvcCIv Txqge3tcq9bhoUf1CoVyRA EyizVnhVqiZAL1f8VvYn03 S8AjbQuvv3UsStv4en01xM Wsj9H6xNZ4 S3YgHQXzamizdYZfjBhjXB 7zGKFfnmnbKJKhzM8yWLJz Y1t2UpWvIhE2ISyqT7Bwqr T4TXBptOCp CHZmyMRUfE7fsonns9mehj ohZgAbALQfGQb1PIh6KJPq fPsrPbNaOOH3QwC7TIF4bD LrcT8yjLrq zrzchY0hFxw+MJX9eXNptV VTFX2vMfvrwFW+PHRkIHN0 nPudWMynIMVqlN0nRRCrP2 g3YsJdHxU7 HVcyT4JhmwH8BREnuQHjTK CbeHUOpM4xuwcdd5rmwvue VcLpAOQkGQq9TJx0HJJowE duOiBsZWZ0 UsO8VVZ6iCBldB5ooAocea rmuU9gIzy+QmlydGggRGF0 DNj0A2YpCtw7RENpqQecCS 0ncGFkZGlu Ax4piYqidKbtTU9jLIKxvs raq065TiDzk5hdOXZauHHm LKixQFX2W64dt5J4SZJwRM JvDRI6zKD1 mT3fnZmeqzspmRAeuSpgqi DjmHlzKWizCSyeF566CVOe fAfzWjGeBOp5G1YmHlj9MS LbsSkpMJ7w lVSmQHqfOh4mcFcbhLhmSL 7mSPTbapkne702OeOco6sx VOFdfTPqNRdzOCB4A92dk5 Z1NIHnOXNa DGM6aJL1tU8okLgrwutpdH VmdDsgdmVydGljYWwtYWxp T783KWFxpQujImPhyPm5M8 BsHnl4WVEu xAxaNI7ypYLmLKkxXb4jgE tegOtoQG5jWSLkaerom350 KpBts5exHNOsiNMgYXjzYH O8I35ho6L4 GREwKRToMBE6nGL4gQ4urV lnbjogbGVmdDsgdmVydGlj ZPkdJZebF928KJXnuRtoVy BhdGllbnQg RCssTAz7D6KsImdvfCA+PC 25GENvCI63bBTuwPCge2ls cNc4CkSdXYGiAHE3nBhjJV yxm1IxOXJe L10mvTQmh6T0IZQayWjhkH RcDzIigAK4uY4yNJhmqouz q2hojkuvGrszh3brqs74cA 81F68gTWvb ZHRoPSIzMCUiIHZhbGlnbj 0xwI3eAj2+JDUsnBL0dKF5 tK1tULRuUwC1MRhtA469Yl RvcCIvPjxj r8zsl4yqhCz8XpB8GEPmlf AsyRqjFRE7m4ShGp95X35w IHdpZHRoPSIyMCUiIHZhbG qcll5qeD4t Ii8+OLOpbBM0sEW4aH7iIi HnWbS3XXppE858WrVtvFJs ZhceK48oN1NhkKS+PHRyPj r9PRYjrRty GQ8crBYeEOqxUw0nNUO8Wn WkAoZyGGynD2QwQNTokgfr punxiVK1BBKfRPBbqK63Bi 9udDogMTBw sKYEwZ2qfhspt1stlzqpDp ThUMAeSMn0OMc1YLMenZaf LjOcJTE9RtY1RBE1uZOgcW 1hbGlnbjog hW1oT4QsFXLkfylnVx65bP 2yPzPuQuV6AAjcTow+SkFS StBWGDdjPFBVB5tmSjtjuL Q+PHRkIHN0 cSuzZTlxGKEcgK1gRUCsS0 y6OfOwJwR5KButA9NkTHYl qxvcZs98iN8lMcBhHdE6NB gyF6DszfG8 RFCptPRoYNohTJP5Z78he8 H6FKHqVBHrFXG5lOL2fN6c bGlnbjogbGVmdDsgdmVydG ljYWwtYWxp N069WQAcvYnuSvP3UhC9Rl G5YZQ8L9OmNol4CGXbhWum AV1vmNSjAXtmXc9psEfpeK grCK6kMFNk nvswMIZhgJ9qILYogXIzkB eaJI7oBBKcnhxak356QjDk XCM4ALPvuCHaU4WkiK0sIa AjMDAwMDAw S3JbvOChAIloX744COhwOc W3EGDxzjQqC4FdAADqsAgw UpT7i2S3Im15EPKPYHOddv wvdGQ+PHRk NSF6iLoiAKclFXNdwM0xVW AvG8p9NlQwZxU9YPuhG3Xj OTSklhkrXj14aE9vMkXfLt S8EPghD7Gd wuC3FTDytTXqYEcaHGX5X9 6wj0T0GAKoPMUmGUH8ePQ6 tC3xuBcrrlaijXInpVvblc VydGljYWwt DPxqJ579ROOshVfsAsMyhY FsZTwvdGQ+OOBpRVN1nXmy UTncUDZhtE9xGJJdR1k8Cf RwWcJ7XCwx Q6HrYVVxfoutEm45iZ6jBu HsSbQ1JJbhV0DdbvE1PWWf cKGkOGasZHT0O96be6V7TH MwMDAwMDA7 gMB9zT6zlQtfbzutqOMwqQ xzmtUfiXtaJNowRScjK884 XTCroZwrDz28zLPjkOxtia K3M5FpOlhb dHI+NG81PZGbAW78aKYakY Geq2pwiYo0EcDlMUOyYIQ9 jQerNCptp5HmUGHrK90nkF Vgw2G4UNNy oPwquOAaAeLmnCS8mA5jOO ueiwmgd3pwftggJtnpm2oz en47xN97V98gXPgrLYEtUI IzMCUiIHZh dUvxym6sqO9bYt5+PGNvbC F9tGM2fP6lInFqUoE9ZJpp V159QfQopRPlStxhn4fxo5 ovgMk2PnXm DYXliaOzzNqmWEE5n3GtZf 83S45fPLjuHXUpWSQzEBDr WIXjfLpwdl2riO9aOn5+PC 5sr3sxhl47 oD85mWY+NAGsRWM7oDfpBF bvDBTohR3gJQitPnA4ZUPp VeKkzS44hLOcZIkvKy3moS zirHjmAG3e FIOtukqgo212AdMeh9anSS LygLHkZPltYLC3I36be1A7 LXPrQUMpQFH1eQD5jB4jpL lnbjogbGVm dDsgdmVydGljYWwtYWxpZ2 18MZTlwMafHlKdmIKbS7uj saKFSU2tWbmgnCJ+PHRkIH O1gFcfVIgk SLDiuA4yIKHkG9u9UyEuLl S0SHhkU5UhezI5OLAvaLKr XCAvvQQXrG0yppgpl7mozj ogIzAwMDAw HMk3RQe2ZYQsuWfwZfAdUL F6CiK7IKG8hEJpgI0oiIlf anhgtC0gQqx+RklOOjwvdG Q+PHRkIHN0 fLliAQkkHTDmfY2wWVHpL1 g5JySnNwS1AUzsS5KurrF4 HGUqsVDcHXPusTBQkC4psf xfp5dmkszn OzFmMWDvEBu7ERk0YAZhtW kmEvIcSUL6NqZ8OYV3pIDs fX2diXrzbmcelL7vMpx+TV JOOjwvdGQ+ DYQpSGZ6eEyuYTnwQWJesO 3zVXJkS5h0MaGlZtV4WCvb U3WfelD7SBLtqBTiPFNmkT BEtH2bzkpx v1zclmkaEiBcBMCoYZw6JO s9CNRhaTdnCqUnWVC6EbG3 BKF4oDYomA9itQmapnvqiE 9wOyc+UGF5 ZKN5VU13HQ77Z0GvZfkpjE FibGU+PHRhYmxlIHdpZHRo JPviVQYpSlAlmXjbFU2tHs 9yZGVyLWNv bGxhcHNl (more content not included)... Normal [facility] Coding Summary.on 07-25-2022 Coding Summary. CD:[id number] Ww +PGhlYWQ+UO5IMOKnA52en OVpcB1zR9OUCUcKYjldRSG CQOzVKeRrqhYzSY1erZYxR XJu IC8+NP0xJGMvWneoeROwu6 W2zLA9Q38rry3qSZlcsVU5 IVOdVgDghcjsd7qjcFx1PV cuNmluOyBt EJKttT51ZJL9yN74Kn28pG PxpKGnc6vhpEi2PyEdOBFv SUJ1oSwhDMdiv3IjGBFhA2 9fiKKav9C4 HGRhjKizxFHnUnRfpYA8fV 2aITzthswft4ugtnkkXau2 jf77pCPkb5L0ePM3O5Gusn F1NTRswZIc ZyndgXFZuN8wtclor5cpgp rrZaAmSIXgCGc9KJz0JFLk sGapHcGiZN62JYU4HFAoqs WwN4KoVCEn qJqjCqN3v9M5Wq9HF4SLRk uiZ7KOSMHFBRrypWX+PC90 fi16P8EiVtnlRhk5LXYiWO I0cIM4uG0v PKJyBDvuc8O3fHE8J8Xeed Zntq6ek7ioWXIiQBfrB39y rPDrn3C5OZPwlDV2ISPpxG zoZgQrmS87 Oyc+AWEttUnuj0DlQrbgo5 xcq6pdyHe0AfmlEXAzapOm jLxmFIB1q5FaVs6yHLCanA L4yHA4iH2e WfNdQoL1MPiuE228DjXjwD NwQjkiE32gY7WacCO+PHRy Fno8HQEmtAknTY3iG3WfWM RpbmctbGVm oNebBY7kGTZzqyqiNIWamB 3oNDFoE0x2EpTmVgJ1AOnv B7JuDFKiccsgIn88dZ9qSr RgXzH4MIjf R6XwffZ2CQMdyMWjGMhsMO I7I26ms1I3WZGyWGUsDHU4 xWB6bT3zrNvqpnhepYOjsQ sgdmVydGlj WWndXKddK657XZYwySppKx NvZGluZyBEYXRlOiAgMDQv MTkvMjAyMzwvdGQ+PHRkIH P2lQuoGISe cAGdELjlSq0qvWgyqVvvDC 1sLRJmiaqzEUJugV9nZWKl zCXkbWfiNL6dKAIxmqmjy0 28HcPsINL7 VMKygQMsN4DjgK5mNnSeGP FsGZJiN9AbbIOsFAiiL012 DPrjFuP1MZNspwGcJ5NyDG FsaWduOiB0 j6L4Yv6Yl3AlzozbE5TygR BqDqSzNaqbUUw3V8YmIixq dHI+LN48ANKzBC16JEm3YR I2oJpiXIst MGOlH2CntT3fUzRiZJWuVB RkOyc+PHRhYmxlIHdpZHRo CUvcPEHzVsNscBnjRI1fNq 9yZGVyLWNv qLnkoBKyNlUfn9kdLWXkYH puEM2ohHmsH8KwgUJ6LSFn f7s1Hi83C33gQ6GbfHE+PG IecSU7hHS2 uV2tJqXlReH5WGuyM793Xd YgjGIePnssq5gxd3uhrCy0 YdT7JXOebkVvqBmiAAT6m4 TdTn27Z82b IHdpZHRoPSIxNSUiIHZhbG xjsj5eoD6kEk9+PGNvbCB3 oBA9tF8nNwGsBlV2RYnrY3 49InRvcCIv Rgwkw0vkb5esbMl5XoTsLY NywfWpuUpxGHT3b8YmGa05 B7CyiAkgn6KzXsb4pc05pX Hvj9U2xZE6 T2AeXIYkvjjiwMTxzLliGD 2yQRKlgopgREYsiL5cZHTg L6z8BjFeXsQ0RQftM8Zejo N2HMOizNVn FWTxxBUCxB6mbbqsk2hsms apRuKfHLYiBAc7YDp6VGGn dVsjOpSuXEB4CtT6XIV5yW PecN2rfMny qwcgkW6yNuc+YFA0pBBjrN ANME5fAzyqoLB+PHRkIHN0 xBdqPQskPZQvdG6zIYVdH3 q2GwWwOgQ3 YYusU0KumlP7DRWtbGYgRN ThlSYTwT7myywxn7xqnrqy GjVtWTGvLXm7BBv5EJUuuS duOiBsZWZ0 YcV6LGU9wVLehZ6zxEgbin dnoL0iApe+QmlydGggRGF0 OLd3L5PpBsn6NWWllBplOC 0ncGFkZGlu Yl1mnQhziVknBT4hAIQrbf oto817NnAqu0vvWUBrlABp BFnsBZT6D85fk3B4IIIkLL HwXWF3tTQ5 dN4lkGqzjtmamZKliZwevj SudMidFGqtORojM263TRDr xCogCzNjQZv8U3YlZpc8LC NncYxdFN4l wKHxNAyrJo2tyEtdpNebPL 6dOQBudivmy422MxOug0mi YBOenBIkYMavNWI1Q99tf5 N1JOTkZKFx RRI4rXJ8bV9rvVgqekpbyZ VmdDsgdmVydGljYWwtYWxp V500AMEbrQjxEeCvwCl6S4 TuGyy5WWTl iRbhZP6fmBGsFHozSo4wiT stmRalPG2xPQGbesdwu543 WnIlz2ffFIOspUSwZAzuZH M4I66jw6V1 PPHaOWPeUJX8mSV3zN7woT lnbjogbGVmdDsgdmVydGlj BHljMQzmS730YLLtjKyaRp BhdGllbnQg CUhdXYq1L8PuXhqbiRE+PC 65LWThNT26cOGodDQgd7ao tXn9UdRyGMDmWRR9iNevBQ kru9EpBUMy B37szARnt9Q1PJVeaCfnlX QnPpJsoLS9mN9kKGvrugvr q0ckrfczKnbqj3syzl19vO 55D82kEKvz ZHRoPSIzMCUiIHZhbGlnbj 6msX7cTs0+AOSjiDI5wGN6 cR7nZSEaRhP6WXiiU727Da RvcCIvPjxj c5ytw3dllMz2WmY8GFKiqc DdhKtnHZQ1t6UrLh15S51e IHdpZHRoPSIyMCUiIHZhbG iogn7bpQ1s Ii8+GUAwjBQ5ySY0bK6kUd ZiGsW1PHiiW514IxBuhOFi BygrV61kX1IsbHI+PHRyPj u1KZLzsLpc IA0rqDLyAUtlMs3sDLT6Go ZmReKpTBdoL1WhGXSotnqn ssmajQK8GYHmKPCkbO70Sr 9udDogMTBw qRETlA3bavafv7gwiqmcLf AxQVMxKBc9POs4IWWbiThg FbYtCAU0ZfZ3FJP1mFVauA 1hbGlnbjog lB9gC5BzBSMwtpqgUc59sQ 8kPaSjMjY1DUwaLxc+SkFS SsAGGAdkVQLTI2jwOpeeaX Q+PHRkIHN0 lAtiCXrsJESowO5qRNLnK0 a9PyDpUjJ3MHsuN5WtJUAm aijcRi66sB7nLtBzLwS1GD npE3RzofV3 PVMniIPkDIplFLT2N13cf2 X1OVXyXEHhVXR1hQW6hF5t bGlnbjogbGVmdDsgdmVydG ljYWwtYWxp I139PPKabAdnApX0IgA8Ai K9FXF4Z4FiUnh8MLQjqDnz DT1tdLTpOYtbPp1afMstsC qnWJ6gJYUd feazCXOeqL8kBQIebSYzzK xpBO2gYSRjezpam033VcAp OMM4IAYxqJWgG0GjvX3rNt AjMDAwMDAw V2GavKHyVOoqP368TAzlRp I7RHOyxwGxY4RcZJHiyRko EuE8u2S1Kl25OOEHRLDmeu wvdGQ+PHRk URX1fPceEGvdRNPbnD8eBD KyJ2y5GsAxTzH1UJfrX6Un KXIpuhqbPi55iS2lUqBhLl D6PFayZ7Ql lrC6KMMkdTBqIVmuTTW8Q4 8ph8K4OMCtXLByMCV0cAU4 eP0mkMosofpijRXgrLfbpf VydGljYWwt DDrdP988KSHifSoaCxIcsC FsZTwvdGQ+XWUoRVC6cDfx NEjrKNRjqU2aHWOuD5u6Hg TzMqE4BUix Q9PoFZRolfoiYc97rJ2cUm GwEmF8NRqfZ5NowaE8SHPg jZUmNGniPHF9E28qp9J9NY MwMDAwMDA7 aWP8yB4iaNfrgisnmRPlhX jfctGzuRuuJUxvFRquH164 FPIrfPmbHp07uMLpaDtzfz Q5O1PbRalp dHI+OY51GHLlEM52kWIulO Qjk7tukDn8XnIuPGMiTAO4 pLdhVQtqt9NpKHBjE59hoC Brj4L8CLTa oAdaiQZtOpWurKG3pO8eZR vuvgpmv4zqmjphOerca1tg sz15kB31E68xULkjBRAyOK IzMCUiIHZh fKzcov5wuA7pAd3+PGNvbC Z2bME6fV9bMtTmOgN2CUjv Y076XpYsdSFkUtdda1oer4 fedCb9EbIn DYItwrYjdDuvQIG8h5QkAx 95A26xNJriUANpEIIwVSEr MFVkjNysmm0maV8bNt2+PC 2px9ameb05 fH65fYO+RQLhWAC4kAncHJ rhXNIffP9xPWtsDhO1KSMl MyRqaV55oAIhMGadTe3zfH mxyVzwQO7t BKVreglwp596YsEai4lyYR MklSTjYAegXMB4X97bq8C3 RGBvFMBpCKM7xVJ6cY5cdT lnbjogbGVm dDsgdmVydGljYWwtYWxpZ2 38CAWpuVfjDaWrbLKtO9vq jjMROQ1nVqepeJC+PHRkIH V4sXsjAAuz HTFkcE3hORHlT4j7IqFaZw H3EOztN7WdbfZ3NSMejHZh NEOqxCPJlX6rhniyc8qgyo ogIzAwMDAw DVo8WIv1GDSeqGzcBzOjVQ O4EyF0UVV2nKQjeJ1tjKpe xqyxsO8iMtt+RklOOjwvdG Q+PHRkIHN0 bNdlCFlsGRHcmQ5jJMWgX7 j2PlEpXiK8EWeeJ8PrkaN1 VKCqhECxUCDnzECCfO3lru gez4whxiew JlNwWDYrNXv5CEm5MABmfU ptKbHcYIT4MyJ9AIM0qXTu rO1dtSnwywaagE6oAqp+TV JOOjwvdGQ+ MDDxQVJ6hLmhNSclXXIrzU 2cNMDzE7k5GtYfMvU0WBmy M0TqtwU8KOIdxNHbVRNolZ KHlO6cdptc w1myljohAfXzJOYbCEl9WY u5BYKcmZitEmNcJSJ6MvR7 SNI7kUIllY0vwQypypkzmR 9wOyc+UGF5 IRV8MI99IE73C2JyAtyciA FibGU+PHRhYmxlIHdpZHRo OBsmNJObFaFmqUrdDW3jLp 9yZGVyLWNv bGxhcHNl (more content not included)... Normal [facility] Consent for Treatmenton 07-07 Consent for Treatment [id number] 0CD:127 Normal [facility] Heart and Vascular Office/Cl inic [...] bike. She did a walking challenge from [employer] in 05/2022. She is not diabetic. She [...] after patient or guardian consented to allow Azamkatrina Tanya Turner to record this visit. GAEL e learning specialist and provider reviewed before signing. GAEL: [...] 07/24/2022 Family History Heart disease: Father. Normal [facility] Comment on above: Result Comment: Elec tronically Signed By: Isaias TUTTLE, Guillermo Arteaga\.br\Date and Time Signed: 07/24/22 21:56 EDT\.br\Electronically Co-Signed By: Jenn Meza\.br\Date and Time Co-Signed: 07/24/22 16:08 EDT Physician Orderon 07-24-2022 Physician Order [id number]. 00CD:127 Normal [facility] Physician Order [id number]. 00CD:127 Normal [facility] BMPon 07-19-2022 Anion gap [Moles/Vol] 11 mmol/L Normal 6-16 [facility] Comment on above: Performed By: #### 2 [id number], [id number], [id number] #### [facility] [address] [place] [address] Calcium [Mass/Vol] 8.8 mg/dL Low 8.9-11.1 [facility] Comment on above: Performed By: #### 2 029583, 0590235, [id number] #### [facility] [address] [place] [address] Chloride [Moles/Vol] 103 mmol/L Normal 101-111 [facility] Comment on above: Performed By: #### 2 502672, 0061398, [id number] #### [facility] [address] [place] [address] CO2 [Moles/Vol] 27 mmol/L Normal 21-31 [facility] Comment on above: Performed By: #### 2 548204, 4629418, [id number] #### [facility] [address] [place] [address] Creatinine [Mass/Vol] 0.9 mg/dL Normal 0.5-1.3 [facility] Comment on above: Performed By: #### 2 864036, 3204898, [id number] #### [facility] [address] [place] [address] Glucose [Mass/Vol] 95 mg/dL Normal 55-199 [facility] Comment on above: Result Comment: If t his glucose result represents a fasting glucose, interpretation should refer to the following reference range: 55-99 mg/dL Performed By: #### 2 036523, 1851922, [id number] #### [facility] [address] [place] [address] Potassium [Moles/Vol] 4.4 mmol/L Normal 3.5-5.3 [facility] Comment on above: Performed By: #### 2 779951, 1379864, [id number] #### [facility] [address] [place] [address] Sodium [Moles/Vol] 137 mmol/L Normal 135-145 [facility] Comment on above: Performed By: #### 2 835278, 3617009, [id number] #### [facility] [address] [place] [address] Urea nitrogen [Mass/Vol] 12 mg/dL Normal 5-21 [facility] Comment on above: Performed By: #### 2 502796, 3198386, [id number] #### [facility] [address] [place] [address] Urea nitrogen/Creatinin e [Mass ratio] 13 No Units Normal 10-20 [facility] Comment on above: Performed By: #### 2 105555, 8438783, [id number] #### [facility] [address] [place] [address] CBC w/Indiceson 07-19-2022 Erythrocyte distribution width (RBC) [Ratio] 16.2 % High 10.9-14.2 [facility] Comment on above: Performed By: #### 2 700877, 9225674, [id number] #### [facility] [address] [place] [address] Hematocrit (Bld) [Volume fraction] 36.4 % Normal 34.0-46.0 [facility] Comment on above: Performed By: #### 2 047519, 3527230, [id number] #### [facility] [address] [place] [address] Hemoglobin (Bld) [Mass/Vol] 12.0 g/dL Normal 12.0-16.0 [facility] Comment on above: Performed By: #### 2 719250, 2250830, [id number] #### [facility] [address] [place] [address] MCH (RBC) [Entitic mass] 26.1 pg Low 27.0-34.0 [facility] Comment on above: Performed By: #### 2 427043, 5852564, [id number] #### [facility] [address] [place] [address] MCHC (RBC) [Mass/Vol] 33.1 g/dL Normal 31.4-36.0 [facility] Comment on above: Performed By: #### 2 944133, 7479484, [id number] #### [facility] [address] [place] [address] MCV (RBC) [Entitic vol] 78.8 fL Low 80.0-100.0 [facility] Comment on above: Performed By: #### 2 468138, 2374048, [id number] #### [facility] [address] [place] [address] Platelet mean volume (Bld) [Entitic vol] 7.6 fL Normal 6.4-10.8 [facility] Comment on above: Performed By: #### 2 828025, 0494372, [id number] #### [facility] [address] [place] [address] Platelets (Bld) [#/Vol] 346.0 E9/L Normal 150.0-500.0 [facility] Comment on above: Performed By: #### 2 117731, 8003289, [id number] #### [facility] [address] [place], [place] [id number] RBC (Bld) [#/Vol] 4.6 E12/L Normal 4.3-5.9 [facility] Comment on above: Performed By: #### 2 766731, 0212967, [id number] #### [facility] [address] [place] [address] WBC corrected for nucl RBC Auto (Bld) [#/Vol] 7.5 E9/L Normal 4.0-11.0 [facility] Comment on above: Performed By: #### 2 687680, 1402711, 32749576 #### [facility] [address] [place] [address] Consent for Treatmenton 07-07 Consent for Treatment [id number] 0CD:127 Normal [facility] Physician Orderon 07-19-2022 Physician Order [id number] 0CD:127 Normal [facility] eGFRon 07-19-2022 GFR/1.73 sq M.predicted among blacks MDRD (S/P/Bld) [Vol rate/Area] mL/min/{1.73_m2} Normal >=59 [facility] Comment on above: Order Comment: Order added by Discern Expert. Result Comment: eGFR is race adjusted. AA=. Performed By: #### 2 859458, 8190950, [id number] #### [facility] [address] [place] [address] GFR/1.73 sq M.predicted among non-blacks MDRD (S/P/Bld) [Vol rate/Area] mL/min/{1.73_m2} Normal >=59 [facility] Comment on above: Order Comment: Order added by Discern Expert. 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 Kidney failure is indicated at less than 15 mL/min/1.73m2. Performed By: #### 2 702639, 9585289, [id number] #### [facility] [address] [place] [address] MG MAMM SCREEN 3D RONEN CADon 04-03-2022 MG MAMM SCREEN 3D RONEN CAD Patient: KARMA NIETO Exam Date: 04/03/2022 : 1980 Gender:F Ordering : DR MICHAEL RUSSO . Admission #: [id number] Family : Order #: [id number] CLICK HERE TO VIEW EXAM RADIOLOGY REPORT PROCEDURE: MAMMOGRAM SCREENING 3D BILATERAL CAD COMPARISON: None. INDICATIONS: Screening mammography Calculator Name NCI Breast Cancer Risk Assessment Tool 5 Year Breast Cancer Risk 0.60% Lifetime Breast Cancer Risk 11.10% Personal Breast Cancer No Personal Ovarian Cancer No Treatments None Family Cancers None LOCATION: [facility] BREAST COMPOSITION: Extremely dense, which lowers [...] Woods MD on 04/05/2022 at 08:01 Normal [facility] MRI Knee w/o Lefton 12-28-19 [...] by Patel Bhardwaj on 12/27/2021 1455 Normal [facility] Watch Technician US ST HEAD_NECKon 10-19-[address] HEAD_NECK [...] WOODS Date: 2021-10-19 19:21 Normal [facility] PAP ACOG PANEL 2: 30 to 65on 06-30-2021 . . Normal [facility] Comment on above: Result Comment: Perf ormed at: WB Performed By: #### 4 [id number] #### [facility] [address] [address] [address] Rosa Maria Frazier Age Gdln ACOG Testing 30-65 Normal [facility] Comment on above: Performed By: #### 4 [id number] #### [facility] [address] [address] [address] Rosa Maria Frazier DIAGNOSIS: Comment Normal [facility] Comment on above: Result Comment: NEGA TIVE FOR INTRAEPITHELIAL LESION OR MALIGNANCY. Performed at: WB Performed By: #### 4 [id number] #### [facility] [address] [address] [address] Rosa Maria Frazier HPV Aptima Negative Normal Negative [facility] Comment on above: Result Comment: This nucleic acid amplification test detects fourteen high-risk HPV types (16,18,31,33,35,39,45,51,52,56,58,59,66,68) without differentiation. Performed at: =G Performed By: #### 4 [id number] #### [facility] [address] [address] [address] Rosa Maria Frazier Methodology: Comment Normal [facility] Comment on above: Result Comment: This liquid based ThinPrep(R) pap test was screened with the use of an image guided system. Performed at: WB Performed By: [id number] #### [facility] [address] [address] [address] Rosa Maria Frazier Note: Comment Normal [facility] Comment on above: Result Comment: The Pap smear is a screening test designed to aid in the detection of premalignant and malignant conditions of the uterine cervix. It is not a diagnostic procedure and should not be used as the sole means of detecting cervical cancer. Both false-positive and false-negative reports do occur. . Performed at: WB Performed By: #### [id number] #### [facility] [address] [address] [address] Rosa Maria Frazier Performed by: Comment Normal [facility] Comment on above: Result Comment: Dayo De Guzman, Commercial Banker (ASCP) Performed at: WB Performed By: [id number] #### [facility] [address], [place] [address] Dr. Rosa Maria Frazier Specimen adequacy: Comment Normal [facility] Comment on above: Result Comment: Sati sfactory for evaluation. Endocervical and/or squamous metaplastic cells (endocervical component) are present. Performed at: WB Performed By: #### [id number] #### [facility] [address] [address] [address] Rosa Maria Frazier Covid-19 PCR (CVDTB)on SARS-CoV-2 (COVID-19) RNA OLU+probe Ql (Unsp spec) Not detected Normal NOT DETECTED [facility] Comment on above: Result Comment: This test is not yet approved or cleared by the [place] FDA. When there are no FDA-approved or cleared tests available, and other criteria are met, FDA can make tests available under an emergency access mechanism called an Emergency Use Authorization (EUA). The EUA for this test is supported by the [place] of Health and Human Service's (HHS's) declaration [...] SARS-CoV-2. Performed By: #### C [id number] #### [facility] [address], [place] [address] Dr. Rosa Maria Frazier Social History Date Type Detail Facility Start: 1980 Sex Assigned At Female [facility] Tobacco smoking stat us MSIS Unknown if ever smoked [facility] Work Phone: Evaluation note Note Date & Type Note Facility Evaluation note No assessment information availa [facility] Work Phone: Summary Purpose Family History No Family History Records FoundNo Family History Records FoundNo Family History Records FoundNo Family History Records FoundNo Family History Records Found Advance Directives No Advanced Directives Records Found Advance Directive Response Recorded Date/ Time Advance Directives No August 20 8 10:20am Additional Source Comments INFORMATION SOURCE (unrecogn ized section and content) DATE CREATED AUTHOR 01/07/2022 [facility] d[facility] Specialist DATE CREATED AUTHOR AUTHOR'S ORGANIZ ATION 04/06/2022 [facility] DATE CREATED AUTHOR AUTHOR'S ORGANIZ ATION 09/15/2022 [facility] DATE CREATED AUTHOR AUTHOR'S ORGANIZ ATION 05/26/2023 [facility] DATE CREATED AUTHOR AUTHOR'S ORGANIZ ATION 08/09/2023 [facility] dical Specialists EPIC Care Teams (unrecognized sec tion and content) Team Status: Inactive Member Role Status Dates Dwayne Edmonds Attending Provider Active Start: douglas 2023 End: May 24, 2023 Goals (unrecognized [...] BE BASED ON THE PRIMARY CLINICAL RECORDS. [facility] [employer] provides no warranty or guarantee of the accuracy or completeness of information in this document.
[2023-09-04 06:09] LABS: Basophils Absolute Auto 0.1 10^3/uL (0.0-0.1); Basophils Percent Auto 0.9 % (0.2-2.0); Eosinophils Absolute Auto 0.4 10^3/uL (0.0-0.7); Eosinophils Percent Auto 5.2 % (0.9-7.0); Hematocrit 37.6 % (36.0-48.0); Hemoglobin 12.5 g/dL (12.0-16.0); Immature Granulocytes Abs Auto 0.02 10^3/uL (0.00-0.03); Immature Granulocytes Pct Auto 0.3 % (0.0-0.5); Lymphocytes Absolute Auto 2.2 10^3/uL (1.2-3.8); Lymphocytes Percent Auto 28.9 % (20.5-60.0); Mean Corpuscular HGB Conc 33.2 g/dL (29.9-35.2); Mean Corpuscular Volume 87.2 fL (81.0-99.0); Mean Platelet Volume 9.4 fL (9.5-13.5); Monocytes Absolute Auto 0.5 10^3/uL (0.3-0.8); Monocytes Percent Auto 6.4 % (1.7-12.0); Neutrophils Absolute Auto 4.3 10^3/uL (1.4-6.5); Neutrophils Percent Auto 58.3 % (43.0-75.0); Platelet Count 292 10^3/uL (150-450); Red Blood Count 4.31 10^6/uL (4.20-5.40); Red Cell Distribution Width 13.1 % (11.0-15.0); White Blood Count 7.5 10^3/uL (4.0-11.0)
[2023-09-04 06:30] LABS: HCG Quantitative <1 mIU/mL
[2023-09-04] MEDS: LACTATED RINGER'S SOLUTION 1,000 ML 50 ML IV (06:49)
[2023-09-04] MEDS: CEFAZOLIN SODIUM/DEXTROSE,ISO 2 GM/50 ML PIGGYBACK IV ×2 (07:39→13:15)
--- NOTE | 2023-09-04 10:23 | P.ON_ITS ---
Brief Operative Note Date of procedure: 09/04/23 Pre-op diagnosis general: pelvic, dysmenorrhea, dyspareunia, aub, ho endometri osis Post-op diagnosis: same as pre-op Procedure: NAME OF PROCEDURE: ? Robotic assisted laparoscopic hysterectomy with cystoscopy, bilateral salpingectomy, rt oopherectomy PROCEDURE:? The patient was taken back to the operating room, where she was prepped and draped in the normal sterile fashion after being placed in the dorsal lithotomy position.? Patient?s anesthesia was found to be adequate.? Surgical timeout was performed using two patient identifiers.? SCDs were on and in place.? Two grams of Ancef were given prior to the surgery.? Sterile Jin catheter was inserted.? Standard size VCare was secured to the uterine cervix and the surgeon changed gloves.? Attention then was turned to the patient's abdomen, where a supraumbilical incision was then made.? Two S retractors were used to identify the patient?s fascia.? The fascia was then tented up using James clamps and the patient?s fascia was incised sharply.? Patient?s abdomen was identified and entered bluntly.? The patient had the trocar placed and a pneumoperitoneum was obtained.? Approximately 4 liters of CO2 gas was used.? The camera was then placed through the trocar.? At this time, two robot trocars were placed in the patient?s left and right side, two hand widths from the midline, and this was placed under direct visualization.? The patient?s tube on the lt side was tented up and the vessel sealer was then used to come across the mesosalpinx, and this was carried down to the uterine ovarian ligament.? The vessel sealer was carried down serially to the broad ligament, to the area of the bladder flap, which was then created anteriorly, and the uterine arteries were skeletonized and sealed using the vessel sealer.?this was performed on the contralateral side except the vessel sealer came across the infundibular pelvic ligament and the tube and ovary were removed. The colpotomy was made using the monopolar cautery on cut, and this was carried circumferentially, posteriorly to anteriorly, until the uterus was amputated.? The specimen was then removed intact through the vagina, without difficulty.? The vagina was then closed using two running V-Loc in a non-lock fashion.? The robot was undocked.? The abdomen was desufflated.? The skin defects were closed using 4-0 Vicryl.? Please note, the fascia was closed using 0 Vicryl.? Sponge, lap and needle counts were correct x2.? Patient was taken to recovery room in stable condition.? The patient was awakened by Ane sthesia first.? Patient tolerated procedure well.??Please note left ovarian cystectomy was performed using the vessel sealer Anesthesia: SHELDON Surgeon: Vincent Edmonds Warehouse Stock Clerk: Katherine Richardson Estimated blood loss (mL): 50 Pathology: other (uterus cervix bilateral tubes and rt ovary) Condition: stable Disposition: PACU Urinary Catheter Management Urinary Catheter Management Urethral: Cath placed during this visit: no
[2023-09-04] MEDS: LACTATED RINGER'S SOLUTION 1,000 ML 125 ML IV (12:11)
[2023-09-04] MEDS: OXYCODONE HCL/ACETAMINOPHEN 5MG/325MG 1 TAB PO (13:20)
[2023-09-04 16:30] LABS: Basophils Percent Auto 0.2 % (0.2-2.0); Eosinophils Percent Auto 0.1 % (0.9-7.0); Hematocrit 37.3 % (36.0-48.0); Hemoglobin 12.7 g/dL (12.0-16.0); Immature Granulocytes Abs Auto 0.04 10^3/uL (0.00-0.03); Immature Granulocytes Pct Auto 0.3 % (0.0-0.5); Lymphocytes Absolute Auto 0.8 10^3/uL (1.2-3.8); Lymphocytes Percent Auto 5.1 % (20.5-60.0); Mean Corpuscular Volume 85.2 fL (81.0-99.0); Mean Platelet Volume 9.6 fL (9.5-13.5); Monocytes Absolute Auto 0.3 10^3/uL (0.3-0.8); Monocytes Percent Auto 1.7 % (1.7-12.0); Neutrophils Absolute Auto 13.8 10^3/uL (1.4-6.5); Neutrophils Percent Auto 92.6 % (43.0-75.0); Platelet Count 295 10^3/uL (150-450); Red Blood Count 4.38 10^6/uL (4.20-5.40); Red Cell Distribution Width 13.1 % (11.0-15.0); White Blood Count 14.9 10^3/uL (4.0-11.0)
[2023-09-04] MEDS: IBUPROFEN 400 MG TABLET 800 MG PO (18:10)
== END 2023-09-04 18:18 | disposition home or self-care (01) ==
LOC: SURGOUT 10:29 → MS 11:38
PROVIDERS: Visit Provider Obstetrics & Gynecology
PROC: (CPT 840; principal; 2023-09-04 07:30)
DX: N92.0 Excessive and frequent menstruation with regular cycle (principal); N94.10 Unspecified dyspareunia; R10.2 Pelvic and perineal pain; N94.6 Dysmenorrhea, unspecified; N93.9 Abnormal uterine and vaginal bleeding, unspecified; N83.291 Other ovarian cyst, right side; N88.8 Other specified noninflammatory disorders of cervix uteri; K21.9 Gastro-esophageal reflux disease without esophagitis; E03.9 Hypothyroidism, unspecified
CPT/HCPCS: 58571; 36415; 84702; 85025; 88307; 94667; J1094; J1170; J2704

== ENCOUNTER 2024-01-06 14:45 | Outpatient (OUT) | payer OTHER, SELFPAY ==
--- NOTE | 2024-01-06 14:48 | US_ITS ---
Patient Name: RUIZ NIETO MR#: [id number] : 1980 Exam Date: 01/06/2024 Ordering Doctor: [facility] REPORT PROCEDURE: MM TOMOSYNTHESIS DIAGNOSTIC LT, 01/06/2024, 15:12 US BREAST LT LIMITED, 01/06/2024, 14:55 COMPARISON: MM TOMOSYNTHESIS SCREENING BI, 05/14/2023. MG MAMM SCREEN 3D RONEN CAD, 04/03/2022. INDICATIONS: Nipple Pain Calculator Name NCI Breast Cancer Risk Assessment Tool 5 Year Breast Cancer Risk 0.70% Lifetime Breast Cancer Risk 10.90% Personal Breast Cancer No Personal Ovarian Cancer No Treatments None Family Cancers None LOCATION: [facility] BREAST COMPOSITION: The breasts are extremely dense, which lowers the sensitivity of mammography. FINDINGS: DIAGNOSTIC CATEGORY 1--NEGATIVE. LEFT BREAST: No significant suspicious finding. No significant change has occurred. Ultrasound evaluation demonstrates normal appearing fibroglandular tissue, retroareolar region, and skin thickness. This was also compared to the right side. RECOMMENDATIONS: ROUTINE MAMMOGRAM AND CLINICAL EVALUATION IN 12 MONTHS. PLEASE NOTE: A NORMAL MAMMOGRAM DOES NOT EXCLUDE THE POSSIBILITY OF BREAST CANCER. A CLINICALLY SUSPICIOUS PALPABLE LUMP SHOULD BE BIOPSIED. Dictated by: Zachary Turpin M.D. on 01/06/2024 at 15:40 Approved by: Zachary Turpin M.D. on 01/06/2024 at 16:10
--- OUTSIDE RECORDS SUMMARY | 2024-01-06 14:49 | XMS_ITS | CCD ---
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 Person Name Role Phone PAMELA RUIZ Admitting Unavailable PAMELA RUIZ Attending Unavailable PAMELA RUIZ Primary Care Unavailable PAMELA RUIZ Consulting Unavailable KARASIK, DR RODRIGUEZ Admitting Unavailable KARASIK, DR RODRIGUEZ Attending Unavailable PAMELA RUIZ Primary Care Unavailable KARISABELK, DR RODRIGUEZ Consulting Unavailable ANTWAN KNOX Admitting Unavailable ANTWAN KNOX Attending Unavailable PAMELA RUIZ Primary Care Unavailable WEST, DR VINEET Cruz Consulting Unavailable LISETTE, ANTWAN Consulting Unavailable KARASIK, DR RODRIGUEZ Admitting Unavailable KARASIK, DR RODRIGUEZ Attending Unavailable REQUEST, DR GOMES LISTED Primary Care Unavaila ble KARAN, DR RODRIGUEZ Consulting Unavailable WEST, DR VINEET Cruz Consulting Unavailable Guillermo Esparza Attending Unavaila Aleja Villegas Referring Unavailable Aleja Chen Admitting Unavailable Aleja Chen Attending Unavailable Aleja Chen Referring Unavailable Dwayne Edmonds Attending Provider Dwayne Edmonds Attending Unavailable Dwayne Edmonds Admitting Unavailable Tomás Edmondsy Attending Provider DWAYNE EDMONDS Attending Unavailable SUZAN BLEDSOE Attending Unavailable DWAYNE EDMONDS Attending Unavailable DWAYNE EDMONDS Attending Unavailable DWAYNE EDMONDS Attending Unavailable LEONARD ORTEGA Attending Unavailable LEONARD ORTEGA Attending Unavailable DWAYNE EDMONDS Attending Unavailable ALEJA CHEN Attending Unavailable ALEJA CHEN Referring Unavailable ALEJA CHEN Referring Unavailable Allergies Allergy Classification Reported Allergen(s) Allergy Type Date of Onset Reaction(s) Facility (1 source) No Known Medication Allergies; Translations: [No Known Medication Allergies] Propensity to adverse reactions (disorder) [facility] Repository Problems Active Problems Problem Classification Problem [...] Facil ity Coding Summary.on 08-09-2022 Coding Summary. CD:[id number] Ww +PGhlYWQ+DR4ZOVVtU58fx DZbwJ4nS8KKUEtADnkbHMQ VJPnSHpJjmzLnLE9anOAjR XJu IC8+TY9cUUVmWomauVFes8 Q0tVN6S21xmh5pJLpwmJV3 RQPqSbPxguqfi7ohqCg5YM cuNmluOyBt TZBtgQ06IGJ9wZ43Eo67lM BehFZwy1nrpWo3LlFmBOIm JMW7iCoiXLtnu3PzHKXlX2 5ylGBne5N9 GEIjgYhgzRZnLmZhcXL1iR 7gOEywevowp5nrlakkIge2 xh70gKOre2G1eZN7Z1Svoy M4KICqjOCk McceiAPGzO8zumhgd2hobc daSpZpQMQtVEw1LVo6YDUq oUriJnWmVZ68MSF7HJFioo WwZ0NnJEUk vWydCmR7x0J7Lo7OH3URKe cqC1VCJFXJEMjnlZE+PC90 oy44M9SoVmehYop3NMAvWE Z2pXF1zV2v XURrMAfel7U7xTE4H3Injz Dcpm1yn5naSZLdRHfyD01k xLXih2M6GQGefTI1NTEfwR laGhPsrZ86 Oyc+DOZqeFhdv7KeKrwns4 mng2chmQp2JqklHBVsbwYx eSnwUDG5c1KtNx6uRNEraO J5uNP0eD6e OmLgGzE8AGuwG069BgJlmZ CjLygwB70wS0EnuWZ+PHRy Kjk6SXRtfJehMP3vY9LtXT RpbmctbGVm tMvpNH6kUYZvokitYVAmoA 3yJLPtE4c2TwPhItJ4PMsp D3IsTPMgricoMw10hJ3lQb QuYzU3PWmc Q0KewfW3DZFclHHvDXlsRW I6N40eh0N2HBJjVOBhYPL9 qMH7kG3zoTpsjdsuvQDsgY sgdmVydGlj DVtmVOraS645LMPxuKmmAb NvZGluZyBEYXRlOiAgMDUv MDQvMjAyMzwvdGQ+PHRkIH U5hMbuILJz tEXaQXbeWl2fkUxzzBqmHP 9lRQLimjsbKFToaG6aKSZh kEUidIybAK0gHAHehomrq7 18DgDjWKK0 UHEteUMbJ5ShjR1mLrLiCB ZcTMEsO3BauSQzREdfK999 DUccXuN3YUItplMuX1NfLL FsaWduOiB0 e1B2Ly8Fg8CbhaqlC8UegX NoPbPhKotrLGt9N3PuHxbo dHI+AV45KLTtJR94NYy2GS F2sObjNWcy GNFkH0JcqV1xQpFnGDGrLF RkOyc+PHRhYmxlIHdpZHRo CJspPCFxWxAqdRjmRX1mOj 9yZGVyLWNv gQldkYZlXdOgo1csNPKhVU spDH1hmLkoK3AgrGC5KDRu z4k1Xu09H16eJ9EglGV+PG NvmRW6hEI7 xM6kKiTeZpD7UUccX595Dp TrrZPvNqbis4uid1iagNu3 HiT1FQSgxyTszVimOKB7m0 BiPm47Z85v IHdpZHRoPSIxNSUiIHZhbG fpdc2tbV7nYd3+PGNvbCB3 pPR3oZ6pXkSaHoK0DTceP4 49InRvcCIv Jwfcx4eku0ftrIs7VdSsCN ZrknIwgSfdQFL9y2AkOw60 K7NguQqll6OxVei3xp74nL Meo9A1nSQ1 B2BpBTBaczzagOWizNidBI 5lVZXvgupgLINkmY3bBKNc U9q1JhOsCxV9DUwtC2Hvgh Y1KSOscLRj BCXvdMUYqC7gelovl6ibyv yfElVoXOQsPEr3IVe1QMYu oYtkBeTqXMC1QmK4UZU0yO FdwH8jqLil nscbhX4uZrt+AAQ0mWBpaT JVCN2rEyfkxPR+PHRkIHN0 pVvjRWyjSYWvoI6cFYUtR1 g4XoBrXcV9 HTxsN5LnsaH1XNKtxZGvQN RmlWJZgQ1cjqtyk2ninlyd WhZfWCFeDHu1SBp3KCHqmV duOiBsZWZ0 QzM5TZK2sBZozY8ylUyyqm plbZ5kWke+QmlydGggRGF0 KBq5B1KqUin6BACjsVenBV 0ncGFkZGlu Wd1odYdutEfaQJ5vIMGyhb brc680ByOai4ghAIFbnDTu ULibNCB4S10fi8G1IZXvOC SyATM0wDW8 zH1jaSwyiastbKKvtUhqea GhtUdmGBlhVCfxJ961VHEm dHicPmZwTIt0Z9StGbb8OV BbiHnkNX1t cRAmSVplUh1htYogyDssNH 8xHAXyntixu970VvVsk4qm GZZcoIJnMMkdWZW7N77wn9 N3YXHvSFYx VLU9nRW3bZ2qoJszmmgdlL VmdDsgdmVydGljYWwtYWxp V528YMKrdGhsBoJgjFt6Z2 OmZad5MCXy cXskRX5igIIsHMyeNa5bnG wmlHqqGB3eNHEdgizgk247 SvNcn9nxXTTcaBGbTNzfPG B8W12nt9P7 EDCfDBYrTBF3gLD8bZ4lbK lnbjogbGVmdDsgdmVydGlj QIgwZXihB078JAXkrSyvEl BhdGllbnQg DAspEDd4X6QuEzjutEW+PC 42TFDmGS11mXNhrVYvj2nv hOz6GrSlYFWeZAO9aWbxKW gzy4ZjWTDc B89zoVVls5Z8JLDftOogsW EoOnUbpXC7bV2iZJwjzzug a1tplrvyXwese3yuam59nM 22B59jVKea ZHRoPSIzMCUiIHZhbGlnbj 4axE5dLn9+CBIkxVF0aNI4 aM2aRESaFrZ2AFbgA258Po RvcCIvPjxj w9bmy4fanAy8WdQ4ZECbuo DywAjfRCL6e3ZbYo35X92j IHdpZHRoPSIyMCUiIHZhbG qrvy8shY3q Ii8+EPCvxQO3rEG0nC8hDc NiQzT7HXwcY359XhBbkQLu PcsdX04tY7EcrIB+PHRyPj z5CAFzsIkd WL7arTZuBMzdZz9dDCE0Rr DkIvTiLGxaD9PpCQLsfzlx qenhvNT9RQShMVVdxO46Kz 9udDogMTBw bDQCtZ0vuatfn2yhhbrjSb CpADQiSZy1CRn8PIZupOah ZkLmIPO4AvT0KCC0aHInkY 1hbGlnbjog dG4mC0BdFCCdfoxpOj40gP 7aXiZrCcV0XPlhBhn+SkFS DcTSWWpfJOUPQ0xwLbrtxI Q+PHRkIHN0 nVkvSKljGGWwwL1yYPSnN5 n2ZmOqUqD5JVvoS7HjSZUh jxnpSz80qL3eTtTsJlY3OK umO1CsuxI3 BPDpyJUdIWolBUM9F16bp2 N3GDJoXFUlBHJ9qYZ0oV0w bGlnbjogbGVmdDsgdmVydG ljYWwtYWxp P830VYXzdGmvLcW8LeQ0Kt Q5KGS7Q6RzShp1QXCeqNel GK0aeXEhHDswLq8zuGsjaB shUW9aRISd hhfhQGTjiW4eXNKujTEzxM wfNL4zKNDhzuzvn929MnSr JMA5LUVnmSDeD9HycM3gZk AjMDAwMDAw M4ZvkMPfBZonA498UDiqPn X5VIAxqjFuA5YlYLMjsZaa VkB4x6Y3Ua42TKJBYIEmfq wvdGQ+PHRk MHR3hSqjVXvkIBHbnA2uGO RtU4i2VsPoZpF5KWlyX9Ef EGXdtdziPv09uI1jUaAfDq O4DVmcU8Gk kvC2DXUxiZZbOVnbOYK4K8 1gs9M4WXLdEQIiKBM1wSA2 dK3esDudarrdcGLphQbhqb VydGljYWwt RMubF510ZILprHdkJiLjiU FsZTwvdGQ+ARQuPNZ8vIbq VIlaDVOrvE8pNLIbP4s3Nc OsGuU6CKeb Y3RzAHFrxtisRu16eZ1uIg RwDaV3LXbrQ3MoesQ8TGBd fLRcWByaXMA1A65nr4R8MA MwMDAwMDA7 nDQ0xX0alJldimhmaRQplC qasiDusGzdHGztJHcgP472 LWQjsMuuUw31dSHesVkaeo Q6R9DbDibw dHI+JU13YUVdVG60ePDqqK Btt0lcvKp2QzGiXPZgKYA6 vVmiFVzlr3RwJKVaJ40ilK Tib5I8EJZe vAgjrTEwSwSjbEN3jT7rWT gbhqtqs1rfwphsMiizs2pa mx18sD89D28rPMykLCIcSR IzMCUiIHZh sUnavq4tyS7jRy2+PGNvbC P0yCT6pI0fJbQgJfW8EGqm F119XmJfeQDwSqrmo5guy4 odsFb9UoYu NXZgjmWseEwkWIP2l3WpMy 03B35pXShbUKSfXDAdOAPk VRJjlMejbo9cnG0fJg9+PC 9xw2reqf10 vO33qKZ+RMDqIHW1jKniBH oyBSGpwH5tRZkbVkV1XFRc MvQioB78zQOsFIujXz7dyH xmqZtwVR0z SULkhvjxv747YsYdn3xcHD DbcNVzKKiaJDE7A70ia4A6 TSUvKNDyRBA3zZZ9tS4jvR lnbjogbGVm dDsgdmVydGljYWwtYWxpZ2 22MMYnyLniArGszVBnR9bf yjZWCW4dZmqbsAK+PHRkIH G7pSjuDUbf UKDipT0jVCZuT3w5IvDzEi T9BAzfP6YcdbT0KHVfyBMp OROhiDIRpC8ysgmsu0yumz ogIzAwMDAw LXx7SSf4KQNpgRuwDaKzKP W7RhS5QQP5rIIcdO9ueLyh mjuvuN9qAbu+RklOOjwvdG Q+PHRkIHN0 yGqrZQayFHDngG4lNXQmJ1 c8IqRlXfL7FAsiO7PxqrO4 WFTimAKxRPItoZEIoU6mcf gay4plcxsk KuJxBZBvJIs8BTd4EYGvcF wmJsZjCED8UwS0PHT9lWJt vE1ztDasqfxlvV9hTdo+TV JOOjwvdGQ+ NVGhNFM7tPrfMPuoIRCwhI 9bZHRjF1g4TcTzSsY4SGkr Z9XqxfV1EVNcaYDjYTBwjJ XIoQ2jfycq b9rqhistXoWbUWDfWWr8HY i7KJMjpRwhMhTsDYJ7HyW2 ALC9dVMpiD3jsJcsokqemZ 9wOyc+UGF5 IQY3MD64JR81E0NgUbqxzR FibGU+PHRhYmxlIHdpZHRo OItrWKMlIjCoyIvnIL3vZl 9yZGVyLWNv bGxhcHNl (more content not included)... Normal [facility] Coding Summary.on 07-25-2022 Coding Summary. CD:[id number] Ww +PGhlYWQ+JL6FBLLxU62pu ADfqF7vQ4JKPWyJQvuxLGJ HDRdMSiZbnhDoNM8ueXXqK XJu IC8+GC2uLTHaOykgiZNof8 R5xTG7V87nlj2hIWtviYC5 PKHwMbTyfmqty3tncVm7QP cuNmluOyBt VFAepO52USJ5tE91Lk30iU TbcTAuq6djwDx0ZhPxPPAz YFQ2rZbjUVjcq3UcKOFcR5 9dqEZyd6B3 IPZsoOqoiSZlMvBxaGY0cP 0yWSuczmwhb9wkflkhWlc4 uu58uLCfx6O2xRZ2Q2Txrk W4QAUzuZFb CzwruOJGrS6junioq0qbgb brNyJoIUGqHDb8STq6WDIo yPiiOkQqHA04OJC2FIRltx MfB6JoTKHg rWiiEnZ2g1W6Kh8AY1YECn gkT7FMTBJROBmpyCJ+PC90 wg10I8JqYfiqKon8YNBvEV V9cEH2iP1t NSKtMXzxm1I8gFN8E2Sjfu Qfis4sn2ayTIOrAWrnL42s lJRbr8F4ACBvdLT3QMWfeW hnZpTldP36 Oyc+UCFtaXwte2EwWfnrz0 waw3iedCr6JqzsFHOzmnNi kTsnWHP9a6McPp7iMDLjaD E9pGZ2dU7h PfHqSpM7XMgpC545ObVnyO IcExefK41iL3CrqIF+PHRy Ust3WYDcfLmmDO6oL8LqEV RpbmctbGVm iKxnLU6eTYSsnudaEXBesR 5qNJUkW2a8ImBgWjM0ZDck S3WiCMMflaaeJy92gP1oKt MyXtU1YLel H7ClhzN4PDTquKBzMNipNU M5K49hy3X9QHYqSFAxUIL6 rLE0hY9lgWbanwvvjXDzxF sgdmVydGlj IVzyENhcH963KXGgtQcaUn NvZGluZyBEYXRlOiAgMDQv MTkvMjAyMzwvdGQ+PHRkIH G5vZkzYLQj hFTmXGsuEc5rqZfpiJblOU 0zCLTyxfvtXQAjnK9fROAq bZRpwRlnPY0sGMCmrupwq3 83WtRuJYW0 ULNiqSHsP9TevU8sWxLaWH TwYBKdN6UvvASbKSnpQ841 JKrnLjE7TBSrxvHcG1IgYQ FsaWduOiB0 j6A3Yg5Bc0RnyrxzI6AjdJ VcCrTiDbxuCRa3X1DgVabm dHI+GW01VLKrRN36BSr9QR A6oQkxSRas EVXsR1AnuZ0qCuLsOUKwSQ RkOyc+PHRhYmxlIHdpZHRo DObiGDChBnHllKgyRX2kVo 9yZGVyLWNv nYdafTIjIjFnb4vxDVMiVV ymCZ1dqOlgA7EhqHG7XLGp y4p8Zq18Q69cF3StnEP+PG MrzYT4pLQ1 sD5vGpWeOlC3NIgrU486Wc OtgYBvZukbh0ylx9onzUf5 BhR1NUOfblQzqScyMOF5j6 ZeOk21J76f IHdpZHRoPSIxNSUiIHZhbG omej6ooM8nGa2+PGNvbCB3 kPJ2gP4mVaYcObA5SSoyO9 49InRvcCIv Mijzn9ftv4xtpFz2YcSzAO DtxlChfMzfSOQ3j2FyIh46 K5OnyJwba1VsXxf0fn58tP Ese6C6kUJ2 K7CqOONjsbasmQFlmVdvIB 4eBYSziotaSQUzyX3aWDTc U4k6ZxMrSvN0KUbgQ9Iowt W1VAGzeDGo GWNxnRGYuZ1uoexdx9hbpm kpQtOnUPLuXFq9JWs9XAFf iPsnLtDmCVL1UzR8NAB8tW RyqI4uxNyb njlehK8zZiy+MKV3zXWdoE EVPD4bRuwlgDW+PHRkIHN0 rTlqUGlgHIWboH6lUDPwI3 b4ChPuTlQ2 HQncE0DiqlD8LSNbjYXoBJ LjmKMYyJ4nsfwfr8hlfbms JxIvHELeRKh1AFb7TKKswQ duOiBsZWZ0 RzR2SRK0iGOvpE8zpGuvbj bpcU1uNkw+QmlydGggRGF0 PKn6Z1GxDxv5YRLxyWjjOU 0ncGFkZGlu Ii0gaZtrrXcpGJ4aWRUezg tyf467MqStv7efFJEgpCEj EQpoAIE0I14jj4G9FHAjER YzWDR5oTY2 lF5siXxxfxshfVUlpRnaue BcySbtMKzkAMouT993GYZz yLpcXmCqIRv6M8WcPwf1MW OajJekNY9c eSDoZZcuRw3vcTohbWczAL 9xNNVbdgifl889AhQyl0fe ONMgyDLuAPmnZGF3Y88hr5 Z0FYMrONEg ELC2aFA6nK3oaWcbndlvfS VmdDsgdmVydGljYWwtYWxp E673TBXjgLylCbKyxMa9O8 VlTsl8WKYp iVchGA8keVVvNOtuDh8mdZ rkeRqaVO0zJXDubwznz430 DnYfv0shCNSifPCiJEroGU B9A99ej3Z3 DSWrZPVpNHM0tIX4cP2tvY lnbjogbGVmdDsgdmVydGlj HVtcUUjbJ838SKIffBviAq BhdGllbnQg KKfhGHa1H9WtGmhqaBI+PC 37DDHtCO16uDWmxFFxl3fx vCa8VqOaKFAhMEH9kZxxPO kwh4RlDAFv K64qoMQmf3U7RWKxsWdobG QgQpYgwZJ5sU3pYXtilhip w8ffdorbIljbq3sklc20jI 66A64xFDdf ZHRoPSIzMCUiIHZhbGlnbj 1sdX4pSq7+KMTmyYQ7nWH3 kG8dSEFkMsE5KYyqA359Js RvcCIvPjxj v9hfo5phmZc0AtS6AURsvc UafInxGHB4c8YdWd39O57k IHdpZHRoPSIyMCUiIHZhbG fxzw5ckR6p Ii8+PSKxaGK6pJG7uO2wGr WfBkG9XEcyX965VkGayJOe FsohK28tI4YgvMY+PHRyPj p7DFDmuAje TB4yxMNyJRzpZr7wJTQ5Nj EqUhGwJWduD0EjYNWmgcki bipwrOA5BAQsTDKdkB53In 9udDogMTBw tSTXwS4hgqgcy6khsyrwYg ShLAStOAu6BSh0KOKxrBjb ZuRqQNN0VrH4QCA3uKFupE 1hbGlnbjog hN6sC9HvFAQlgrhwNh34yI 9vNuGdEqH4JYweDwb+SkFS DvBSLFvmUEORY6jpOvdzxY Q+PHRkIHN0 fTicLNtbQWGhjI8sTLKqZ2 i8FwEaWjD2AMnqH4EnWSAg tnooWs63kN6pJaMvCzV7SG yuR2IpiqT7 OASusRKgVKnnSOX6X19wu2 U2AHXrYLVsWWH9sRK0cG8a bGlnbjogbGVmdDsgdmVydG ljYWwtYWxp D287WYLjmSikDoC5JlY3Kj I1VED0T6ArUsb0EPObpLgq UH5trLVrFBaqVg0ibGeziK xaOF2yHZWt hlchUDTncH6aKWQohEOrfT dmTJ0iZOOwtimwd877WjYd CQN3XWDtsPGmM0CqxF4mAs AjMDAwMDAw A6BinVAzLCqoK804FJygFt C3SHMjncYqR6TcWWXegPjn PkY0k0G3Qd12QFZJWXWmaf wvdGQ+PHRk DED5iAstFQxcGJTpcE5cHD GmI5h5OgEsKaN6XPsyV4Nn VGFtmafkLg31hG7uIrMtEw Q1JIocD5Zq tjH3UDRuvDAwHGwzXOV3V5 1nd4E8EESeARCrXYK0nWV4 pN4wmMiovpzhaYLisNzufs VydGljYWwt HQuyJ137FGNwkInbKnHrhK FsZTwvdGQ+QPWgQDR8jUfz JTrrWOSxrU0yTJCzP8c5Ub PyPzP0GQdb P4TeJYBnexspTc45wI9sPu RlCxG7YEgvO5YvrrL1HNIq xJYrOQlzVUW7D86ok5S0AG MwMDAwMDA7 jMF4gR4iwNjagvtfeIKxnF tguyRloPyoHSwxYBlyC471 FZOrdHhzRi13sMZxmLcrag W0T1EgDesi dHI+KL69JMAcSI86vKVxtZ Jbt3hadWd6YrKwFKIpZEY2 qUtgBMuou6EvAWUuP96gjS She5O5KCJn tLipoKKgPoAlkIG0hA7kZS kjpinqp1wrdppwKysoy9qb xv24eE07D62lYVnlOPTfPT IzMCUiIHZh uLsgdf0woX0wZm0+PGNvbC E4pYY6qB5cDtClCrO6QFzo I409AnFhkHBeXbjba2cnd1 ujuGb4PoWx IPYmdeMetKnkULO8o9TwQi 49Y62vPOktPIViNWEhGGCm VGYosBvsxy1shL8tHz3+PC 5wi1rmts14 pP69nPE+IHHhRUZ6pTjcTK yvAFNqbP6fEKeeNzI2HPYi GdEdlE66lWVhKRatKs1ntY klgRspAL0n PZFichexq900UpPey5mnJY XusWZiXPypIJA5U47nm5I2 IGDrJPNkQOH5cHM6yQ8tuU lnbjogbGVm dDsgdmVydGljYWwtYWxpZ2 28CKDsuEyhLfAarEEbG4gm rhVCQN5hXgustOR+PHRkIH S8tVctSMrp VNMolU4xWGOhE8n3NuSeOw L6LByjU1BsypE4CRQcxPRh YQJpnSXIcZ8rhnuqi8otrr ogIzAwMDAw YZb8RKb8DGMkgQguEoKtYF M5VmY0MXF3wWXpkB0prGug pdbzpL8vYxe+RklOOjwvdG Q+PHRkIHN0 yXmaWSvjUIWowF3wIIIpQ1 u3AcHsFgO9WHfcM2DsvnK7 JKCnfPBrQOXjdBWGvP2gku oig3obdgog RxWaYCQsWRp3TFs5ZXHyiM bbYiHnNJX8QpZ3QGF4bFGo nX8tlDteduqgfL2uZns+TV JOOjwvdGQ+ PEBfIOQ6pRhqLUdfSZPpkY 8jYNYvW1l6ItJvAtI7JUup O4MukrX4OKPfyIByNQOenE ZCiP4vtlaf n1wjpisbSyShXPGsDXk2PA g3GMJtcJirLgHxGLQ7IbC8 OTO7vWVjeR6cbUruycdiuR 9wOyc+UGF5 LFU7MQ75UJ83T1HcFmpxyT FibGU+PHRhYmxlIHdpZHRo VGobCTRlVzJciZvdCF7gEs 9yZGVyLWNv bGxhcHNl (more content not included)... Normal [facility] Consent for Treatmenton 07-07 Consent for Treatment [id number] 0CD:127 Normal [facility]/Cl inic Noteon [...] bike. She did a walking challenge from [employer] in 05/2022. She is not diabetic. She [...] Olamide Turner to record this visit. GAEL infection control specialist and provider reviewed before signing. GAEL: [...] 07/24/2022 Family History Heart disease: Father. Normal [facility] Comment on above: Result Comment: Elec tronically Signed By: Isaias TUTTLE, Guillermo Arteaga\.br\Date and Time Signed: 07/24/22 21:56 EDT\.br\Electronically Co-Signed By: Jenn Meza\.br\Date and Time Co-Signed: 07/24/22 16:08 EDT Physician Orderon 07-24-2022 Physician Order [id number]#1. 00CD:127 Normal [facility] Physician Order [id number]#1. 00CD:127 Normal [facility] BMPon 07-19-2022 Anion gap [Moles/Vol] 11 mmol/L Normal 6-16 [facility] Comment on above: Performed By: #### 2 [id number] #### [facility] [address] [place] [address] Calcium [Mass/Vol] 8.8 mg/dL Low 8.9-11.1 [facility] Comment on above: Performed By: #### 2 [id number], [id number] #### [facility] [address] [place] [address] Chloride [Moles/Vol] 103 mmol/L Normal 101-111 [facility] Comment on above: Performed By: #### 2 274874, [id number], [id number] #### [facility] [address] [place] [address] CO2 [Moles/Vol] 27 mmol/L Normal 21-31 [facility] Comment on above: Performed By: #### 2 634946, 6913517, [id number] #### [facility] [address] [place] [address] Creatinine [Mass/Vol] 0.9 mg/dL Normal 0.5-1.3 [facility] Comment on above: Performed By: #### 2 417261, [id number], [id number] #### [facility] [address] [place] [address] Glucose [Mass/Vol] 95 mg/dL Normal 55-199 [facility] Comment on above: Result Comment: If t his glucose result represents a fasting glucose, interpretation should refer to the following reference range: 55-99 mg/dL Performed By: #### 2 478944, 1936906, [id number] #### [facility] [address] [place] [address] Potassium [Moles/Vol] 4.4 mmol/L Normal 3.5-5.3 [facility] Comment on above: Performed By: #### 2 177599, 6723850, [id number] #### [facility] [address] [place] [address] Sodium [Moles/Vol] 137 mmol/L Normal 135-145 [facility] Comment on above: Performed By: #### 2 263145, 4332383, [id number] #### [facility] [address] [place] [address] Urea nitrogen [Mass/Vol] 12 mg/dL Normal 5-21 [facility] Comment on above: Performed By: #### 2 800404, 7731201, [id number] #### [facility] [address] [place] [address] Urea nitrogen/Creatinin e [Mass ratio] 13 No Units Normal 10-20 [facility] Comment on above: Performed By: #### 2 065452, 3038987, [id number] #### [facility] [address] [place] [address] CBC w/Indiceson 07-19-2022 Erythrocyte distribution width (RBC) [Ratio] 16.2 % High 10.9-14.2 [facility] Comment on above: Performed By: #### 2 509195, 0868782, [id number] #### [facility] [address] [place] [address] Hematocrit (Bld) [Volume fraction] 36.4 % Normal 34.0-46.0 [facility] Comment on above: Performed By: #### 2 739650, 2125171, [id number] #### [facility] [address] [place] [address] Hemoglobin (Bld) [Mass/Vol] 12.0 g/dL Normal 12.0-16.0 [facility] Comment on above: Performed By: #### 2 584954, 0425892, [id number] #### [facility] [address] [place] [address] MCH (RBC) [Entitic mass] 26.1 pg Low 27.0-34.0 [facility] Comment on above: Performed By: #### 2 988914, 1547006, 07554803 #### [facility] [address] [place] [address] MCHC (RBC) [Mass/Vol] 33.1 g/dL Normal 31.4-36.0 [facility] Comment on above: Performed By: #### 2 290475, 2942992, [id number] #### [facility] [address] [place] [address] MCV (RBC) [Entitic vol] 78.8 fL Low 80.0-100.0 [facility] Comment on above: Performed By: #### 2 722351, 4148875, 38674098 #### [facility] [address] [place] [address] Platelet mean volume (Bld) [Entitic vol] 7.6 fL Normal 6.4-10.8 [facility] Comment on above: Performed By: #### 2 421341, 6317704, 69354302 #### [facility] [address] [place] [address] Platelets (Bld) [#/Vol] 346.0 E9/L Normal 150.0-500.0 [facility] Comment on above: Performed By: #### 2 823689, 3346492, 96479324 #### [facility] [address] [place] [address] RBC (Bld) [#/Vol] 4.6 E12/L Normal 4.3-5.9 [facility] Comment on above: Performed By: #### 2 065747, 2826545, [id number] #### [facility] [address] [place] [address] WBC corrected for nucl RBC Auto (Bld) [#/Vol] 7.5 E9/L Normal 4.0-11.0 [facility] Comment on above: Performed By: #### 2 905905, 7801454, [id number] #### [facility] [address] [place] [address] Consent for Treatmenton 07-07 Consent for Treatment [id number] 0CD:127 Normal [facility] Physician Orderon 07-19-2022 Physician Order [id number] 0CD:127 Normal [facility] eGFRon 07-19-2022 GFR/1.73 sq M.predicted among blacks MDRD (S/P/Bld) [Vol rate/Area] mL/min/{1.73_m2} Normal >=59 [facility] Comment on above: Order Comment: Order added by Discern Expert. Result Comment: eGFR is race adjusted. AA=. Performed By: #### 2 425041, 4127547, [id number] #### [facility] [address] [place] [address] GFR/1.73 sq M.predicted among non-blacks MDRD (S/P/Bld) [Vol rate/Area] mL/min/{1.73_m2} Normal >=59 [facility] Comment on above: Order Comment: Order added by Discern Expert. Result Comment: Roll Over Press Operator mark kidney disease could be indicated at eGFR's of less than 60 mL/min/1.73m2. Kidney failure is indicated at less than 15 mL/min/1.73m2. Performed By: #### 2 608874, 7641946, [id number] #### [facility] [address] [place] [address] MG MAMM SCREEN 3D RONEN CADon 04-03-2022 MG MAMM SCREEN 3D RONEN CAD Patient: KARMA NIETO Exam Date: 04/03/2022 : 1980 Gender:F Ordering : DR MICHAEL RUSSO . Admission #: [id number] Family : Order #: [id number] CLICK HERE TO VIEW EXAM RADIOLOGY REPORT PROCEDURE: MAMMOGRAM SCREENING 3D BILATERAL CAD COMPARISON: None. INDICATIONS: Screening mammography Calculator Name [facility] Breast Cancer Risk Assessment Tool 5 Year Breast Cancer Risk 0.60% Lifetime Breast Cancer Risk 11.10% Personal Breast Cancer No Personal Ovarian Cancer No Treatments None Family Cancers None LOCATION: [facility] BREAST COMPOSITION: Extremely dense, which lowers the [...] MD on 04/05/2022 at 08:01 Normal [facility] MRI Knee w/o Lefton 12-28-19 MRI Knee [...] by Patel Bhardwaj on 12/27/2021 1455 Normal [facility] [employer] US ST HEAD_NECKon 10-19-[address] HEAD_NECK [...] by: VINEET WOODS Date: 2021-10-19 19:21 Normal [facility] PAP ACOG PANEL 2: 30 to 65on 06-30-2021 . . Normal [facility] Comment on above: Result Comment: Perf ormed at: WB Performed By: #### 4 [id number] #### [facility] [address] [address] [address] Rosa Maria Frazier Age Gdln ACOG Testing 30-65 Normal [facility] Comment on above: Performed By: #### 4 [id number] #### [facility] [address] [address] [address] Rosa Maria Frazier DIAGNOSIS: Comment Normal [facility] Comment on above: Result Comment: NEGA TIVE FOR INTRAEPITHELIAL LESION OR MALIGNANCY. Performed at: WB Performed By: #### 4 [id number] #### [facility] [address] [address] [address] Rosa Maria Frazier HPV Aptima Negative Normal Negative [facility] Comment on above: Result Comment: This nucleic acid amplification test detects fourteen high-risk HPV types (16,18,31,33,35,39,45,51,52,56,58,59,66,68) without differentiation. Performed at: =G Performed By: #### 4 [id number] #### [facility] [address] [place] [address] Dr. Rosa Maria Frazier Methodology: Comment Normal [facility] Comment on above: Result Comment: This liquid based ThinPrep(R) pap test was screened with the use of an image guided system. Performed at: WB Performed By: #### 4 [id number] #### [facility] [address] [place] [address] Dr. Rosa Maria Frazier Note: Comment Normal [facility] Comment on above: Result Comment: The Pap smear is a screening test designed to aid in the detection of premalignant and malignant conditions of the uterine cervix. It is not a diagnostic procedure and should not be used as the sole means of detecting cervical cancer. Both false-positive and false-negative reports do occur. . Performed at: WB Performed By: #### 4 [id number] #### [facility] [address] [place] [address] Dr. Rosa Maria Frazier Performed by: Comment Normal [facility] Comment on above: Result Comment: Dayo De Guzman, Chuck Splitter (ASCP) Performed at: WB Performed By: #### 4 [id number] #### [facility] [address] [place] [address] Dr. Rosa Maria Frazier Specimen adequacy: Comment Normal [facility] Comment on above: Result Comment: Sati sfactory for evaluation. Endocervical and/or squamous metaplastic cells (endocervical component) are present. Performed at: WB Performed By: #### 4 [id number] #### [facility] [address] [place] [address] Dr. Rosa Maria Frazier [facility] SARS-CoV-2 (COVID-19) RNA OLU+probe Ql (Unsp spec) Not detected Normal NOT DETECTED [facility] Comment on above: Result Comment: This test is not yet approved or cleared by the [place] FDA. When there are no FDA-approved or cleared tests available, and other criteria are met, FDA can make tests available under an emergency access mechanism called an Emergency Use Authorization (EUA). The EUA for this test is supported by the Outbound Supervisor of Health and Human Service's (HHS's) declaration [...] consistent with SARS-CoV-2. Performed By: #### C [facility] #### [facility] [address] [place] [address] Dr. Rosa Maria Frazier Encounters Encounter Date Encounter Type Care Provider Facility Start: 12-31-2023 End: 12-31-2023 ambulatory LEONARD ORTEGA Not Available Start: 11-28-2023 End: 11-28-2023 ambulatory LEONARD ORTEGA Not Available Start: 10-16-2023 End: 10-16-2023 ambulatory DWAYNE KENDAL Not Available Start: 09-18-2023 End: 09-18-2023 ambulatory DWAYNE KENDAL Not Available Start: 09-04-2023 End: 09-04-2023 ambulatory Dwayne Kendal Work Phone: [facility] Work Phone: Start: 09-04-2023 End: 09-04-2023 Departed Referred Dwayne Kendal Work Phone: [facility] Start: 08-07-2023 End: 08-07-2023 ambulatory DWAYNE KENDAL Not Available Start: 06-05-2023 End: 06-05-2023 ambulatory SUZAN GRAVESEY Not Available Start: 05-24-2023 End: 05-24-2023 ambulatory Dwayne Kendal Facility:[facility] Start: 05-24-2023 End: 05-24-2023 ambulatory Dwayne Kendal Work Phone: [facility] Work Phone: Start: 05-24-2023 End: 05-24-2023 Departed Referred Dwayne Kendal Work Phone: [facility] Start: 04-24-2023 End: 04-24-2023 ambulatory DWAYNE EDMONDS Not Available Start: 03-29-2023 End: 03-29-2023 ambulatory ALEJA CHEN Not Available Start: 03-27-2023 End: 03-27-2023 ambulatory DWAYNE EDMONDS Not Available Start: 07-24-2022 End: 07-25-2022 ambulatory Guillermo Esparza Facility:[facility] [place] Start: 07-19-2022 End: 07-20-2022 ambulatory Aleja Chen Facility:[facility] [place] Start: 04-03-2022 End: 04-04-[address] MICHAEL RUSSO Facility: Start: 10-19-2021 End: 10-20-2021 ambulatory ANTWAN KNOX Facility:[facility] Start: 06-27-2021 End: 06-27-[address] MICHAEL RUSSO Facility:[facility] Start: 04-14-2021 End: 04-14-2021 ambulatory PAMELA BALDEV RUIZ Facility:[facility] Payers Date Payer Category Payer Self-pay [id number] 2022 Unknown [id number] 1980 Unknown [id number] .16.84 0.1.948022.3.579.2.593 1981 Unknown [id number] .16.84 0.1.144461.3.579.2.593 1981 Unknown [id number] .16.84 0.1.804399.3.579.2.593 1981 Unknown [id number] .16.84 0.1.627556.3.579.2.593 1981 Unknown [id number] 2.16.8 40.1.487947.3.579.2.727 1981 Unknown [id number] 2.16.8 40.1.484386.3.579.2.727 1981 Unknown [id number] 2.16.84 0.1.930081.3.579.2.1258 1981 Unknown [id number] 2.16.84 0.1.356450.3.579.2.1258 1981 Unknown [id number] 2.16.84 0.1.592102.3.579.2.1258 1981 Unknown [id number] 2.16.84 0.1.833962.3.579.2.1258 1981 Unknown [id number] 2.16.84 0.1.888566.3.579.2.1258 1981 Unknown [id number] 2.16.84 0.1.630136.3.579.2.1258 1981 Unknown [id number] 2.16.84 0.1.203029.3.579.2.1258 1981 Unknown [id number] 2.16.840 .1.010249.3.579.2.1258 1981 Unknown [id number] 2.16.840 .1.163097.3.579.2.1258 1981 Unknown [id number] 2.16.840 .1.750787.3.579.2.9 1959 Unknown [id number] Unknown [id number] 2.16.8 40.1.553793.3.579.2.531 Social History Date Type Detail Facility Tobacco smoking stat [facility] Unknown if ever smoked [facility] Work Phone: Start: 1980 Sex Assigned At Female F [facility] Evaluation note Note Date & Type Note Facility Evaluation note No assessment information availa ble [facility] Work Phone: Summary Purpose Family History No Family History Records FoundNo Family History Records FoundNo Family History Records FoundNo Family History Records FoundNo Family History Records Found Advance Directives No Advanced Directives Records Found Advance Directive Response Recorded Date/ Time Advance Directives No August 20 8 10:20am Advance Directive Response Recorded Date/ Time Advance Directives No August 20 8 11:20am Additional Source Comments INFORMATION SOURCE (unrecogn ized section and content) DATE CREATED AUTHOR 01/07/2022 [facility] DATE CREATED AUTHOR AUTHOR'S ORGANIZ ATION 04/06/2022 [facility] DATE CREATED AUTHOR AUTHOR'S ORGANIZ ATION 09/15/2022 [facility] DATE CREATED AUTHOR AUTHOR'S ORGANIZ ATION 05/26/2023 [facility] DATE CREATED AUTHOR AUTHOR'S ORGANIZ ATION 01/03/2024 [facility] EPIC Care Teams (unrecognized sec tion and content) Team Status: Inactive Member Role Status Dates Dwayne Edmonds Attending Provider Active Start: Carla galicia 2023 End: May 24, 2023 Team Status: Inactive Member Role Status Dates Dwayne Edmonds Attending Provider Active Start: Brianna rodriguez 2023 End: September 04, 2023 Goals (unrecognized section and content) Goals may be documented in a n alternate sectionGoals may be documented in an alternate section FOR RECORDS PERTAINING TO PATIENTS [...] BE BASED ON THE PRIMARY CLINICAL RECORDS. [facility] [employer] provides no warranty or guarantee of the accuracy or completeness of information in this document.
== END 2024-01-06 14:46 | disposition home or self-care (01) ==
LOC: US 14:46
DX: N64.4 Mastodynia (principal)
CPT/HCPCS: 76642; 77065; G0279

== ENCOUNTER 2024-07-25 07:24 | Emergency (ER) | payer OTHER, SELFPAY ==
[2024-07-25] VITALS (16 sets, daily range): BP systolic 121–153; BP diastolic 82–101; PULSE 71–94; TEMP 36.4; O2SAT 96–100; BMI 35.7
--- OUTSIDE RECORDS SUMMARY | 2024-07-25 07:32 | XMS_ITS | CCD ---
Author Organization [facility] Care Team Providers Care Assistant Housekeeping Manager Name Role Phone PAMELA RUIZ Admitting Unavailable PAMELA RUIZ Attending Unavailable PAMELA RUIZ Primary Care Unavailable PAMELA RUIZ Consulting Unavailable KARASIK, DR RODRIGUEZ Admitting Unavailable KARASIK, DR RODRIGUEZ Attending Unavailable PAMELA RUIZ Primary Care Unavailable KARASIK, DR RODRIGUEZ Consulting Unavailable LISETTE, ANTWAN Admitting Unavailable LISETTEANTWAN CELESTE Attending Unavailable SARA PAMELASRI DE PAZ Primary Care Unavailable WEST, DR VINEET Cruz Consulting Unavailable LISETTE, ANTWAN Consulting Unavailable KARASIK, DR RODRIGUEZ Admitting Unavailable KARASIK, DR RODRIGUEZ Attending Unavailable REQUEST, DR ELISEO LISTED Primary Care Unavaila ble KARNICA, DR RODRIGUEZ Consulting Unavailable WEST, DR VINEET Cruz Consulting Unavailable Guillermo Esparza Attending UnavailAleja Shahid Referring Unavailable Chen, Aleja Le Admitting Unavailable Aleja Chen Attending Unavailable Aleja Chen Referring Unavailable Dwayne Edmonds Attending Provider Dwayne Edmonds Attending Unavailable Dwayne Edmonds Admitting Unavailable Dwayne Edmonds Attending Provider Kandy Ortega MD Primary Care Provider SUZAN BLEDSOE Attending Unavailable DWAYNE EDMONDS Attending Unavailable DWAYNE EDMONDS Attending Unavailable DWAYNE EDMONDS Attending Unavailable KANDY ORTEGA Attending Unavailable KANDY ORTEGA Attending Unavailable KANDY ORTEGA Attending Unavailable ALEJA CHEN Referring Unavailable GUSTAVO, ALEJA Le Attending Unavailable GUSTAVO, ALEJA Le Referring Unavailable ALEJA CHEN Attending Unavailable Allergies Allergy Classification Reported Allergen(s) Allergy Type Date of Onset Reaction(s) Facility (1 source) No Known Medication Allergies; Translations: [No Known Medication Allergies] Propensity to adverse reactions (disorder) [facility] Medications Current Medications Medication Drug Class(es) Dates Sig (Normalized) Sig (Original) [id number] 200 actuat albuterol 0.09 mg/actuat metered dose inhaler (20 sources) beta2-Adrenergic Agonist Start: 12-20-2022 take 2 puff(s) by inhalation every four hours for wheezing albuterol HFA 90 mcg/act inhaler Indications: Exercise induced bronchospasm (CMS/HCC) Inhale 2 puffs every 4 (four) hours if needed for wheezing or shortness of breath. 18 g 11 12/20/2022 Active biotin 2.5 mg oral capsule (16 sources) End: 04-24-2024 biotin 2.5 MG capsule Take by mouth 04/24/2024 Discontinued (Therapy completed) ergocalciferol 1.25 mg oral capsule (20 sources) Provitamin D2 Compound take 1 capsule by mouth every week ergocalciferol (Vitamin D-2) 1.25 MG (70224 UT) capsule Take 1.25 mg by mouth 1 (one) time per week Active 24 hr etodolac 600 mg extended release oral tablet (11 sources) Nonsteroidal Anti-inflammatory Drug Start: 03-10-2024 End: 03-10-2025 take 1 tablet by mouth once daily etodolac XL (Lodine XL) 600 MG 24 hr tablet Indications: Lateral epicondylitis of right elbow Take 1 tablet (600 mg) by mouth Daily 30 tablet 11 03/10/2024 03/10/2025 Active ferrous fumarate-vitamin C ER (Stephanie-Sequeles 65-25) (16 sources) End: 04-24-2024 ferrous fumarate-vitamin C ER (Stephanie-Sequeles 65-25) Take 1 tablet by mouth in the morning and 1 tablet at noon and 1 tablet in the evening. Take with meals. Do not crush, chew, or split.. 04/24/2024 Discontinued (Therapy completed) ferrous fumarate -vitamin C ER (Stephanie-Sequeles 65-25) Take 1 tablet by mouth in the morning and 1 tablet at noon and 1 tablet in the evening. Take with meals. Do not crush, chew, or split.. Active levothyroxine sodium 0.125 mg oral tablet (20 sources) l-Thyroxine Start: 06-10-2024 take 1 tablet by mouth once daily levothyroxine (Synthroid, Levoxyl) 125 MCG tablet Indications: Hypothyroidism, unspecified type (CMS/HCC) TAKE 1 TABSULE BY MOUTH DAILY 90 tablet 06/10/2024 Active Start: 12-12-2023 End: 06-10-2024 take 1 tablet by mouth once daily levothyroxine (Synthroid, Levoxyl) 125 MCG tablet Indications: Hypothyroidism, unspecified type (CMS/HCC) TAKE 1 TABLET BY MOUTH EVERY DAY 90 tablet 03/10/2024 06/10/2024 Discontinued Start: 09-19-2023 take 1 tablet by sea th once daily levothyroxine (Synthroid, Levoxyl) 125 MCG tablet Indications: Hypothyroidism, unspecified type (CMS/HCC) TAKE 1 TABLET BY MOUTH EVERY DAY 90 tablet 09/19/2023 Active loratadine 10 mg oral tablet (20 sources) loratadine (Claritin) 10 MG tablet 1 (one) time each day at the same time. Active phentermine hydrochloride 37.5 mg oral tablet (20 sources) Sympathomimetic Amine Anorectic Start: End: take 38-38.9 tablets by mouth before mealtime phentermine (Adipex-P) 37.5 MG tablet Indications: BMI 38.0-38.9,adult , Class 2 severe obesity due to excess calories with serious comorbidity and body mass index (BMI) of 38.0 to 38.9 in adult (CMS/HCC) Take 1 tablet (37.5 mg) by mouth in the morning. Take before meals. 30 tablet 2 05/01/2024 Active predniSONE 20 mg oral tablet (2 sources) Start: End: take 2 tablets by mouth once daily predniSONE (Deltasone) 20 MG tablet Indications: Lateral epicondylitis of right elbow Take 2 tablets (40 mg) by mouth Daily for 5 days 10 tablet 01/30/2024 02/04/2024 Active sulfamethoxazole 800 mg / trimethoprim 160 mg oral tablet (2 sources) Dihydrofolate Reductase Inhibitor Antibacterial, Sulfonamide Antimicrobial Start: End: take 1 tablet by mouth once in the morning, then take 1 tablet by mouth once at bedtime sulfamethoxazole-tr imethoprim (Bactrim DS) 800-160 MG per tablet Indications: Acute cystitis with hematuria Take 1 tablet by mouth in the morning and 1 tablet before bedtime. Do all this for 3 days. 6 tablet 12/31/2023 01/03/2024 Active Completed/Discontinued Medications Medication Drug Class(es) Dates Sig (Normalized) Sig (Original) betamethasone 3 mg/ml / betamethasone acetate 3 mg/ml injectable suspension (4 sources) Corticosteroid Start: 03-26-2024 End: 03-26-2024 betamethasone acetate-betamethason e sodium phosphate (Celestone) injection 5 mg Start: 03-26-2024 End: 03-26-2024 5 mg, Intra-articular, Once PRN Procedure, Starting on Sat03/26/24 at 0906, For 1 dose 3 ml sodium hyaluronate 10 mg/ml prefilled syringe (4 sources) Start: 04-24-2024 End: 04-24-2024 cross-linked hyaluronate (Gel-One) injection 30 mg Start: 04-24-2024 End: 04-24-2024 30 mg, Intra-articular, Once PRN Procedure, Starting on Sat04/24/24 at 0758, For 1 dose Problems Active Problems Problem Classification Problem Date Documented Date Episodic/Chronic Asthma (20 sources) Exercise induced bronchospasm; Translations: [Exercise induced bronchospasm] Onset: 12-20-2022 12-20-2022 Chronic Nonmalignant breast conditions (2 sources) Pain of breast; Translations: [Mastodynia] 12-31-2023 Episodic Osteoarthritis (8 sources) Osteoarthritis of left knee joint; Translations: [Unilateral primary osteoarthritis, left knee] 03-30-2024 Chronic Other connective tissue disease (3 sources) Lateral epicondylitis of right humerus; Translations: [Lateral epicondylitis, right elbow] 01-30-2024 Episodic Other female genital disorders (20 sources) Abnormal uterine bleeding; Translations: [Other specified abnormal uterine and vaginal bleeding] Onset: 12-20-2022 12-20-2022 Chronic Other nutritional; endocrine; and metabolic disorders (6 sources) Body mass index 30+ - obesity; Translations: [Body mass index (BMI) 39.0-39.9, adult] 01-31-2024 Chronic Other nutritional; endocrine; and metabolic disorders (10 sources) Severe obesity; Translations: [Class 2 severe obesity due to excess calories with serious comorbidity and body mass index (BMI) of 39.0 to 39.9 in adult ([facility])] 01-31-2024 Chronic Other nutritional; endocrine; and metabolic disorders (4 sources) Body mass index 40+ - severely obese; Translations: [Body mass index (BMI) 40.0-44.9, adult] 11-28-2023 Chronic Thyroid disorders (20 sources) Hypothyroidism; Translations: [Hypothyroidism, unspecified] Onset: 12-04-2023 12-04-2023 Chronic Unclassified (3 sources) CONTACT W/AND (SUSP) EXPOS COVID-19; Translations: [CONTACT W/AND (SUSP) EXPOS COVID-19] Onset: 04-20-2021 Urinary tract infections (2 sources) Acute cystitis; Translations: [Acute cystitis with hematuria] 12-31-2023 Episodic Past or Other Problems Problem Classification Problem Date Documented Date Episodic/Chronic Deficiency and other anemia (20 sources) Iron deficiency anemia; Translations: [Iron deficiency anemia, unspecified] Onset: 12-20-2022 12-20-2022 Episodic Immunizations and screening for infectious disease (20 sources) Encounter for screening for human papillomavirus (HPV); Translations: [Needs influenza immunization] Onset: 06-30-2021 12-20-2022 Episodic Other screening for suspected conditions (not mental disorders or infectious disease) (20 sources) Encounter for screening mammogram for malignant neoplasm of breast; Translations: [Encounter for screening for malignant neoplasm of cervix] Onset: 06-27-2021 Resolved: 05-01-2024 Episodic Other skin disorders (4 sources) Localized swelling, mass and lump, neck; Translations: [LOCALIZED SWELLING MASS AND LUMP NECK] Onset: 10-19-2021 Episodic Unclassified (1 source) CONTACT W/AND (SUSP) EXPOS COVID-19; Translations: [CONTACT W/AND (SUSP) EXPOS COVID-19] Onset: 04-14-2021 Results Test Name Value Interpretation Reference Range Facility No Panel Informationon 04-24 Natacha Cardenas MA 04/24/2024 8:06 AM L Inj/Asp: L knee on 04/24/2024 7:58 AM Indications: diagnostic evaluation Details: 22 G needle Medications: 30 mg cross-linked hyaluronate 30 MG/3ML [place] e No Panel Informationon 03-26 Natacha CATHERINE Cardenas 03/30/2024 2:06 PM L Inj/Asp: L knee on 03/26/2024 9:06 AM Indications: diagnostic evaluation Details: 22 G needle Medications: 5 mg betamethasone acetate-betamethasone sodium phosphate 6 (3-3) MG/ML Outcome: tolerated well, no immediate complications Consent was given by the patient. [facility] Coding Summary.on 08-09-2022 Coding Summary. [id number] Ww +PGhlYWQ+OI6SJRCrL56py INzoQ2fR0POQXpVJwhvJLN CLNaTEfMlvxLeFW6ktRGxZ XJu IC8+WO0tQOIrYfgjgMYnj4 F3bKE6P81tws1eWDgjyIO0 HYFrHyPwbvmzj2mbgLi0BC cuNmluOyBt CFBouD54BLO6tM68Rj60gR BkpANtz7hdbZg1OsWzETVp IHQ2eBhjLEiab0EjUMRbF7 2nrBJbi5T3 EMNhuUhepSVzYxSotFM6xY 8mDUtanlwjf1hwrxcuInr1 lh88qZJfk7C1zQJ4O2Hajk K6XBBraSEg OekijRYVsW0njnqzt2isgq eeAgHcZHVsFHy2YZq1UATv wHmmJwAoLM48OJD6XPMnos BzA7IxGPNb zWcpKgZ0s6I4Hq7BH1XWYy xxD5LKRRTQFZyvsSH+PC90 cw70I2BvAodrPwu9AQXyUZ C6oJZ3gI3b LXRsCVziw5H5xOJ3K4Rhkq Goqp2un4kbEAOsYSeaS85f fYShd4H7UJWhjUO2OEIofK wyGwKohI38 Oyc+VKEevEriq9NzDhdwl6 xzn4zgoKu5JsnmUDHkbaYa aBciSIM8c9ScJs7bBLXmrG H8cGQ4zA6y OqPcDrM2OCchL980BmWveK JkPlplR30mB7BjcSL+PHRy Voo3QHGtgPqxPJ2rE2CjXL RpbmctbGVm eMzeDP4dSNGmbkqgQHUqsS 7rDMCvX0c8ZqEfNtF4LKoz Z3MkUNQiexmsFr22mY0lVz JbBwL2GQza G1VdxnE0BYWxcQLmKVziDS U7B97hr8K2AEGoFNQyCRF7 nXI3kT2foMndcxcpbOBlkH sgdmVydGlj HOzmIGcwF911HIHbeXbvOe NvZGluZyBEYXRlOiAgMDUv MDQvMjAyMzwvdGQ+PHRkIH U9rYagWSQj aSGpMZlaVz0agZyzxFqfLF 7dBQSbwomeLHHwdR4zFBNc pKWlwBvqBK5dKTIyowgzw3 85JcKoANE7 FVMwrXGcY2LeaD7sEjAoQG FuSEYjO3YmxSBeEKiyT651 UYeyUoG7UZIupkRqX2SaZZ FsaWduOiB0 w9S8By5Ax7IvkonrL7GutS FxCwYeDqotOBa7Y0AcHpdr dHI+JF09NXUfNF27KMb3GC A2jXuhDHmu NISjG9YiiX9yVyBdUVCuYG RkOyc+PHRhYmxlIHdpZHRo NNkyRPZsOeFrqAanWC1qTw 9yZGVyLWNv qCibcXHcEhVql2kxPXYdGG zsUT1vxEygO5YyuGB7SQEe i8m7Yp55D23pG0MaxQC+PG YzvYM7tAT5 eJ0dVnBkPpB1VHvgH070Kd NnwITuNwaew0wvm6rbxJm7 ZfV1HPRslyAraDeyDZI5j8 FaRi53Q08v IHdpZHRoPSIxNSUiIHZhbG vmpg4kzE0kKx1+PGNvbCB3 rOP6fC7kBcRnRxI5SUzgS1 49InRvcCIv Genrz7oxk4eccOm7QnVeGT QdggXtrTbnYPO9x3GyBo61 J9NszRyks9CaVta9mv65tU Kuz2R4mYX4 Q0JaQQVcekavpJLykHelOJ 8jVPTiaphbKTTcrG1fHDIz G2g3TsUjQbK4QYmdB0Jqhg R8JWDndTTi OMAmjQXQiR2kvixsi8yzvt jeHpMkOHPwMRk4SAx8ZFZy lApvJiWcBSN6XzO9BML5uU DnrH9rdLav cuqbtR4yXel+WFB6eXFjoT MESG4mWraixIX+PHRkIHN0 pObeEBtgUKOffP0mSLKyS4 m6FmTaJdP6 SCxwZ6ImgvV6FDWypOWuLJ JpeAALqV0juhfbv7msnauc VrGtNAXuJFs2AFr2ZFRmaO duOiBsZWZ0 RuH3EWQ7rNUctE4xaWhexe oczI2aKqv+QmlydGggRGF0 RGl5B7UhFst0GFQkxSllYP 0ncGFkZGlu Ou1szUcdaGyzXC8cSJTlzv wzy170FhUmj5ewXRAjyIPy DBqrSIR5Q99dr7V7IKKdCE XtFQY8cNE5 cX7ioRhitkmusTTxeJxwou HwfRbxRJdfFNlmP027ACQa yNegPuSjNIz3J4RnDax7IH DatQhuLB6l kRKbHEvxRi0mnMqhxRfzWM 3dAXOiriakv518ZpFnd0ws EVQqbHVzUAmrNAW9K16un9 K4CQTcTJIc QUK2hTI7nI9niGyixpcusB VmdDsgdmVydGljYWwtYWxp F653XNCevDtqBgDdpOg4R9 MfBct3KMCc qKdeTH6ztPUmLOitEm9ugZ crsJyaLU2tYZGkhkkkr516 QmRvu6oxVJCypKNmNLyiWL S3G08kf4V3 DURxRHGwMOD6lAQ4sI1zmI lnbjogbGVmdDsgdmVydGlj KJjpIXxkZ344ZFTxyMfcWf BhdGllbnQg QBooGKp7M3RmLftqmEG+PC 73CKMyPL90qOOazOLpt4jb lDr7VzUoMDUxISV3gManFU ubo7KkXHPd L27sdNKoe1O8RHFegDbasI OlIyMplKK1qL3jOMgzkxzg n3wfkoehVhxpc1ivrf45eY 13A74qAEki ZHRoPSIzMCUiIHZhbGlnbj 2fsP6sIp5+DMAqxSM9mQC1 mJ9dDZGnZeV1XDqkI418Rf RvcCIvPjxj l2own7undGg3ZmD1OWYyqb YdmDmqEPL0f0BeKi34B38b IHdpZHRoPSIyMCUiIHZhbG pogz6zuJ2d Ii8+HVCshMF8oXU9bO2cKx NkPfI2EOreJ424NgUkwEIm UhauP16vI2CuoKE+PHRyPj o2VQVtcXri HA0ieAKnHYfrUs2uKEZ4Ft BkXyVuKYnkT5HiPXUxngwa uwqtrAK0YHJaLVKoxF06Xa 9udDogMTBw mZIAbI8kcoohh1ltiybzWq CrPGNdYLj7MJk6HTErhXwa UfBnHCH2UmX9JEC3sSNosP 1hbGlnbjog rB0qZ2UdXMXcckvrGd46xZ 7iSkPuIjL2SSvzZoo+SkFS AeGXGYtpRAOSP1njKwllrN Q+PHRkIHN0 eJkqGJbdWMVsuT8aTILaR9 j0CdWcBfT9TJmwK9MpVMCp gghnPf39vC8fWdWoYgA2UH yhU4TffdX9 ZQJdaTLePBlmXYW4O84vc3 A0AZTjLRTaHGM3pCS1cI6k bGlnbjogbGVmdDsgdmVydG ljYWwtYWxp Z944OJEyjUsfKqA3KxA1Wr O0HOD4Z4HrWju3PBHloQtx PJ6wlOHnASduVj5kgXtljH dqRA0hKVEx ybibFMAhlH6lPQYaiBFteM eeWF7fHLXxxvmkf751DyYy OGR3JDYjcIRgU4EtoP0wMo AjMDAwMDAw N7XtnSKxFKnqV775THjtGu C6HEVmyiUdY6QwZKVmqEnl HgJ8w8V8Pb65ESATLOQzcj wvdGQ+PHRk YGY6bIiaSXuqQORjfL4aXB TaN3v5AuAuJkO6ZIveG8Ev SWCxhqgqHe08xX4hEsNzLt B0JAxhD4Jm smE7BNPocAUkLAzzDDE6F1 1bl1P6QBNqJNFfFMS2kNT5 xB6vqGppphqddBOsiPigld VydGljYWwt NIzhB995NFSnqKbxFgWmnN FsZTwvdGQ+MFCvBTD1vIck JKuwFOKbtP2nVOXwV7w9Hx YbGnE1GRnh F6XdPRLvomjcOh15vT8eSa AzTtF3GJbzG0JcsaU5ENDn oEVjYFpyPNF4E97or3Z4IW MwMDAwMDA7 kKH4gU1vvItzefaeyLZvmA sxtkBykAqbJQlbMVomZ692 LEIjmXwjXi56qSGptPxpat C7I0BzLody dHI+DX70JBAjTQ91iKCfrP Skx5bpkBo9CzGrPXDqEIZ4 zYjkAJxwj2NuMZApK79rjP Pbj4N7ZFGm aWrhsZSyXbLfbJA2bH6uPP nnmsyqa1xmfbrgFtzdc1cx yh27cP35L66yMUefZJGjMC IzMCUiIHZh jNietz8ahG8tCi8+PGNvbC Z4xLB1uW3dTgJyStZ6FYxo Y344CrCuaLTwQkhva8mln6 yktZi3JqXb WYIazqHzmMhuQKO7g3UbUh 28A63eGCscKQVnRRZtAZKn HGShtIbtim7szP7yMq0+PC 3lg6ymqe75 bP33eZO+TKDfZKR4mFjbFU maTBMbtG8jYVgzMwH3QYHt WuNgcI33vLTeUVbsTd0yeY okwKxdIQ0e EXIpgkbjf569HiYuq5hxUQ ZamHMcLSwyYOB6M08wj6J2 NMXyYLPcTKB4pYH2aF1agE lnbjogbGVm dDsgdmVydGljYWwtYWxpZ2 84KLXfqIwhHxYtvEGkT3pq urKJBP5iTmfgfAE+PHRkIH O7fQhdWMbo VMIqsP6hTEAzD2j9FsTfVt M8COpmU0OnkpY6FDUtyTZt EPDcbGHFjV8trrvfv9rfcf ogIzAwMDAw TAs2JDx2RHHwkGzhYoFlCP D4YxT0ZQF2eBBosL0jjDal ajvleI1lEgi+RklOOjwvdG Q+PHRkIHN0 hRpcCKnqUVLcdS8bYKFnA6 j5MtFdLrE9KAbiT7BgiqO0 MMRsyFXzNRGohRQRbP8xat czv7shlnbn ZqXqRXCqIPv8FQa6DGCckV flQwIvSJY8KrH1JYU4jTWt aI1vkQntseupsW3hEmt+TV JOOjwvdGQ+ WCSxNNU4hSlsKCsxMOZnsU 9bZRMdQ4m2PzUnPdW6HLzd S1GpaeF3QMFrxDPpMYBfhL GFtW8lkeme q4hmkjgxWwFsJPMdGDn7QX o5FFYnpNhwOxPuAGZ2NhT9 NYM8gUUrsH4xgYvrqyrblP 9wOyc+UGF5 FOP9KB68CA17H1KuKhaapS FibGU+PHRhYmxlIHdpZHRo WKbrAHSkPsFfhQdwIO8iEb 9yZGVyLWNv bGxhcHNl (more content not included)... Normal [facility] Coding Summary.on 07-25-2022 Coding Summary. CD:[id number] Ww +PGhlYWQ+IE8RKFUpJ06rq JRxoH2pG6WTAPnWAefmHOW WASfGAsWtfcZvFZ9yfFIkR XJu IC8+YI9jMOMkKsphdRPni3 Q1mKD3V73pse5iLXienUX5 NDAqVnXgiouvp7mswRr3PM cuNmluOyBt ESEduQ54VEE9wK62Zn28sX EzaJIpf1umzJi8VzGuWYEz FNJ7qWroICrrm9ZjHTCuB7 6csOHtq9G7 LFWjqOwvzCPyIbZutYF0tI 9nGPcxbbgch6ookizqEoj4 vo40rMNik4Z9pTH0B4Zaac R5QXGiaRDf YdswvCPNoV2kfrcmk3irjd wrZkOgECQlAHo2MGz2INCu lVzgKpYqQX95NDN3CNTvme CyC3FgJAJo vYjuWaC2a9O3Es6TR2EJQx inG9RCNLKOLIalmFI+PC90 xb30J6JcRibeBuu9VZHcRI P1tFG9fH5u MWYuXItpd1G3iWY0O1Pfqp Rwmk3nt2txDVIgMKsfZ44i wLBvh9J7SXNjzGH3RCVkuN poDtFdsT15 Oyc+UBMlkMrmj7LdCczbp4 jfs7batNf9GjzbLXPptiCg sMcjCVO6p8XqAp4dZNVxcS L3tSO6mK9p KoAtEkX7DPaiV334WvVomJ RnEyysR86dP0AnvTF+PHRy Mij4NJPyiGfzSM5hZ9JoMR RpbmctbGVm qKxtNN0gBHOkxcskZPNleV 5xOOZuX1y6QxZxJlT9GIkh Y7GcCUBjafptLz07eS1gCi GgAaN8GOsw V5XoxyQ8OCNxnXDzCXwlFJ Q1X84bs9O0JGCsPJUtXBX3 rAW6tI0zwGklqjebaBVbgC sgdmVydGlj IHjvCZkgN129QIUofHhcOn NvZGluZyBEYXRlOiAgMDQv MTkvMjAyMzwvdGQ+PHRkIH R6fLfcESPy zQJdNEicLs2zgLgtcHetCP 9pINBsxsedEEOxrJ8nHGOs pERotZdrUO5yLYFcfygbu2 60KhVmHGB5 YUGyiZUhO1GtoC6nMmNgOV NiHIYpB9KhkTXxTJbjU402 AZeaMdA0JMEabmUrF7OuYC FsaWduOiB0 t9H8Aj8Qj0YayemyF0WsqM ErGkZmCiplVGw6L2HeZszb dHI+AS93XONpLE34ZHv3LJ R3yKoyKFhp CAMuC9JwcD2zDeJwLPDgJZ RkOyc+PHRhYmxlIHdpZHRo XDzuDICmNpGceVxrTK6oXa 9yZGVyLWNv ySpfeZGiDyLur8ekYBZyJX gjGJ0clBoxC7LwxGV1RWSr p1h9Kr73B32xF2YuxQW+PG HmwSB5sSW0 oB0uDzNaNfZ7GLaiM472Cm SvlOWlXvtkz0dmp7vijJb9 MkH9BWQafqVqfPpoPSA9s5 TgXe11H03m IHdpZHRoPSIxNSUiIHZhbG bhcd4pcV0cOt2+PGNvbCB3 iFX6gA7qWrBsSoK3UUdtJ6 49InRvcCIv Vurga2guc0aazHr1DbEaED YufuXspNjbKBS2g6MqXn81 O9VhdZjgy0QoRtu4cy56fJ Lhv0S9dZQ3 P5JbAHQyppunoEDbgSioCN 4mTDFdrlcdUHOfgE3mKCFs X2g7CrNvQzQ8YFgnI2Azey Z1VLQhnTSy YHAzqYUBuG0ynzmna5ncdy vvUjKrNFYlICk5XEn9VJBn lAgcMqIyTIM7DoY8ICU2iH BtmH4kmRlq nljmaJ2zKnl+PNE1xVRibZ JJQC4vBozliOO+PHRkIHN0 kWftPQtuFJVztN6eRAIrX3 j0LcYuSbJ0 GCvwC3MauqG5AKSexDPgWG AzyKRFwF8lickas1rwgnws QfNrIZEdHCt6XRy1JSLdvK duOiBsZWZ0 GrS2CRA6iFEiiL4ffGfbmy gjlM4kJqt+QmlydGggRGF0 CGf5G9XlJni5FXNtjGreUZ 0ncGFkZGlu St9xqLceoUhrBB8sPOXjqq gbg580DdMpn7zuUFKamETd KCwqGDD8D02nb3S9RVQaSP ZjPGC8xFY9 uQ4ioCetnkqpiICmlMtnvy PjjJoqXSuiPEcnV373IGVx kMcbZiLoGLl4T7OaXkd7HU BaqTrgGC1v xFQpVYheZp0xkHgheAqyBK 2qEVOgdcqtr532GaAeo6wp GOMtfXOlHYnzIWF0G45zd3 Z4UMUtMMAo EJD0gQU6wA2adPwoumzzhA VmdDsgdmVydGljYWwtYWxp Y727WTEkrNkfEkAxcJe2O2 QyXga6IMXv kJqcND1jpXCoVHwjOk3ygQ vtlKwpWV7tCDEwckucx310 RjBri6maBDJaqRSzGZojRO Y3S45hr7D1 PWBaKEWgQVK6gLM7jG8gpF lnbjogbGVmdDsgdmVydGlj FJhlOSjzS067MXKauMawJz BhdGllbnQg ONktFUz2V7VmMnkauFA+PC 18JACeKN73gBLycEUro9xq hPm1UqGcKLRiXYX0lSmcAT hck8PeCOXm I32gnFFrq7S7XTEliMreaI OtXnXnkAK6lK3rYYrornor c9lkwregIesrh3xfox82mV 91O34xVPyf ZHRoPSIzMCUiIHZhbGlnbj 6muX6bBx8+VQWfeYG3rFN1 fE2jBVVgJwY7MZdrT569Pq RvcCIvPjxj j8rxu0vvvKe9DmP7PKHsty QdvGybZLE2h1GwDo38A40r IHdpZHRoPSIyMCUiIHZhbG sijg8agS3p Ii8+JUPqrBO2eER2cA7cSv FgTkH8QTjaC906AcYtqDEx AyidT34bN3QspLU+PHRyPj r2GCHxjDmm CV7exZNlWUsiIe3uVZR0Xg VwVxImABzpK1XnXCJergzj qidnuNB2BOApDJQbeR72Bq 9udDogMTBw qLULtU5eqgppg5czxqwsSu OxOHTyKSo1DNy9QPGwzAyb FmNoLTF0ViL5XEH9sAWdcB 1hbGlnbjog xZ1oH6FcYWGtmbjoNh71mU 5vQzAjEcH2XTtfCfh+SkFS EnETALddBMRHG0hrAkcwuN Q+PHRkIHN0 lOehARvjYDUilY0rASJbZ0 g6UgAjRnW4SLmpT7GcYPTj mcdiXf37vB4yQoByAlB9QS lzN2VzybO7 LVQucMHoLCsuPUK9B72uc2 P5TFZnICHuFHM5tSW6aH1c bGlnbjogbGVmdDsgdmVydG ljYWwtYWxp O660AZCfjJekMmH3ReC4Ul J4FYQ1K5AeAnp3LVFelDub FA7jgKNkEFnuFa9yqYmcvE fwMH2rOHOw irmzFUTsuS9eBAMuoCVwuU ytLK1bTMMdzfsyd744NoUb QZY8EPQucLIqM6CjmS4eAz AjMDAwMDAw Z2McnHAeBDfyV553YZbrTx T4HUSokaSiK2KxGAAfkMnm EfI3x3X7Gn03SFRIKQGkku wvdGQ+PHRk QZM1hGzaORchGPKcuC3hNA FuN1l2ElKbChU5BNmqF2Sh WLPujkqrMx33wL3pTsIgHg E1BUrmA5Rz fcH3DFDkkGNrFQymVIS8X6 8yp1X5HJRmHATvOLV7xHY0 uZ3joOafhytzdYExwHzfhj VydGljYWwt XEmzC366EFMvsMwhOwJvmV FsZTwvdGQ+FXFvGAC1dVog JLzzNFVtxH6dTYJyT8o9Kx ZlKkA5KSce A8ZtNWTxmmnoPr35oY2vMf DnXzN9BQapH0KnplR5WBNk qJVrCWyyIPN5Q01mk5C6FZ MwMDAwMDA7 dVE5mJ6ivOvxsrteoPBvuH frklTdcDlyMEiyZAxmQ813 BDEdcQneTg88oEZbqOgppb I8O5JyLkvu dHI+JB09TBOqBD62nODqqS Jje1onyPc8XzEfQDNkJVY6 nIeqEClmx2QkQWCvU84oqN Cnt1M6EUQc zRxgrQKzQaDgiHN2uK3jRV zyohpqj5tludkdYccdr9rk vf92uH92Q63pUXqsXBQaBO IzMCUiIHZh cFcena1fiX4fPi8+PGNvbC I2iJV8bU1wPlObWqZ0TFij K798BsMnpREbAacbe8szj9 rrhUz2HrDm AEZjsuIjiDywMKJ6e7ZxPm 26X97nHHebHKLtIENrDWUz KJChlSbxsv9anK5nHe4+PC 6nm3rmft17 lR02uSG+UEQkKZF9xRoeXK rgSIAvkB3pHQswUeL2OOVe IaIreO48kDQbOQorTp1vvH ymyWaiFB2g LGQmcnhvj684GoZhh8bhWP FecBAkYKmjWLU0D83yq6B6 HDLzXFDnEDR2dBF6pC6uoY lnbjogbGVm dDsgdmVydGljYWwtYWxpZ2 26WXQddSrmPdFrzKQmK0di lvDWIE3zMlxaeME+PHRkIH M2cQpyIBkm QNStbL7zTRAcT2e4XgSuHc E5BVnzI7UugqP1DIVkhDAz TJUrkJVFdG7otkozu7cdah ogIzAwMDAw EMh6CDv6MCQrlYedQbIrXE B4CdQ3YRU0gSVwoX4upIur vlwvkK5hBwa+RklOOjwvdG Q+PHRkIHN0 mAryQQeqFFRcxH1rXBEnK0 d4DjHsHgG5FXalZ3YpufE8 CMPfpGXmZCTbdVQGfV2kxq cpb0aacjpk RqNeQEZcTFp8CBg5CFHytR siHfTqWAI0PhI7JBN9xTHy yD9adNzbmdxgcP1kQjs+TV JOOjwvdGQ+ WSHdXEN3uJrqULyhPBXsqV 6jZQZnF5y2RyHvUlM5ZGeg A0TyyrI4BJOpgJAcMVQxxZ SBhD2biacj q1jutcycZeVyIZQcMPq6QW g5WPSvbTszRaKiMCW6CcM8 KHT0yITifV8vsFgaawwkbA 9wOyc+UGF5 AJD6SN61GQ50W4LyZeoypS FibGU+PHRhYmxlIHdpZHRo SZcvYGAaKxOuzMviJD3fFu 9yZGVyLWNv bGxhcHNl (more content not included)... Normal [facility] Consent for Treatmenton 07-07 Consent for Treatment [id number]#1.0 0CD:[address] [facility] Heart and Vascular Office/Cl inic Noteon [...] bike. She did a walking challenge from [facility] in 05/2022. She is not diabetic. She [...] Tanya Turner to record this visit. GAEL administrative and program specialist and provider reviewed before signing. GAEL: [...] 07/24/2022 Family History Heart disease: Father. Normal [facility] Comment on above: Result Comment: Elec tronically Signed By: Isaias TUTTLE, Guillermo Arteaga\.br\Date and Time Signed: 07/24/22 21:56 EDT\.br\Electronically Co-Signed By: Jenn Meza\.br\Date and Time Co-Signed: 07/24/22 16:08 EDT Physician Orderon 07-24-2022 Physician Order [id number]#1. 00CD:[address] [facility] Physician Order [id number]#1. 00CD:[address] [facility] BMPon 07-19-2022 Anion gap [Moles/Vol] 11 mmol/L Normal 6-16 [facility] Comment on above: Performed By: #### 2 [id number], [id number], [id number] #### [facility] [address] [place] [address] Calcium [Mass/Vol] 8.8 mg/dL Low 8.9-11.1 [facility] Comment on above: Performed By: #### 2 [id number], [id number], [id number] #### [facility] [address] [place] [address] Chloride [Moles/Vol] 103 mmol/L Normal 101-111 [facility] Comment on above: Performed By: #### 2 266511, [id number], [id number] #### [facility] [address] [place] [address] CO2 [Moles/Vol] 27 mmol/L Normal 21-[address] [facility] Comment on above: Performed By: #### 2 [id number], [id number], [id number] #### [facility] [address] [place] [address] Creatinine [Mass/Vol] 0.9 mg/dL Normal 0.5-1.3 [facility] Comment on above: Performed By: #### 2 [id number], [id number], [id number] #### [facility] [address] [place] [address] Glucose [Mass/Vol] 95 mg/dL Normal 55-199 [facility] Comment on above: Result Comment: If t his glucose result represents a fasting glucose, interpretation should refer to the following reference range: 55-99 mg/dL Performed By: #### 2 [id number], [id number], [id number] #### [facility] [address] [place] [address] Potassium [Moles/Vol] 4.4 mmol/L Normal 3.5-5.3 [facility] Comment on above: Performed By: #### 2 295303, [id number], [id number] #### [facility] [address] [place] [address] Sodium [Moles/Vol] 137 mmol/L Normal 135-145 [facility] Comment on above: Performed By: #### 2 983018, [id number], [id number] #### [facility] [address] [place] [address] Urea nitrogen [Mass/Vol] 12 mg/dL Normal 5-21 [facility] Comment on above: Performed By: #### 2 583832, [id number], [id number] #### [facility] [address] [place] [address] Urea nitrogen/Creatinine [Mass ratio] 13 No Units Normal 10-20 [facility] Comment on above: Performed By: #### 2 841859, 8420911, [id number] #### [facility] [address] [place] [address] CBC w/Indiceson 07-19-2022 Erythrocyte distribution width (RBC) [Ratio] 16.2 % High 10.9-14.2 [facility] Comment on above: Performed By: #### 2 219247, [id number], [id number] #### [facility] [address] [place] [address] Hematocrit (Bld) [Volume fraction] 36.4 % Normal 34.0-46.0 [facility] Comment on above: Performed By: #### 2 659125, [id number], [id number] #### [facility] [address] [place] [address] Hemoglobin (Bld) [Mass/Vol] 12.0 g/dL Normal 12.0-16.0 [facility] Comment on above: Performed By: #### 2 152037, 9904208, [id number] #### [facility] [address] [place] [address] MCH (RBC) [Entitic mass] 26.1 pg Low 27.0-34.0 [facility] Comment on above: Performed By: #### 2 [id number], [id number], [id number] #### [facility] [address] [place] [address] 65765 MCHC (RBC) [Mass/Vol] 33.1 g/dL Normal 31.4-36.0 [facility] Comment on above: Performed By: #### 2 [id number] #### [facility] [address] [place] [address] 58821 MCV (RBC) [Entitic vol] 78.8 fL Low 80.0-100.0 [facility] Comment on above: Performed By: #### 2 [id number], [id number], [id number] #### [facility] [address] [place] [address] Platelet mean volume (Bld) [Entitic vol] 7.6 fL Normal 6.4-10.8 [facility] Comment on above: Performed By: #### 2 [id number], [id number], [id number] #### [facility] [address] [place] [address] 36426 Platelets (Bld) [#/Vol] 346.0 E9/L Normal 150.0-500.0 [facility] Comment on above: Performed By: #### 2 [id number], [id number], [id number] #### [facility] [address] [place] [address] 70341 RBC (Bld) [#/Vol] 4.6 E12/L Normal 4.3-5.9 [facility] Comment on above: Performed By: #### 2 [id number], [id number], [id number] #### [facility] [address] [place] [address] WBC corrected for nucl RBC Auto (Bld) [#/Vol] 7.5 E9/L Normal 4.0-11.0 [facility] Comment on above: Performed By: #### 2 [id number], [id number], [id number] #### [facility] [address] [place] [address] Consent for Treatmenton 07-07 Consent for Treatment [id number] 0CD:[address] [facility] Physician Orderon 07-19-2022 Physician Order [id number] 0CD:[address] [facility] eGFRon 07-19-2022 GFR/1.73 sq M.predicted among blacks MDRD (S/P/Bld) [Vol rate/Area] mL/min/{1.73_m2} Normal >=59 [facility] Comment on above: Order Comment: Order added by Discern Expert. Result Comment: eGFR is race adjusted. AA=. Performed By: #### 2 [id number], [id number], [id number] #### [facility] [address] [place] [address] GFR/1.73 sq M.predicted among non-blacks MDRD (S/P/Bld) [Vol rate/Area] mL/min/{1.73_m2} Normal >=59 [facility] Comment on above: Order Comment: Order added by Discern Expert. Result Comment: Racing Manager mark kidney disease could be indicated at eGFR's of less than 60 mL/min/1.73m2. Kidney failure is indicated at less than 15 mL/min/1.73m2. Performed By: #### 2 [id number], [id number], [id number] #### [facility] [address] [place] [address] MG MAMM SCREEN 3D RONEN CADon 04-03-2022 MG MAMM SCREEN 3D RONEN CAD Patient: KARMA NIETO Exam Date: 04/03/2022 : 1980 Gender:F Ordering : DR MICHAEL RUSSO . Admission #: [id number] Family : Order #: [id number] CLICK HERE TO VIEW EXAM RADIOLOGY REPORT PROCEDURE: MAMMOGRAM SCREENING 3D BILATERAL CAD COMPARISON: None. INDICATIONS: Screening mammography Calculator Name NCI Breast Cancer Risk Assessment Tool 5 Year Breast Cancer Risk 0.60% Lifetime Breast Cancer Risk 11.10% Personal Breast Cancer No Personal Ovarian Cancer No Treatments None Family Cancers None LOCATION: [facility] BREAST COMPOSITION: Extremely dense, which lowers [...] on 04/05/2022 at 08:01 Normal [facility] MRI Knee w/o Lefton 12-28-19 MRI [...] by Patel Bhardwaj on 12/27/2021 1455 Normal [facility] [employer] [facility] US ST HEAD_NECKon 10-19-[address] HEAD_NECK [...] by: VINEET WOODS Date: 2021-10-19 19:21 Normal [facility] PAP ACOG PANEL 2: 30 to 65on 06-30-2021 . . Normal [facility] Comment on above: Result Comment: Perf ormed at: WB Performed By: #### 4 [id number] #### [facility] [address] [address] [address] Rosa Maria Frazier Age Gdln ACOG Testing 30-65 Normal [facility] Comment on above: Performed By: #### 4 [id number] #### [facility] [address] [place] [address] Dr. Rosa Maria Frazier DIAGNOSIS: Comment Normal [facility] Comment on above: Result Comment: NEGA TIVE FOR INTRAEPITHELIAL LESION OR MALIGNANCY. Performed at: WB Performed By: #### 4 [id number] #### [facility] [address] [place] [address] Dr. Rosa Maria Frazier HPV Aptima Negative Normal Negative [facility] Comment on above: Result Comment: This nucleic acid amplification test detects fourteen high-risk HPV types (16,18,31,33,35,39,45,51,52,56,58,59,66,68) without differentiation. Performed at: =G Performed By: #### 4 [id number] #### [facility] [address] [address] [address] Rosa Maria Frazier Methodology: Comment Normal [facility] Comment on above: Result Comment: This liquid based ThinPrep(R) pap test was screened with the use of an image guided system. Performed at: WB Performed By: #### 4 [id number] #### [facility] [address] [place] [address] Dr. Rosa Maria Frazier Note: Comment Normal [facility] Comment on above: Result Comment: The Pap smear is a screening test designed to aid in the detection of premalignant and malignant conditions of the uterine cervix. It is not a diagnostic procedure and should not be used as the sole means of detecting cervical cancer. Both false-positive and false-negative reports do occur. . Performed at: WB Performed By: #### 4 [id number] #### [facility] [address] [place] [address] Dr. Rosa Maria Frazier Performed by: Comment Normal [facility] Comment on above: Result Comment: Dayo De Guzman, Driller And Broacher (ASCP) Performed at: WB Performed By: #### 4 [id number] #### [facility] [address] [address] [address] Rosa Maria Frazier Specimen adequacy: Comment Normal [facility] Comment on above: Result Comment: Sati sfactory for evaluation. Endocervical and/or squamous metaplastic cells (endocervical component) are present. Performed at: WB Performed By: #### 4 [id number] #### [facility] [address] [place] [address] Dr. Rosa Maria Frazier Covid-19 PCR (CVDTB)on SARS-CoV-2 (COVID-19) RNA OLU+probe Ql (Unsp spec) Not detected Normal NOT DETECTED [facility] Comment on above: Result Comment: This test is not yet approved or cleared by the [place] FDA. When there are no FDA-approved or cleared tests available, and other criteria are met, FDA can make tests available under an emergency access mechanism called an Emergency Use Authorization (EUA). The EUA for this test is supported by the [place] Counsel of Health and Human Service's (HHS's) declaration [...] Performed By: #### C VDTBH #### [facility] [address] [address] [address] Rosa Maria Frazier Vital Signs Date Time Vital Sign Value Performing Clinician Gerardo el 05-01-2024 15:40-0500 Body height 172.7 cm Kandy Ortega MD Work Phone: [facility] 05-01-2024 15:40-0500 Body mass index (BMI) [Ratio] 38.44 kg/m2 Kandy Ortega MD Work Phone: [facility] 05-01-2024 15:40-0500 Body temperature 98.29 [degF] Kandy Ortega MD Work Phone: [facility] 05-01-2024 15:40-0500 Body weight 114.67 kg Kandy Ortega MD Work Phone: [facility] 05-01-2024 15:40-0500 Diastolic blood pressure 72 mm[Hg] Kandy Ortega MD Work Phone: [facility] 05-01-2024 15:40-0500 Heart rate 84 /min Kandy Ortega MD Work Phone: [facility] 05-01-2024 15:40-0500 SaO2% (BldA) [Mass fraction] 95 % Kandy Ortega MD Work Phone: [facility] 05-01-2024 15:40-0500 Systolic blood pressure 116 mm[Hg] Kandy Ortega MD Work Phone: [facility] 04-24-2024 07:58-0500 Body height 172.7 cm Aleja Chen DO Work Phone: [facility] 04-24-2024 07:58-0500 Body mass index (BMI) [Ratio] 39.38 kg/m2 Aleja Chen DO Work Phone: [facility] 04-24-2024 07:58-0500 Body weight 117.48 kg Aleja Chen DO Work Phone: [facility] 03-26-2024 08:43-0500 Body height 172.7 cm Aleja Chen DO Work Phone: [facility] 03-26-2024 08:43-0500 Body mass index (BMI) [Ratio] 39.38 kg/m2 Aleja Chen DO Work Phone: [facility] 03-26-2024 08:43-0500 Body weight 117.48 kg Aleja Chen DO Work Phone: [facility] 01-30-2024 15:50-0400 Body height 172.7 cm Kandy Ortega MD Work Phone: [facility] 01-30-2024 15:50-0400 Body mass index (BMI) [Ratio] 39.47 kg/m2 Kandy Ortega MD Work Phone: [facility] 01-30-2024 15:50-0400 Body temperature 98.4 [degF] Kandy Ortega MD Work Phone: [facility] 01-30-2024 15:50-0400 Body weight 117.75 kg Kandy Ortega MD Work Phone: [facility] 01-30-2024 15:50-0400 Diastolic blood pressure 82 mm[Hg] Kandy Ortega MD Work Phone: [facility] 01-30-2024 15:50-0400 Heart rate 88 /min Kandy Ortega MD Work Phone: [facility] 01-30-2024 15:50-0400 SaO2% (BldA) [Mass fraction] 98 % Kandy Ortega MD Work Phone: [facility] 01-30-2024 15:50-0400 Systolic blood pressure 110 mm[Hg] Kandy Ortega MD Work Phone: [facility] 12-31-2023 15:59-0400 Body height 172.7 cm Kandy Ortega MD Work Phone: [facility] 12-31-2023 15:59-0400 Body mass index (BMI) [Ratio] 40.29 kg/m2 Kandy Ortega MD Work Phone: [facility] 09-24-2024 15:59-0400 Body temperature 98.2 [degF] Kandy Ortega MD Work Phone: [facility] 12-31-2023 15:59-0400 Body weight 120.2 kg Kandy Ortega MD Work Phone: [facility] 12-31-2023 15:59-0400 Diastolic blood pressure 70 mm[Hg] Kandy Ortega MD Work Phone: [facility] 12-31-2023 15:59-0400 Heart rate 86 /min Kandy Ortega MD Work Phone: [facility] 12-31-2023 15:59-0400 SaO2% (BldA) [Mass fraction] 97 % Kandy Ortega MD Work Phone: [facility] 12-31-2023 15:59-0400 Systolic blood pressure 118 mm[Hg] Kandy Ortega MD Work Phone: [facility] 11-28-2023 16:02-0400 Body height 172.7 cm Kandy Ortega MD Work Phone: [facility] 11-28-2023 16:02-0400 Body mass index (BMI) [Ratio] 43.03 kg/m2 Kandy Ortega MD Work Phone: [facility] 11-28-2023 16:02-0400 Body temperature 98.2 [degF] Kandy Ortega MD Work Phone: [facility] 11-28-2023 16:02-0400 Body weight 128.37 kg Kandy Ortega MD Work Phone: [facility] 11-28-2023 16:02-0400 Diastolic blood pressure 70 mm[Hg] Kandy Ortega MD Work Phone: [facility] 11-28-2023 16:02-0400 Heart rate 92 /min Kandy Ortega MD Work Phone: [facility] 11-28-2023 16:02-0400 SaO2% (BldA) [Mass fraction] 99 % Kandy Ortega MD Work Phone: [facility] 11-28-2023 16:02-0400 Systolic blood pressure 115 mm[Hg] Kandy Ortega MD Work Phone: [facility] Encounters Encounter Date Encounter Type Care Provider Facility Start: 06-07-2024 End: 06-10-2024 Refill Kandy Ortega MD Work Phone: [facility] Comment on above: Hypothyroidism, unsp ecified type ([facility]) Start: 05-01-2024 End: 05-01-2024 Office outpatient visit 25 minutes Kandy Ortega MD Work Phone: [facility] Comment on above: BMI 38.0-38.9,adult (Primary Dx); Class 2 severe obesity due to excess calories with serious comorbidity and body mass index (BMI) of 38.0 to 38.9 in adult ([facility]); BMI 39.0-39.9,adult; Class 2 severe obesity due to excess calories with serious comorbidity and body mass index (BMI) of 39.0 to 39.9 in adult ([facility]) Start: 05-01-2024 End: 05-01-2024 Bamboo flowsheet Kandy Ortega MD Work Phone: [facility] Start: 05-01-2024 End: 05-01-2024 Bamboo flowsheet Kandy Ortega MD Work Phone: [facility] Start: 04-24-2024 End: 04-24-2024 Bamboo flowsheet Aleja Chen DO Work Phone: [facility] Start: 04-24-2024 End: 04-24-2024 Bamboo flowsheet Aleja Chen DO Work Phone: [facility] Start: 04-24-2024 End: 04-24-2024 Patient encounter procedure Aleja Chen DO Work Phone: [facility] Comment on above: Localized osteoarthr itis of left knee (Primary Dx) Start: 04-24-2024 End: 04-24-2024 ambulatory ALEJA CHNE Not Available Start: 03-26-2024 End: 03-26-2024 Patient encounter procedure Aleja Chen DO Work Phone: [facility] Comment on above: Localized osteoarthr itis of left knee (Primary Dx) Start: 03-26-2024 End: 03-26-2024 ambulatory ALEJA CHEN Not Available Start: 03-24-2024 End: 03-24-2024 Telephone encounter Aleja Chen DO Work Phone: [facility] Start: 03-05-2024 End: 03-10-2024 Refill Shilpa GARDINER Work Phone: [facility] Comment on above: Lateral epicondyliti s of right elbow (Primary Dx); Hypothyroidism, unspecified type (CMS/HCC) Start: 01-30-2024 End: 01-30-2024 ambulatory KANDY ORTEGA Not Available Start: 01-30-2024 End: 01-30-2024 Office outpatient visit 15 minutes Kandy Ortega MD Work Phone: [facility] Comment on above: Lateral epicondyliti s of right elbow (Primary Dx); BMI 39.0-39.9,adult; Class 2 severe obesity due to excess calories with serious comorbidity and body mass index (BMI) of 39.0 to 39.9 in adult (CMS/HCC) Start: 01-30-2024 End: 01-30-2024 Bamboo flowsheet Kandy Ortega MD Work Phone: [facility] Start: 01-30-2024 End: 01-30-2024 Bamboo flowsheet Kandy Ortega MD Work Phone: [facility] Start: 12-31-2023 End: 12-31-2023 ambulatory KANDY ORTEGA Not Available Start: 12-31-2023 End: 12-31-2023 Office outpatient visit 25 minutes Kandy Ortega MD Work Phone: [facility] Comment on above: BMI 40.0-44.9, adult (CMS/HCC) (Primary Dx); Class 3 severe obesity due to excess calories with serious comorbidity and body mass index (BMI) of 40.0 to 44.9 in adult (CMS/HCC); Acute cystitis with hematuria; Nipple pain Start: 12-31-2023 End: 12-31-2023 Bamboo flowsheet Kandy Ortega MD Work Phone: [facility] Start: 12-31-2023 End: 12-31-2023 Bamboo flowsheet Kandy Ortega MD Work Phone: [facility] Start: 11-28-2023 End: 11-28-2023 ambulatory KANDY ORTEGA Not Available Start: 11-28-2023 End: 11-28-2023 Office outpatient visit 25 minutes Kandy Ortega MD Work Phone: [facility] Comment on above: BMI 40.0-44.9, adult (CMS/HCC) (Primary Dx); Class 3 severe obesity due to excess calories with serious comorbidity and body mass index (BMI) of 40.0 to 44.9 in adult (CMS/HCC); Hypothyroidism, unspecified type (CMS/HCC) Start: 11-28-2023 End: 11-28-2023 Bamboo flowsheet Kandy Ortega MD Work Phone: [facility] Start: 11-28-2023 End: 11-28-2023 Bamboo flowsheet Kandy Ortega MD Work Phone: [facility] Start: 10-16-2023 End: 10-16-2023 ambulatory DWAYNE KENDAL Not Available Start: 09-18-2023 End: 09-18-2023 ambulatory DWAYNE KENDAL Not Available Start: 09-04-2023 End: 09-04-2023 ambulatory Dwayne Kendal Work Phone: [facility] Work Phone: Start: 09-04-2023 End: 09-04-2023 Departed Referred Dwayne Kendal Work Phone: [facility] Start: 08-07-2023 End: 08-07-2023 ambulatory DWAYNE KENDAL Not Available Start: 06-05-2023 End: 06-05-2023 ambulatory SUZAN BLEDSOE Not Available Start: 05-24-2023 End: 05-24-2023 ambulatory Dwayne Zunigao Facility:[facility] Start: 05-24-2023 End: 05-24-2023 ambulatory Dwayne Zunigao Work Phone: [facility] Work Phone: Start: 05-24-2023 End: 05-24-2023 Departed Referred Dwayne Zunigao Work Phone: [facility] Start: 12-25-2022 Patient encounter status Kandy Ortega MD Work Phone: [facility] Start: 12-20-2022 End: 05-01-2024 Patient encounter status Kandy Ortega MD Work Phone: [facility] Start: 07-24-2022 End: 07-25-2022 ambulatory Guillermo Esparza Facility:[facility] Start: 07-19-2022 End: 07-20-2022 ambulatory Aleja Chen Facility:[facility] Start: 04-03-2022 End: 04-04-[address] MICHAEL RUSSO Facility: Start: 10-19-2021 End: 10-20-2021 ambulatory ANTWAN KNOX Facility: Start: 06-27-2021 End: 06-27-[address] MICHAEL RUSSO Facility: Start: 04-14-2021 End: 04-14-2021 ambulatory PAMELA RUIZ Facility: Procedures Date Procedure Procedure Detail Performing Clinician Start: 04-24-2024 Arthrocentesis aspir &/inj major jt/bursa w/o us Aleja Chen DO Work Phone: Start: 03-26-2024 Arthrocentesis aspir &/inj major jt/bursa w/o us Aleja Chen DO Work Phone: Start: 03-26-2024 Radiologic examinati on knee 3 views Aleja Chen DO Work Phone: Start: 05-15-2023 Mammography Kandy mcmahon MD Work Phone: Plan of Treatment Date Care Activity Detail Author Start: 07-30-2024 End: 07-30-2024 Patient encounter procedure 07/30/2024 3:40 PM EDT Office Visit [facility] [address] [place] [address] Kandy Ortega MD [address] [place] [address] [facility] Start: 05-15-2024 Screening for malign ant neoplasm of breast Mammogram [facility] Start: 05-01-2024 End: 05-01-2024 Patient encounter procedure [facility] Comment on above: Arrived Start: 04-24-2024 End: 04-24-2024 Patient encounter procedure 04/24/2024 8:00 AM EST Office Visit [facility] [address] [phone] Aleja Chen, [address] [place] [address] Localized osteoarthritis of left knee (Primary Dx) [facility] Comment on above: Localized osteoarthr itis of left knee (Primary Dx) Start: 03-26-2024 End: 03-26-2024 Patient encounter procedure 03/26/2024 8:45 AM EST Office Visit [facility] [address] [phone] Aleja Chen, [address] [place] [address] [facility] Start: 03-10-2024 End: 03-10-2025 TSH W/REFLEX TO FT4 TSH W/REFLEX TO FT4 Lab Routine Hypothyroidism, unspecified type (CMS/HCC) Expected: 03/10/2024 (Approximate), Expires: 03/10/2025 [facility] Work Phone: Comment on above: Expected: 03/10/2024 (Approximate), Expires: 03/10/2025 Start: 01-30-2024 End: 01-30-2024 Patient encounter procedure 01/30/2024 3:40 PM EDT Office Visit [facility] [address] [place] [phone] Kandy Ortega MD [address] [place] [address] [facility] Start: 12-31-2023 End: 12-31-2023 Patient encounter procedure 12/31/2023 3:40 PM EDT Office Visit [facility] [address] [place] [phone] Kandy Ortega MD [address] [place] [address] [facility] Start: 12-31-2023 End: 03-01-2025 US Breast - left Left breast US complete Imaging Routine Nipple pain Expected: 12/31/2023, Expires: 03/01/2025 [facility] Work Phone: Comment on above: Expected: 12/31/2023 , Expires: 03/01/2025 Start: 12-08-2023 Influenza vaccination Influenza Vacc ine (#1) [facility] XR Knee - left 3 Views XR knee 3 views left Imaging Routine Localized osteoarthritis of left knee 03/26/2024 7:57 AM EST [facility] Work Phone: Immunizations Immunization Date Immunization Notes Care Provider Fa cili 12-20-2022 influenza, injectabl e, quadrivalent, contains preservative Kandy Ortega MD Work Phone: [facility] 12-20-2022 influenza virus vacc ine, unspecified formulation Kandy Ortega MD Work Phone: [facility] 03-10-2022 tetanus toxoid, redu chantell diphtheria toxoid, and acellular pertussis vaccine, adsorbed Kandy Ortega MD Work Phone: [facility] 01-15-2022 influenza, injectabl e, quadrivalent, preservative free Kandy Ortega MD Work Phone: [facility] 01-15-2022 SARS-COV-2 (COVID-19 ) vaccine, mRNA, spike protein, LNP, bivalent, preservative free, 30 mcg/0.3 mL dose, luis-sucrose formulation Kandy Ortega MD Work Phone: [facility] 01-31-2020 influenza, injectabl e, quadrivalent, preservative free Kandy Ortega MD Work Phone: [facility] 01-05-2019 influenza, injectabl e, quadrivalent, contains preservative Kandy Ortega MD Work Phone: [facility] 02-04-2017 Influenza, injectabl e, Madin Brisa Canine Kidney, preservative free, quadrivalent Kandy Ortega MD Work Phone: [facility] 01-24-2015 influenza, seasonal, injectable, preservative free Kandy Ortega MD Work Phone: [facility] Payers Date Payer Category Payer Self-pay [id number] 2023 Private Health Insurance [facility] [id number] 2023 Unknown [employer] [id number] 2023-Present [phone] [address] [address] [place] [address] [id number] 2022 Unknown [id number] 1980 Unknown [id number] 2.840.1.573206.3.579 .2.59 1980 Unknown [id number] 2.840.1.038798.3.579 .2.59 1980 Unknown [id number] 2.840.1.463019.3.579 .2.59 1980 Unknown [id number] 2.840.1.916038.3.579 .2.59 1980 Unknown [id number] 2..1.475918.3.579 .2.72 1980 Unknown [id number] 2.0.1.129529.3.579 .2.72 1980 Unknown [id number] 2..1.200523.3.579 .2.1258 1980 Unknown [id number] 2.840.1.013402.3.579 .2.1258 1980 Unknown [id number] 2.840.1.107376.3.579 .2.1258 1980 Unknown [id number] 2.840.1.596087.3.579 .2.1258 1980 Unknown [id number] 2.840.1.064625.3.579 .2.1258 1980 Unknown [id number] 2.840.1.742672.3.579 .2.1258 1980 Unknown [id number] 2.840.1.150266.3.579 .2.1258 1981 Unknown [id number] 2.840.1.668937.3.579 .2.1258 1980 Unknown [id number] 2.840.1.678681.3.579 .2.1259 1980 Unknown [id number] 2.16.840.1.979420.3.579 .2.1259 1959 Unknown [id number] Unknown [id number] 2.16.840.1.300761.3.579 .2.531 Social History Date Type Detail Facility Tobacco smoking stat [facility] Unknown if ever smoked [facility] Work Phone: Start: 1980 Sex Assigned At Female F [facility] Start: 10-11-2022 [facility] Start: 10-11-2022 Tobacco use and exposure Smokeless tobacco non-user [facility] Start: 12-31-2023 End: 05-01-2024 Alcoholic beverage intake Current drinker of alcohol (finding) [facility] Start: 12-31-2023 End: 01-29-2024 Alcoholic beverage intake [facility] Start: 12-19-2022 End: 01-29-2024 [id number] Health Literacy [facility] How often do you nee d to have someone help you when you read instructions, pamphlets, or other written material from your doctor or pharmacy [SILS] Never [facility] Within the last year , have you been afraid of your partner or ex-partner? No [facility] Are you now , , , , never or living with a partner? [facility] How often to you hav e a drink containing alcohol? 2-4 times a month [facility] How many standard drinks containing alcohol do you have on a typical day? 1 or 2 [facility] How often do you hav e 6 or more drinks on 1 occasion? Less than monthly [facility] Do you feel stress - tense, restless, nervous, or anxious, or unable to sleep at night because your mind is troubled all the time - these days [OSQ] Not at all [facility] (I/We) worried pio er (my/our) food would run out before (I/we) got money to buy more. Never true [facility] Start: 06-04-2023 Alcohol Comment drinks alcohol monthly or less, Caffeine intake: 2-3 cups per day coffee [facility] Start: 1980 Sex assigned at Not on file [facility] How many standard drinks containing alcohol do you have on a typical day? 3 or 4 [facility] Clinical Notes 11-28-2023 to 05-01-2024 Kandy Ortega MD - 05/01/2024 3:40 PM Salo Cardenas MA - 04/24/2024 8:00 AM Ginger Chen DO - 04/24/2024 8:00 AM Salo Cardenas MA - 03/26/2024 8:45 AM EST Note Date & Type Note Facility 05-01-2024 History of Present illness Narrative Images from the original note were not included. Karma Nieto is a 43 y.o. female presents with chief complaint of Follow-up and Med Refill HPI: History of Present Illness The patient presents for evaluation of knee pain, tennis elbow, and weight management. She reports a recurrence of her knee pain, which had previously improved. The onset of this exacerbation was approximately 1 to 2 weeks prior to [place], during which she experienced a complete loss of function in her knee. She received an injection last week but has been unable to return to work since 03/23/2024. She is under the care of Dr. Chen for her knee condition and anticipates the need for a knee replacement in the future. Despite her current situation, she expresses a desire to continue her weight loss efforts, believing that any reduction in weight will benefit her knee. She has been adhering to a regimen of Adipex without experiencing any adverse effects. Prior to the onset of her knee symptoms, she had been actively engaged in physical exercise, working out 4 days a week. Her estimated return to work date is 05/11/2024. She continues to experience symptoms of tennis elbow, despite her current lack of employment. She is considering the use of a TENS unit as a potential treatment option. MEDICATIONS Current: Adipex MEDICATIONS: Current Outpatient Medications Medication Instructions albuterol HFA 90 mcg/act inhaler 2 puffs, Inhalation, Every 4 hours PRN ergocalciferol (VITAMIN D-2) 1.25 mg, Weekly etodolac XL (LODINE XL) 600 mg, Oral, Daily levothyroxine (SYNTHROID, LEVOXYL) 125 mcg, Oral, Daily loratadine (Claritin) 10 MG tablet Every 24 hours phentermine (ADIPEX-P) 37.5 mg, Oral, Daily before breakfast ALLERGIES: No Known Allergies Review of Systems Constitutional: Negative for chills and fever. Respiratory: Negative for shortness of breath. Cardiovascular: Negative for chest pain. Gastrointestinal: Negative for diarrhea, nausea and vomiting. Musculoskeletal: Positive for arthralgias. Neurological: Negative for headaches. Medical, Surgical, Family, and Social History reviewed. OBJECTIVE: Visit Vitals BP 116/72 (BP Location: Right arm, Patient Position: Sitting, BP Cuff Size: Adult) Pulse 84 Temp 98.3 F (Temporal) Ht 5' 8 Wt 252 lb 12.8 oz LMP 04/22/2023 (Approximate) SpO2 95% BMI 38.44 kg/m OB Status Hysterectomy Smoking Status Never BSA 2.35 m BP Readings from Last 3 Encounters: 05/01/24 116/72 01/30/24 110/82 12/31/23 118/70 Wt Readings from Last 3 Encounters: 05/01/24 252 lb 12.8 oz 04/24/24 259 lb 03/26/24 259 lb Physical Exam Constitutional: General: She is not in acute distress. HENT: Head: Normocephalic and atraumatic. Nose: No congestion or rhinorrhea. Mouth/Throat: Mouth: Mucous membranes are moist. Eyes: General: Right eye: No discharge. Left eye: No discharge. Conjunctiva/sclera: Conjunctivae normal. Cardiovascular: Rate and Rhythm: Normal rate. Pulmonary: Effort: Pulmonary effort is normal. No respiratory distress. Abdominal: General: There is no distension. Palpations: Abdomen is soft. Musculoskeletal: Cervical back: Neck supple. Skin: General: Skin is warm and dry. Neurological: General: No focal deficit present. Mental Status: She is alert. Psychiatric: Mood and Affect: Mood normal. Physical Exam Vital Signs Weight is 252. Results ASSESSMENT AND PLAN: Assessment & Plan 1. Knee pain. The patient reports that her knee gave out again a week or two before [place]. She received an injection last week but has not been able to return to work since 03/23/2024. She is currently seeing Dr. Chen for her knee issues. 2. Tennis elbow. She continues to experience symptoms of tennis elbow despite not working. She is advised to try a TENS unit for symptom management. If the TENS unit does not provide relief, she should consult with Dr. Chen. 3. Weight management. Her weight has decreased from 259 pounds in January 2024 to 252 pounds currently. A prescription for Adipex will be sent to the pharmacy for a duration of 3 months. 4. Thyroid function. A thyroid function test will be ordered. She is instructed to contact the office if she does not receive the results within a week of the test. Follow-up The patient will follow up in 3 months. Assessment/Plan Diagnoses and all orders for this visit: BMI 38.0-38.9,adult - phentermine (Adipex-P) 37.5 MG tablet; Take 1 tablet (37.5 mg) by mouth in the morning. Take before meals. Class 2 severe obesity due to excess calories with serious comorbidity and body mass index (BMI) of 38.0 to 38.9 in adult ([facility]) - phentermine (Adipex-P) 37.5 MG tablet; Take 1 tablet (37.5 mg) by mouth in the morning. Take before meals. BMI 39.0-39.9,adult Class 2 severe obesity due to excess calories with serious comorbidity and body mass index (BMI) of 39.0 to 39.9 in adult ([facility]) Health Maintenance Due Topic Date Due Mammogram 05/15/2024 documented in this encounter [facility] 04-24-2024 History of Present illness Narrative Associated Order(s): L Inj/Asp: L knee Post-Procedure Diagnose(s): Localized osteoarthritis of left knee L Inj/Asp: L knee on 04/24/2024 7:58 AM Indications: diagnostic evaluation Details: 22 G needle Medications: 30 mg cross-linked hyaluronate 30 MG/3ML Gel One Injection Left knee Patient is seen and evaluated today for left knee pain and stiffness. Continued swelling and stiffness despite conservative course with ice, Tylenol, NSAID's and compression. Occasional buckle sensation. Night disruption is present and increasing. Progression of pain. Occasional assistive device required. Here today to review non-operative conservative options and discuss indications and overview of knee arthroplasty. Physical Exam: The patient is examined in the office today. The left knee has mild aseptic swelling. Hypertrophic changes are noted. AROM is decreased with pain. Crepitance is present in multiple compartments. Tenderness is moderate to severe thru multiple compartments. Collateral ligaments are intact to stress testing at 0 and 30 degrees. Positive grind test of the patella. Gait is stiff and antalgic with occasional assistive device reported. Hip exam is stable. Negative bench and straight leg raise testing. NVM intact distally without footdrop. Calves are supple without sign of infection, ulceration or DVT. Xrays: Multiple weightbearing views (AP, Lateral and sunrise) are reviewed for the permanent PACS record. Advanced grade 3-4 degenerative changes are present of the left knee. No fracture, dislocation, tumor or infection seen. Images are reviewed with the patient at length. Assessment: Left knee Osteoarthritis-M17.12 Left knee pain-M25.562 Antalgic gait-R26 Treatment/Plan: The nature of the findings were discussed at length. Xray imaging and severity discussed. Conservative management with ice, heat, exercise, strengthening, weight loss, compression wrap/bracing was reviewed. Anti-inflammatory medication , if stable with GI and kidney function, was reviewed. OTC and prescription options were discussed. Tylenol dosing parameters and daily limits for breakt thru pain was reviewed. Cortisone injections can be provided up to 3 per year and no closer than a month interval. Hyaluronic acid viscosupplementation options and expectations were discussed at length. Patient is aware results are not guaranteed. We discussed the role of knee replacement surgery, indications, approach, implants, and rehab process were all reviewed. After lengthy discussion, the patient elects to move forward with viscosupplementation injection with Gel One to the left knee. Under sterile technique with the knee extended and supported, 3 ml of Gel One was injected to the left knee suprapatellar pouch. Needle was removed and adequate hemostasis was achieved. The patient tolerated the injection well. Post injection restriction of 50% activity reduction the day of the injection with icing techniques 1-2 times per 10-15 minutes to the knee was reviewed. Patient was ambulatory and discharged in stable condition. Any reactions, concerns or continued pain will be reported via phone call or return visit. All questions were answered. documented in this encounter [facility] 03-26-2024 History of Present illness Narrative Associated Order(s): L Inj/Asp: L knee Post-Procedure Diagnose(s): Localized osteoarthritis of left knee L Inj/Asp: L knee on 03/26/2024 9:06 AM Indications: diagnostic evaluation Details: 22 G needle Medications: 5 mg betamethasone acetate-betamethasone sodium phosphate 6 (3-3) MG/ML Outcome: tolerated well, no immediate complications Consent was given by the patient. Images from the original note were not included. Karma Nieto is a 43 y.o. female presents with chief complaint of left knee pain and swelling. HPI: Karma is here for her left knee osteoarthritis. She has increased pain, swelling and irritability. Over the last couple of weeks, she has been trying to workout more which has caused some aggravation. She had some increased symptoms through the weekend from activity level. Subsequently Saturday was challenging. She has not been able to work this week. She has pain, swelling and stiffness. She is contemplating knee replacement. She had Visco supplementation prior. She does have Lodine anti-inflammatory, but is currently doing ibuprofen. SUBJECTIVE: MEDICATIONS: Current Outpatient Medications Medication Instructions albuterol HFA 90 mcg/act inhaler 2 puffs, Inhalation, Every 4 hours PRN biotin 2.5 MG capsule Take by mouth ergocalciferol (VITAMIN D-2) 1.25 mg, Weekly etodolac XL (LODINE XL) 600 mg, Oral, Daily ferrous fumarate-vitamin C ER (Stephanie-Sequeles 65-25) 1 tablet, 3 times daily with meals levothyroxine (SYNTHROID, LEVOXYL) 125 mcg, Oral, Daily loratadine (Claritin) 10 MG tablet Every 24 hours phentermine (ADIPEX-P) 37.5 mg, Oral, Daily before breakfast ALLERGIES: No Known Allergies SURGICAL HISTORY: Past Surgical History: Procedure Laterality Date CARPAL TUNNEL RELEASE 2013 DILATION AND CURETTAGE OF UTERUS 05/24/2023 hysteroscopy with myosure HYSTEROSCOPY 2012? KNEE SURGERY Left 07/27/2022 L knee scope- [facility] PELVIC LAPAROSCOPY VA KNEE SCOPE,DIAGNOSTIC Left 07/27/2022 ROBOTIC ASSISTED HYSTERECTOMY 09/04/2023 TENDON RELEASE TONSILLECTOMY FAMILY HISTORY: Family History Problem Relation Name Age of Onset Cancer Father Paul Jones Heart disease Father Paul Jones Hypertension Father Paul Jones Diabetes Father Paul Jones Cancer Maternal Grandfather Padilla Villalta SOCIAL HISTORY: Social History Tobacco Use Smoking status: Never Smokeless tobacco: Never Substance Use Topics Alcohol use: Yes Alcohol/week: 6.0 standard drinks of alcohol Types: 2 Glasses of wine, 4 Standard drinks or equivalent per week Comment: drinks alcohol monthly or less, Caffeine intake: 2-3 cups per day coffee Drug use: Never Depression: Not on file REVIEW OF SYMPTOMS: The review of systems, history and current medications list are all reviewed today. OBJECTIVE: Visit Vitals Ht 5' 8 Wt 259 lb LMP 04/22/2023 (Approximate) BMI 39.38 kg/m OB Status Hysterectomy Smoking Status Never BSA 2.37 m Physical Exam On physical exam, she is alert and oriented. Vital signs are stable. There is no sign of rash or infection. The left knee has prior arthroscopic portals. There is moderate swelling. There is moderate to severe tenderness of the medial and patellofemoral joint. Crepitance is present. She gets near full extension. Flexion is to 105 degrees with pain throughout. Her collateral ligaments are intact. Florina and drawer are stable. Gait is stiff and antalgic. Bench and straight leg raise testing is negative. X-rays, permanently saved to the patient's record, are reviewed AP, lateral and sunrise views show moderate to severe degenerative changes that are grade III, almost IV of the patellofemoral medial joint. There is no acute fracture, dislocation, tumor or infection seen. ASSESSMENT AND PLAN: Assessment/Plan Left knee advanced osteoarthritis with antalgic gait. The nature of the findings were discussed at length. Ice, Tylenol and topicals were reviewed. Corticosteroid injections up to three per year. Visco supplementation. Indications for total knee replacement were discussed. With consent from Karma today, 1 cc of cortisone (3 mg of Betamethasone sodium phosphate with 3 mg of Betamethasone acetate) and 1 cc of 1% plain Lidocaine was injected from a seated sterile approach. She tolerated the injection well. She will continue with her ibuprofen or Lodine. Icing techniques. Avoidance of squatting and kneeling. She will see how she responds over the next few weeks. We will get authorization for Visco supplementation for further discussion. Once again, total knee replacement options were discussed as well if she has recalcitrant pain. She voices verbal understanding. She is discharged in stable condition. Numerous questions were answered. The patient was seen and examined. From the time of check in, nurse triage, vital signs, x-ray, x-ray interpretation, review of systems, comprehensive history and physical exam as well as setting up treatment plan and further management took 35 minutes. Cosigned by Aleja Chen DO at 03/30/2024 2:04 PM EST documented in this encounter [facility] 03-24-2024 Telephone encounter Note Patient called & is requesting an off work note as of 03/23/24 until 03/27/24 [facility] 03/26/24 for Lt knee OA/increased pain (hx scope 07/27/22) Can we write patient off of work even though we have not seen patient for almost 1 year?? Advised patient we usually need to see them prior to writing them off but can talk to [facility] & check.... [facility] 03-24-2024 Miscellaneous Notes Patient called & is requesting an off work note as of 03/23/24 until 03/27/24 patient is seeing [facility] thur. 03/26/24 for Lt knee OA/increased pain (hx scope 07/27/22) Can we write patient off of work even though we have not seen patient for almost 1 year?? Advised patient we usually need to see them prior to writing them off but can talk to [facility] & check.... documented in this encounter [facility] 03-10-2024 Telephone encounter Note Pt requesting refill on etodolac to be sent to [facility]. [facility] 03-10-2024 Miscellaneous Notes Pt requesting refill on etodolac to be sent to [facility]. Sent in 90 day supply but needs to have tsh checked order placed please call and notify pt thanks Sent in 90 day supply but needs to have tsh checked order placed please call and notify pt thanks documented in this encounter [facility] 03-10-2024 Telephone encounter Note Sent in 90 day supply but needs to have tsh checked order placed please call and notify pt thanks [facility] 03-10-2024 Telephone encounter Note Sent in 90 day supply but needs to have tsh checked order placed please call and notify pt thanks [facility] 01-30-2024 History of Present illness Narrative Karma Nieto is a 43 y.o. female presents with chief complaint of Med Refill HPI: History of Present Illness The patient presents for evaluation of multiple medical concerns. She is experiencing a flare-up of her chronic tennis elbow condition, which has been present for 20 years. This is the fourth such episode. She has recently started a new job that requires physical activity, which she believes may have triggered the flare-up. She has been managing the condition with physical therapy exercises, heat and ice application, and ibuprofen. She also wears braces at work for support. She is considering the use of collagen as a potential treatment. She is currently on Adipex for weight management and has lost 24 pounds since starting the medication. She is also making dietary changes and increasing her physical activity. She underwent a hysterectomy earlier this year and is currently experiencing her menstrual cycle. She is concerned about potential water retention due to prednisone use. MEDICATIONS: Current Outpatient Medications Medication Instructions albuterol HFA 90 mcg/act inhaler 2 puffs, Inhalation, Every 4 hours PRN biotin 2.5 MG capsule Take by mouth ergocalciferol (VITAMIN D-2) 1.25 mg, Weekly ferrous fumarate-vitamin C ER (Stephanie-Sequeles 65-25) 1 tablet, 3 times daily with meals levothyroxine (SYNTHROID, LEVOXYL) 125 mcg, Oral, Daily loratadine (Claritin) 10 MG tablet Every 24 hours phentermine (ADIPEX-P) 37.5 mg, Oral, Daily before breakfast predniSONE (DELTASONE) 40 mg, Oral, Daily ALLERGIES: No Known Allergies Review of Systems Constitutional: Negative for chills and fever. Respiratory: Negative for shortness of breath. Cardiovascular: Negative for chest pain. Gastrointestinal: Negative for diarrhea, nausea and vomiting. Musculoskeletal: Positive for arthralgias. Neurological: Negative for headaches. Medical, Surgical, Family, and Social History reviewed. OBJECTIVE: Visit Vitals BP 110/82 (BP Location: Left arm, Patient Position: Sitting, BP Cuff Size: Large adult) Pulse 88 Temp 98.4 F (Temporal) Ht 5' 8 Wt 259 lb 9.6 oz LMP 04/22/2023 (Approximate) SpO2 98% BMI 39.47 kg/m OB Status Hysterectomy Smoking Status Never BSA 2.38 m BP Readings from Last 3 Encounters: 01/30/24 110/82 12/31/23 118/70 11/28/23 115/70 Wt Readings from Last 3 Encounters: 01/30/24 259 lb 9.6 oz 12/31/23 265 lb 11/28/23 283 lb Physical Exam Constitutional: General: She is not in acute distress. Appearance: She is obese. HENT: Head: Normocephalic and atraumatic. Nose: No congestion or rhinorrhea. Mouth/Throat: Mouth: Mucous membranes are moist. Eyes: General: Right eye: No discharge. Left eye: No discharge. Conjunctiva/sclera: Conjunctivae normal. Cardiovascular: Rate and Rhythm: Normal rate. Pulmonary: Effort: Pulmonary effort is normal. No respiratory distress. Abdominal: General: There is no distension. Palpations: Abdomen is soft. Musculoskeletal: Cervical back: Neck supple. Skin: General: Skin is warm and dry. Neurological: General: No focal deficit present. Mental Status: She is alert. Psychiatric: Mood and Affect: Mood normal. Physical Exam Vital Signs Weight is 283. Results ASSESSMENT AND PLAN: Assessment & Plan 1. Tennis Elbow. She is experiencing a flare-up of her chronic tennis elbow. A prescription for a steroid was provided, with instructions to take two pills in the morning with a full meal for the next five days. She was advised to avoid taking etodolac or ibuprofen concurrently with the steroid. If symptoms persist after two weeks, physical therapy will be considered. She was encouraged to continue her current exercise regimen and to wear her braces at work. The potential benefits and limitations of collagen supplements were discussed. 2. Weight Management. She has lost 24 pounds since starting Adipex. A three-month supply of Adipex was prescribed, with two refills provided. She was advised to aim for a 5 percent weight reduction, approximately 12 pounds, by April 2024. She was informed about the potential for increased water retention while on prednisone, but reassured that this should resolve after discontinuation of the medication. She was encouraged to engage in mindful activities such as meditation, stretching, or yoga on her days off. Follow-up Return in April 2024 for follow-up. Assessment/Plan Diagnoses and all orders for this visit: Lateral epicondylitis of right elbow - predniSONE (Deltasone) 20 MG tablet; Take 2 tablets (40 mg) by mouth Daily for 5 days BMI 39.0-39.9,adult - phentermine (Adipex-P) 37.5 MG tablet; Take 1 tablet (37.5 mg) by mouth in the morning. Take before meals. Class 2 severe obesity due to excess calories with serious comorbidity and body mass index (BMI) of 39.0 to 39.9 in adult ([facility]) - phentermine (Adipex-P) 37.5 MG tablet; Take 1 tablet (37.5 mg) by mouth in the morning. Take before meals. There are no preventive care reminders to display for this patient. documented in this encounter [facility] 12-31-2023 History of Present illness Narrative Images from the original note were not included. Karma Nieto is a 43 y.o. female presents with chief complaint of Med Refill (Patient here today for medication review/refill. ) and Immunizations (Patient declines at this time. ) HPI: History of Present Illness The patient presents for evaluation of multiple medical concerns. She began her medication regimen three weeks ago, delaying the start until Day weekend to monitor for potential side effects. Initially, she experienced palpitations at night after a week of daily medication, leading her to skip a dose and then take half doses for a few days. She has since returned to the full dose and reports no sleep disturbances. She has lost 17 pounds and attributes this to a healthy lifestyle and reduced appetite. She has been focusing on improving her diet and overall health for the past two years, without any weight gain during this period. She has not eliminated carbonated drinks from her diet. She frequently experiences urinary tract infections (UTIs), characterized by urgency and burning sensations. She has not had a UTI recently but is unable to provide a urine sample today. Her previous doctor prescribed medication or recommended flushing out the infection naturally. She often takes Azo and drinks plenty of water. She reports no flank pain, nausea, or vomiting. She has been experiencing nipple pain for the past one to two months, which she initially attributed to her cat's scratches. However, the pain has become more severe, particularly at work. She has undergone two mammograms in March 2022 and May 2022, with another scheduled for March 2024. She underwent a hysterectomy in August 2023 and believes the nipple pain may be related to this procedure. She reports no nipple discharge or palpable lumps. ALLERGIES She has no known allergies. MEDICATIONS: Current Outpatient Medications Medication Instructions albuterol HFA 90 mcg/act inhaler 2 puffs, Inhalation, Every 4 hours PRN biotin 2.5 MG capsule Oral ergocalciferol (VITAMIN D-2) 1.25 mg, Oral, Weekly ferrous fumarate-vitamin C ER (Stephanie-Sequeles 65-25) 1 tablet, Oral, 3 times daily with meals, Do not crush, chew, or split. levothyroxine (SYNTHROID, LEVOXYL) 125 mcg, Oral, Daily loratadine (Claritin) 10 MG tablet Every 24 hours phentermine (ADIPEX-P) 37.5 mg, Oral, Daily before breakfast sulfamethoxazole-trimethoprim (Bactrim DS) 800-160 MG per tablet 1 tablet, Oral, 2 times daily ALLERGIES: No Known Allergies Review of Systems Constitutional: Negative for chills and fever. Respiratory: Negative for shortness of breath. Cardiovascular: Negative for chest pain. Gastrointestinal: Negative for diarrhea, nausea and vomiting. Neurological: Negative for headaches. Medical, Surgical, Family, and Social History reviewed. OBJECTIVE: Visit Vitals BP 118/70 (BP Location: Right arm, Patient Position: Sitting, BP Cuff Size: Large adult) Pulse 86 Temp 98.2 F (Temporal) Ht 5' 8 Wt 265 lb LMP 04/22/2023 (Approximate) SpO2 97% BMI 40.29 kg/m OB Status Hysterectomy Smoking Status Never BSA 2.4 m BP Readings from Last 3 Encounters: 12/31/23 118/70 11/28/23 115/70 10/16/23 124/80 Wt Readings from Last 3 Encounters: 12/31/23 265 lb 11/28/23 283 lb 10/16/23 287 lb 12.8 oz Physical Exam Constitutional: General: She is not in acute distress. HENT: Head: Normocephalic and atraumatic. Nose: No congestion or rhinorrhea. Mouth/Throat: Mouth: Mucous membranes are moist. Eyes: General: Right eye: No discharge. Left eye: No discharge. Conjunctiva/sclera: Conjunctivae normal. Cardiovascular: Rate and Rhythm: Normal rate. Pulmonary: Effort: Pulmonary effort is normal. No respiratory distress. Abdominal: General: There is no distension. Palpations: Abdomen is soft. Musculoskeletal: Cervical back: Neck supple. Skin: General: Skin is warm and dry. Neurological: General: No focal deficit present. Mental Status: She is alert. Psychiatric: Mood and Affect: Mood normal. Physical Exam Vital Signs Patient's weight is 265. Results ASSESSMENT AND PLAN: Assessment & Plan 1. Weight management. The patient started the medication around Day weekend and has been on it for a little over three weeks. Initially, she experienced palpitations and adjusted the dose by taking half doses before returning to the full dose. She has lost approximately 17 pounds. She reports feeling less hungry and not experiencing constant food cravings. The medication will be discontinued once her BMI reaches 27. She was advised to maintain a food diary for a week as she approaches this goal. The importance of sustaining her lifestyle modifications was emphasized. The prescription was sent to [facility] in [place]. 2. Recurrent urinary tract infection. She reports a history of recurrent UTIs with symptoms of urgency and burning. She has been advised to increase her water intake. A prescription for Bactrim, to be taken twice daily for three days, was provided. If the issue recurs in the next 2 to 3 months, a urine culture will be necessary to identify the causative bacteria and their sensitivities. 3. Nipple pain. She reports experiencing nipple pain for the past two months, with no discharge or palpable lumps. She had a hysterectomy at the end of August 2023. An ultrasound of the left breast was ordered to investigate further. The patient will call [place] to schedule the ultrasound. Follow-up Return in one month for follow up. Assessment/Plan Diagnoses and all orders for this visit: BMI 40.0-44.9, adult ([facility]) - phentermine (Adipex-P) 37.5 MG tablet; Take 1 tablet (37.5 mg) by mouth in the morning. Take before meals. Class 3 severe obesity due to excess calories with serious comorbidity and body mass index (BMI) of 40.0 to 44.9 in adult ([facility]) - phentermine (Adipex-P) 37.5 MG tablet; Take 1 tablet (37.5 mg) by mouth in the morning. Take before meals. Acute cystitis with hematuria - sulfamethoxazole-trimethoprim (Bactrim DS) 800-160 MG per tablet; Take 1 tablet by mouth in the morning and 1 tablet before bedtime. Do all this for 3 days. Nipple pain - Left breast US complete; Future Health Maintenance Due Topic Date Due Influenza Vaccine (1) 12/08/2023 documented in this encounter [facility] 08-22-2024 History of Present illness Narrative Images from the original note were not included. Karma Nieto is a 43 y.o. female presents with chief complaint of Weight Loss (Discuss weight loss options/) HPI: History of Present Illness The patient presents for evaluation of weight loss. She has been struggling with weight loss for the past 35 years and is considering the use of Adipex, a medication her sister recently started. Despite never having used this medication before, she is open to trying it. Her weight loss journey has been challenging due to financial constraints and unrealistic expectations, such as losing 100 pounds in 3 months. She underwent two surgeries last year and has been making dietary changes, including increasing her intake of vegetables, protein, and fiber, and drinking plenty of water. However, her physically demanding job leaves her feeling exhausted at home. She has tried meal prepping and using calorie tracking apps, but these methods have only resulted in temporary weight loss followed by weight gain. She is currently on thyroid medication and had her thyroid levels checked during a biometric screening in December 2022. MEDICATIONS: Current Outpatient Medications Medication Instructions albuterol HFA 90 mcg/act inhaler 2 puffs, Inhalation, Every 4 hours PRN biotin 2.5 MG capsule Oral ergocalciferol (VITAMIN D-2) 1.25 mg, Oral, Weekly ferrous fumarate-vitamin C ER (Stephanie-Sequeles 65-25) 1 tablet, Oral, 3 times daily with meals, Do not crush, chew, or split. levothyroxine (SYNTHROID, LEVOXYL) 125 mcg, Oral, Daily loratadine (Claritin) 10 MG tablet Every 24 hours phentermine (ADIPEX-P) 37.5 mg, Oral, Daily before breakfast ALLERGIES: No Known Allergies Review of Systems Constitutional: Negative for chills and fever. Respiratory: Negative for shortness of breath. Cardiovascular: Negative for chest pain. Gastrointestinal: Negative for diarrhea, nausea and vomiting. Neurological: Negative for headaches. Medical, Surgical, Family, and Social History reviewed. OBJECTIVE: Visit Vitals BP 115/70 Pulse 92 Temp 98.2 F Ht 5' 8 Wt 283 lb LMP 04/22/2023 (Approximate) SpO2 99% BMI 43.03 kg/m OB Status Hysterectomy Smoking Status Never BSA 2.48 m BP Readings from Last 3 Encounters: 11/28/23 115/70 10/16/23 124/80 09/18/23 126/82 Wt Readings from Last 3 Encounters: 11/28/23 283 lb 10/16/23 287 lb 12.8 oz 09/18/23 281 lb Physical Exam Constitutional: General: She is not in acute distress. Appearance: She is obese. HENT: Head: Normocephalic and atraumatic. Nose: No congestion or rhinorrhea. Mouth/Throat: Mouth: Mucous membranes are moist. Eyes: General: Right eye: No discharge. Left eye: No discharge. Conjunctiva/sclera: Conjunctivae normal. Cardiovascular: Rate and Rhythm: Normal rate. Pulmonary: Effort: Pulmonary effort is normal. No respiratory distress. Abdominal: General: There is no distension. Palpations: Abdomen is soft. Musculoskeletal: Cervical back: Neck supple. Skin: General: Skin is warm and dry. Neurological: General: No focal deficit present. Mental Status: She is alert. Psychiatric: Mood and Affect: Mood normal. Physical Exam Results ASSESSMENT AND PLAN: Assessment & Plan 1. Weight loss. The patient has been struggling with weight loss for 35 years and expressed interest in starting Adipex, as her sister was recently prescribed it. The potential side effects of Adipex, including dry mouth, insomnia, difficulty sleeping, chest pain, irritability, and palpitations, were discussed. She was informed that the medication is a stimulant that decreases appetite and increases energy. It was emphasized that sustainable lifestyle changes are necessary alongside medication. She was advised to continue her current diet and exercise regimen, including drinking 64 ounces of water daily, aiming for 10,000 steps, and ensuring half of her plate consists of vegetables. A prescription for Adipex was provided, to be taken in the morning. The prescription will be sent to [facility] pharmacy. She was instructed to report any issues with the prescription or intolerable side effects. 2. Thyroid management. The patient is currently on thyroid medication. Her last thyroid check was during a biometric screening in December of the previous year. It was noted that she is good for at least another month before needing another thyroid check. She was advised to follow up with the office if there are any issues with her thyroid management. Follow-up The patient will follow up in a month. Assessment/Plan Diagnoses and all orders for this visit: BMI 40.0-44.9, adult (CMS/HCC) - phentermine (Adipex-P) 37.5 MG tablet; Take 1 tablet (37.5 mg) by mouth in the morning. Take before meals. Class 3 severe obesity due to excess calories with serious comorbidity and body mass index (BMI) of 40.0 to 44.9 in adult (CMS/HCC) - phentermine (Adipex-P) 37.5 MG tablet; Take 1 tablet (37.5 mg) by mouth in the morning. Take before meals. Hypothyroidism, unspecified type (CMS/HCC) Health Maintenance Due Topic Date Due Influenza Vaccine (1) 12/08/2023 documented in this encounter [facility] Evaluation note No assessment inform ation available [facility] Work Phone: Evaluation note Diagnosis 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 bronchospasm Need for influenza vaccination Need for prophylactic vaccination and inoculation against influenza Dysfunctional uterine bleeding Other disorder of menstruation and other abnormal bleeding from female genital tract Iron deficiency anemia, unspecified iron deficiency anemia type Lipid screening Screening for lipoid disorders Screening for metabolic disorder Hypothyroidism, unspecified type (CMS/HCC) Preventative health care Routine general medical examination at a health care facility Lateral epicondylitis of right elbow- Primary BMI 39.0-39.9,adult Class 2 severe obesity due to excess calories with serious comorbidity and body mass index (BMI) of 39.0 to 39.9 in adult (CMS/HCC) documented in this encounter [facility] HealthcareEvaluation note* Diagnosis 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 bronchospasm Need for influenza vaccination Need for prophylactic vaccination and inoculation against influenza Dysfunctional uterine bleeding Other disorder of menstruation and other abnormal bleeding from female genital tract Iron deficiency anemia, unspecified iron deficiency anemia type Lipid screening Screening for lipoid disorders Screening for metabolic disorder Hypothyroidism, unspecified type (CMS/HCC) Preventative health care Routine general medical examination at a health care facility Lateral epicondylitis of right elbow- Primary Hypothyroidism, unspecified type (CMS/HCC) documented in this encounter [facility] HealthcareEvaluation note* Diagnosis BMI 40.0-44.9, adult (CMS/HCC)- Primary Class 3 severe obesity due to excess calories with serious comorbidity and body mass index (BMI) of 40.0 to 44.9 in adult (CMS/HCC) Hypothyroidism, unspecified type (CMS/HCC) documented in this encounter [facility]* Diagnosis BMI 40.0-44.9, adult (CMS/HCC)- Primary Class 3 severe obesity due to excess calories with serious comorbidity and body mass index (BMI) of 40.0 to 44.9 in adult (CMS/HCC) Acute cystitis with hematuria Nipple pain Other sign and symptom in breast documented in this encounter [facility]Evaluation note* Diagnosis 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 bronchospasm Need for influenza vaccination Need for prophylactic vaccination and inoculation against influenza Dysfunctional uterine bleeding Other disorder of menstruation and other abnormal bleeding from female genital tract Iron deficiency anemia, unspecified iron deficiency anemia type Lipid screening Screening for lipoid disorders Screening for metabolic disorder Hypothyroidism, unspecified type (CMS/HCC) Preventative health care Routine general medical examination at a health care facility Localized osteoarthritis of left knee- Primary documented in this encounter [facility]Evaluation note* Diagnosis 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 bronchospasm Need for influenza vaccination Need for prophylactic vaccination and inoculation against influenza Dysfunctional uterine bleeding Other disorder of menstruation and other abnormal bleeding from female genital tract Iron deficiency anemia, unspecified iron deficiency anemia type Lipid screening Screening for lipoid disorders Screening for metabolic disorder Hypothyroidism, unspecified type (CMS/HCC) Preventative health care Routine general medical examination at a health care facility Localized osteoarthritis of left knee- Primary documented in this encounter [facility] note* Diagnosis BMI 38.0-38.9,adult- Primary Class 2 severe obesity due to excess calories with serious comorbidity and body mass index (BMI) of 38.0 to 38.9 in adult (CMS/HCC) BMI 39.0-39.9,adult Class 2 severe obesity due to excess calories with serious comorbidity and body mass index (BMI) of 39.0 to 39.9 in adult (CMS/HCC) documented in this encounter [facility]* Diagnosis Hypothyroidism, unspecified type (CMS/HCC) documented in this encounter [facility] Summary Purpose Family History No Family History Records FoundNo Family History Records FoundNo Family History Records FoundNo Family History Records FoundNo Family History Records Found Advance Directives Advance Directive Response Recorded Date/ Time Advance Directives No August 20 8 10:20am Advance Directive Response Recorded Date/ Time Advance Directives No August 20 8 11:20am Additional Source Comments INFORMATION SOURCE (unrecogn ized section and content) DATE CREATED AUTHOR 01/07/2022 [facility] d[facility] Specialist DATE CREATED AUTHOR AUTHOR'S ORGANIZ ATION 04/06/2022 [facility] DATE CREATED AUTHOR AUTHOR'S ORGANIZ ATION 09/15/2022 [facility] DATE CREATED AUTHOR AUTHOR'S ORGANIZ ATION 05/26/2023 [facility] DATE CREATED AUTHOR AUTHOR'S ORGANIZ ATION 04/27/2024 [facility] d[facility] Specialists EPIC Care Teams (unrecognized sec tion and content) Team Status: Inactive Member Role Status Dates Dwayne Edmonds Attending Provider Active Start: Carla galicia 2023 End: May 24, 2023 Team Status: Inactive Member Role Status Dates Dwayne Edmonds Attending Provider Active Start: Catherine rodriguez 2023 End: September 04, 2023 Assistant Housekeeping Manager Relationship Specialty Start Date End Date Kandy Ortega MD [address] [place] [address] PCP - General Family Medicine 08/24/22 Assistant Housekeeping Manager Relationship Specialty Start Date End Date Kandy Ortega MD [address] [place] [address] PCP - General Family Medicine 08/24/22 Assistant Housekeeping Manager Relationship Specialty Start Date End Date Kandy Ortega MD [address] [place] [address] PCP - General Family Medicine 08/24/22 Assistant Housekeeping Manager Relationship Specialty Start Date End Date Kandy Ortega MD [address] [place] [address] PCP - General Family Medicine 08/24/22 Assistant Housekeeping Manager Relationship Specialty Start Date End Date Kandy Ortega MD [address] [place] [address] PCP - General Family Medicine 08/24/22 Assistant Housekeeping Manager Relationship Specialty Start Date End Date Kandy Ortega MD [address] [place] [address] PCP - General Family Medicine 08/24/22 Assistant Housekeeping Manager Relationship Specialty Start Date End Date Kandy Ortega MD [address] [place] [address] PCP - General Family Medicine 08/24/22 Assistant Housekeeping Manager Relationship Specialty Start Date End Date Kandy Ortega MD [address] [place] [address] PCP - General Family Medicine 08/24/22 Assistant Housekeeping Manager Relationship Specialty Start Date End Date Kandy Ortega MD [address] [place] [address] PCP - General Family Medicine 08/24/22 Assistant Housekeeping Manager Relationship Specialty Start Date End Date Kandy Ortega MD [address] [place] [address] PCP - General Family Medicine 08/24/22 Assistant Housekeeping Manager Relationship Specialty Start Date End Date Kandy Ortega MD [address] [place] [address] PCP - General Family Medicine 08/24/22 Assistant Housekeeping Manager Relationship Specialty Start Date End Date Kandy Ortega MD [address] [place] [address] PCP - General Family Medicine 08/24/22 Assistant Housekeeping Manager Relationship Specialty Start Date End Date Kandy Ortega MD [address] [place] [address] PCP - General Family Medicine 08/24/22 Goals (unrecognized section and content) Goals may be documented in a n alternate sectionGoals may be documented in an alternate section Reason for Visit (unrecogniz ed section and content) Reason Comments Med Refill Reason Comments Weight Loss Discuss weight loss options Reason Comments Med Refill Patient here today f or medication review/refill. Immunizations Patient declines at this time. Reason Comments Pain Reason Comments Follow-up Med Refill FOR RECORDS PERTAINING TO PATIENTS WHO ARE [...] BE BASED ON THE PRIMARY CLINICAL RECORDS. [employer] provides no warranty or guarantee of the accuracy or completeness of information in this document.
--- NOTE | 2024-07-25 07:36 | ECG_ITS ---
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 Measurements Intervals [place] Rate: 76 P: 30 NH: 152 QRS: 87 QRSD: 84 T: 39 QT: 368 QTc: 399 Interpretive Statements 1100 Sinus rhythm 2420 RSR (QR) in lead V1/V2, consistent with right ventricular conduction delay 9130 borderline ECG Compared to ECG 05/13/2023 09:25:38 T-wave abnormality no longer present Electronically Signed On 07-25-2024 14:40:36 EDT by CARMEN BARKSDALE M.D.
[2024-07-25 07:58] LABS: Basophils Absolute Auto 0.1 10^3/uL (0.0-0.1); Basophils Percent Auto 0.9 % (0.2-2.0); Eosinophils Absolute Auto 0.2 10^3/uL (0.0-0.7); Hematocrit 42.3 % (36.0-48.0); Hemoglobin 14.9 g/dL (12.0-16.0); Immature Granulocytes Abs Auto 0.01 10^3/uL (0.00-0.03); Immature Granulocytes Pct Auto 0.2 % (0.0-0.5); Lymphocytes Absolute Auto 1.8 10^3/uL (1.2-3.8); Lymphocytes Percent Auto 30.9 % (20.5-60.0); Mean Corpuscular HGB Conc 35.2 g/dL (29.9-35.2); Mean Corpuscular Hemoglobin 31.6 pg (26.7-34.0); Mean Corpuscular Volume 89.8 fL (81.0-99.0); Mean Platelet Volume 9.6 fL (9.5-13.5); Monocytes Absolute Auto 0.4 10^3/uL (0.3-0.8); Monocytes Percent Auto 7.1 % (1.7-12.0); Neutrophils Absolute Auto 3.3 10^3/uL (1.4-6.5); Neutrophils Percent Auto 56.9 % (43.0-75.0); Platelet Count 289 10^3/uL (150-450); Red Blood Count 4.71 10^6/uL (4.20-5.40); Red Cell Distribution Width 11.9 % (11.0-15.0); White Blood Count 5.8 10^3/uL (4.0-11.0)
[2024-07-25] MEDS: MORPHINE SULFATE 2 MG/ML SYRINGE IV (08:06)
[2024-07-25 08:24] LABS: Alanine Aminotransferase 16 U/L (14-59); Albumin Globulin Ratio 1.2; Albumin Level 3.7 g/dL (3.4-5.0); Alkaline Phosphatase 64 U/L (46-116); Anion Gap 12.6; Aspartate Amino Transferase 15 U/L (15-37); BUN Creatinine Ratio 17.3; Bilirubin Total 0.3 mg/dL (0.2-1.0); Calcium 8.6 mg/dL (8.5-10.1); Carbon Dioxide 27.6 mmol/L (21.0-32.0); Chloride 103 mmol/L (98-107); Estimated GFR (African America >60 (>=60 mL/min/1.73m^2); Estimated GFR (Non-African Ame >60 (>=60 mL/min/1.73m^2); Globulin 3.1 g/dL; Glucose 95 mg/dL (74-106); Potassium 4.2 mmol/L (3.5-5.1); Sodium 139 mmol/L (136-145); Total Protein 6.8 g/dL (6.4-8.2)
[2024-07-25 08:26] LABS: D Dimer <0.19 mg/L FEU (<=0.59)
--- NOTE | 2024-07-25 08:26 | ED_ITS ---
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 to the ER with a right sided chest wall pain that been going on at least for a week, she mentioned that initially she thought it is associated acid reflux but according to her overcoiler the last 2 days and it got worse, it is there all the time and gets worse whenever she is moving her right upper extremity or trying to wear her close, it also gets worse when she is taking a deep breath, the patient denies any history of any recent immobilization or long travel or any history of blood clot or leg swelling The patient did try ibuprofen at home today before arrival Related Data Home Medications ?Medication ?Instructions ?Recorded ?Confirmed albuterol sulfate 90 mcg/actuation 2 inh inhalation Q6H PRN shortness 05/13/23 07/25/24 aerosol inhaler (ProAir HFA) of breath or wheezing levothyroxine 125 mcg capsule 125 mcg PO DAILY 05/13/23 07/25/24 loratadine 10 mg tablet 10 mg PO DAILY 05/13/23 07/25/24 Previous Rx's ?Medication ?Instructions ?Recorded diclofenac sodium 75 mg 75 mg PO BID PRN pain #20 tabs 07/25/24 tablet,delayed release famotidine 20 mg tablet (Pepcid) 20 mg PO BID #10 tabs 07/25/24 orphenadrine citrate 100 mg 100 mg PO BID PRN muscle spasm #20 07/25/24 tablet,extended release tabs Allergies Allergy/AdvReac Type Severity Reaction Status Date / Time No Known Drug Allergies Allergy Verified 08/21/23 10:07 Review of Systems ROS Status of ROS 10 or more systems reviewed and unremark able except as noted in history and below [facility] Medical History (Updated 07/25/24 @ 08:58 by Alexa Arana MD) Dyspareunia Dysmenorrhea ?N94.6 - Dysmenorrhea, unspecified (ICD-10) Menorrhagia ?N92.0 - Excessive and frequent menstruation with regular cycle (ICD-10) Migraine ?G43.909 - Migraine, unspecified, not intractable, without status migrainosus (ICD-10) Postoperative nausea and vomiting ?R11.2 - Nausea with vomiting, unspecified (ICD-10) ?Z98.890 - Other specified postprocedural states (ICD-10) Abnormal EKG ?R94.31 - Abnormal electrocardiogram [ECG] [EKG] (ICD-10) Back pain ?M54.9 - Dorsalgia, unspecified (ICD-10) Carpal tunnel syndrome ?G56.00 - Carpal tunnel syndrome, unspecified upper limb (ICD-10) Arthritis ?M19.90 - Unspecified osteoarthritis, unspecified site (ICD-10) Anemia ?D64.9 - Anemia, unspecified (ICD-10) COVID-19 (03/30/23) ?U07.1 - COVID-19 (ICD-10) Pneumonia ?J18.9 - Pneumonia, unspecified organism (ICD-10) Exercise induced bronchospasm ?J45.990 - Exercise induced bronchospasm (ICD-10) Dysfunctional uterine bleeding ?N93.8 - Other specified abnormal uterine and vaginal bleeding (ICD-10) Seasonal allergies ?J30.2 - Other seasonal allergic rhinitis (ICD-10) Heartburn ?R12 - Heartburn (ICD-10) Hypothyroidism ?E03.9 - Hypothyroidism, unspecified (ICD-10) Pelvic pain ?R10.2 - Pelvic and perineal pain (ICD-10) Irregular periods/menstrual cycles ?N92.6 - Irregular menstruation, unspecified (ICD-10) Bicornate uterus ?Q51.3 - Bicornate uterus (ICD-10) Surgical History (Updated 08/21/23 @ 10:04 by Elin Watson NP) H/O dilation and curettage (05/24/23) ?Z98.890 - Other specified postprocedural states (ICD-10) History of wisdom tooth extraction ?K08.409 - Partial loss of teeth, unspecified cause, unspecified class (ICD-1 0) History of carpal tunnel release ?Z98.890 - Other specified postprocedural states (ICD-10) History of foot surgery ?Z98.890 - Other specified postprocedural states (ICD-10) History of arthroscopy of knee ?Z98.890 - Other specified postprocedural states (ICD-10) History of tonsillectomy ?Z90.89 - Acquired absence of other organs (ICD-10) History of laparoscopy ?Z98.890 - Other specified postprocedural states (ICD-10) Family History (Updated 05/13/23 @ 09:16 by Elin Watson NP) Other Family history of colon cancer Family history of diabetes mellitus Family history of hypertension Family history of renal failure Family history of skin cancer Social History (Updated 05/13/23 @ 09:09 by Elin Watson NP) Within the past year, how often did you have a drink containing alcohol: 2-4 times a month Smoking status: Never smoker Non-prescribed substance use: denies use Previous occupational history: [employer] Highest level of school completed/degree received: high school graduate Little interest or pleasure in doing things: not at all Feeling down, depressed, or hopeless: not at all Exam Narrative Exam Narrative: Nurses notes and vital signs reviewed and patient is not hypoxic. General: Well-appearing and in no apparent distress. Skin: Warm, dry, no pallor noted. No rash. Head: Normocephalic, atraumatic. Neck: Supple, non-tender. Cardiovascular: Regular Rate and Rhythm without murmur, gallop or rub. Respiratory: No accessory muscle use or respiratory distress. Lungs are clear to auscultation, no wheezing, rales or rhonchi Chest Wall: Tenderness palpation of the right upper chest wall mostly at the upper sternum and the right pectoral area Back: No midline thoracic or lumbar vertebral tenderness. No CVA tenderness Musculoskeletal: normal ROM, no calf or popliteal tenderness, no lower extremity edema/swelling GI: Abdomen is soft, non-distended. Normal bowel sounds. No masses appreciated. No tenderness to palpation. No rebound, guarding, or rigidity noted. Neurological: A&O x4. No cranial nerve dysfunction observed Psychiatric: Cooperative and interactive. Normal mood and affect. Constitutional Vital Signs, click to edit/add: Last Vital Signs Temp 97.5 F L 07/25/24 07:28 Pulse 86 07/25/24 09:20 Resp 18 07/25/24 09:20 BP 134/82 07/25/24 09:00 Pulse Ox 98 07/25/24 09:20 O2 Del Method Room Air 07/25/24 07:50 Course Vital Signs Vital signs: Vital Signs Temperature 97.5 F L 07/25/24 07:28 Pulse Rate 94 H 07/25/24 07:28 Respiratory Rate 18 07/25/24 07:28 Blood Pressure 153/100 H 07/25/24 07:28 Pulse Oximetry 100 07/25/24 07:28 Oxygen Delivery Method Room Air 07/25/24 07:28 Temperature 97.5 F L 07/25/24 07:28 Pulse Rate 86 07/25/24 09:20 Respiratory Rate 18 07/25/24 09:20 Blood Pressure 134/82 07/25/24 09:00 Pulse Oximetry 98 07/25/24 09:20 Oxygen Delivery Method Room Air 07/25/24 07:50 MDM - Chest Pain MDM Narrative Medical decision making narrative: The patient EKG showing sinus rhythm with a heart rate of [address] elevation or depression Chest x-ray showed no acute pathology CBC and chemistry showed no acute pathology as well and the patient troponin was negative Sensation mostly secondary to chest wall pain mostly atypical chest pain and right now she will be treated with Voltaren and Norflex to go home with The patient is to follow up with primary care physician in next 2-3 days or to return to the emergency department should any of the signs or symptoms worsen or new symptoms develop. The patient agrees with the following Diagnosis and Treatment plan and the patient will be discharged home. Lab Data Labs: Lab Results 07/25/24 Range/Units 07:42 WBC 5.8 (4.0-11.0) 10^3/uL RBC 4.71 (4.20-5.40) 10^6/uL Hgb 14.9 (12.0-16.0) g/dL Hct 42.3 (36.0-48.0) % MCV 89.8 (81.0-99.0) fL MCH 31.6 (26.7-34.0) pg MCHC 35.2 (29.9-35.2) g/dL RDW 11.9 (11.0-15.0) % Plt Count 289 (150-450) 10^3/uL MPV 9.6 (9.5-13.5) fL Neut % (Auto) 56.9 (43.0-75.0) % Lymph % (Auto) 30.9 (20.5-60.0) % [place] % (Auto) 7.1 (1.7-12.0) % Eos % (Auto) 4.0 (0.9-7.0) % Baso % (Auto) 0.9 (0.2-2.0) % Neut # (Auto) 3.3 (1.4-6.5) 10^3/uL Lymph # (Auto) 1.8 (1.2-3.8) 10^3/uL [place] # (Auto) 0.4 (0.3-0.8) 10^3/uL Eos # (Auto) 0.2 (0.0-0.7) 10^3/uL Baso # (Auto) 0.1 (0.0-0.1) 10^3/uL Abs Immat Gran (auto) 0.01 (0.00-0.03) 10^3/uL Imm/Tot Granulo (auto) 0.2 (0.0-0.5) % D-Dimer <0.19 (<=0.59) mg/L FEU Sodium 139 (136-145) mmol/L Potassium 4.2 (3.5-5.1) mmol/L Chloride 103 (98-107) mmol/L Carbon Dioxide 27.6 (21.0-32.0) mmol/L Anion Gap 12.6 BUN 14.0 (7.0-18.0) mg/dL Creatinine 0.81 (0.55-1.02) mg/dL Est GFR ( Amer) >60 (>=60 mL/min/1.73m^2) Est GFR (Non-Af Amer) >60 (>=60 mL/min/1.73m^2) BUN/Creatinine Ratio 17.3 Glucose 95 (74-106) mg/dL Calcium 8.6 (8.5-10.1) mg/dL Total Bilirubin 0.3 (0.2-1.0) mg/dL AST 15 (15-37) U/L ALT 16 (14-59) U/L Alkaline Phosphatase 64 (46-116) U/L Troponin I High Sens <4.0 L (4.0-51.3) pg/mL Total Protein 6.8 (6.4-8.2) g/dL Albumin 3.7 (3.4-5.0) g/dL Globulin 3.1 g/dL Albumin/Globulin Ratio 1.2 Discharge Plan Discharge Chief Complaint: Chest Pain Clinical Impression: Costalchondritis, Acute chest wall pain Patient Disposition: Home, Self-Care Time of Disposition Decision: 08:58 Condition: Good Prescriptions / Home Meds: New diclofenac sodium 75 mg tablet,delayed release (DR/EC) 75 mg PO BID PRN (Reason: pain) Qty: 20 0RF orphenadrine citrate 100 mg tablet extended release 100 mg PO BID PRN (Reason: muscle spasm) Qty: 20 0RF famotidine [Pepcid] 20 mg tablet 20 mg PO BID Qty: 10 0RF Discontinued etodolac 600 mg tablet extended release 24 hr 600 mg PO DAILY No Action albuterol sulfate [ProAir HFA] 90 mcg/actuation HFA aerosol inhaler 2 inh inhalation Q6H PRN (Reason: shortness of breath or wheezing) levothyroxine 125 mcg capsule 125 mcg PO DAILY loratadine 10 mg tablet 10 mg PO DAILY Print Language: Cameroonian Instructions: Costochondritis (DC), Chest Wall Pain (ED) Referrals: LEONARD ORTEGA [Primary Care Provider] - 1 week Discharge Date/Time: 07/25/24 09:28
[2024-07-25 08:27] LABS: Troponin I High Sensitivity <4.0 pg/mL (4.0-51.3)
[2024-07-25] MEDS: ORPHENADRINE 60 MG/2 ML VIAL IV (09:18)
== END 2024-07-25 09:28 | disposition home or self-care (01) ==
PROVIDERS: Emergency Provider Emergency Medicine
DX: R07.89 Other chest pain (principal); M94.0 Chondrocostal junction syndrome [Tietze]
CPT/HCPCS: 36415; 71045; 80053; 84484; 84703; 85025; 85378; 93005; 96374; 96375; 99285; J2270; J2360

== ENCOUNTER 2024-07-29 11:10 | Outpatient (OUT) | payer OTHER, SELFPAY | END 2024-07-29 11:11 | disposition home or self-care (01) | LOC: LAB 11:11 | DX: E03.9 Hypothyroidism, unspecified (principal) | CPT/HCPCS: 36415; 84443 ==

== ENCOUNTER 2024-08-17 14:40 | Outpatient (OUT) | payer OTHER, SELFPAY ==
--- NOTE | 2024-08-17 14:48 | XR_ITS ---
The [address] [address] Patient Name: RUIZ NIETO MRN: [id number] date: 1980 Sex: F Assigned Patient Location: [facility] Current Patient Location: [facility] Accession/Order Number: [id number] Exam Date: 08/17/2024 15:11 Report Date: 08/17/2024 15:17 At the request of: LEONARD ORTEGA Procedure: XR chest 2V Chest 2 views CLINICAL HISTORY: Chest Pain, Musculoskeletal COMPARISON: Chest 07/25/2024 FINDINGS: Heart normal in size. Lungs are clear. No free air. XR/XR chest 2V IMPRESSION: NO ACUTE CARDIOPULMONARY ABNORMALITY. Impression dictated by: Aaron Jimenez Jr., D.OAgueda 08/17/2024 3:17 PM Dictation Location: [place] [address] Electronically authenticated by: [id number] Y Date: 08/17/2024 15:17
== END 2024-08-17 14:41 | disposition home or self-care (01) ==
LOC: RAD 14:40
DX: R07.89 Other chest pain (principal)
CPT/HCPCS: 71046

== ENCOUNTER 2024-10-12 13:19 | Outpatient (OUT) | payer OTHER, SELFPAY ==
--- OUTSIDE RECORDS SUMMARY | 2024-09-08 08:30 | XMS_ITS ---
Author Name Auto Generated Organization OHIP Care Team Providers Care Physicist Acoustics Name Role Phone KANDY ORTEGA Attending Unavailable KANDY ORTEGA Attending Unavailable TYRONE VALLES Attending Unavailable KANDY ORTEGA Referring Unavailable CURRY JASON Attending Unavailable KANDY ORTEGA Referring Unavailable DWAYNE HATCH Attending Unavailable KANDY ORTEGA Attending Unavailable KANDY ORTEAG Attending Unavailable KANDY ORTEGA Attending Unavailable ALEJA CHEN Referring Unavailable ALEJA CHEN Attending Unavailable ALEJA CHEN Referring Unavailable ALEJA CHEN Attending Unavailable KANDY ORTEGA Attending Unavailable CURRY JASON Attending Unavailable KANDY ORTEGA Referring Unavailable KANDY ORTEGA Attending Unavailable Kandy Ortega Admitting Unavailable Kandy Ortega Referring Unavailable Kandy Ortega Attending Unavailable Grabiel Phelps Consulting Unavailable Grabiel Phelps Consulting Unavailable Grabiel Phelps Consulting Unavailable SARAH MICHAELS Attending Unavailable PROBLEMS DATE TYPE CONDITION / CODE ATTENDING STATUS [facility] 09/08/2024 Admitting Diagnosis Pain in unspecified joint / M25.50(ICD-10) SARAH MICHAELS Active [facility] 09/08/2024 Admitting Diagnosis Other specified abnormal immunological findings in serum / R76.8(ICD-10) SARAH MICHAELS Active [facility] 09/08/2024 Admitting Diagnosis Chondrocostal junction syndrome (tietze) / M94.0(ICD-10) SARAH MICHAELS Active [facility] PROCEDURES No Procedure Records Found RESULTS 36 Observed: 09/15/2024 2:00 PM Status: COMPLETED Source: [facility] This report has been cancell ed. TELEPHONE Observed: 09/15/2024 12:00 AM Status: COMPLETED Source: [facility] [id number] Karma Nieto 10/1980 F Date Provider Department Center 09/15/2024 Ramonita-SIMEON LOUIE C RHEUM Emma Heal Family History Family history unknown: Yes ORDERS ONLY Observed: 09/15/2024 12:00 AM Status: COMPLETED Source: [facility] [id number] Karma Nieto 10/1980 F Date Provider Department Center 09/15/2024 3554-SARAH MICHAELS C RHEUM Emma Heal Family History Family history unknown: Yes 36 Observed: 09/14/2024 2:45 PM Status: COMPLETED Source: [facility] Patient [place] that [place] booked [place] to [facility] and she rather go elsewhere requesting a referral to be faxed to preferred facility, will call back with number The referral in [facility] pain management information listed on it CYCLIC CITRUL PEPTIDE ANTIBO DY, IGG AND IGA Collected: 09/08/2024 10:23 AM Status: UNK Source: [facility] TYPE CODE TESTS RESULT OUT OF RANGE REFERENCE UNITS LAB [id number] CYCLIC CITRULLINATED PEPTIDE AB, IGG/A 4 0-19 Units Result Comment: INTERPRETIVE INFORMATION: Cyclic Citrullinated Peptide Ab, IgG/A 19 Units or less ................... Negative 20-39 Units ........................ Weak Positive 40-59 Units ........................ Moderate Positive 60 Units or greater ................ Strong Positive A positive result for cyclic citrullinated peptide (CCP) antibodies in conjunction with consistent clinical features may be suggestive of rheumatoid arthritis (RA). Anti-CCP, IgG/IgA antibodies are present in about 66-74 percent of RA patients and have specificities of 96-99 percent. Detection of IgA antibodies in addition to the usual IgG antibodies enhances the sensitivity due to some RA patients having IgA antibodies to CCP in the absence of IgG. These autoantibodies may be present in the preclinical phase of disease, are associated with future RA development, and may predict radiographic joint destruction. Patients with weak positive results should be monitored and testing repeated. Performed By: [facility] [address] [place] [address] Data Entry Machine Operator: Adarsh Singer MD, PhD CLIA Number: [id number] Performed By: #### [id number] ## ## [employer] [address] [place] [id number] PROGRESS Observed: 09/08/2024 9:00 AM Status: COMPLETED Source: [facility] Attestation signed by Sarah Michaels MD at 09/08/2024 2:31 PM I personally saw and examined the patient on the same date of service as resident/fellow . I discussed the findings and therapeutic plan with the resident/fellow . I agree with the documentation, except for any edits/updates below. Teaching Physician's Revisions Low titer positive RF, no symptoms suggestive of RA, discussed that RF is not specific and she does not currently meet diagnosis criteria for RA, we discussed treatment of costochondritis will refer to PT and pain management [facility] New Patient Visit Subjective Chief Complaint: Rheumatoid Arthritis and New Patient Karma Nieto is an 43 y.o. female with elevated RF in August 2024, OA of B/L knee, costochondritis since July 2024, plantar fasciitis, B/L CTS s/p B/L releases circa 2012, R lateral epicondylitis, hypothyroidism, vitamin D deficiency, and GERD. Karma Nieto presents to the clinic as a new patient, referred by PCP for the evaluation of elevated RF and recent costochondritis. Medication regimen: S/p Prednisone 60 mg daily x 3 days then 40 mg x 3 days, 30 mg x 3 days, 20 mg x 3 days, 10 mg x 3days then stopped. Patient presents from PCP as referral for elevated RF and recent history of costochondritis since July 2024. Patient is concerned because she was told she has RA based on lab work. Unfortunately, referral was sent without lab work --- patient pulled up her portal in office for lab work. Her first steroid course (5 days) did not provide much relief. Patient was treated with another Prednisone taper course as noted above by PCP, which provided some relief (up to 80% relief initially) but sternal pain from costochondritis has gradually returned. Sternal pain wakes her up at night, coughing (has not coughed much) or sneezing exacerbate pain. She has tried some PT, but unable to participate much previously due to pain. Today, patient reports joint pain that is 2/10 in severity. 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 In Mar 2024, she stopped Etodolac and noticed significant hand pain with some stiffness for a couple days that self resolved. Denies AM stiffness, joint erythema, swelling, warmth. Medications tried previously: Voltaren PO and gel (not helpful), Norflex (drowsy, able to sleep), Etodolac (helps but not effective for pain). Positive labs: Positive rheumatoid factor at 17.2 in August 2024. Negative/normal labs: Negative for AVILA screen with CRP and ESR WNL in August 2024. Imaging: L knee XR Mar 2024 = moderate to severe degenerative changes in patellofemoral joint Family History: No other autoimmune diseases or arthritis known in the family. Social: Patient works at [employer]. Alcohol use 1-2x per week. No tobacco, or drug use. Patient is , with history of 1 first trimester miscarriage. Comprehensive History: Patient Active Problem List Diagnosis Dysfunctional uterine bleeding Exercise induced bronchospasm H/O: hypothyroidism Hypothyroidism Iron deficiency anemia Need for influenza vaccination Rapid heartbeat History reviewed. No pertinent past medical history. History reviewed. No pertinent surgical history. No Known Allergies Social History Socioeconomic History Marital status: Spouse name: None Number of children: None Years of education: None Highest education level: None Occupational History None Tobacco Use Smoking status: Never Smokeless tobacco: Never Substance and Sexual Activity Alcohol use: Yes Drug use: Never Sexual activity: Defer Other Topics Concern None Social History Narrative None Social Determinants of Health Financial Resource Strain: Low Risk (01/29/2024) Received from [facility] Overall Financial Resource Strain (CARDIA) Difficulty of Paying Living Expenses: Not hard at all Food Insecurity: No Food Insecurity (01/29/2024) Received from [facility] Hunger Vital Sign Worried About Running Out of Food in the Last Year: Never true Ran Out of Food in the Last Year: Never true Transportation Needs: No Transportation Needs (01/29/2024) Received from [facility] PRAPARE - Transportation Lack of Transportation (Medical): No Lack of Transportation (Non-Medical): No Physical Activity: Insufficiently Active (01/29/2024) Received from [facility] Exercise Vital Sign Days of Exercise per Week: 2 days Minutes of Exercise per Session: 30 min Stress: No Stress Concern Present (01/29/2024) Received from [facility] [place] [employer] - Occupational Stress Questionnaire Feeling of Stress : Not at all Social Connections: Moderately Integrated (01/29/2024) Received from [facility] Social Connection and Isolation Panel [NHANES] Frequency of Communication with Friends and Family: More than three times a week Frequency of Social Gatherings with Friends and Family: Once a week Attends Christian Services: 1 to 4 times per year Active Member of Clubs or Organizations: No Attends Club or Organization Meetings: Patient declined Marital Status: Intimate Partner Violence: Not At Risk (12/19/2022) Received from [facility] Humiliation, Afraid, Rape, and Kick questionnaire Fear of Current or Ex-Partner: No Emotionally Abused: No Physically Abused: No Sexually Abused: No Housing Stability: Low Risk (01/29/2024) Received from [facility] Housing Stability Vital Sign Unable to Pay for Housing in the Last Year: No Number of Times Moved in the Last Year: 0 Homeless in the Last Year: No Family History Family history unknown: Yes Medication List: Current Outpatient Medications Medication Sig Dispense Refill albuterol 90 mcg/actuation inhaler Inhale 2 puffs every 4 (four) hours if needed. diclofenac (Voltaren) 75 mg EC tablet Take 1 tablet by mouth if needed in the morning and at bedtime for pain. etodolac XL (Lodine XL) 600 mg 24 hr tablet famotidine (Pepcid) 20 mg tablet Take 1 tablet by mouth Twice daily at 6am and 6pm. orphenadrine (Norflex) 100 mg 12 hr tablet phentermine (Adipex-P) 37.5 mg tablet TAKE 1 TABLET BY MOUTH IN THE MORNING BEFORE MEALS hydrocortisone 2.5 % ointment APPLY TO LIPS EVERY MORNING NEEDED UP TO 2 WEEKS AT A TIME indomethacin (Indocin) 50 mg capsule Take 1 capsule (50 mg) by mouth if needed in the morning and at bedtime for mild pain (1-3 pain score). Take with food. 60 capsule 2 levothyroxine (Synthroid, Levoxyl) 125 mcg tablet TAKE 1 TABSULE BY MOUTH DAILY loratadine (Claritin) 10 mg tablet 1 (one) time each day at the same time. predniSONE (Deltasone) 10 mg tablet Take 6 tabs for 3 days, 4 tabs x 3 days, 3 tabs x 3 days, 2 tabs x 3 days, 1 tab x 3 day predniSONE (Deltasone) 20 mg tablet sulfamethoxazole-trimethoprim (Bactrim DS) 800-160 mg tablet TAKE 1 TABLET BY MOUTH TWICE A DAY IN THE MORNING AND BEFORE AT BEDTIME FOR 3 DAYS No current facility-administered medications for this visit. List of current healthcare providers: Patient Care Team: Kandy Ortega MD as PCP - General (Family Medicine) Review of Systems: Review of Systems Constitutional: Negative for chills, fatigue and fever. HENT: Negative for mouth sores and trouble swallowing. No dry mouth. Eyes: Negative for pain, redness and visual disturbance. Dry eyes. Respiratory: Negative for cough, shortness of breath and wheezing. Cardiovascular: Negative for chest pain and palpitations. No Raynaud's phenomenon. Gastrointestinal: Negative for abdominal pain, blood in stool, constipation, diarrhea, nausea and vomiting. GERD. Genitourinary: Negative for difficulty urinating, dysuria and hematuria. Musculoskeletal: Negative for arthralgias, back pain, joint swelling, myalgias and neck pain. Sternal pain from costochondritis. Skin: Negative for rash. Nail ridging and brittle. Hair thinning. No malar rash, photosensitivity, psoriasis, other rashes. Neurological: Negative for dizziness, weakness, light-headedness, numbness and headaches. Psychiatric/Behavioral: Negative for dysphoric mood and sleep disturbance. The patient is not nervous/anxious. Objective BP 144/86 (BP Location: Right arm, Patient Position: Sitting, BP Cuff Size: Adult) Pulse 82 Ht 1.727 m (5' 8 ) Wt 116 kg (255 lb) SpO2 96% BMI 38.77 kg/m??? Physical Exam: Physical Exam Constitutional: General: She is not in acute distress. HENT: Head: Normocephalic and atraumatic. Eyes: General: Right eye: No discharge. Left eye: No discharge. Extraocular Movements: Extraocular movements intact. Cardiovascular: Rate and Rhythm: Normal rate and regular rhythm. Heart sounds: Normal heart sounds. No murmur heard. Pulmonary: Effort: Pulmonary effort is normal. No respiratory distress. Breath sounds: Normal breath sounds. Chest: Chest wall: Tenderness present. Musculoskeletal: General: Tenderness present. No swelling or deformity. Right lower leg: No edema. Left lower leg: No edema. Comments: Tenderness to sternum along sternocostal joints. No other tenderness or overt synovitis. Skin: General: Skin is warm and dry. Neurological: General: No focal deficit present. Mental Status: She is alert and oriented to person, place, and time. Psychiatric: Behavior: Behavior is cooperative. Previous Labs/Imaging testing: No results found for: WBC , RBC , HGB , HCT , MCV , RDW , PLT No results found for: NA , K , CL , BUN , CREATININE , EGFR , GLU No results found for: BILITOT , BILIDIR , ALKPHOS , AST , ALT , ALBUMIN , PROT No results found for: HGBA1C , MICROALBCREA No results found for: CHOL , LDL , HDL , TRIG Assessment/Plan Diagnoses and all orders for this visit: Pain in joint, multiple sites - Cyclic citrul peptide antibody, IgG and IgA; Future Elevated rheumatoid factor - Cyclic citrul peptide antibody, IgG and IgA; Future Costochondritis - Ambulatory referral to Physical Therapy; Future - Ambulatory referral to Pain Medicine; Future - indomethacin (Indocin) 50 mg capsule; Take 1 capsule (50 mg) by mouth if needed in the morning and at bedtime for mild pain (1-3 pain score). Take with food. 1. Pain in joint, multiple sites 2. Elevated rheumatoid factor 3. Costochondritis *Manifested by: costochondritis since July 2024 refractory to 2 steroid courses and NSAID. Prior PT course hampered by pain. No other features of inflammatory arthritis like prolonged AM stiffness or joint erythema/swelling/warmth. No other features of autoimmune/CTD. She has history of 1 first trimester miscarriage, but has struggled with infertility. *Positive labs: Positive rheumatoid factor at 17.2 in August 2024. *Negative/normal labs: Negative for AVILA screen with CRP and ESR WNL in August 2024. *Imaging: L knee XR Mar 2024 = moderate to severe degenerative changes in patellofemoral joint No suspicion for RA based on her clinical picture, despite low positive RF. Costochondritis would be very atypical for RA especially considering lack of other features of inflammatory arthritis. We recommend treating costochondritis with different NSAID and PT, and Pain Management for injections. Plan: - Reviewed labs via patient's portal. - Add on CCP to complete work-up. - Discussed unlikely to be RA at this time. - Start Indomethacin 50 mg BID PRN as her NSAID. - Prescribed on 09/08/24. - Supply Physical Therapy referral on 09/08/24. - Refer to Pain Management for injections on 09/08/24. - Return to clinic PRN. There are no discontinued medications. Follow up: Follow up if symptoms worsen or fail to improve. Patient was evaluated and staffed with clinic attending, Dr. Michaels Electronically signed, Estela Bronson MD Rheumatology Fellow, PGY-5 This note was created the assistance of speech recognition technology. While intending to generate a timely document that accurately reflects the content of the visit, no guarantee can be provided that every grammatical or spelling mistake has been or will be identified/corrected. OFFICE VISIT Observed: 09/08/2024 9:00 AM Status: COMPLETED Source: [facility] [id number] Karma Nieto 10/1980 F Date Provider Department [place] 09/08/2024 3554SARAH MALIK [facility] RHEUM Emma Heal Family History Family history unknown: Yes Level of Service:03455 DC OFFICE/OUTPATIENT NEW MODERATE MDM 45 MINUTES (GC) Reason for Visit and Comments: Rheumatoid Arthritis [345] New Patient [632] ORDERS ONLY Observed: 09/08/2024 12:00 AM Status: COMPLETED Source: [facility] [id number] Karma Nieto 10/1980 Date Provider Department [place] 09/08/2024 ERIKA WARD [facility] DERM Emma Heal Family History Family history unknown: Yes 36 Observed: 09/07/2024 10:51 AM Status: COMPLETED Source: [facility] TC to Kandy Ortega MD- PCP ; Unable to LVM; phone number called just disconnects. RN verified number via NCLC search; number is correct. RN faxed a request for recent OVN; labs and diagnostics recently performed. ECHO TRANSTHORACIC COMPLETE Observed: 9:07 AM Status: F Source: [facility] Echocardiology Procedure Exam Date/Time Accession # Ordering Echo Transthoracic 08/26/2024 09:07 EDT [id number] Kandy Ortega MD Complete CPT code 79924 [id number] Reason for Exam (Echo Transthoracic Complete) Chest pain R07.89 Report [facility] [address] [place] [address] Adult Echocardiogram Report Name: KARMA NIETO Study Date: 08/26/2024 08:06 AM BP: 126/92 mmHg Patient Location: [facility] Ambulatory(s) [facility] HR: 84 : 1980 Gender: Female Height: 68 in Age: 43 yrs Ethnicity: [facility] Weight: 240 lb Reason For Study: Chest pain R07.89 BSA: 2.2 m2 History: Tachycardia, new diagnosis of Rheumatoid arthritis Ordering Physician: Nusrat^Kandy^Luzma Referring Physician: Kandy Ortega Performed By: Adia Hanson, [facility] Interpretation Summary This was essentially a normal study. There is Trace mitral regurgitation. The left ventricle is normal in size. Ejection Fraction = 60-65%. Procedure A complete two-dimensional transthoracic echocardiogram was performed (2D, M- mode, spectral and color flow Doppler). Study quality is good. Left Ventricle The left ventricle is normal in size. There is normal left ventricular wall thickness. Ejection Fraction = 60-65%. The left ventricular wall motion is normal. Normal diastolic function. Left Atrium The left atrial size is normal. Right Atrium Echocardiology Report Right atrial size is normal. Right Ventricle The right ventricular systolic function is normal. The right ventricle is normal size. The right ventricular wall motion is normal. Aortic Valve The aortic valve is trileaflet. No aortic regurgitation. There is no aortic stenosis. Mitral Valve The mitral valve is normal in structure and function. There is Trace mitral regurgitation. No mitral valve stenosis. Tricuspid Valve Structurally normal tricuspid valve. There is trace tricuspid regurgitation. Pulmonic Valve There is no pulmonic valve regurgitation. Arteries The aortic root is normal in size. Normal ascending aorta. Pulmonary artery diameter is normal. Venous The inferior vena cava is normal in size, and collapses normally with respiration. Effusion There is no pericardial effusion. MMode/2D Measurements & Calculations RVDd: 3.0 cm LVIDd: 4.7 cm FS: 45.7 % Ao root diam: 3.2 cm IVSd: 1.0 cm LVIDs: 2.5 cm EDV(Teich): 100.8 ml Ao root area: 7.8 cm2 LVPWd: 1.1 cm ESV(Teich): 23.1 ml LA dimension: 3.8 cm EF(Teich): 77.1 % asc Aorta Diam: 2.8 cm LVOT diam: 2.5 cm LVLd ap4: 8.1 cm EDV(MOD-sp2): 99.2 ml LVOT area: 4.8 cm2 EDV(MOD-sp4): 81.0 ml ESV(MOD-sp2): 28.5 ml LVLs ap4: 6.6 cm EF(MOD-sp2): 71.3 % ESV(MOD-sp4): 28.2 ml EF(MOD-sp4): 65.2 % SV(MOD-sp4): 52.8 ml TAPSE: 2.7 cm Ao Sinus of Valsalva: 3.1 cm Ao Sinotubular Junction: 2.6 cm IVC Diam: 1.9 cm RVIDd/LVIDd: 0.63 EF (MOD-bp): 67.6 % LA Vol Index: 19.3 ml/m2 Doppler Measurements & Calculations MV E max senthil: 93.8 cm/sec MV dec time: 0.17 sec Ao V2 max: 141.2 cm/sec LV V1 max P.6 mmHg MV A max senthil: 84.9 cm/sec Ao max P.0 mmHg LV V1 max: 95.4 cm/sec MV E/A: 1.1 Echocardiology Report Lat Peak E' Senthil: 13.2 cm/sec NIKOS(V,D): 3.3 cm2 E/E' Lat: 7.1 Med Peak E' Senthil: 9.2 cm/sec E/E' Med: 10.2 RAP systole: 3.0 mmHg AV VR: 0.68 FINAL REPORT Dictated: 08/26/2024 8:06 am Grabiel Phelps MD Signed (Electronic Signature): 08/27/2024 9:57 am Signed by: Grabiel Phelps MD Transcribed by: [facility] Technologist: [facility] DATE TYPE / CODE NAME / CODE REACTION SEVERITY [facility]/[id number](SNOMED CT) NO KNOWN ALLERGIES [facility] /[id number](SNOM ED CT) No Known Medication Allergies [facility] ENCOUNTERS ADMIT/DISCHARGE ACCOUNT NUMBER ADMITTING ENCOUNTER CLASS LOCATION SOURCE 09/08/2024/09/09/19 [id number] Ambulatory Building:[facility] 08/27/2024/08/28/19 [id number] Ambulatory Building:NO MS NE FM [facility] EPIC 08/26/2024/08/27/19 [id number] Kandy Ortega Ambulatory FTBuildin g:FT CAR [facility] 08/21/2024/08/22/19 [id number] Ambulatory Building:NO MSCIPT [facility] EPIC 08/20/2024/08/21/19 [id number] Ambulatory Building:NO MS NE FM [facility] EPIC 08/19/2024/08/20/19 [id number] Ambulatory Building:NO [facility] EPIC 08/17/2024/08/18/19 25 [id number] Ambulatory Building:NO [facility] EPIC 07/29/2024/07/30/19 [id number] Ambulatory Building:NO MS NE FM [facility] EPIC 05/01/2024/05/01/19 25 [id number] Ambulatory Building:NO MS NE FM [facility] EPIC 04/24/2024/04/24/19 25 [id number] Ambulatory Building:NO MS ORTHO [facility] EPIC 03/26/2024/03/26/20 24 [id number] Ambulatory Building:NO MS ORTHO [facility] EPIC 03/26/2024/03/26/20 24 [id number] Ambulatory Building:NO MS ORTHO [facility] EPIC 01/30/2024/01/30/20 24 [id number] Ambulatory Building:NO MS NE FM [facility] EPIC 12/31/2023/12/31/19 24 [id number] Ambulatory Building:NO MS NE FM [facility] EPIC 11/28/2023/11/28/19 24 [id number] Ambulatory Building:NO MS NE FM [facility] EPIC 10/16/2023/10/16/19 24 [id number] Ambulatory Building:NO MS BCP OB [facility] EPIC PAYERS ENCOUNTER GUARANTOR PAYER SUBSCRIBER SOURCE 09/08/2024 Primary Insurance:[employer] olicy Number: [id number] Date:2022-04-08 KARMA NIELSENB: [id number] [place] [address] [facility] 08/27/2024 KARMA MONTES: [place] [address]Osj: (HP) (WP) Primary Insurance:[employer] olicy Number: [id number] Date:2023-04-08 KARMA NIELSENB: [id number] [place] [address] [facility] EPIC 08/26/2024 KARMA NIELSENB: [place] STTel: (HP) (WP) Primary Insurance:[employer] BenefitsPolicy Number: [id number] Date:[id number] [address]OL: KARMA PEREIRA [facility] 08/21/2024 KARMA NIELSENB: [place] [address]Nev: (HP) (WP) Primary Insurance:[employer] olicy Number: [id number] Date:2023-04-08 KARMA MONTES: [id number] [place] [address] [facility] EPIC 08/20/2024 KARMA NIELSENB: [place] [address]Dcv: (HP) (WP) Primary Insurance:[facility] [facility] Number: [id number] Date:2023-04-08 KARMA J GIAB: [id number] [place] [address] [facility] 08/19/2024 KARMA PLUNKETTTDOB: [place] [id number]: (HP) (WP) [facility] Number: [id number] Date:2023-04-08 KARMA Isak NIELSENB: [id number] [place] [address] [facility] 08/17/2024 KARMA NIELSENB: [place] [id number]: (HP) (WP) Primary Insurance:[facility] Number: [id number] Date:2023-04-08 KARMA J KIARRATDOB: [id number] [place] [address] [facility] 07/29/2024 KARMA PLUNKETTTB: [place] [address]Nvk: (HP) (WP) Primary Insurance:[facility] Number: [id number] Date:2023-04-08 KARMA NIELESNB: [id number] [place] [address] [facility] 05/01/2024 KARMA PLUNKETTTDOB: [place] [address]Fem: (HP) (WP) Primary Insurance:[employer] olicy Number: [id number] Date:2023-04-08 KARMA J KIARRATDOB: [id number] [place] [address] [facility] 04/24/2024 KARMA Parisi MELORETTDOB: [place] [address]Kzw: (HP) (WP) [facility] Number[facility] [id number] Date: 2022-04-07 KARMA J MELORETTDOB: [id number] [place] [address] [facility] 04/24/2024 Secondary Insurance:[employer] olicy Number: [id number] Date:2023-04-08 KARMA J MELORETTDOB: [id number] [place], [facility] [facility] 03/26/2024 KARMA J [place]IARRATDOB: [place] [address]Cew: (HP) (WP) Primary Insurance:[employer] olicy Number: [id number] Date:2023-04-08 KARMA J MELORETTDOB: [id number] [place] [address] [facility] 03/26/2024 KARMA ALEJORETTDOB: [place] [address]Akv: (HP) (WP) Primary Insurance:[employer] olicy Number: [id number] Date:2023-04-08 KARMA NIETODOB: [id number] [place] [address] [facility] 01/30/2024 KARMA J KIARRATDOB: [place] [address]Alb: (HP) (WP) Primary Insurance:[facility] Number: [id number] Date:2023-04-08 KARMA J KIARRATDOB: [id number] [place] [address] [facility] 12/31/2023 KARMA J KIARRATDOB: [place] [address]Ucs: (HP) (WP) Primary Insurance[facility] Number: [id number] Date:2023-04-08 KARMA J EMILIADOB: [id number] [place] [address] [facility] 11/28/2023 KARMA J EMILIADOB: [place] [address]Ske: (HP) (WP) [facility] Number: [id number] Date:2023-04-08 KARMA J KIARRATDOB: [id number] [place] [address] [facility] 10/16/2023 KARMA J [place]IARRATDOB: [place] [address]Slk: (HP) (WP) Primary Insurance:[facility] Number: [id number] Date:2023-04-08 KARMA NIELSENB: [id number] [place] [address] [facility]
--- NOTE | 2024-10-12 14:50 | PM.CN ---
Consult Note: HPI Data of Consult Patient: new to practice Consult date: 10/12/24 Requesting Physician: Yuko Garvey MD Primary Care Provider: LEONARD ORTEGA Consult Narrative Reason for consult: right ankle, right elbow pain Narrative: 44yof who presents for evaluation. initially had made appt for significant chest wall pain, but pain has since resolved. now notes primarily aches throughout her right ankle/foot and right elbow. has had previous right foot surgery. has been diagnosed with right elbow later tendonitis. engages in a series of provider directed home exericses. uses voltaren as needed. cc:: CC: Yuko Garvey MD Review of Systems ROS Status of ROS 10 or more systems reviewed and unremarkable except as noted in history and below [facility] Medical History Dyspareunia Dysmenorrhea �N94.6 - Dysmenorrhea, unspecified (ICD-10) Menorrhagia �N92.0 - Excessive and frequent menstruation with regular cycle (ICD-10) Migraine �G43.909 - Migraine, unspecified, not intractable, without status migrainosus (ICD-10) Postoperative nausea and vomiting �R11.2 - Nausea with vomiting, unspecified (ICD-10) �Z98.890 - Other specified postprocedural states (ICD-10) Abnormal EKG �R94.31 - Abnormal electrocardiogram [ECG] [EKG] (ICD-10) Back pain �M54.9 - Dorsalgia, unspecified (ICD-10) Carpal tunnel syndrome �G56.00 - Carpal tunnel syndrome, unspecified upper limb (ICD-10) Arthritis �M19.90 - Unspecified osteoarthritis, unspecified site (ICD-10) Anemia �D64.9 - Anemia, unspecified (ICD-10) COVID-19 (03/30/23) �U07.1 - COVID-19 (ICD-10) Pneumonia �J18.9 - Pneumonia, unspecified organism (ICD-10) Exercise induced bronchospasm �J45.990 - Exercise induced bronchospasm (ICD-10) Dysfunctional uterine bleeding �N93.8 - Other specified abnormal uterine and vaginal bleeding (ICD-10) Seasonal allergies �J30.2 - Other seasonal allergic rhinitis (ICD-10) Heartburn �R12 - Heartburn (ICD-10) Hypothyroidism �E03.9 - Hypothyroidism, unspecified (ICD-10) Pelvic pain �R10.2 - Pelvic and perineal pain (ICD-10) Irregular periods/menstrual cycles �N92.6 - Irregular menstruation, unspecified (ICD-10) Bicornate uterus �Q51.3 - Bicornate uterus (ICD-10) Surgical History H/O dilation and curettage (05/24/23) �Z98.890 - Other specified postprocedural states (ICD-10) History of wisdom tooth extraction �K08.409 - Partial loss of teeth, unspecified cause, unspecified class (ICD-10) History of carpal tunnel release �Z98.890 - Other specified postprocedural states (ICD-10) History of foot surgery �Z98.890 - Other specified postprocedural states (ICD-10) History of arthroscopy of knee �Z98.890 - Other specified postprocedural states (ICD-10) History of tonsillectomy �Z90.89 - Acquired absence of other organs (ICD-10) History of laparoscopy �Z98.890 - Other specified postprocedural states (ICD-10) Family History Other Family history of colon cancer Family history of diabetes mellitus Family history of hypertension Family history of renal failure Family history of skin cancer Social History Within the past year, how often did you have a drink containing alcohol: 2-4 times a month Smoking status: Never smoker Non-prescribed substance use: denies use Previous occupational history: [employer] Highest level of school completed/degree received: high school graduate Little interest or pleasure in doing things: not at all Feeling down, depressed, or hopeless: not at all Meds Home Medications and Allergies Home Medications �Medication �Instructions �Recorded �Confirmed �Type albuterol sulfate 90 mcg/actuation 2 inh inhalation Q6H PRN shortness 05/13/23 07/25/24 History aerosol inhaler (ProAir HFA) of breath or wheezing levothyroxine 125 mcg capsule 125 mcg PO DAILY 05/13/23 07/25/24 History loratadine 10 mg tablet 10 mg PO DAILY 05/13/23 07/25/24 History diclofenac sodium 75 mg 75 mg PO BID PRN pain #20 tabs 07/25/24 Rx tablet,delayed release famotidine 20 mg tablet (Pepcid) 20 mg PO BID #10 tabs 07/25/24 Rx orphenadrine citrate 100 mg 100 mg PO BID PRN muscle spasm #20 07/25/24 Rx tablet,extended release tabs Allergies Allergy/AdvReac Type Severity Reaction Status Date / Time No Known Drug Allergies Allergy Verified 08/21/23 10:07 Exam Narrative Exam Narrative: Psych-alert and oriented x 3.� Attentive and appropriate, constitutionally normal, displays normal mood and affect per situation.� There are no obvious deficits in memory, reasoning, or intellect. Examination of the right lower extremity reveals tenderness to palpation. Coordination remains intact.� Gait remains non-antalgic. Assessment and Plan Assessment and Plan (1) Chronic pain of right elbow: (2) Right foot pain: Plan 44yof who presents for evaluation. failed conservative measures, as noted. discussed that patient likely had self-resolving costochondritis, given etiology and resolution. discussed that no further interventions necessary from my part for this. in terms of right elbow and right foot pain, will have her undergo right foot and elbow xrs for more info. she is in agreement. meds reviewed, no changes. follow up after imaging.
== END 2024-10-12 13:20 | disposition home or self-care (01) ==
LOC: PM 13:19
PROVIDERS: Visit Provider Anesthesiology
DX: M25.521 Pain in right elbow (principal); M79.671 Pain in right foot
CPT/HCPCS: G0463

== ENCOUNTER 2024-11-02 09:15 | Outpatient (OUT) | payer OTHER, SELFPAY ==
--- OUTSIDE RECORDS SUMMARY | 2024-10-28 15:40 | XMS_ITS | Encounter Summary ---
Author Organization [facility] Address [address] [place] [address] Care Team Providers Care Center Administrator Name Role Phone Kandy Silverio MD Primary Care Provider [phone] Reason for Visit * Reason Comments Follow-up Encounter Details Date Type Department Care Team (Late st Contact Info) Description 10/28/2024 3:40 PM EDT Office Visit [facility] [place] [facility] [address] [place] [address] Kandy Silverio MD [address] [place] [address] Acquired hypothyroidism (Primary Dx); BMI 37.0-37.9, adult; Class 2 severe obesity due to excess calories with serious comorbidity and body mass index (BMI) of 37.0 to 37.9 in adult ([facility]); Routine general medical examination at a health care facility; Screening for diabetes mellitus; Screening for cardiovascular condition Social History Tobacco Use Types Packs/Day Years Used Date Smoking Tobacco: Never Smokeless Tobacco: Never Alcohol Use Standard Drinks/Week Comments Yes 6 (1 standard drink = 0.6 oz pure alcohol) drinks alcohol monthly or less, Caffeine intake: 2-3 cups per day coffee B1300 Health Literacy Answer Date Recor ded How often do you need to hav e someone help you when you read instructions, pamphlets, or other written material from your doctor or pharmacy? Never 01/29/2024 Humiliation, Afraid, Rape, and Kick questionnair e Answer Date Recorded Within the last year, have y ou been afraid of your partner or ex-partner? No 12/19/2022 Within the last year, have y ou been humiliated or emotionally abused in other ways by your partner or ex-partner? No Within the last year, have y ou been kicked, hit, slapped, or otherwise physically hurt by your partner or ex-partner? No 12/19/2022 Within the last year, have y ou been raped or forced to have any kind of sexual activity by your partner or ex-partner? No 12/19/2022 Social Connection and Isolat ion Panel [NHANES] Answer Date Recorded In a typical week, how many times do you talk on the phone with family, friends, or neighbors? More than three times a week 01/29/2024 How often do you get togethe r with friends or relatives? Once a week 01/29/2024 How often do you attend chur or sabianist services? 1 to 4 times per year 01/29/2024 Do you belong to any clubs o r organizations such as sikhism groups, unions, fraternal or athletic groups, or school groups? No 01/29/2024 How often do you attend meet ings of the clubs or organizations you belong to? Patient declined 01/29/2024 Are you , , di vorced, , never , or living with a partner? 01/29/2024 AUDIT-C Answer Date Recorded Q1: How often do you have a drink containing alc ohol? 2-4 times a month 01/29/2024 Q2: How many drinks containi ng alcohol do you have on a typical day when you are drinking? 1 or 2 01/29/2024 Q3: How often do you have si x or more drinks on one occasion? Less than monthly 01/29/2024 Overall Financial Resource Strain (CARDIA) Answe r Date Recorded How hard is it for you to pa y for the very basics like food, housing, medical care, and heating? Not hard at all 01/29/2024 PHQ-2 Answer Date Recorded Patient Health Questionnaire-2 Score 0 07/29/2024 [facility] - Occupational Stress Questionnaire Answer Date Recorded Do you feel stress - tense, restless, nervous, or anxious, or unable to sleep at night because your mind is troubled all the time - these days? Not at all 01/29/2024 Exercise Vital Sign Answer Date Recorde d On average, how many days pe r week do you engage in moderate to strenuous exercise (like a brisk walk)? 2 days 01/29/2024 On average, how many minutes do you engage in exercise at this level? 30 min 01/29/2024 Hunger Vital Sign Answer Date Recorded Within the past 12 months, y ou worried that your food would run out before you got the money to buy more. Never true 01/29/20 24 Within the past 12 months, t he food you bought just didn't last and you didn't have money to get more. Never true 01/29/2024 PRAPARE - Transportation Answer Date Re corded In the past 12 months, has l ack of transportation kept you from medical appointments or from getting medications? No 01/07 In the past 12 months, has l ack of transportation kept you from meetings, work, or from getting things needed for daily living? No 01/29/2024 Housing Stability Vital Sign Answer Marino e Recorded In the last 12 months, was t here a time when you were not able to pay the mortgage or rent on time? No 12/19/2022 In the last 12 months, how many places have you lived? 1 12/19/2022 In the last 12 months, was t here a time when you did not have a steady place to sleep or slept in a skilled nursing (including now)? No 12/19/2022 Housing Stability Vital Sign Answer Marino e Recorded In the last 12 months, was t here a time when you were not able to pay the mortgage or rent on time? No 01/29/2024 In the past 12 months, how m any times have you moved where you were living? 0 01/29/2024 At any time in the past 12 m [facility], were you homeless or living in a skilled nursing (including now)? No 01/29/2024 Comments No Sex and Gender Information Value Date Recorded Sex Assigned at Not on file Legal Sex Female 6:45 PM EDT Gender Identity Not on file Sexual Orientation Not on file documented as of this encounter Last Filed Vital Signs Vital Sign Reading Time Taken Comments Blood Pressure 132/86 10/28/2024 3:49 PM EDT Pulse 89 10/28/2024 3:49 PM EDT Temperature 36.7 C (98 F) 10/28/2024 3:49 PM EDT Respiratory Rate - - Oxygen Saturation 99% 10/28/2024 3:49 PM EDT Inhaled Oxygen Concentration - - Weight 113 kg (248 lb 9.6 oz) 10/28/2024 3:49 PM EDT Height 172.7 cm (5' 8 ) 10/28/2024 3:49 PM EDT Body Mass Index 37.8 10/28/2024 3:49 PM EDT documented in this encounter Progress Notes * Kandy Silverio MD - 10/28/2024 3:40 PM EDT Karma Del Valle is a 44 y.o. female presents with chief complaint of Follow-up HPI: History of Present Illness MEDICATIONS: Current Outpatient Medications Medication Instructions albuterol HFA 90 mcg/act inhaler 2 puffs, Inhalation, Every 4 hours PRN levothyroxine (Synthroid, Levoxyl) 125 MCG tablet TAKE 1 TABSULE BY MOUTH DAILY loratadine (Claritin) 10 MG tablet Every 24 hours phentermine (ADIPEX-P) 37.5 mg, Oral, Daily before breakfast predniSONE (Deltasone) 10 MG tablet Take 6 tabs for 3 days, 4 tabs x 3 days, 3 tabs x 3 days, 2 tabs x 3 days, 1 tab x 3 day ALLERGIES: No Known Allergies Review of Systems Medical, Surgical, Family, and Social History reviewed. OBJECTIVE: Visit Vitals BP 132/86 (BP Location: Right arm, Patient Position: Sitting, BP Cuff Size: Large adult) Pulse 89 Temp 98 ??F (Temporal) Ht 5' 8 Wt 248 lb 9.6 oz LMP 04/22/2023 (Approximate) SpO2 99% BMI 37.80 kg/m?? OB Status Hysterectomy Smoking Status Never BSA 2.33 m?? BP Readings from Last 3 Encounters: 10/28/24 132/86 08/27/24 130/90 08/20/24 120/84 Wt Readings from Last 3 Encounters: 10/28/24 248 lb 9.6 oz 08/27/24 246 lb 9.6 oz 08/20/24 244 lb 9.6 oz Physical Exam Physical Exam Results ASSESSMENT AND PLAN: Assessment & Plan Assessment/Plan Health Maintenance Due Topic Date Due Mammogram 05/15/2024 Influenza Vaccine (1) 12/07/2024 * Kandy Silverio MD - 10/28/2024 3:40 PM EDT Images from the original note were not included. Karma Del Valle is a 44 y.o. female presents with chief complaint of Follow-up HPI: History of Present Illness The patient presents for a wellness visit. She has been back at work for 6 weeks now. She still experiences occasional chest discomfort, but it is not as severe as before. The diagnosis of costochondritis was confirmed. She had a pain management appointment on the , but by then, her condition had improved significantly. Her weight has been gradually decreasing since she stopped taking steroids and returned to work. She was on steroids for 3 weeks. She has been tracking her weight and notes that it had decreased to 237 pounds. She is currently on Adipex. MEDICATIONS: Current Outpatient Medications Medication Instructions albuterol HFA 90 mcg/act inhaler 2 puffs, Inhalation, Every 4 hours PRN levothyroxine (Synthroid, Levoxyl) 125 MCG tablet TAKE 1 TABSULE BY MOUTH DAILY loratadine (Claritin) 10 MG tablet Every 24 hours phentermine (ADIPEX-P) 37.5 mg, Oral, Daily before breakfast ALLERGIES: No Known Allergies Review of Systems Constitutional: Negative for chills and fever. Respiratory: Negative for shortness of breath. Cardiovascular: Negative for chest pain. Gastrointestinal: Negative for diarrhea, nausea and vomiting. Neurological: Negative for headaches. Medical, Surgical, Family, and Social History reviewed. OBJECTIVE: Visit Vitals BP 132/86 (BP Location: Right arm, Patient Position: Sitting, BP Cuff Size: Large adult) Pulse 89 Temp 98 ??F (Temporal) Ht 5' 8 Wt 248 lb 9.6 oz LMP 04/22/2023 (Approximate) SpO2 99% BMI 37.80 kg/m?? OB Status Hysterectomy Smoking Status Never BSA 2.33 m?? BP Readings from Last 3 Encounters: 10/28/24 132/86 08/27/24 130/90 08/20/24 120/84 Wt Readings from Last 3 Encounters: 10/28/24 248 lb 9.6 oz 08/27/24 246 lb 9.6 oz 08/20/24 244 lb 9.6 oz Physical Exam Physical Exam General Appearance: normal appearance, normal weight Vital signs: Within normal limits HEENT: Within normal limits. Conjunctivate normal, ears patent Respiratory: Clear to auscultation, no wheezing, rales or rhonchi. effort normal, lungs clear bilaterally Cardiovascular: regular rate and rhythm, no murmurs, rubs or gallops Gastrointestinal: soft Skin: Warm and dry, no rash. Neurological: alert and oriented Psychiatric: thought content normal Results ASSESSMENT AND PLAN: Assessment & Plan 1. Weight management. - Weight has been gradually decreasing since discontinuing steroids and returning to work. - Current weight is 248 lbs, up from 242 lbs in July. - Adipex prescription will be sent to pharmacy for one more month. - Plan to reassess weight loss in one month and determine if treatment will continue at a 3-month pace. 2. Health maintenance. - Blood pressure is normal. - Thyroid function test will be ordered. - Additional wellness labs including liver, kidneys, electrolytes, fasting sugar, and cholesterol will be ordered. - Patient instructed to fast for 12 hours before these tests, consuming only water, medications, and black coffee. Follow-up: The patient will follow up in 1 month. Assessment/Plan Diagnoses and all orders for this visit: Acquired hypothyroidism - TSH REFLEX TO T4F; Future BMI 37.0-37.9, adult - phentermine (Adipex-P) 37.5 MG tablet; Take 1 tablet (37.5 mg) by mouth in the morning. Take before meals. Class 2 severe obesity due to excess calories with serious comorbidity and body mass index (BMI) of37.0 to 37.9 in adult ([facility]) - phentermine (Adipex-P) 37.5 MG tablet; Take 1 tablet (37.5 mg) by mouth in the morning. Take before meals. Routine general medical examination at a health care facility - TSH REFLEX TO T4F; Future - Comprehensive metabolic panel; Future - Lipid panel; Future Screening for diabetes mellitus - Comprehensive metabolic panel; Future Screening for cardiovascular condition - Lipid panel; Future Health Maintenance Due Topic Date Due Mammogram 05/15/2024 Influenza Vaccine (1) 12/07/2024 documented in this encounter Plan of Treatment Upcoming Encounters Date Type Department Care Team (Late st Contact Info) Description 11/26/2024 3:40 PM EDT Office Visit [facility] [address] [place] [address] Kandy Silverio MD [address] [place] [address] Scheduled Orders Name Type Priority Associated Diagnoses Orde r Schedule TSH REFLEX TO T4F Lab Routine Acquired hypothyroidism Routine general medical examination at a health care facility Expected: 10/28/2024 (Approximate), Expires: 10/28/2025 Comprehensive metabolic panel Lab Routine Routine general medical examination at a health care facility Screening for diabetes mellitus Expected: 10/28/2024 (Approximate), Expires: 10/28/2025 Lipid panel Lab Routine Routine general medical examination at a health care facility Screening for cardiovascular condition Expected: 10/28/2024 (Approximate), Expires: 10/28/2025 documented as of this encounter Visit Diagnoses Diagnosis Acquired hypothyroidism- Primary Unspecified hypothyroidism BMI 37.0-37.9, adult Class 2 severe obesity due to excess calories with serious comorbidity and body mass index (BMI) of 37.0 to 37.9 in adult ([facility]) Routine general medical examination at a health care facility Screening for diabetes mellitus Screening for cardiovascular condition Screening for other and unspecified cardiovascular conditions documented in this encounter Care Teams Center Administrator Relationship Specialty Start Date End Date Kandy Silverio MD [address] [place] [address] PCP - General Family Medicine 08/24/22 documented as of this encounter
--- OUTSIDE RECORDS SUMMARY | 2024-11-02 09:18 | XMS_ITS | Encounter Summary ---
Author Organization [facility] Address [address] [place] [address] Care Team Providers Care Target Developer Name Role Phone Kandy Silverio MD Primary Care Provider [phone] Encounter Details Date Type Department Care Team (Late st Contact Info) Description 09/01/2024 Orders Only [facility] [address] [place] [phone] Danuta Cook MA Elevated rheumatoid factor; Costochondritis Social History Tobacco Use Types Packs/Day Years [...] 01/29/2024 How often do you attend chur ch or sikh services? 1 to 4 times per year 01/29/2024 Do you belong to any clubs o r organizations such as adventist groups, unions, fraternal or athletic groups, or [...] Recorded Patient Health Questionnaire-2 Score 0 07/29/2024 [facility] Occupat ional Health - Occupational Stress Questionnaire Answer [...] place to sleep or slept in a snf (including now)? No 12/19/2022 Housing Stability Vital Sign Answer Marino e Recorded In the last 12 months, was t here a time when you were not able to pay the mortgage or rent on time? No 01/29/2024 In the past 12 months, how m any times have you moved where you were living? 0 01/29/2024 At any time in the past 12 m [place], were you homeless or living in a snf (including now)? No 01/29/2024 Comments No Sex and Gender Information Value Date Recorded Sex Assigned at Not on file Legal Sex Female 6:45 PM EDT Gender Identity Not on file Sexual Orientation Not on file documented as of this encounter Plan of Treatment Upcoming Encounters Date Type Department Care Team (Late st Contact Info) Description 11/26/2024 3:40 PM EDT Office Visit [facility] [address] [place] [address] Kandy Silverio MD [address] [place] [address] documented as of this encounter Visit Diagnoses Diagnosis Elevated rheumatoid factor Other and unspecified nonspecific immunological findings Costochondritis Tietze's disease documented in this encounter Care Teams Target Developer Relationship Specialty Start Date End Date Kandy Silverio MD [address] [place] [address] PCP - General Family Medicine 08/24/22 documented as of this encounter"
--- OUTSIDE RECORDS SUMMARY | 2024-11-02 09:18 | XMS_ITS | Encounter Summary ---
Author Organization [facility] Address [address] [place] [address] Care Team Providers Care Medical I D Sales Name Role Phone Kandy Silverio MD Primary Care Provider [phone] Encounter Details Date Type Department Care Team (Late st Contact Info) Description 08/27/2024 Results Follow-Up [facility] [place] [facility] [address] [place] [address] Kandy Silverio MD [address] [place] [address] Social History Tobacco Use Types Packs/Day Years [...] How often do you attend chur or moravian services? 1 to 4 times per year 01/29/2024 Do you belong to any clubs o r organizations such as congregational groups, unions, fraternal or athletic groups, or [...] Recorded Patient Health Questionnaire-2 Score 0 07/29/2024 [facility] of Occupat ional Health - Occupational [...] place to sleep or slept in a residential (including now)? No 12/19/2022 Housing Stability Vital Sign Answer Marino e Recorded In the last 12 months, was t here a time when you were not able to pay the mortgage or rent on time? No 01/29/2024 In the past 12 months, how m any times have you moved where you were living? 0 01/29/2024 At any time in the past 12 m [facility], were you homeless or living in a residential (including now)? No 01/29/2024 Comments No Sex [...] [facility] [address] [place] [phone] Kandy Silverio MD [address] [place] [address] documented as of this encounter Visit Diagnoses Not on filedocumented in this encounter Care Teams Medical I D Sales Relationship Specialty Start Date End Date Kandy Silverio MD [address] [place] [address] PCP - General Family Medicine 08/24/22 documented as of this encounter
--- OUTSIDE RECORDS SUMMARY | 2024-11-02 09:18 | XMS_ITS | Encounter Summary ---
Author Organization [facility] Address [address] [place] [address] Care Team Providers Care Supply Chain Development Manager Name Role Phone Kandy Silverio MD Primary Care Provider [phone] Encounter Details Date Type Department Care Team (Late st Contact Info) Description 04/27/2024 Abstract [facility] [address] [facility] [place] [phone] Ely Blackman, ANNEL [address] [place], [place] Social History Tobacco Use Types Packs/Day Years [...] How often do you attend chur or yazidi services? 1 to 4 times per year 01/29/2024 Do you belong to any clubs o r organizations such as buddhist groups, unions, fraternal or athletic groups, or [...] and heating? Not hard at all 01/29/2024 [facility] of Occupat ional Health - Occupational Stress [...] place to sleep or slept in a detention (including now)? No 12/19/2022 Housing Stability Vital Sign Answer Marino e Recorded In the last 12 months, was t here a time when you were not able to pay the mortgage or rent on time? No 01/29/2024 In the past 12 months, how m any times have you moved where you were living? 0 01/29/2024 At any time in the past 12 m [facility], were you homeless or living in a detention (including now)? No 01/29/2024 Comments No Sex [...] [facility] [address] [place] [phone] Kandy Silverio MD [address] [place] [address] documented as of this encounter Visit Diagnoses Not on filedocumented in this encounter Care Teams Supply Chain Development Manager Relationship Specialty Start Date End Date Kandy Silverio MD [address] [place] [address] PCP - General Family Medicine 08/24/22 documented as of this encounter
--- OUTSIDE RECORDS SUMMARY | 2024-11-02 09:18 | XMS_ITS | Encounter Summary ---
Author Organization [facility] Address [address] [place] [address] Care Team Providers Care Steam Clothes Press Operator Name Role Phone Kandy Silverio MD Primary Care Provider [phone] Encounter Details Date Type Department Care Team (Late st Contact Info) Description 08/26/2024 Orders Only [facility] [address] [place] [phone] Danuta Cook MA Elevated rheumatoid factor; Costochondritis [...] often do you attend chur ch or baptist services? 1 to 4 times per year 01/29/2024 Do you belong to any clubs o r organizations such as samaritan groups, unions, fraternal or athletic groups, or [...] Recorded Patient Health Questionnaire-2 Score 0 07/29/2024 [facility] Occupat ional Health - Occupational [...] place to sleep or slept in a group home (including now)? No 12/19/2022 Housing Stability Vital [...] were you homeless or living in a group home (including now)? 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
--- OUTSIDE RECORDS SUMMARY | 2024-11-02 09:18 | XMS_ITS | Encounter Summary ---
Author Organization [facility] Address [address] [place] [address] Care Team Providers Care Investment Director Name Role Phone Kandy Silverio MD Primary Care Provider [phone] Encounter Details Date Type Department Care Team (Late st Contact Info) Description 04/16/2024 Abstract [facility] [address] [facility] [place] [phone] Ely Blackman, ANNEL [address] [place], [place] Social History Tobacco Use Types Packs/Day [...] How often do you attend chur or zoroastrianism services? 1 to 4 times per year 01/29/2024 Do you belong to any clubs o r organizations such as mandaeism groups, unions, fraternal or athletic groups, or [...] and heating? Not hard at all 01/29/2024 [facility] of Occupat ional Health - Occupational Stress [...] place to sleep or slept in a retirement (including now)? No 12/19/2022 Housing Stability Vital Sign Answer Marino e Recorded In the last 12 months, was t here a time when you were not able to pay the mortgage or rent on time? No 01/29/2024 In the past 12 months, how m any times have you moved where you were living? 0 01/29/2024 At any time in the past 12 m [facility], were you homeless or living in a retirement (including now)? No 01/29/2024 Comments No Sex [...] [facility] [address] [place] [phone] Kandy Silverio MD [address] [place] [address] documented as of this encounter Visit Diagnoses Not on filedocumented in this encounter Care Teams Investment Director Relationship Specialty Start Date End Date Kandy Silverio MD [address] [place] [address] PCP - General Family Medicine 08/24/22 documented as of this encounter
--- OUTSIDE RECORDS SUMMARY | 2024-11-02 09:18 | XMS_ITS | Encounter Summary ---
Author Organization [facility] Address [address] [place] [address] Care Team Providers Care Scrubber Machine Tender Name Role Phone Kandy Silverio MD Primary Care Provider [phone] Encounter Details Date Type Department Care Team (Late st Contact Info) Description 04/03/2024 Abstract [facility] [address] [facility] [place] [phone] Ely Blackman, ANNEL [address] [place], [place] Social History Tobacco Use Types Packs/Day [...] How often do you attend chur or baptism services? 1 to 4 times per year 01/29/2024 Do you belong to any clubs o r organizations such as adventism groups, unions, fraternal or athletic groups, or [...] and heating? Not hard at all 01/29/2024 [facility] of Occupat ional Health - Occupational [...] place to sleep or slept in a intermediate (including now)? No 12/19/2022 Housing Stability Vital Sign Answer Marino e Recorded In the last 12 months, was t here a time when you were not able to pay the mortgage or rent on time? No 01/29/2024 In the past 12 months, how m any times have you moved where you were living? 0 01/29/2024 At any time in the past 12 m [facility], were you homeless or living in a intermediate (including now)? No 01/29/2024 Comments No Sex [...] [facility] [address] [place] [phone] Kandy Silverio MD [address] [place] [address] documented as of this encounter Visit Diagnoses Not on filedocumented in this encounter Care Teams Scrubber Machine Tender Relationship Specialty Start Date End Date Kandy Silverio MD [address] [place] [address] PCP - General Family Medicine 08/24/22 documented as of this encounter
--- OUTSIDE RECORDS SUMMARY | 2024-11-02 09:18 | XMS_ITS | Encounter Summary ---
Author Organization [facility] Address [address] [place] [address] Care Team Providers Care Mortgage Field Inspector Name Role Phone Leonard Ortega MD Primary Care Provider [phone] Encounter Details Date Type Department Care Team (Late st Contact Info) Description 05/15/2023 Clinisync Result Encounter [facility] External Department Unsolicited Vincent Edmonds, DO [address] [place] [address] Social History Tobacco Use Types Packs/Day Years Used Date Smoking Tobacco: Never Smokeless Tobacco: Never Alcohol Use Standard Drinks/Week Comments Yes 0 (1 standard drink = 0.6 oz pur e alcohol) drinks alcohol monthly or less Humiliation, Afraid, Rape, and Kick questionnair e [...] neighbors? More than three times a week 12/19/2022 How often do you get togethe r with friends or relatives? Once a week 12/19/2022 How often do you attend chur ch or christianity services? Never 12/19/2022 Do you belong to any clubs o r organizations such as jain groups, unions, fraternal or athletic groups, or school groups? No 12/19/2022 How often do you attend meet ings of the clubs or organizations you belong to? Never 12/19/2022 Are you , , di vorced, , never , or living with a partner? 12/19/2022 AUDIT-C Answer Date Recorded Q1: How often do you have a drink containing alc ohol? 2-4 times a month 12/19/2022 Q2: How many drinks containi ng alcohol do you have on a typical day when you are drinking? 3 or 4 12/19/2022 Q3: How often do you have si x or more drinks on one occasion? Less than monthly 12/19/2022 Overall Financial Resource Strain (CARDIA) Answe r Date Recorded How hard is it for you to pa y for the very basics like food, housing, medical care, and heating? Not hard at all 12/19/2022 [facility] of Occupat ional Health - Occupational Stress Questionnaire Answer Date Recorded Do you feel stress - tense, restless, nervous, or anxious, or unable to sleep at night because your mind is troubled all the time - these days? Not at all 12/19/2022 Exercise Vital Sign Answer Date Recorde d On average, how many days pe r week do you engage in moderate to strenuous exercise (like a brisk walk)? 5 days 12/19/2022 On average, how many minutes do you engage in exercise at this level? 30 min 12/19/2022 Hunger Vital Sign Answer Date Recorded Within the past 12 months, y ou worried that your food would run out before you got the money to buy more. Never true 12/20/19 23 Within the past 12 months, t he food you bought just didn't last and you didn't have money to get more. Never true 12/19/2022 PRAPARE - Transportation Answer Date Re corded In the past 12 months, has l ack of transportation kept you from medical appointments or from getting medications? No 12/07 In the past 12 months, has l ack of transportation kept you from meetings, work, or from getting things needed for daily living? No 12/19/2022 Housing Stability Vital Sign Answer [...] in a retirement (including now)? No 12/19/2022 Comments No Sex and Gender Information Value [...] [facility] [address] [place] [address] Leonard Ortega MD [address] [place] [address] documented as of this encounter Procedures Procedure Name Priority Date/Time Associated Diagnosis Comments MM TOMOSYNTHESIS SCREENING BI 05/15/2023 7:24 AM EST documented in this encounter Results * MM TOMOSYNTHESIS SCREENING BI (05/15/2023 7:24 AM EST) Anatomical Region Laterality Modality Other 05/15/2023 7:24 AM EST Narrative 05/15/2023 7:25 AM EST The [address] [address] Mammography Report Signed Patient: KARMA NIETO MR#: [id number] : 1980 Acct:[id number] Age/Sex: 42 / F ADM Date: 05/14/23 Loc: US Attending Dr: Vincent Edmonds D.O. Ordering Physician: Vincent Edmonds D.O. Results: Date of Service: 05/14/23 Follow Up: Procedure(s): MM tomosynthesis screening BI Accession Number(s): [id number] cc: Vincent Edmonds D.O.; LEONARD ORTEGA Patient Name: KAMRA NIETO MR#: [id number] : 1980 Exam Date: 05/14/2023 Ordering Doctor: DR Vincent Edmonds . RADIOLOGY REPORT PROCEDURE: MM TOMOSYNTHESIS SCREENING BI COMPARISON: MG MAMM SCREEN 3D RONEN CAD, 04/03/2022. INDICATIONS: screening Calculator Name NCI Breast Cancer Risk Assessment Tool 5 Year Breast Cancer Risk 0.70% Lifetime Breast Cancer Risk 11.00% Personal Breast Cancer No Personal Ovarian Cancer No Treatments None Family Cancers None LOCATION: [facility] BREAST COMPOSITION: Extremely dense, which lowers the sensitivity of mammography. FINDINGS: DIAGNOSTIC CATEGORY 1--NEGATIVE. NO CHANGE FROM COMPARISON ASSESSMENT. Scattered benign-appearing lymph nodes are present. RIGHT BREAST: No significant suspicious finding. LEFT BREAST: No significant suspicious finding. RECOMMENDATIONS: ROUTINE MAMMOGRAM AND CLINICAL EVALUATION IN 12 MONTHS. PLEASE NOTE: A NORMAL MAMMOGRAM DOES NOT EXCLUDE THE POSSIBILITY OF BREAST CANCER. A CLINICALLY SUSPICIOUS PALPABLE LUMP SHOULD BE BIOPSIED. Dictated by: Felix Simon MD on 05/15/2023 at 07:23 Approved by: Felix Simon MD on 05/15/2023 at 07:24 Dictated By: Felix Simon M.D. Signed By: 05/15/23724 DD/ 3 TD/TT: Clinical Sales Consultant: Procedure Note Radiology, Radiologist, MD - 05/15/2023 [place] [address] Mammography Report Signed Patient: KARMA NIETO JMR#: [id number] : 1980Acct:[id number] Age/Sex: 42 / FADM Date: 05/14/23 Loc: US Attending Dr: Vincent Edmonds D.O. Ordering Physician: Vincent Edmonds D.O.Results: Date of Service: 05/14/23Follow Up: Procedure(s): MM tomosynthesis screening BI Accession Number(s): [id number] cc: Vincent Edmonds D.O.; LEONARD ORTEGA Patient Name: KARMA NIETO MR#: [id number] : 1980 Exam Date: 05/14/2023 Ordering Doctor: DR Vincent Edmonds . RADIOLOGY REPORT PROCEDURE: MM TOMOSYNTHESIS SCREENING BI COMPARISON: MG MAMM SCREEN 3D RONEN CAD, 04/03/2022. INDICATIONS: screening Calculator Name NCI Breast Cancer Risk Assessment Tool 5 Year Breast Cancer Risk 0.70% Lifetime Breast Cancer Risk 11.00% Personal Breast Cancer No Personal Ovarian Cancer No Treatments None Family Cancers None LOCATION: [facility] BREAST COMPOSITION: Extremely dense, which lowers the sensitivity of mammography. FINDINGS: DIAGNOSTIC CATEGORY 1--NEGATIVE. NO CHANGE FROM COMPARISON ASSESSMENT. Scattered benign-appearing lymph nodes are present. RIGHT BREAST: No significant suspicious finding. LEFT BREAST: No significant suspicious finding. RECOMMENDATIONS: ROUTINE MAMMOGRAM AND CLINICAL EVALUATION IN 12 MONTHS. PLEASE NOTE: A NORMAL MAMMOGRAM DOES NOT EXCLUDE THE POSSIBILITY OFBREAST CANCER. A CLINICALLY SUSPICIOUS PALPABLE LUMP SHOULD BE BIOPSIED. Dictated by: Felix Simon MD on 05/15/2023 at 07:23 Approved by: Felix Simon MD on 05/15/2023 at 07:24 Dictated By: Felix Simon M.D. Signed By:05/15/23724 DD/ 3 TD/TT: Clinical Sales Consultant: Vincent Edmonds DO [facility] Final Result documented in this encounter Visit Diagnoses Not on filedocumented in this encounter Care Teams Mortgage Field Inspector Relationship Specialty Start Date End Date Leonard Ortega MD [address] [place] [address] PCP - General Family Medicine 08/24/22 documented as of this encounter
--- OUTSIDE RECORDS SUMMARY | 2024-11-02 09:18 | XMS_ITS | Encounter Summary ---
Author Organization [facility] Address [address] [place] [address] Care Team Providers Care Industrial Servicer Name Role Phone Kandy Silverio MD Primary Care Provider [phone] Encounter Details Date Type Department Care Team (Late st Contact Info) Description 10/28/2024 Bamboo flowsheet [facility] [address] [place] [address] Kandy Silverio MD [address] [place] [address] Social History Tobacco Use Types Packs/Day Years [...] How often do you attend chur or congregation services? 1 to 4 times per year 01/29/2024 Do you belong to any clubs o r organizations such as mormon groups, unions, fraternal or athletic groups, or [...] Recorded Patient Health Questionnaire-2 Score 0 07/29/2024 [facility] of Occupat ional Health - Occupational Stress [...] place to sleep or slept in a halfway (including now)? No 12/19/2022 Housing Stability Vital Sign Answer Marino e Recorded In the last 12 months, was t here a time when you were not able to pay the mortgage or rent on time? No 01/29/2024 In the past 12 months, how m any times have you moved where you were living? 0 01/29/2024 At any time in the past 12 m [facility], were you homeless or living in a halfway (including now)? No 01/29/2024 Comments No Sex [...] [facility] [address] [place] [phone] Kandy Silverio MD [address] [place] [address] documented as of this encounter Visit Diagnoses Not on filedocumented in this encounter Care Teams Industrial Servicer Relationship Specialty Start Date End Date Kandy Silverio MD [address] [place] [address] PCP - General Family Medicine 08/24/22 documented as of this encounter
--- OUTSIDE RECORDS SUMMARY | 2024-11-02 09:18 | XMS_ITS | Encounter Summary ---
Author Organization [facility] Address [address] [place] [address] Care Team Providers Care Spooler Operator Name Role Phone Kandy Silverio MD Primary Care Provider [phone] Encounter Details Date Type Department Care Team (Latest Contact Info) Description 10/28/2024 Travel Social History Tobacco Use Types Packs/Day Years [...] often do you attend chur ch or uatsdin services? 1 to 4 times per year 01/29/2024 Do you belong to any clubs o r organizations such as evangelical groups, unions, fraternal or athletic groups, or [...] Recorded Patient Health Questionnaire-2 Score 0 07/29/2024 [facility]ational Stress Questionnaire Answer [...] [facility] [address] [place] [address] Kandy Silverio MD [address] [place] [address] documented as of this encounter Visit Diagnoses Not on filedocumented in this encounter Care Teams Spooler Operator Relationship Specialty Start Date End Date Kandy Silverio MD [address] [place] [address] PCP - General Family Medicine 08/24/22 documented as of this encounter
--- OUTSIDE RECORDS SUMMARY | 2024-11-02 09:18 | XMS_ITS | Encounter Summary ---
Author Organization [facility] Address [address] [place] [address] Care Team Providers Care Joint Finisher Name Role Phone Kandy Silverio MD Primary Care Provider [phone] Encounter Details Date Type Department Care Team (Late st Contact Info) Description 12/27/2022 Abstract [facility] [address] [place] [address] Kandy Silverio MD [address] [place] [address] Social History Tobacco Use Types Packs/Day Years [...] often do you attend chur ch or denominational services? Never 12/19/2022 Do you belong to any clubs o r organizations such as jew groups, unions, fraternal or athletic groups, or [...] and heating? Not hard at all 12/19/2022 [facility] of Occupat ional Health - Occupational Stress [...] place to sleep or slept in a assisted (including now)? No 12/19/2022 Comments Unknown Sex and Gender Information Value Date Recorded Sex Assigned at Not on file Legal Sex Female 6:45 PM EDT Gender Identity Not on file Sexual Orientation Not on file COVID-19 Exposure Response Date Recorded In the last 10 days, have yo u been in contact with someone who was confirmed or suspected to have Coronavirus/COVID-19? No / Unsure 12/19/2022 5:38 PM EDT documented as of this encounter Plan of Treatment Upcoming Encounters Date Type Department Care Team (Late st Contact Info) Description 11/26/2024 3:40 PM EDT Office Visit [facility] [address] [place] [address] Kandy Silverio MD [address] [place] [address] documented as of this encounter Visit Diagnoses Not on filedocumented in this encounter Care Teams Joint Finisher Relationship Specialty Start Date End Date Kandy Silverio MD [address] [place] [address] PCP - General Family Medicine 08/24/22 documented as of this encounter
--- OUTSIDE RECORDS SUMMARY | 2024-11-02 09:18 | XMS_ITS | Encounter Summary ---
Author Organization [facility] Address [address] [place] [address] Care Team Providers Care Wireless Development Manager Name Role Phone Kandy Silverio MD Primary Care Provider [phone] Reason for Referral * Consultation (Routine) - Authorized Specialty Diagnoses / Procedures Referred By Contcain t Referred To Contact Rheumatology Diagnoses Elevated rheumatoid factor Costochondritis Procedures NM OFFICE/OUTPATIENT NEW HIGH MDM 60 MINUTES Kandy Silverio MD [address] [place] [address] Phone: tel: fax: Luis Felipe Hines MD [address] [facility] Professional building [address] [place] [phone] Phone: tel: fax: Referral ID Status Reason Start Date Expiration Date Visits Requested Visits Authorized [id number] Authorized Specialty Services Required 08/21/2024 02/17/2025 1 1 Encounter Details Date Type Department Care Team (Late st Contact Info) Description 08/21/2024 Results Follow-Up [facility] [address] [place] [address] Kandy Silverio MD [address] [place] [id number] Elevated rheumatoid factor (Primary Dx); Costochondritis Social History Tobacco Use Types Packs/Day [...] any clubs o r organizations such as sabianist groups, unions, fraternal or athletic groups, or [...] Recorded Patient Health Questionnaire-2 Score 0 07/29/2024 [facility] - [facility]ational [facility] Questionnaire Answer Date [...] in the past 12 m [facility], were you homeless or living in a skilled nursing (including now)? No 01/29/2024 Comments No Sex and Gender Information Value Date Recorded Sex Assigned at Not on file Legal Sex Female 6:45 PM EDT Gender Identity Not on file Sexual Orientation Not on file documented as of this encounter Miscellaneous Notes * Result Encounter Note - Kandy Silverio MD - 08/21/2024 1:07 PM EDT Continue with PT * Telephone Encounter - Kandy Silverio MD - 08/21/2024 11:21 AM EDT Patient tested positive for rheumatoid arthritis Want to do even higher dose steroids and a referral to a core winding operator to see if we can get relief I want to still get the echocardiogram as well documented in this encounter Plan of Treatment Upcoming Encounters Date Type Department Care Team (Late st Contact Info) Description 11/26/2024 3:40 PM EDT Office Visit [facility] [address] [place] [address] Kandy Silverio MD [address] [place] [address] Scheduled Referrals Name Type Priority Associated Diagnoses Order Schedule Ambulatory referral to Rheumatology Outpatient Referral Routine Elevated rheumatoid factor Costochondritis Expected: 08/21/2024 (Approximate), Expires: 02/21/2025 documented as of this encounter Visit Diagnoses Diagnosis Elevated rheumatoid factor- Primary Other and unspecified nonspecific immunological findings Costochondritis Tietze's disease documented in this encounter Care Teams Wireless Development Manager Relationship Specialty Start Date End Date Kandy Silverio MD [address] [place] [address] PCP - General Family Medicine 08/24/22 documented as of this encounter
--- OUTSIDE RECORDS SUMMARY | 2024-11-02 09:18 | XMS_ITS | Clinical Summary ---
Author Organization [facility] Address [address] [place] [address] Care Team Providers Care Supervisor Engraving Name Role Phone Kandy Ortega MD Primary Care Provider [phone] Allergies No known active allergies Medications loratadine (Claritin) 10 MG tablet 1 (one) time each day at the same time. Active albuterol HFA 90 mcg/act inhalerIndicatio ns:Exercise induced bronchospasm (HCC) Inhale 2 puffs every 4 (four) hours if needed for wheezing or shortness of breath. 18 g 11 3 Active levothyroxine (Synthroid, Levoxyl) 125 MCG tabletIndication s:Hypothyroidism , unspecified type TAKE 1 TABSULE BY MOUTH DAILY 90 tablet 5 Active phentermine (Adipex-P) 37.5 MG tabletIndication s:BMI 37.0-37.9, adult,Class 2 severe obesity due to excess calories with serious comorbidity and body mass index (BMI) of 37.0 to 37.9 in adult ([facility]) Take 1 tablet (37.5 mg) by mouth in the morning. Take before meals. 30 tablet 5 Active predniSONE (Deltasone) 10 MG tabletIndication s:Elevated rheumatoid factor,Costochon dritis Take 6 tabs for 3 days, 4 tabs x 3 days, 3 tabs x 3 days, 2 tabs x 3 days, 1 tab x 3 day 48 tablet 5 10/29/19 25 Discontin ued(Thera py completed ) phentermine (Adipex-P) 37.5 MG tabletIndication s:BMI 39.0-39.9,adult, Class 2 severe obesity due to excess calories with serious comorbidity and body mass index (BMI) of 39.0 to 39.9 in adult ([facility]) TAKE 1 TABLET (37.5 MG) BY MOUTH IN THE MORNING. TAKE BEFORE MEALS. 30 tablet 1 5 10/29/19 25 Discontin ued(Reord er) Active Problems Problem Noted Date Diagnosed Date Hypothyroidism 12/04/2023 Exercise induced bronchospasm 12/20/2022 Dysfunctional uterine bleeding 12/20/2022 Need for influenza vaccination 12/20/2022 Iron deficiency anemia 12/20/2022 Resolved Problems Problem Noted Date Diagnosed Date Resolved Date Lipid screening 12/20/2022 05/01/2024 Preventative health care 12/20/2022 Assessment & Plan (12/25/2022 2:40 PM EDT): Patient will return for fasting blood work Will call with results Encounters Date Type Department Care Team Description 10/28/2024 3:40 PM EDT Office Visit [facility] [address] [place] [phone] Kandy Ortega MD Acquired hypothyroidism (Primary Dx); BMI 37.0-37.9, adult; Class 2 severe obesity due to excess calories with serious comorbidity and body mass index (BMI) of 37.0 to 37.9 in adult ([facility]); Routine general medical examination at a health care facility; Screening for diabetes mellitus; Screening for cardiovascular condition 10/28/2024 Bamboo flowsheet [facility] [address] [place] [address] Kandy Ortega MD 10/28/2024 Travel 09/19/2024 Refill [facility] [address] [place] [address] Kandy Ortega MD BMI 39.0-39.9,adult; Class 2 severe obesity due to excess calories with serious comorbidity and body mass index (BMI) of 39.0 to 39.9 in adult ([facility]) 09/08/2024 Telephone [facility] [address] [place] [address] Danuta Cook MA Care Coordination 09/01/2024 [facility] [address] [place] [address] Danuta Cook MA Elevated rheumatoid factor; Costochondritis 09/01/2024 Telephone [facility] [place] [address] [place] [address] Rivero Cathleen Referral 08/27/2024 1:20 PM EDT [facility] [address] [place] [address] Kandy Ortega MD Elevated rheumatoid factor (Primary Dx); Costochondritis 08/27/2024 Travel 08/27/2024 Results Follow-Up [facility] [place] [address] [place] [address] Kandy Ortega MD 08/26/2024 Clinisync Result Encounter [facility] External Department Unsolicited Kandy Ortega MD 08/26/2024 Orders Only [facility] [address] [place] [address] Danuta Cook MA Elevated rheumatoid factor; Costochondritis 08/25/2024 [facility]phone [facility] [address] [place] [address] Danuta Cook MA Care Coordination 08/21/2024 1:00 PM EDT Treatment [facility] [address] [place] [address] Jordan Baca PTA Costochondritis (Primary Dx) 08/21/2024 Telephone [facility] [place] [address] [place] [address] Danuta Cook MA Letter for School/Work 08/21/2024 Travel 08/21/2024 [facility] [address] [place] [phone] Kandy Ortega MD Elevated rheumatoid factor (Primary Dx); Costochondritis 08/20/2024 2:20 PM EDT Office Visit [facility] [place] [address] [place] [address] Kandy Ortega MD Chest pain, musculoskeletal (Primary Dx) 08/20/2024 Refill [facility] [place] [address] [place] [address] Danuta Cook MA Chest pain, musculoskeletal (Primary Dx) 08/20/2024 Telephone [facility] [address] [place] [address] Kandy Ortega MD Care Coordination 08/20/2024 Bamboo flowsheet [place] [address] [place] [address] Kandy Ortega MD 08/20/2024 Travel 08/19/2024 1:30 PM EDT Treatment [facility] [address] [place] [address] Jordan Baca, ANNY Costochondritis (Primary Dx) 08/19/2024 Bamboo flowsheet [facility] [address] [place] [address] Jordan Baca PTA 08/19/2024 Travel 08/18/2024 Plan of Care Documentation [facility] [address] [place] [address] 08/17/2024 3:30 PM EDT Evaluation [facility] [address] [place] [address] Cyril Reilly, PT Costochondritis (Primary Dx) 08/17/2024 Bamboo flowsheet [facility] [address] [place] [address] Cyril Reilly, PT 08/17/2024 Travel 08/12/2024 Orders Only [facility] [address] [place] [address] Danuta Cook MA Chest pain, musculoskeletal 08/11/2024 Telephone [facility] [address] [place] [address] Kandy Ortega MD from Last 3 Months Immunizations Immunization Administration Dates Next Due Influenza, injectable, MDCK, preservative free, quadrivalent 02/04/2017 Influenza, injectable, quadrivalent 12/20/2022,0 01/05/2019 Influenza, injectable, quadrivalent, preservativ e free 01/15/2022,01/31/2020 Influenza, seasonal, injectable, preservative fr ee 01/24/2015 SARS-COV-2 (COVID-19) vaccin e, mRNA, spike protein, LNP, bivalent, preservative free, 30 mcg/0.3 mL dose, luis-sucrose formulation 01/15/2022 Tdap 03/10/2022 Family History Medical History Relation Name Comments Cancer Father Paul Jones Diabetes Father Paul Jones Heart disease Father Paul Jones Hypertension Father Paul Solerx Cancer Maternal Grandfather Padilla Villalta Relation Name Status Comments Father Paul Jones Alive Maternal Grandfather Padilla Villalta Mother Alive Social History Tobacco Use Types Packs/Day Years Used Date Smoking Tobacco: Never Smokeless Tobacco: Never Tobacco Cessation:Counseling Given: Not Answered Alcohol Use Standard Drinks/Week Comments Yes 6 [...] How often do you attend chur or protestant services? 1 to 4 times per year [...] Recorded Patient Health Questionnaire-2 Score 0 07/29/2024 [facility] - Occupational Stress [...] place to sleep or slept in a [place] health care facility (including now)? No 12/19/2022 Housing Stability Vital Sign Answer Marino e Recorded In the last 12 months, was t here a time when you were not able to pay the mortgage or rent on time? No 01/29/2024 In the past 12 months, how m any times have you moved where you were living? 0 01/29/2024 At any time in the past 12 m [facility], were you homeless or living in a [place] health care facility (including now)? No 01/29/2024 Comments No Sex and Gender Information Value Date Recorded Sex Assigned at Not on file Legal Sex Female 6:45 PM EDT Gender Identity Not on file Sexual Orientation Not on file Last Filed Vital Signs Vital Sign Reading [...] Mass Index 37.8 10/28/2024 3:49 PM EDT Plan of Treatment Upcoming Encounters Date Type Department Care Team (Late st Contact Info) Description 11/26/2024 3:40 PM EDT Office Visit [facility] [address] [place] [address] Kandy Ortega MD [address] [place] [address] Health Maintenance Due Date Last Done Comments Mammogram 05/15/2024 05/15/2023, 04/03/2022 Influenza Vaccine (#1) 2024 , 12/20/2022, 01/15/2022, Additional history exists Cervical Cancer Screening Discontinued Pap Smear Discontinued 03/27/2023 HPV/Cotest Discontinued Procedures Procedure Name Priority Date/Time Associated Diagnosis Comments ECHO TRANSTHORACIC COMPLETE 08/26/2024 9:07 AM EDT RHEUMATOID FACTOR Routine 08/20/2024 2:4 2 PM EDT Chest pain, musculoskeletal AVILA SCREEN, QUAL, REFLEX Routine 08/20/2024 2:42 PM EDT Chest pain, musculoskeletal SED RATE BY MODIFIED WESTERGREN Routine 08/20/2024 2:42 PM EDT Chest pain, musculoskeletal C-REACTIVE PROTEIN Routine 08/20/2024 2: 42 PM EDT Chest pain, musculoskeletal MM TOMOSYNTHESIS SCREENING BI 05/15/2023 7:24 AM EST PAP SMEAR Routine 03/27/2023 12:00 AM EST from Last 3 Months or Most Recently Relevant to Health Maintenance Results * ECHO TRANSTHORACIC COMPLETE (08/26/2024 9:07 AM EDT) Anatomical Region Laterality Modality Other 08/26/2024 9:07 AM EDT Narrative 08/27/2024 9:57 AM EDT Echocardiology Procedure Exam Date/Time Accession # Ordering Echo Transthoracic 08/26/2024 09:07 EDT [id number] Kandy Ortega MD Complete CPT code 71837 36398 Reason for Exam (Echo Transthoracic Complete) Chest pain R07.89 Report [facility] [address] [place] [address] Adult Echocardiogram Report Name: RUIZ NIETO Study Date: 08/26/2024 08:06 AM BP: 126/92 mmHg Patient Location: [facility] Ambulatory(s) [facility] HR: 84 : 1980 Gender: Female Height: 68 in Age: 43 yrs Ethnicity: [facility] Weight: 240 lb Reason For Study: Chest pain R07.89 BSA: 2.2 m2 History: Tachycardia, new diagnosis of Rheumatoid arthritis Ordering Physician: Naye\Kandy\Liana\Luzma Referring Physician: Kandy Ortega Performed By: Adia Hanson [facility] Interpretation Summary This was essentially [...] There is no pericardial effusion. MMode/2D Measurements \T\ Calculations RVDd: 3.0 cm LVIDd: 4.7 cm [...] LA Vol Index: 19.3 ml/m2 Doppler Measurements \T\ Calculations MV E max senthil: 93.8 cm/sec [...] 0.68 FINAL REPORT Dictated: 08/26/2024 8:06 am Mattie TUTTLEGrabiel Signed (Electronic Signature): 08/27/2024 9:57 am Signed by: Grabiel Phelps MD Transcribed by: [facility] Technologist: OPAL Procedure Note Radiology, Radiologist, - 08/27/2024 Echocardiology Procedure Exam Date/Time Accession #Ordering Echo Transthoracic 08/26/2024 09:07 EDT [id number] Ortega MD Complete CPT code [id number] Reason for Exam (Echo Transthoracic Complete) Chest pain R07.89 Report [facility] [address] [facility] [place], [id number] Adult EchocardiogramReport Name: RUIZ NIETO Study Date: 08/26/2024 08:06 AM BP: 126/92 mmHg [facility] HR: 84 : 1980 Gender: Female Height: 68 in Age: 43 yrs Ethnicity: T Weight: 240 lb Reason For Study: Chest pain R07.89 BSA: 2.2 m2 History: Tachycardia, new diagnosis of Rheumatoid arthritis Ordering Physician: Naye\Kandy\S\M Referring Physician: Kandy Ortega Performed By: Adia Hanson [facility] Interpretation Summary This was essentially a normal study. There is Trace mitralregurgitation. The left ventricle is normal in size. Ejection Fraction = 60-65%. Procedure A complete two-dimensional transthoracic echocardiogram was performed (2D,M- mode, spectral and color flow Doppler). Study quality is good. Left Ventricle The left ventricle is normal in size. There is normal left ventricularwall thickness. Ejection Fraction = 60-65%. The left ventricular wall motion is normal. Normal diastolic function. Left Atrium The left atrial size is normal. Right Atrium Echocardiology Report Right atrial size is normal. Right Ventricle The right ventricular systolic function is normal. The right ventricle isnormal size. The right ventricular wall motion is normal. Aortic Valve The aortic valve is trileaflet. No aortic regurgitation. There is noaortic stenosis. Mitral Valve The mitral valve is normal in structure and function. There is Tracemitral regurgitation. No mitral valve stenosis. Tricuspid Valve Structurally normal tricuspid valve. There is trace tricuspidregurgitation. Pulmonic Valve There is no pulmonic valve regurgitation. Arteries The aortic root is normal in size. Normal ascending aorta. Pulmonaryartery diameter is normal. Venous The inferior vena cava is normal in size, and collapses normally withrespiration. Effusion There is no pericardial effusion. MMode/2D Measurements \T\ Calculations RVDd: 3.0 cm LVIDd: 4.7 cm FS: 45.7 %Ao root diam: 3.2 cm IVSd: 1.0 cm LVIDs: 2.5 cm EDV(Teich): 100.8 mlAo root area: 7.8 cm2 LVPWd: 1.1 cm ESV(Teich): 23.1 mlLA dimension: 3.8 cm EF(Teich): 77.1 % asc Aorta Diam: 2.8 cm LVOT diam: 2.5 cm LVLd ap4: 8.1 cmEDV(MOD-sp2): 99.2 ml LVOT area: 4.8 cm2 EDV(MOD-sp4): 81.0 mlESV(MOD-sp2): 28.5 ml LVLs ap4: 6.6 cmEF(MOD-sp2): 71.3 % ESV(MOD-sp4): 28.2 ml EF(MOD-sp4): 65.2 % SV(MOD-sp4): 52.8 ml TAPSE: 2.7 cm Ao Sinus of Valsalva: 3.1cm Ao Sinotubular Junction: 2.6 cm IVC Diam: 1.9 cm RVIDd/LVIDd: 0.63 EF (MOD-bp): 67.6 %LA Vol Index: 19.3 ml/m2 Doppler Measurements \T\ Calculations MV E max senthil: 93.8 cm/sec MV dec time: 0.17 sec Ao V2 max:141.2 cm/sec LV V1 max P.6 mmHg MV A max senthil: 84.9 cm/sec Ao max P.0 mmHg LV V1 max: 95.4 cm/sec MV E/A: 1.1 Echocardiology Report Lat Peak E' Senthil: 13.2 cm/sec NIKOS(V,D):3.3 cm2 E/E' Lat: 7.1 Med Peak E' Senthil: 9.2 cm/sec E/E' Med: 10.2 RAP systole: 3.0 mmHg AV VR: 0.68 FINAL REPORT Dictated: 08/26/2024 8:06 am Grabiel Phelps MD Signed (Electronic Signature): 08/27/2024 9:57 am Signed by: Grabiel Phelps MD Transcribed by: [facility] Technologist: OPAL Result [facility] Kandy Ortega MD [facility] Final Resul t * Avila screen, qual, reflex (08/20/2024 2:42 PM EDT) [facility] AVILA DIRECT Negative Negative [facility] Blood Venous blood specimen / Unknown 08/20/2024 2:42 PM EDT 08/20/2024 Narrative [facility] - 08/21/2024 11:07 AM EDT Performed at: [address] [place] [id number] Data Processing Supervisor: Joey Humphrey PhD, Phone: [employer] Result [facility] Kandy Ortega MD LAB BLOOD ORDERABLES Final Re sult Performing Organization Address [facility] de Phone Number [facility] * Sedimentation rate, automated (08/20/2024 2:42 PM EDT) [facility] Sed Rate-Westergren 2 0 - 32 mm/hr [facility] Blood Venous blood specimen / Unknown 08/20/2024 2:42 PM EDT 08/20/2024 Narrative [facility] - 08/21/2024 11:07 AM EDT Performed at: [address] [place] [id number] Data Processing Supervisor: Joey Humphrey PhD, Phone: [phone] Result [facility] Kandy Ortega MD LAB BLOOD ORDERABLES Final Re sult Performing Organization Address [facility] de Phone Number [facility] * (ABNORMAL) Rheumatoid factor (08/20/2024 2:42 PM EDT) [facility] RHEUMATOID FACTOR 17.2(H) <14.0 IU/mL [facility] Blood Venous blood specimen / Unknown 08/20/2024 2:42 PM EDT 08/20/2024 Narrative [facility] - 08/21/2024 11:07 AM EDT Performed at: [facility] [id number] Data Processing Supervisor: Joey Humphrey PhD, Phone: [phone] us Kandy Ortega MD LAB BLOOD ORDERABLES Final Re sult Performing Organization Address City/[facility] Co de Phone Number [facility] * C-reactive protein (08/20/2024 2:42 PM EDT) [facility] C-Reactive Protein Quant 2 0 - 10 mg/L [facility] Blood Venous blood specimen / Unknown 08/20/2024 2:42 PM EDT 08/20/2024 Narrative [facility] - 08/21/2024 11:07 AM EDT Performed at: [facility] [id number] Data Processing Supervisor: Joey Humphrey PhD, Phone: [phone] us Kandy Ortega MD LAB BLOOD ORDERABLES Final Re sult Performing Organization Address [facility] Co de Phone Number [facility] * MM TOMOSYNTHESIS SCREENING BI (05/15/2023 7:24 AM EST) Anatomical Region Laterality Modality Other 05/15/2023 7:24 AM EST Narrative 05/15/2023 7:25 [place] [address] Mammography Report Signed Patient: RUIZ NIETO MR#: [id number] : 1980 Acct:[id number] Age/Sex: 42 / F ADM Date: 05/14/23 Loc: US Attending Dr: Vincent Edmonds D.O. Ordering Physician: Vincent Edmonds D.O. Results: Date of Service: 05/14/23 Follow Up: Procedure(s): MM tomosynthesis screening BI Accession Number(s): [id number] cc: Vincent Edmonds D.O.; KANDY ORTEGA Patient Name: RUIZ NIETO MR#: [id number] : 1980 Exam Date: 05/14/2023 Ordering Doctor: DR Vincent Edmonds . RADIOLOGY REPORT PROCEDURE: MM TOMOSYNTHESIS SCREENING BI COMPARISON: MG MAMM SCREEN 3D RONEN CAD, 04/03/2022. INDICATIONS: screening Calculator Name NCI Breast Cancer Risk Assessment Tool 5 Year Breast Cancer Risk 0.70% Lifetime Breast Cancer Risk 11.00% Personal Breast Cancer No Personal Ovarian Cancer No Treatments None Family Cancers None LOCATION: [facility] BREAST COMPOSITION: Extremely dense, which lowers [...] M.D. Signed By: 05/15/23724 DD/ 3 TD/TT: Steam Pipe Fitter: Procedure Note Radiology, Radiologist, MD - 05/15/2023 [place] [address] Mammography Report Signed Patient: RUIZ NIETO JMR#: [id number] : 1980Acct:[id number] Age/Sex: 42 / FADM Date: 05/14/23 Loc: US Attending Dr: Vincent Edmonds D.O. Ordering Physician: Vincent Edmonds D.O.Results: Date of Service: 05/14/23Follow Up: Procedure(s): MM tomosynthesis screening BI Accession Number(s): [id number] cc: Vincent Edmonds D.O.; KANDY ORTEGA Patient Name: RUIZ NIETO MR#: [id number] : 1980 Exam Date: 05/14/2023 Ordering Doctor: DR Vincent Edmonds . RADIOLOGY REPORT PROCEDURE: MM TOMOSYNTHESIS SCREENING BI COMPARISON: MG MAMM SCREEN 3D RONEN CAD, 04/03/2022. INDICATIONS: screening Calculator Name NCI Breast Cancer Risk Assessment Tool 5 Year Breast Cancer Risk 0.70% Lifetime Breast Cancer Risk 11.00% Personal Breast Cancer No Personal Ovarian Cancer No Treatments None Family Cancers None LOCATION: [facility] BREAST COMPOSITION: Extremely dense, which [...] Simon M.D. Signed By:05/15/23724 DD/ 3 TD/TT: Steam Pipe Fitter: Vincent Edmonds DO [facility] Final Result * Pap Smear (03/27/2023 12:00 AM EST) Swab Cervical swab / Unknown Vincent Edmonds DO LAB CYTOLOGY ORDERABLES Final Re sult EXTERNAL LAB from Last 3 Months or Most Recently Relevant to Health Maintenance Insurance [employer] Care Teams Supervisor Engraving Relationship Specialty Start Date End Date Kandy Ortega MD [address] [place] [address] PCP - General Family Medicine 08/24/22
--- OUTSIDE RECORDS SUMMARY | 2024-11-02 09:18 | XMS_ITS | Encounter Summary ---
Author Organization [facility] Address [address] [place] [address] Care Team Providers Care Machine Quilt Stuffer Name Role Phone Kandy Silverio MD Primary Care Provider [phone] Encounter Details Date Type Department Care Team (Late st Contact Info) Description 04/10/2024 Abstract [facility] [address] [facility] [place] [phone] Ely Blackman, ANNEL [address] [place], [place] Social History Tobacco Use Types Packs/Day [...] How often do you attend chur or mormonism services? 1 to 4 times per year 01/29/2024 Do you belong to any clubs o r organizations such as synagogue groups, unions, fraternal or athletic groups, or [...] and heating? Not hard at all 01/29/2024 [facility] ional Health - Occupational [...] place to sleep or slept in a alf (including now)? No 12/19/2022 Housing Stability Vital Sign Answer Marino e Recorded In the last 12 months, was t here a time when you were not able to pay the mortgage or rent on time? No 01/29/2024 In the past 12 months, how m any times have you moved where you were living? 0 01/29/2024 At any time in the past 12 m [facility], were you homeless or living in a alf (including now)? No 01/29/2024 Comments No Sex [...] [facility] [address] [place] [phone] Kandy Silverio MD [address] [place] [address] documented as of this encounter Visit Diagnoses Not on filedocumented in this encounter Care Teams Machine Quilt Stuffer Relationship Specialty Start Date End Date Kandy Silverio MD [address] [place] [address] PCP - General Family Medicine 08/24/22 documented as of this encounter
--- OUTSIDE RECORDS SUMMARY | 2024-11-02 09:18 | XMS_ITS | Encounter Summary ---
Author Organization [facility] Address [address] [place] [address] Care Team Providers Care Oil Field Equipment Mechanic Supervisor Name Role Phone Leonard Ortega MD Primary Care Provider [phone] Encounter Details Date Type Department Care Team (Late st Contact Info) Description 05/15/2023 Clinisync Result Encounter [facility] External Department Unsolicited Dwayne Edmonds, DO [address] [facility] [place] [address] Social History Tobacco Use Types Packs/Day Years [...] often do you attend chur ch or holiness services? Never 12/19/2022 Do you belong to any clubs o r organizations such as worship groups, unions, fraternal or athletic groups, or [...] and heating? Not hard at all 12/19/2022 [facility] Occupat ional Health - Occupational Stress [...] place to sleep or slept in a chcf (including now)? No 12/19/2022 Comments No Sex [...] [facility] [address] [place] [address] Leonard Ortega MD [address] [place] [address] documented as of this encounter Procedures Procedure Name Priority Date/Time Associated Diagnosis Comments US PELVIS W/ TRANSVAGINAL 05/15/2023 9:27 AM EST documented in this encounter Results * US PELVIS W/ TRANSVAGINAL (05/15/2023 9:27 AM EST) Anatomical Region Laterality Modality Other 05/15/2023 9:27 AM EST Narrative 05/15/2023 9:30 AM EST The [address] [address] Ultrasound Report Signed Patient: KARMA NIETO MR#: [id number] : 1980 Acct:[id number] Age/Sex: 42 / F ADM Date: 05/14/23 Loc: US Attending Dr: Dwayne Edmonds D.O. Ordering Physician: Dwayne Edmonds D.O. 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 FINDINGS: The uterus measures 9.2 x 5.2 x 5.6 cm. No focal myometrial mass. Identified in the cervix is a complex soft tissue echogenicity mass with vascularity measuring 2.1 x 1.5 x 1.9 cm. Endometrium measures 1.9 cm, correlate with the menstrual cycle. 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 The right ovary measures 4.1 x 3.7 x 3.4 cm. Area of anechoic echogenicity measuring 2 cm, simple cyst. Normal color Doppler flow The left ovary measures 5.1 x 3.5 x 6.0 cm. Normal color and Doppler flow. Area of hypoechogenicity with no vascularity measuring 3.3 x 2.6 x 2.5 cm, complex cyst favored. No free fluid US/US pelvis w/ transvaginal IMPRESSION: 2.1 cm vascular mass in the cervix, direct visualization is recommended Electronically authenticated by: VINEET WOODS Date: 05/15/2023 09:27 Dictated By: Vineet Woods M.D. Signed By: 05/15/23929 DD/ 6 TD/TT: Grinding Mill Operator: Procedure Note Radiology, Radiologist, MD - 05/15/2023 The [place] [id number] Ultrasound Report Signed Patient: KARMA NIETO JMR#: [id number] : 1980Acct:[id number] Age/Sex: 42 / FADM Date: 05/14/23 Loc: US Attending Dr: Dwayne Edmonds D.O. Ordering Physician: Dwayne Edmonds D.O. 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 FINDINGS: The uterus measures 9.2 x 5.2 x 5.6 cm. No focal myometrial mass. Identified in the cervix is a complex soft tissue echogenicity mass with vascularity measuring 2.1 x 1.5 x 1.9 cm. Endometrium measures 1.9 cm, correlate with the menstrual cycle. 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 The right ovary measures 4.1 x 3.7 x 3.4 cm. Area of anechoic echogenicity measuring 2 cm, simple cyst. Normal color Doppler flow The left ovary measures 5.1 x 3.5 x 6.0 cm. Normal color and Doppler flow. Area of hypoechogenicity with no vascularity measuring 3.3 x 2.6 x 2.5 cm,complex cyst favored. No free fluid US/US pelvis w/ transvaginal IMPRESSION: 2.1 cm vascular mass in the cervix, direct visualization is recommended Electronically authenticated by: VINEET WOODS Date: 05/15/2023 09:27 Dictated By: Vineet Woods M.D. Signed By:05/15/23929 DD/ 6 TD/TT: Grinding Mill Operator: us Dwayne Kendal DO [facility] Final Result documented in this encounter Visit Diagnoses Not on filedocumented in this encounter Care Teams Oil Field Equipment Mechanic Supervisor Relationship Specialty Start Date End Date Leonard Ortega MD [address] [place] [address] PCP - General Family Medicine 08/24/22 documented as of this encounter
--- OUTSIDE RECORDS SUMMARY | 2024-11-02 09:19 | XMS_ITS | Encounter Summary ---
Author Organization [facility] Address [address] [facility] [place] [address] Care Team Providers Care Greenhouse Transplanter Name Role Phone Kandy Silverio MD Primary Care Provider [phone] Reason for Visit * Reason Comments Med Refill Encounter Details Date Type Department Care Team (Late st Contact Info) Description 12/12/2023 Refill [facility] [place] [facility] [address] [place] [phone] Shilpa Freire, ABDIFATAH [address] [place] [address] Hypothyroidism, unspecified type Social History Tobacco Use Types Packs/Day Years Used Date Smoking Tobacco: Never Smokeless Tobacco: Never Alcohol Use Standard Drinks/Week Comments Yes 6 (1 standard drink = 0.6 oz pure alcohol) drinks alcohol monthly or less, Caffeine intake: 2-3 cups per day coffee Humiliation, Afraid, Rape, and Kick questionnair e [...] often do you attend chur ch or jainism services? Never 12/19/2022 Do you belong to [...] and heating? Not hard at all 12/19/2022 [facility] Occupat ional Health - Occupational [...] place to sleep or slept in a mcfp (including now)? No 12/19/2022 Comments No Sex and Gender Information Value Date Recorded Sex Assigned at Not on file Legal Sex Female 6:45 PM EDT Gender Identity Not on file Sexual Orientation Not on file documented as of this encounter Miscellaneous Notes * Telephone Encounter - Ashley Adler - 12/12/2023 11:08 AM EDT Approving, but needs appt for additional refills. documented in this encounter Plan of Treatment Upcoming Encounters Date Type Department Care Team (Late st Contact Info) Description 11/26/2024 3:40 PM EDT Office Visit [facility] [address] [place] [address] Kandy Silverio MD [address] [place] [address] documented as of this encounter Visit Diagnoses Diagnosis Hypothyroidism, unspecified type documented in this encounter Care Teams Greenhouse Transplanter Relationship Specialty Start Date End Date Kandy Silverio MD [address] [place] [address] PCP - General Family Medicine 08/24/22 documented as of this encounter
--- OUTSIDE RECORDS SUMMARY | 2024-11-02 09:19 | XMS_ITS | Clinical Summary ---
Author Organization [facility] Address [address] [place] [address] Care Team Providers Care Paver Installer Name Role Phone Kandy Silverio MD Primary Care Provider [phone] Allergies No known active allergies Medications phentermine (Adipex-P) 37.5 mg tablet TAKE 1 TABLET BY MOUTH IN THE MORNING BEFORE MEALS 07/27/2024 Active diclofenac (Voltaren) 75 mg EC tablet Take 1 tablet by mouth if needed in the morning and at bedtime for pain. 07/25/2024 Active etodolac XL (Lodine XL) 600 mg 24 hr tablet 05/27/2024 Act loc albuterol 90 mcg/actuation inhaler Inhale 2 puffs every 4 (four) hours if needed. 12/20/2022 Active sulfamethoxazol e-trimethoprim (Bactrim DS) 800-160 mg tablet TAKE 1 TABLET BY MOUTH TWICE A DAY IN THE MORNING AND BEFORE AT BEDTIME FOR 3 DAYS 12/31/2023 Active loratadine (Claritin) 10 mg tablet 1 (one) time each day at the same time. Active famotidine (Pepcid) 20 mg tablet Take 1 tablet by mouth Twice daily at 6am and 6pm. 07/25/2024 Active predniSONE (Deltasone) 10 mg tablet Take 6 tabs for 3 days, 4 tabs x 3 days, 3 tabs x 3 days, 2 tabs x 3 days, 1 tab x 3 day 08/21/2024 Active predniSONE (Deltasone) 20 mg tablet 07/29/2024 Active orphenadrine (Norflex) 100 mg 12 hr tablet 08/20/2024 Act loc hydrocortisone 2.5 % ointment APPLY TO LIPS EVERY MORNING NEEDED UP TO 2 WEEKS AT A TIME 03/14/2024 Active levothyroxine (Synthroid, Levoxyl) 125 mcg tablet TAKE 1 TABSULE BY MOUTH DAILY 06/10/2024 Active indomethacin (Indocin) 50 mg capsuleIndicati ons:Costochondr itis Take 1 capsule (50 mg) by mouth if needed in the morning and at bedtime for mild pain (1-3 pain score). Take with food. 60 capsule 2 09/08/2024 Active Active Problems Problem Noted Date Diagnosed Date H/O: hypothyroidism 09/08/2024 Rapid heartbeat 09/08/2024 Hypothyroidism 12/04/2023 Dysfunctional uterine bleeding 12/20/2022 Exercise induced bronchospasm 12/20/2022 Iron deficiency anemia 12/20/2022 Need for influenza vaccination 12/20/2022 Encounters Date Type Department Care Team Description 09/15/2024 Telephone [facility] [address] [place] [phone] Gabbie Blanton MA 09/15/2024 Orders Only [facility] [address] [place] [phone] Sarah Gifford MD Costochondritis (Primary Dx) 09/14/2024 Telephone [facility] [address] [place] [phone] Gabbie Blanton MA 09/08/2024 9:00 AM EDT Office Visit [facility] [address] [place] [phone] Sarah Gifford MD Pain in joint, multiple sites (Primary Dx); Elevated rheumatoid factor; Costochondritis 09/08/2024 Orders Only [facility] [address] [place] [phone] Haley Veliz MA Pain in joint, multiple sites; Elevated rheumatoid factor 09/07/2024 Telephone [facility] [address] [place] [phone] Julianna Cardenas, RN Request PHI for COURT INTERPRETER referral from Last 3 Months Immunizations Immunization Administration Dates Next Due Influenza, injectable, MDCK, preservative free, quadrivalent 02/04/2017 Influenza, injectable, quadrivalent 12/20/2022,0 01/05/2019 Influenza, injectable, quadr ivalent, preservative free 01/15/2022,01/31/2020 Influenza, seasonal, injecta ble, preservative free, 6 moonths & older 01/16/2024,01/24/2015 Moderna Covid-19 vaccine, 12&up 03/29/2023 Pfizer Covid-19 Vaccine, 12& up, Fall 2022-01/16/2024 Pfizer SARS-CoV-2 Vaccination 02/27/2021, 021,06/24/2020 Tdap 03/10/2022 Social History Tobacco Use Types Packs/Day Years Used Date Smoking Tobacco: Never Smokeless Tobacco: Never Alcohol Use Standard Drinks/Week Comments Yes 0 (1 standard drink = 0.6 oz pur e alcohol) PHQ-2 Answer Date Recorded Patient Health Questionnaire-2 Score 0 09/08/2024 Comments Unknown Sex and Gender Information Value Date Recorded Sex Assigned at Not on file Legal Sex Female 9:24 AM EDT Gender Identity Not on file Sexual Orientation Not on file Last Filed Vital Signs Vital Sign Reading Time Taken Comments Blood Pressure 144/86 09/08/2024 8:42 AM EDT Pulse 82 09/08/2024 8:42 AM EDT Temperature - - Respiratory Rate - - Oxygen Saturation 96% 09/08/2024 8:42 AM EDT Inhaled Oxygen Concentration - - Weight 116 kg (255 lb) 09/08/2024 8:42 AM EDT Height 172.7 cm (5' 8 ) 09/08/2024 8:42 AM EDT Body Mass Index 38.77 09/08/2024 8:42 AM EDT Plan of Treatment Health Maintenance Due Date Last Done Comments Varicella Vaccines (1 of 2 - 13+ 2-dose series) 1994 Hepatitis B Vaccines (1 of 3 - 19+ 3-dose series) 2000 HPV/Cotest 10/13/2011 Mammogram 2021 COVID-19 Vaccine ( season) 2024 01/16/2024, 03/29/2023, 01/15/2022, Additional history exists Influenza Vaccine (#1) 2024 , 12/20/2022, 01/15/2022, Additional history exists Depression Screening 09/08/2025 09/08/2024 Cervical Cancer Screening 03/27/2026 Pap Smear 03/27/2026 03/27/2023 Zoster Vaccines (1 of 2) 10/13/2031 Adult Tetanus 03/10/2032 03/10/2022 HIB Vaccines Aged Out No longer eligi ble based on patient's age to complete this topic HPV Vaccines Aged Out No longer eligi ble based on patient's age to complete this topic IPV Vaccines Aged Out No longer eligi ble based on patient's age to complete this topic Meningococcal B Vaccine Aged Out No l onger eligible based on patient's age to complete this topic Meningococcal Vaccine Aged Out No opal corine eligible based on patient's age to complete this topic Pneumococcal Vaccine: Pediatrics (0 to 5 Years) and At-Risk Patients (6 to 64 Years) Aged Out No longer eligible based on patient's age to complete this topic Rotavirus Vaccines Aged Out No longer eligible based on patient's age to complete this topic Procedures Procedure Name Priority Date/Time Associated Diagnosis Comments CYCLIC CITRUL PEPTIDE ANTIBODY, IGG AND IGA Routine 09/08/2024 10:23 AM EDT Pain in joint, multiple sites Elevated rheumatoid factor from Last 3 Months Results * Cyclic citrul peptide antibody, IgG and IgA (09/08/2024 10:23 AM EDT) Cyclic Citrullinated Peptide Ab, IgG/A 4 0 - 19 Units 09/10/2024 8:41 PM EDT [facility] ([facility] Comment: INTERPRETIVE INFORMATION: Cyclic Citrullinated Peptide Ab, [...] be monitored and testing repeated. Performed By: [facility] [address] [place] [address] Pouch Making Machine Operator: Adarsh Singer MD, PhD CLIA Number: [id number] Blood Venous blood specimen / Unknown Venipuncture / Unknown 09/08/2024 10:23 AM EDT 09/08/2024 10:23 AM EDT us Sarah Gifford MD LAB BLOOD ORDERABLES Final Re sult [facility] ([facility]) [address] [place] [address] from Last 3 Months Insurance [employer] Care Teams Paver Installer Relationship Specialty Start Date End Date Kandy Silverio MD [address] [place] [address] PCP - General Family Medicine 09/07/24
--- OUTSIDE RECORDS SUMMARY | 2024-11-02 09:19 | XMS_ITS | Clinical Summary ---
Author Organization [facility] Address [address] [place] [address] Care Team Providers Care Drop Wire Stringer Name Role Phone Unavailable Primary Care Provider Unavailabl e Allergies No known active allergies Medications levothyroxine 75 mcg tablet Take 75 mcg by mouth once daily. Active Social History Tobacco Use Types Packs/Day Years Used Date Smoking Tobacco: Never Smokeless Tobacco: Never Alcohol Use Standard Drinks/Week Comments Yes 0 (1 standard drink = 0.6 oz pur e alcohol) Comments Unknown Sex and Gender Information Value Date Recorded Sex Assigned at Not on file Legal Sex Female 10:18 AM EST Gender Identity Not on file Sexual Orientation Not on file Last Filed Vital Signs Vital Sign Reading Time Taken Comments Blood Pressure 128/78 05/02/2012 10:13 AM EST Pulse 76 05/02/2012 10:13 AM EST Temperature - - Respiratory Rate - - Oxygen Saturation - - Inhaled Oxygen Concentration - - Weight 114.1 kg (251 lb 8 oz) 05/02/2012 10:13 A M EST Height 173.5 cm (5' 8.31 ) 05/02/2012 10:[address] Body Mass Index 37.9 05/02/2012 10:13 AM EST Plan of Treatment Health Maintenance Due Date Last Done Comments Anxiety Screening 10/13/1999 Depression Screening 10/13/1999 HIV Screening 10/13/1999 Hepatitis C Screening 10/13/1999 DTaP,Tdap,Td Vaccine (1 - Tdap) 2000 Hepatitis B Vaccine (1 of 3 - 19+ 3-dose series) 10/12 Cervical Cancer Screening 2002 Mammogram Screening 2021 Influenza Vaccine (#1) 2024 Insurance
--- OUTSIDE RECORDS SUMMARY | 2024-11-02 09:19 | XMS_ITS | Encounter Summary ---
Author Organization [facility] Address [address] [place] [address] Care Team Providers Care Substation Electrician Supervisor Name Role Phone Kandy Silverio MD Primary Care Provider [phone] Encounter Details Date Type Department Care Team (Late st Contact Info) Description 09/10/2023 Abstract [facility] [email or web address] [address] Kaitlin Shelby LPN [address] [place] [address] Social History Tobacco Use Types Packs/Day Years Used Date Smoking Tobacco: Never Smokeless Tobacco: Never Alcohol Use Standard Drinks/Week Comments Yes 0 (1 standard drink = 0.6 oz pure [...] often do you attend chur ch or restoration services? Never 12/19/2022 Do you belong to any clubs o r organizations such as taoism groups, unions, fraternal or athletic groups, or [...] and heating? Not hard at all 12/19/2022 [facility] Occupat ional Health - [...] place to sleep or slept in a nursing home (including now)? No 12/19/2022 Comments No Sex [...] Family Medicine [address] [place] [address] Kandy Silverio MD [address] [place] [address] documented as of this encounter Visit Diagnoses Not on filedocumented in this encounter Care Teams Substation Electrician Supervisor Relationship Specialty Start Date End Date Kandy Silverio MD [address] [place] [address] PCP - General Family Medicine 08/24/22 documented as of this encounter
--- OUTSIDE RECORDS SUMMARY | 2024-11-02 09:19 | XMS_ITS | Encounter Summary ---
Author Organization [facility] Address [address] [place] [address] Care Team Providers Care Chief Engineer Waterworks Name Role Phone Kandy Silverio MD Primary Care Provider [phone] Encounter Details Date Type Department Care Team (Late st Contact Info) Description 05/08/2024 Abstract [facility] [address] [facility] [place] [phone] Ely Blackman, ANNEL [address] [place], [place] Social History Tobacco Use Types Packs/Day [...] How often do you attend chur or quaker services? 1 to 4 times per year 01/29/2024 Do you belong to any clubs o r organizations such as advent groups, unions, fraternal or athletic groups, or [...] place to sleep or slept in a jail (including now)? No 12/19/2022 Housing Stability Vital Sign Answer Marino e Recorded In the last 12 months, was t here a time when you were not able to pay the mortgage or rent on time? No 01/29/2024 In the past 12 months, how m any times have you moved where you were living? 0 01/29/2024 At any time in the past 12 m [facility], were you homeless or living in a jail (including now)? No 01/29/2024 Comments No Sex [...] Family Medicine [address] [place] [phone] Kandy Silverio MD [address] [place] [address] documented as of this encounter Visit Diagnoses Not on filedocumented in this encounter Care Teams Chief Engineer Waterworks Relationship Specialty Start Date End Date Kandy Silverio MD [address] [place] [address] PCP - General Family Medicine 08/24/22 documented as of this encounter
--- OUTSIDE RECORDS SUMMARY | 2024-11-02 09:19 | XMS_ITS | Encounter Summary ---
Author Organization [facility] Address [address] [place] [address] Care Team Providers Care Product Management Analyst Name Role Phone Kandy Silverio MD Primary Care Provider [phone] Encounter Details Date Type Department Care Team (Late st Contact Info) Description 08/12/2024 Orders Only [facility] [address] [place] [phone] Danuta Cook MA Chest pain, musculoskeletal Social History Tobacco Use Types Packs/Day Years [...] often do you attend chur ch or pentecostalism services? 1 to 4 times per year 01/29/2024 Do you belong to any clubs o r organizations such as holiness groups, unions, fraternal or athletic groups, or [...] Recorded Patient Health Questionnaire-2 Score 0 07/29/2024 [facility] Occupat ional Health - Occupational [...] place to sleep or slept in a long-term (including now)? No 12/19/2022 Housing Stability Vital [...] time in the past 12 m [facility], were you homeless or living in a long-term (including now)? No 01/29/2024 Comments No Sex [...] Family Medicine [address] [place] [phone] Kandy Silverio MD [address] [place] [address] documented as of this encounter Visit Diagnoses Diagnosis Chest pain, musculoskeletal Other chest pain documented in this encounter Care Teams Product Management Analyst Relationship Specialty Start Date End Date Kandy Silverio MD [address] [place] [address] PCP - General Family Medicine 08/24/22 documented as of this encounter
--- OUTSIDE RECORDS SUMMARY | 2024-11-02 09:35 | XMS_ITS | CCD ---
Author Organization [facility] Care Team Providers Care 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 Name Role Phone PAMELA RUIZ Admitting Unavailable PAMELA RUIZ Attending Unavailable PAMELA RUIZ Primary Care Unavailable PAMELA RUIZ Consulting Unavailable KARASIK, DR RODRIGUEZ Admitting Unavailable KARASIK, DR RODRIGUEZ Attending Unavailable PAMELA RUIZ Primary Care Unavailable KARASIK, DR RODRIGUEZ Consulting Unavailable LISETTE, ANTWAN Admitting Unavailable ANTWAN KNOX Attending Unavailable PAMELA RUIZ Primary Care Unavailable CHUCK, DR VINEET Cruz Consulting Unavailable LISETTE, ANTWAN Consulting Unavailable KARASIK, DR RODRIGUEZ Admitting Unavailable KARASIK, DR RODRIGUEZ Attending Unavailable REQUEST, DR ELISEO LISTED Primary Care Unavaila ble KARNICA, DR RODRIGUEZ Consulting Unavailable CHUCK, DR VINEET Cruz Consulting Unavailable Vincent Edmonds Attending Provider Vincent Edmonds Attending Unavailable Vincent Edmonds Admitting Unavailable Vincent Edmonds Attending Provider [phone] Kandy Ortega MD Primary Care Provider Kandy Ortega Primary Care Physician [phone] Kandy Ortega Admitting Unavailable Kandy Ortega Attending Unavailable Kandy Ortega Referring Unavailable Grabiel Phelps Consulting Unavailable Grabiel Phelps Consulting Unavailable Grabiel Phelps Consulting Unavailable PETER MICHAELS Attending Unavailable Guru TUTTLE, Yuko Ramires Attending Unavailable KANDY ORTEGA Attending Unavailable KANDY ORTEGA Attending Unavailable TYRONE REILLY Attending Unavailable KANDY ORTEGA Referring Unavailable CURRY JASON Attending Unavailable KANDY ORTEGA Referring Unavailable KANDY ORTEGA Attending Unavailable CURRY JASON Attending Unavailable KANDY ORTEGA Referring Unavailable KANDY ORTEGA Attending Unavailable KANDY ORTEGA Attending Unavailable KANDY ORTEGA Attending Unavailable KANDY ORTEGA Attending Unavailable KANDY ORTEGA Attending Unavailable ALEJA CHEN Referring Unavailable ALEJA CHEN Attending Unavailable ALEJA CHEN Referring Unavailable ALEJA CHEN Attending Unavailable Allergies Allergy Classification Reported Allergen(s) Allergy Type Date of Onset Reaction(s) Facility (1 source) No Known Medication Allergies; Translations: [No Known Medication Allergies] Propensity to adverse reactions (disorder) [facility] Repository Medications Current Medications Medication Drug Class(es) Dates Sig (Normalized) Sig (Original) [id number] 200 actuat albuterol 0.09 mg/actuat metered dose inhaler (20 sources) beta2-Adrenergic Agonist Start: 12-20-2022 take 2 puff(s) by inhalation every four hours for wheezing albuterol HFA 90 mcg/act inhaler Indications: Exercise induced bronchospasm (HCC) Inhale 2 puffs every 4 (four) hours if needed for wheezing or shortness of breath. 18 g 11 12/20/2022 Active Biotin (17 sources) Start: 07-24-2022 biotin Refills(s) 0 Start Date: 07/24/22 Status: Ordered Repeat number: 1 End: 04-24-2024 biotin 2.5 MG capsule Take b y mouth 04/24/2024 Discontinued (Therapy completed) Zyrtec-D (1 source) alpha-Adrenergic Agonist, Histamine-1 Receptor Antagonist Start: 07-24-2022 Zyrtec-D Refill(s) 0 Start Date: 07/24/22 Status: Ordered Repeat number: 1 diclofenac sodium 75 mg delayed release oral tablet (13 sources) Nonsteroidal Anti-inflammatory Drug Start: 07-25-2024 take 1 tablet by mouth twice daily as needed diclofenac (Voltaren) 75 MG EC tablet Take 75 mg by mouth 2 (two) times a day as needed 07/25/2024 Active ergocalciferol 1.25 mg oral capsule (20 sources) Provitamin D2 Compound take 1 capsule by mouth every week ergocalciferol (Vitamin D-2) 1.25 MG (13331 UT) capsule Take 1.25 mg by mouth 1 (one) time per week Active 24 hr etodolac 600 mg extended release oral tablet (20 sources) Nonsteroidal Anti-inflammatory Drug Start: 03-10-2024 End: 03-10-2025 take 1 tablet by mouth once daily etodolac XL (Lodine XL) 600 MG 24 hr tablet Indications: Lateral epicondylitis of right elbow Take 1 tablet (600 mg) by mouth Daily 30 tablet 11 03/10/2024 03/10/2025 Active famotidine 20 mg oral tablet (13 sources) Histamine-2 Receptor Antagonist Start: 07-25-2024 take 1 tablet by mouth in the morning famotidine (Pepcid) 20 MG tablet Take 20 mg by mouth in the morning and 20 mg before bedtime. 07/25/2024 Active ferrous fumarate-vitamin C ER (Stephanie-Sequeles 65-25) [...] mg oral tablet (20 sources) l-Thyroxine Start: 12-12-2023 End: 06-10-2024 take 1 tablet by mouth once daily levothyroxine (Synthroid, Levoxyl) 125 MCG tablet Indications: Hypothyroidism, unspecified type TAKE 1 TABSULE BY MOUTH DAILY 90 tablet 06/10/2024 Active Start: 09-19-2023 take 1 tablet by sea th once daily levothyroxine (Synthroid, Levoxyl) 125 MCG tablet Indications: Hypothyroidism, unspecified type (CMS/HCC) TAKE 1 TABLET BY MOUTH EVERY DAY 90 tablet 09/19/2023 Active Start: 02-10-2015 take 1 tablet by sea th once daily Synthroid 100 mcg Tab 100 microgram = 1 tab(s), Oral, Daily, Refills(s) 0, Thyroid Start Date: 02/10/15 Status: Ordered Repeat number: 1 loratadine 10 mg oral tablet (20 sources) loratadine (Claritin) 10 MG tablet 1 (one) time each day at the same time. Active Multiple Vitamins Tab (1 source) Start: 02-11-20 take 1 tablet by mouth once daily Multiple Vitamins Tab 1 tab(s), Oral, Daily, Refill(s) 0, Prophylaxis Start Date: 02/10/15 Status: Ordered Repeat number: 1 phentermine hydrochloride 37.5 mg oral tablet (20 sources) Sympathomimetic Amine Anorectic Start: 09-23-19 End: 10-29-19 take 37-37.9 tablets by mouth before mealtime phentermine (Adipex-P) 37.5 MG tablet Indications: BMI 37.0-37.9, adult , Class 2 severe obesity due to excess calories with serious comorbidity and body mass index (BMI) of 37.0 to 37.9 in adult (CMS-HCC) Take 1 tablet (37.5 mg) by mouth in the morning. Take before meals. 30 tablet 10/28/2024 Active Start: 11-28-2023 End: 07-29-2024 take 36-36.9 tablets by mouth before mealtime phentermine (Adipex-P) 37.5 MG tablet Indications: BMI 36.0-36.9,adult , Class 2 severe obesity due to excess calories with serious comorbidity and body mass index (BMI) of 36.0 to 36.9 in adult (CMS/HCC) Take 1 tablet (37.5 mg) by mouth in the morning. Take before meals. 30 tablet 2 07/29/2024 Active sulfamethoxazole 800 mg / trimethoprim 160 mg oral tablet (2 sources) Dihydrofolate Reductase Inhibitor Antibacterial, Sulfonamide Antimicrobial Start: 12-31-2023 End: 01-03-2024 take 1 tablet by mouth once in the morning, then take 1 tablet by mouth once at bedtime sulfamethoxazole-trimethoprim (Bactrim DS) 800-160 MG per tablet Indications: [...] on Sat04/24/24 at 0758, For 1 dose 12 hr orphenadrine citrate 100 mg extended release oral tablet (14 sources) Muscle Relaxant Start: 07-25-2024 End: 08-20-2024 take 1 tablet by mouth twice daily as needed, then take 1 tablet by mouth every twelve hours as needed orphenadrine (Norflex) 100 MG 12 hr tablet Take 100 mg by mouth 2 (two) times a day as needed 07/25/2024 08/20/2024 Discontinued (Reorder) predniSONE 10 mg oral tablet (9 sources) Start: 08-21-2024 End: 10-28-2024 predniSONE (Deltasone) 10 MG tablet Indications: Elevated rheumatoid factor , Costochondritis Take 6 tabs for 3 days, 4 tabs x 3 days, 3 tabs x 3 days, 2 tabs x 3 days, 1 tab x 3 day 48 tablet 08/21/2024 10/28/2024 Discontinued (Therapy completed) Start: 07-29-2024 End: 08-03-2024 take 2 tablets by mouth once daily predniSONE (Deltasone) 20 MG tablet Indications: Costochondritis Take 2 tablets (40 mg) by mouth Daily for 5 days 10 tablet 07/29/2024 08/03/2024 Start: 01-30-2024 End: 02-04-2024 take 2 tablets by mouth once daily predniSONE (Deltasone) 20 MG tablet Indications: Lateral epicondylitis of right elbow Take 2 tablets (40 mg) by mouth Daily for 5 days 10 tablet 01/30/2024 02/04/2024 Active Vitamin D 1000 intl units Tab (1 source) Start: 02-10-2015 take 2 tablets by mouth once daily Vitamin D 1000 intl units Tab 2,000 International_Unit = 2 tab(s), Oral, Daily, # 30 tab(s), Refills(s) 0, Prophylaxis Start Date: 02/10/15 Status: Ordered Quantity: 30.0 Unit: tab(s) Repeat number: 1 Problems Active Problems Problem Classification Problem Date Documented Date Episodic/Chronic Asthma (20 sources) Exercise induced bronchospasm; Translations: [Exercise induced bronchospasm] Onset: 12-20-2022 12-20-2022 Chronic Cardiac dysrhythmias (1 source) Tachycardia 02-10-2015 Episodic Nonmalignant breast conditions (2 sources) Pain of breast; Translations: [Mastodynia] 12-31-2023 Episodic Nonspecific chest pain (7 sources) Musculoskeletal chest pain; Translations: [Other chest pain] 08-12-2024 Episodic Osteoarthritis (8 sources) Osteoarthritis of left knee joint; Translations: [Unilateral primary osteoarthritis, left knee] 03-30-2024 Chronic Other bone disease and musculoskeletal deformities (5 sources) Costal chondritis; Translations: [Chondrocostal junction syndrome [Tietze]] 07-29-2024 Episodic Other bone disease and musculoskeletal deformities (2 sources) Chondrocostal junction syndrome [Tietze]; Translations: [Chondrocostal junction syndrome (tietze)] Onset: 09-08-2024 Episodic Other connective tissue disease (3 sources) Lateral epicondylitis of right humerus; Translations: [Lateral epicondylitis, right elbow] 01-30-2024 Episodic Other female genital disorders (20 sources) Abnormal uterine bleeding; Translations: [Other specified abnormal uterine and vaginal bleeding] Onset: 12-20-2022 12-20-2022 Chronic Other non-traumatic joint disorders (2 sources) Pain in unspecified joint; Translations: [Pain in unspecified joint] Onset: 09-08-2024 Episodic Other nutritional; endocrine; and metabolic disorders (13 sources) Body mass index 30+ - obesity; Translations: [Body mass index (BMI) 39.0-39.9, adult] 01-31-2024 Chronic Other nutritional; endocrine; and metabolic disorders (17 sources) Severe obesity; Translations: [Class 2 severe obesity due to excess calories with serious comorbidity and body mass index (BMI) of 39.0 to 39.9 in adult ([facility])] 01-31-2024 Chronic Other nutritional; endocrine; and metabolic disorders (4 sources) Body mass index 40+ - severely obese; Translations: [Body mass index (BMI) 40.0-44.9, adult] 11-28-2023 Chronic Other nutritional; endocrine; and metabolic disorders (1 source) H/O: hypothyroidism 02-10-2015 Episodic Other screening for suspected conditions (not mental disorders or infectious disease) (20 sources) Encounter for screening mammogram for malignant neoplasm of breast; Translations: [Encounter for screening for malignant neoplasm of cervix] Onset: 06-27-2021 Resolved: 05-01-2024 Episodic Thyroid disorders (20 sources) Hypothyroidism; Translations: [Hypothyroidism, [...] influenza immunization] Onset: 06-30-2021 12-20-2022 Episodic Other skin disorders (4 sources) Localized swelling, mass and lump, neck; Translations: [LOCALIZED SWELLING MASS AND LUMP NECK] Onset: 10-19-2021 Episodic Unclassified (1 source) CONTACT W/AND (SUSP) EXPOS COVID-19; Translations: [CONTACT W/AND (SUSP) EXPOS COVID-19] Onset: 04-14-2021 Results Test Name Value Interpretation Reference Range Facility 36on 09-15-2024 36 This report has been cancelled. [facility] Orders Onlyon 09-15-2024 Orders Only [id number] Karma Nieto 1980 F Date Provider Department Center 09/15/2024 Leobardo-PETER MICHAELS [facility] RHEUM Emma Heal Family History Family history unknown: Yes Normal [facility] Telephoneon 09-15-2024 Telephone [id number] Karma Nieto 1980 F Date Provider Department Center 09/15/2024 Ramonita-SIMEON LOUIE [facility] RHEUM Emma Heal Family History Family history unknown: Yes Normal [facility] CYCLIC CITRUL PEPTIDE ANTIBO DY, IGG AND IGAon 09-08-2024 CYCLIC CITRULLINATED PEPTIDE AB, IGG/A 4 Units Normal 0-19 [facility] Comment on above: Result Comment: INTE RPRETIVE INFORMATION: Cyclic Citrullinated Peptide Ab, IgG/A 19 [...] be monitored and testing repeated. Performed By: [facility] [employer] [address] [place] [id number] Medical Device Sales Consultant: Adarsh Singer MD, PhD CLIA Number: [id number] Performed By: #### L [id number] #### [employer] [facility] [address] [place] [id number] Office Visiton 09-08-2024 Follow-up visit [id number] Karma Nieto 1980 F Date Provider Department Center 09/08/2024 Leobardo-MACEY MICHAELSLucio [facility] RHEUM Emma Heal Family History Family history unknown: Yes Level of Service:87531 MA OFFICE/OUTPATIENT NEW MODERATE MDM 45 MINUTES (GC) Reason for Visit and Comments: Rheumatoid Arthritis [345] New Patient [632] Normal [facility] Orders Onlyon 09-08-2024 Orders Only [id number] Karma Nieto 1980 F Date Provider Department Center 09/08/2024 Salina-CALLYERIKA [facility] DERM Emma Heal Family History Family history unknown: Yes [facility] 36on 09-07-2024 36 TC to Kandy Ortega MD- PCP; Unable to LVM; phone number called just disconnects. RN verified number via LOC&ALL search; number is correct. RN faxed a request for recent OVN; labs and diagnostics recently performed. Normal [facility] Laboratory - Chemistry and C hemistry - challengeon 08-21-2024 CRP [Mass/Vol] 2 mg/L 0 - 10 mg/L [facility] Laboratory - Hematology and Cell countson 08-21-2024 ESR (Bld) [Velocity] 2 mm/h [facility] Laboratory - Serology - non- microon 08-21-2024 Nuclear Ab Ql (S) Negative [facility] Rheumatoid factor Qn 17.2 [IU]/mL High NINF NO [facility] No Panel Informationon 08-21 Performed at: - [address] [id number] Heel Layer: Joey Humphrey PhD, Phone: [phone] [facility] Rheumatoid factor Qnon 08-21 Interpretation and review of laboratory results Abnormal [facility] No Panel Informationon 04-24 Natacha Cardenas MA 04/24/2024 8:06 AM L Inj/Asp: L knee on 04/24/2024 7:58 AM Indications: diagnostic evaluation Details: 22 G needle Medications: 30 mg cross-linked hyaluronate 30 MG/3ML [facility] No Panel Informationon 03-26 Natacha Cardenas MA 03/30/2024 2:06 PM L Inj/Asp: L knee on 03/26/2024 9:06 AM Indications: diagnostic evaluation Details: 22 G needle Medications: 5 mg betamethasone acetate-betamethasone sodium phosphate 6 (3-3) MG/ML Outcome: tolerated well, no immediate complications Consent was given by the patient. [facility] [employer] MG MAMM SCREEN 3D RONEN CADon 04-03-2022 MG MAMM SCREEN 3D RONEN CAD Patient: KARMA NIETO Exam Date: 04/03/2022 : 1980 Gender:F Ordering : DR MICHAEL RUSSO . Admission #: [id number] Family : Order #: [id number] CLICK HERE TO VIEW EXAM RADIOLOGY REPORT PROCEDURE: MAMMOGRAM SCREENING 3D BILATERAL CAD COMPARISON: None. INDICATIONS: Screening mammography Calculator Name NCI Breast Cancer Risk Assessment Tool 5 Year Breast Cancer Risk 0.60% Lifetime Breast Cancer Risk 11.10% Personal Breast Cancer No Personal Ovarian Cancer No Treatments None Family Cancers None LOCATION: [facility] BREAST COMPOSITION: Extremely dense, which [...] MD on 04/05/2022 at 08:01 Normal [facility] MRI Knee w/o Lefton 12-28-19 MRI Knee [...] medial compartment osteoarthritis. Findings predisposing to patellar instability/maltracki ng. Report reported and signed by Patel Bhardwaj on 12/27/2021 1455 Normal [facility] Internal Carver US ST HEAD_NECKon 10-19-[address] HEAD_NECK [...] by: VINEET WOODS Date: 2021-10-19 19:21 Normal [facility] PAP ACOG PANEL 2: 30 to 65on 06-30-2021 . . Normal [facility] Comment on above: Result Comment: Perf ormed at: WB Performed By: #### [id number] #### [facility] [address] [address] [address] Rosa Maria Frazier Age Gdln ACOG Testing 30-65 Normal [facility] Comment on above: Performed By: #### [id number] #### [facility] [address] [address] [address] Rosa Maria Frazier DIAGNOSIS: Comment Normal [facility] Comment on above: Result Comment: NEGA TIVE FOR INTRAEPITHELIAL LESION OR MALIGNANCY. Performed at: WB Performed By: #### [id number] #### [facility] [address] [address] [address] Rosa Maria Frazier HPV Aptima Negative Normal Negative [facility] Comment on above: Result Comment: This nucleic acid amplification test detects fourteen high-risk HPV types (16,18,31,33,35,39,45,51,52,56,58,59,66,68) without differentiation. Performed at: =G Performed By: #### [id number] #### [facility] [address] [place] [address] Dr. Rosa Maria Frazier Methodology: Comment Normal [facility] Comment on above: Result Comment: This liquid based ThinPrep(R) pap test was screened with the use of an image guided system. Performed at: WB Performed By: #### [id number] #### [facility] [address] [place] [address] Dr. Rosa Maria Frazier Note: Comment Normal [facility] Comment on above: Result Comment: The Pap smear is a screening test designed to aid in the detection of premalignant and malignant conditions of the uterine cervix. It is not a diagnostic procedure and should not be used as the sole means of detecting cervical cancer. Both false-positive and false-negative reports do occur. . Performed at: WB Performed By: #### [id number] #### [facility] [address] [place] [address] Dr. Rosa Maria Frazier Performed by: Comment Normal [facility] Comment on above: Result Comment: Dayo De Guzman, Inspector Assembly (ASCP) Performed at: WB Performed By: #### [id number] #### [facility] [address] [place] [address] Dr. Rosa Maria Frazier Specimen adequacy: Comment Normal [facility] Comment on above: Result Comment: Sati sfactory for evaluation. Endocervical and/or squamous metaplastic cells (endocervical component) are present. Performed at: WB Performed By: #### [id number] #### [facility] [address] [place] [address] Dr. Rosa Maria Frazier Covid-19 PCR ([facility])on SARS-CoV-2 (COVID-19) RNA OLU+probe Ql (Unsp spec) Not detected Normal NOT DETECTED [facility] Comment on above: Result Comment: This test is not yet approved or cleared by the [place] FDA. When there are no FDA-approved or cleared tests available, and other criteria are met, FDA can make tests available under an emergency access mechanism called an Emergency Use Authorization (EUA). The EUA for this test is supported by the [employer]oring Machine Operator of Health and Human Service's (HHS's) declaration [...] #### C [facility] #### [facility] [address] [place] [address] Dr. Rosa Maria Frazier Vital Signs Date Time Vital Sign Value Performing Clinician Faci lity 10-28-2024 15:49-0400 Body height 172.7 cm Kandy Ortega MD Work Phone: [facility] 10-28-2024 15:49-0400 Body mass index (BMI) [Ratio] 37.8 kg/m2 Kandy Ortega MD Work Phone: [facility] 10-28-2024 15:49-0400 Body temperature 98.01 [degF] Kandy Ortega MD Work Phone: [facility] 10-28-2024 15:49-0400 Body weight 112.76 kg Kandy Ortega MD Work Phone: [facility] 10-28-2024 15:49-0400 Diastolic blood pressure 86 mm[Hg] Kandy Ortega MD Work Phone: [facility] 10-28-2024 15:49-0400 Heart rate 89 /min Kandy Ortega MD Work Phone: [facility] 10-28-2024 15:49-0400 SaO2% (BldA) [Mass fraction] 99 % Kandy Ortega MD Work Phone: [facility] 10-28-2024 15:49-0400 Systolic blood pressure 132 mm[Hg] Kandy Ortega MD Work Phone: [facility] 08-20-2024 14:15-0400 Body height 172.7 cm Kandy Ortega MD Work Phone: [facility] 08-20-2024 14:15-0400 Body mass index (BMI) [Ratio] 37.19 kg/m2 Kandy Ortega MD Work Phone: [facility] 08-20-2024 14:15-0400 Body temperature 98.29 [degF] Kandy Ortega MD Work Phone: [facility] 08-20-2024 14:15-0400 Body weight 110.95 kg Kandy Ortega MD Work Phone: [facility] 08-20-2024 14:15-0400 Diastolic blood pressure 84 mm[Hg] Kandy Ortega MD Work Phone: [facility] 08-20-2024 14:15-0400 Heart rate 86 /min Kandy Ortega MD Work Phone: [facility] 08-20-2024 14:15-0400 SaO2% (BldA) [Mass fraction] 99 % Kandy Ortega MD Work Phone: [facility] 08-20-2024 14:15-0400 Systolic blood pressure 120 mm[Hg] Kandy Ortega MD Work Phone: [facility] 07-29-2024 13:52-0400 Body height 172.7 cm Kandy Ortega MD Work Phone: [facility] 07-29-2024 13:52-0400 Body mass index (BMI) [Ratio] 36.89 kg/m2 Kandy Ortega MD Work Phone: [facility] 07-29-2024 13:52-0400 Body temperature 98.2 [degF] Kandy Ortega MD Work Phone: [facility] 07-29-2024 13:52-0400 Body weight 110.04 kg Kandy Ortega MD Work Phone: [facility] 07-29-2024 13:52-0400 Diastolic blood pressure 62 mm[Hg] Kandy Ortega MD Work Phone: [facility] 07-29-2024 13:52-0400 Heart rate 76 /min Kandy Ortega MD Work Phone: [facility] 07-29-2024 13:52-0400 SaO2% (BldA) [Mass fraction] 97 % Kandy Ortega MD Work Phone: [facility] 07-29-2024 13:52-0400 Systolic blood pressure 118 mm[Hg] Kandy Ortega MD Work Phone: [facility] 05-01-2024 15:40-0500 Body height 172.7 cm Kandy Ortega MD Work Phone: [facility] 05-01-2024 15:40-0500 Body mass index (BMI) [Ratio] 38.44 kg/m2 Kandy Ortega MD Work Phone: [facility] 05-01-2024 15:40-0500 Body temperature 98.29 [degF] Kandy Ortega MD Work Phone: [facility] 05-01-2024 15:40-0500 Body weight 114.67 kg Kandy Ortega MD Work Phone: [facility] 05-01-2024 15:40-0500 Diastolic blood pressure 72 mm[Hg] Kandy Ortega MD Work Phone: [facility] 05-01-2024 15:40-0500 Heart rate 84 /min Kandy Ortega MD Work Phone: [facility] 05-01-2024 15:40-0500 SaO2% (BldA) [Mass fraction] 95 % Kandy Ortega MD Work Phone: [facility] 05-01-2024 15:40-0500 Systolic blood pressure 116 mm[Hg] Kandy Ortega MD Work Phone: [facility] 04-24-2024 07:58-0500 Body height 172.7 cm Aleja Chen DO Work Phone: [facility] 04-24-2024 07:58-0500 Body mass index (BMI) [Ratio] 39.38 kg/m2 Aleja Chen DO Work Phone: [facility] 04-24-2024 07:58-0500 Body weight 117.48 kg Aleja Chen DO Work Phone: [facility] 03-26-2024 08:43-0500 Body height 172.7 cm Aleja Chen DO Work Phone: [facility] 03-26-2024 08:43-0500 Body mass index (BMI) [Ratio] 39.38 kg/m2 Aleja Chen DO Work Phone: [facility] 03-26-2024 08:43-0500 Body weight 117.48 kg Aleja Chen DO Work Phone: [facility] 01-30-2024 15:50-0400 Body height 172.7 cm Kandy Ortega MD Work Phone: [facility] 01-30-2024 15:50-0400 Body mass index (BMI) [Ratio] 39.47 kg/m2 Kandy Ortega MD Work Phone: [facility] 01-30-2024 15:50-0400 Body temperature 98.4 [degF] Kandy Ortega MD Work Phone: [facility] 01-30-2024 15:50-0400 Body weight 117.75 kg Kandy Ortega MD Work Phone: [facility] 01-30-2024 15:50-0400 Diastolic blood pressure 82 mm[Hg] Kandy Ortega MD Work Phone: [facility] 01-30-2024 15:50-0400 Heart rate 88 /min Kandy Ortega MD Work Phone: [facility] 01-30-2024 15:50-0400 SaO2% (BldA) [Mass fraction] 98 % Kandy Ortega MD Work Phone: [facility] 01-30-2024 15:50-0400 Systolic blood pressure 110 mm[Hg] Kandy Ortega MD Work Phone: [facility] 12-31-2023 15:59-0400 Body height 172.7 cm Kandy Ortega MD Work Phone: [facility] 12-31-2023 15:59-0400 Body mass index (BMI) [Ratio] 40.29 kg/m2 Kandy Ortega MD Work Phone: [facility] 12-31-2023 15:59-0400 Body temperature 98.2 [degF] Kandy Ortega MD Work Phone: [facility] 12-31-2023 15:59-0400 Body weight 120.2 kg Kandy Ortega MD Work Phone: [facility] 12-31-2023 15:59-0400 Diastolic blood pressure 70 mm[Hg] Kandy Ortega MD Work Phone: [facility] 12-31-2023 15:59-0400 Heart rate 86 /min Kandy Ortega MD Work Phone: [facility] 12-31-2023 15:59-0400 SaO2% (BldA) [Mass fraction] 97 % Kandy Ortega MD Work Phone: [facility] 12-31-2023 15:59-0400 Systolic blood pressure 118 mm[Hg] Kandy Ortega MD Work Phone: [facility] 11-28-2023 16:02-0400 Body height 172.7 cm Kandy Ortega MD Work Phone: [facility] 11-28-2023 16:02-0400 Body mass index (BMI) [Ratio] 43.03 kg/m2 Kandy Ortega MD Work Phone: [facility] 11-28-2023 16:02-0400 Body temperature 98.2 [degF] Kandy Ortega MD Work Phone: [facility] 11-28-2023 16:02-0400 Body weight 128.37 kg Kandy Ortega MD Work Phone: [facility] 11-28-2023 16:02-0400 Diastolic blood pressure 70 mm[Hg] Kandy Ortega MD Work Phone: [facility] 11-28-2023 16:02-0400 Heart rate 92 /min Kandy Ortega MD Work Phone: [facility] 11-28-2023 16:02-0400 SaO2% (BldA) [Mass fraction] 99 % Kandy Ortega MD Work Phone: [facility] 11-28-2023 16:02-0400 Systolic blood pressure 115 mm[Hg] Kandy Ortega MD Work Phone: [facility] Healthcare Encounters Encounter Date Encounter Type Care Provider Facility Start: 10-28-2024 End: 10-28-2024 ambulatory KANDY ORTEGA Not Available Start: 10-28-2024 End: 10-28-2024 Patient encounter status Kandy Ortega MD Work Phone: [facility] Healthcare Start: 10-28-2024 End: 10-28-2024 Periodic preventive med est patient 40-64yrs Kandy Ortega MD Work Phone: [facility] Comment on above: Acquired hypothyroid ism (Primary Dx); BMI 37.0-37.9, adult; Class 2 severe obesity due to excess calories with serious comorbidity and body mass index (BMI) of 37.0 to 37.9 in adult ([facility]); Routine general medical examination at a health care facility; Screening for diabetes mellitus; Screening for cardiovascular condition Start: 10-28-2024 End: 10-28-2024 Bamboo flowsheet Kandy Ortega MD Work Phone: [facility] Start: 10-28-2024 End: 10-28-2024 Bamboo flowsheet Kandy Ortega MD Work Phone: [facility] Start: 2024 End: 2024 ambulatory Yuko Garvey MD Facility:[facility] Start: 09-19-2024 End: 09-22-2024 Refill Kandy Ortega MD Work Phone: [facility] Comment on above: BMI 39.0-39.9,adult; Class 2 severe obesity due to excess calories with serious comorbidity and body mass index (BMI) of 39.0 to 39.9 in adult ([facility]) Start: 09-08-2024 End: 09-08-2024 [facility] Start: 08-27-2024 End: 08-27-2024 ambulatory KANDY ORTEGA Not Available Start: 08-26-2024 End: 08-26-2024 ambulatory Kandy Ortega Facility:[facility] Start: 08-26-2024 End: 08-26-2024 Patient encounter procedure Kandy Ortega [facility] Start: 08-21-2024 End: 08-21-2024 ambulatory Curry Jason OFFICE EQUIPMENT TECHNICIAN [facility] Comment on above: Costochondritis (Valerie rell Dx) Start: 08-20-2024 End: 08-20-2024 Office outpatient visit 25 minutes Kandy Ortega MD Work Phone: [facility] Comment on above: Chest pain, musculos keletal (Primary Dx) Start: 08-20-2024 End: 08-20-2024 ambulatory KANDY ORTEGA Not Available Start: 08-20-2024 End: 08-20-2024 Bamboo flowskirstin Ortega MD Work Phone: [facility] Start: 08-20-2024 End: 08-20-2024 Bamboo flowskirstin Ortega MD Work Phone: [facility] Start: 08-20-2024 End: 08-20-2024 Telephone encounter Kandy Ortega MD Work Phone: [facility] Comment on above: Care Coordination Chest pain, musculos keletal (Primary Dx) Start: 08-19-2024 End: 08-19-2024 Bamboo flowsheet Curry Brink OFFICE EQUIPMENT TECHNICIAN [facility] Start: 08-19-2024 End: 08-19-2024 Bamboo flowsheet Curry Brink OFFICE EQUIPMENT TECHNICIAN [facility] Start: 08-19-2024 End: 08-19-2024 ambulatory Curry Brink OFFICE EQUIPMENT TECHNICIAN [facility] Comment on above: Costochondritis (Valerie rell Dx) Start: 08-17-2024 End: 08-17-2024 ambulatory Tyrone Reilly PT Work Phone: [facility] Comment on above: Costochondritis (Valerie rell Dx) Start: 08-17-2024 End: 08-17-2024 Bamboo flowsheet Tyrone Reilly PT Work Phone: [facility] Start: 08-17-2024 End: 08-17-2024 Bamboo flowsheet Tyrone Reilly PT Work Phone: [facility] Start: 08-11-2024 End: 08-13-2024 Telephone encounter Kandy Ortega MD Work Phone: [facility] Start: 07-29-2024 End: 07-29-2024 Office outpatient visit 25 minutes Kandy Ortega MD Work Phone: [facility] Comment on above: Costochondritis (Valerie rell Dx); BMI 36.0-36.9,adult; Class 2 severe obesity due to excess calories with serious comorbidity and body mass index (BMI) of 36.0 to 36.9 in adult (CMS/HCC); BMI 38.0-38.9,adult; Class 2 severe obesity due to excess calories with serious comorbidity and body mass index (BMI) of 38.0 to 38.9 in adult (CMS/HCC) Start: 07-29-2024 End: 07-29-2024 ambulatory KANDY ORTEGA Not Available Start: 06-07-2024 End: 06-10-2024 Refill Kandy Ortega MD Work Phone: [facility] Comment on above: Hypothyroidism, unsp ecified type (CMS/HCC) Start: 05-01-2024 End: 05-01-2024 Office outpatient visit 25 minutes Kandy Ortega MD Work Phone: [facility] Comment on above: BMI 38.0-38.9,adult (Primary Dx); Class 2 severe obesity due to excess calories with serious comorbidity and body mass index (BMI) of 38.0 to 38.9 in adult (CMS/[facility]); BMI 39.0-39.9,adult; Class 2 severe obesity due to excess calories with serious comorbidity and body mass index (BMI) of 39.0 to 39.9 in adult ([facility]) Start: 05-01-2024 End: 05-01-2024 ambulatory KANDY ORTEGA Not Available Start: 05-01-2024 End: 05-01-2024 Bamboo flowsheet Kandy [...] Dx) Start: 04-24-2024 End: 04-24-2024 ambulatory ALEJA CHEN Not Available Start: 03-26-2024 End: 03-26-2024 Patient encounter procedure Aleja Chen DO Work Phone: [facility] Comment on above: Localized osteoarthr itis of left knee (Primary Dx) Start: 03-26-2024 End: 03-26-2024 ambulatory ALEJA Le GUSTAVO Not Available Start: 03-24-2024 End: 03-24-2024 Telephone encounter Aleja Shruti Gustavo DO Work Phone: [facility] Start: [...] adult (CMS/HCC) Start: 01-30-2024 End: 01-30-2024 Bamboo sonam Ortega MD Work Phone: [facility] Start: 01-30-2024 End: 01-30-2024 Bamboo flowskirstin Ortega MD Work Phone: [facility] [...] FM Comment on above: BMI 40.0-44.9, adult (CMS/[facility]) (Primary Dx); Class 3 severe obesity due to excess calories with serious comorbidity and body mass index (BMI) of 40.0 to 44.9 in adult (CMS/[facility]); Hypothyroidism, unspecified type ([facility]) Start: 11-28-2023 End: 11-28-2023 Bamboo flowsheet Kandy Ortega MD Work Phone: [facility] Start: 11-28-2023 End: 11-28-2023 Bamboo flowsheet Kandy Ortega MD Work Phone: [facility] Start: 09-04-2023 End: 09-04-2023 ambulatory Vincent Kendal Work Phone: [facility] Work Phone: Start: 09-04-2023 End: 09-04-2023 Departed Referred Vincent Kendal Work Phone: [facility] Start: 05-24-2023 End: 05-24-2023 ambulatory Vincent Kendal Facility:[facility] Start: 05-24-2023 End: 05-24-2023 ambulatory Vincent Kendal Work Phone: [facility] Work Phone: Start: 05-24-2023 End: 05-24-2023 Departed Referred Vincent Edmonds Work Phone: [facility] Start: 12-25-2022 Patient encounter status Kandy Ortega MD Work Phone: [facility] Start: 12-20-2022 End: 05-01-2024 Patient encounter status Kandy Ortega MD Work Phone: [facility] Start: 04-03-2022 End: 04-04-[address] MICHAEL RUSSO Facility:[facility] Start: 10-19-2021 End: 10-20-2021 ambulatory ANTWAN KNOX Facility:[facility] Start: 06-27-2021 End: 06-27-[address] MICHAEL RUSSO Facility:[facility] Start: 04-14-2021 End: 04-14-2021 ambulatory PAMELA BALDEV SARA Facility:[facility] Procedures Date Procedure Procedure Detail Performing Clinician Start: 08-20-2024 C-reactive protein Genia Ortega MD Work Phone: Start: 08-20-2024 Sedimentation rate r bc automated Kandy Ortega MD Work Phone: Start: 04-24-2024 Arthrocentesis aspir &/inj major jt/bursa w/o us Aleja Chen DO Work Phone: Start: 03-26-2024 Arthrocentesis aspir &/inj major jt/bursa w/o us Aleja Chen DO Work Phone: Start: 03-26-2024 Radiologic examinati on knee 3 views Aleja Chen DO Work Phone: Start: 05-15-2023 Mammography Kandy mcmahon MD Work Phone: bilateral carpel louis dena release Kandy Ortega dx laproscopy Kandy Ortega Hysteroscopy Kandy rOtega Tonsillectomy and adenoidectomy Kandy Ortega Comment on above: 1990 Plan of Treatment Date Care Activity Detail Author Start: 12-07-2024 Influenza vaccination Influenza Vacc ine (#1) [facility] Start: 11-26-2024 End: 11-26-2024 Patient encounter procedure 11/26/2024 3:40 PM EDT Office Visit [facility] [address] [place] [phone] Kandy Ortega MD [address] [place] [address] [facility] Start: 10-28-2024 End: 10-28-2024 Patient encounter procedure 10/28/2024 3:40 PM EDT Office Visit [facility] [address] [place] [phone] Kandy Ortega MD [address] [place] [address] [facility] Start: 10-28-2024 End: 10-28-2025 Comprehensive metabolic 2000 panel - Serum or Plasma Comprehensive metabolic panel Lab Routine Routine general medical examination at a health care facility Screening for diabetes mellitus Expected: 10/28/2024 (Approximate), Expires: 10/28/2025 [facility] Comment on above: Expected: 10/28/2024 (Approximate), Expires: 10/28/2025 Start: 10-28-2024 End: 10-28-2025 Lipid 1996 panel - Serum or Plasma Lipid panel Lab Routine Routine general medical examination at a health care facility Screening for cardiovascular condition Expected: 10/28/2024 (Approximate), Expires: 10/28/2025 [facility] Comment on above: Expected: 10/28/2024 (Approximate), Expires: 10/28/2025 Start: 10-28-2024 End: 10-28-2025 TSH REFLEX TO T4F TSH REFLEX TO T4F Lab Routine Acquired hypothyroidism Routine general medical examination at a health care facility Expected: 10/28/2024 (Approximate), Expires: 10/28/2025 [facility] Work Phone: Comment on above: Expected: 10/28/2024 (Approximate), Expires: 10/28/2025 Start: 08-27-2024 End: 08-27-2024 Patient encounter procedure 08/27/2024 1:20 PM EDT Office Visit [facility] [address] [place] [address] Kandy Ortega MD [address] [place] [address] [facility] Start: 08-21-2024 End: 08-21-2024 ambulatory 08/21/2024 1:00 PM EDT Treatment [facility] [address] [place] [address] Curry Jason PTA [facility] Start: 08-20-2024 End: 08-20-2024 Patient encounter procedure [facility] Comment on above: Arrived Start: 08-20-2024 End: 08-20-2026 Echocardiogram 2D complete Echocardiogram 2D complete Echocardiography Routine Chest pain, musculoskeletal Expected: 08/20/2024 (Approximate), Expires: 08/20/2026 [facility] Work Phone: Comment on above: Expected: 08/20/2024 (Approximate), Expires: 08/20/2026 Start: 08-19-2024 End: 08-19-2024 ambulatory 08/19/2024 1:30 PM EDT Treatment [facility] [address] [place] [address] Curry Jason PTA [facility] Start: 08-12-2024 End: 08-12-2025 XR Chest 2 Views XR chest 2 views Imaging Routine Chest pain, musculoskeletal Expected: 08/12/2024, Expires: 08/12/2025 [facility] Work Phone: Comment on above: Expected: 08/12/2024 , Expires: 08/12/2025 Start: 07-30-2024 End: 07-30-2024 Patient encounter procedure 07/30/2024 3:40 PM EDT Office Visit [facility] [address] [place] [address] Kandy Ortega MD [address] [place] [address] [facility] Start: 05-15-2024 Screening for malign ant neoplasm of breast Mammogram [facility] Start: 05-01-2024 End: 05-01-2024 [facility] Comment on above: Arrived Start: 04-24-2024 End: 04-24-2024 Patient encounter procedure 04/24/2024 8:00 AM EST Office Visit [facility] [address] [place] [phone] Aleja Chen, DO [address] [place] [address] Localized osteoarthritis of left knee (Primary Dx) [facility] Comment on above: Localized osteoarthr itis of left knee (Primary Dx) Start: 03-26-2024 End: 03-26-2024 Patient encounter procedure 03/26/2024 8:45 AM EST Office Visit [facility] [address] [place] [address] Aleja Chen, DO [address] [place] [address] [facility] Start: 03-10-2024 End: 03-10-2025 TSH W/REFLEX TO FT4 TSH W/REFLEX TO FT4 Lab Routine Hypothyroidism, unspecified type (CMS/HCC) Expected: 03/10/2024 (Approximate), Expires: 03/10/2025 [facility] Work Phone: Comment on above: Expected: 03/10/2024 (Approximate), Expires: 03/10/2025 Start: 01-30-2024 End: 01-30-2024 Patient encounter procedure 01/30/2024 3:40 PM EDT Office Visit [facility] [address] [place] [phone] Kandy Ortega MD [address] [place] [address] [facility] Start: 12-31-2023 End: 12-31-2023 Patient encounter procedure 12/31/2023 3:40 PM EDT Office Visit [facility] [address] [place] [address] Kandy Ortega MD [address] [place] [address] [facility] Start: 12-31-2023 End: 03-01-2025 US Breast - left Left breast US complete Imaging Routine Nipple pain Expected: 12/31/2023, Expires: 03/01/2025 [facility] Work Phone: Comment on above: Expected: 12/31/2023 , Expires: 03/01/2025 Start: 12-08-2023 Influenza vaccination Influenza Vacc ine (#1) [facility] XR Knee - left 3 Views XR knee 3 views left Imaging Routine Localized osteoarthritis of left knee 03/26/2024 7:57 AM EST [facility] Work Phone: Immunizations Immunization Date Immunization Notes Care Provider Fa [facility] 01-16-2024 influenza virus vacc ine, unspecified formulation Kandy Ortega MD Work Phone: [facility] 12-20-2022 influenza, injectabl e, quadrivalent, contains preservative Kandy Ortega MD Work Phone: [facility] 12-20-2022 influenza virus vacc ine, unspecified formulation Kandy Ortega MD Work Phone: [facility] 03-10-2022 tetanus toxoid, redu chantell diphtheria toxoid, and acellular pertussis vaccine, adsorbed Kandy Ortega MD Work Phone: [facility] 01-15-2022 influenza, injectabl e, quadrivalent, preservative free Kandy Ortega MD Work Phone: [facility] 01-15-2022 SARS-COV-2 (COVID-19 ) vaccine, mRNA, spike protein, LNP, bivalent, preservative free, 30 mcg/0.3 mL dose, luis-sucrose formulation Kandy Ortega MD Work Phone: [facility] 01-31-2020 influenza, injectabl e, quadrivalent, preservative free Kandy Ortega MD Work Phone: [facility] 01-05-2019 influenza, injectabl e, quadrivalent, contains preservative Kandy Ortega MD Work Phone: [facility] 02-04-2017 Influenza, injectabl e, Madin Brisa Canine Kidney, preservative free, quadrivalent Kandy Ortega MD Work Phone: [facility] 01-24-2015 influenza, seasonal, injectable, preservative free Kandy Ortega MD Work Phone: [facility] Payers Date Payer Category Payer Self-pay [id number] 2023 Private Health Insurance [facility] [id number] 2023 Unknown [id number]. [id number] 2022 Unknown [id number] 1981 Unknown [id number] 2.16.840.1.783061.3.579. 2.593 1981 Unknown [id number] 2.16.840.1.067152.3.579. 2.593 1981 Unknown [id number] 2.840.1.298998.3.579. 2.593 1981 Unknown [id number] 2.840.1.586887.3.579. 2.59 1981 Unknown [id number] 2.840.1.388351.3.579. 2.727 1981 Unknown [id number] 2.840.1.566852.3.579. 2.196 1981 Unknown [id number] 2.840.1.372577.3.579. 2.1258 1981 Unknown [id number] 2.0.1.207833.3.579. 2.1258 1981 Unknown [id number] 2.0.1.289232.3.579. 2.1258 1981 Unknown [id number] 2..1.198717.3.579. 2.1258 1981 Unknown [id number] 2..1.873814.3.579. 2.1258 1981 Unknown [id number] 2.840.1.579452.3.579. 2.1258 1981 Unknown [id number] 2.840.1.615919.3.579. 2.1258 1981 Unknown [id number] 2.840.1.248043.3.579. 2.1258 1981 Unknown [id number] 2.840.1.440347.3.579. 2.1258 1981 Unknown [id number] 2.840.1.838971.3.579. 2.1258 1981 Unknown [id number] 2.840.1.398558.3.579. 2.1258 1981 Unknown [id number] 2.840.1.689396.3.579. 2.1259 1981 Unknown [id number] 2.16.840.1.645509.3.579. 2.1259 1981 Unknown [id number] 2.16.840.1.875933.3.579. 2.1259 1959 Unknown [id number] Unknown [id number] 2.16.840.1.801740.3.579. 2.531 Social History Date Type Detail Facility Tobacco smoking stat us ORIS Unknown if ever smoked [facility] Work Phone: Start: 1980 Sex Assigned At Female F [facility] Start: 07-24-2022 End: 10-11-2022 Tobacco smoking status ORIS Never smoked tobacco [facility] Start: 10-11-2022 Tobacco use and exposure Smoke less tobacco non-user [facility] Start: 12-31-2023 End: 10-28-2024 Alcoholic beverage intake Current drinker of alcohol [...] a month [facility] How many standard dr inks containing alcohol do you have on a [...] Not at all [facility] (I/We) worried wheth er (my/our) food would run out before (I/we) got money to buy more. Never true [facility] Start: 06-04-2023 Alcohol Comment drinks alcohol monthly or less, Caffeine intake: 2-3 cups per day coffee [facility] Healthcare Start: 1980 Sex assigned at Not on file [facility] How many standard dr inks containing alcohol do you have on a typical day? 3 or 4 [facility] How often do you nee d to have someone help you when you read instructions, pamphlets, or other written material from your doctor or pharmacy [SILS] Never [facility] Sexual Orientation [facility] Start: 07-20-2009 Sex Female (finding) [facility] Functional Status Date Assessment Result Facility 07-29-2024 Patient Health Quest ionnaire 2 item (PHQ-2) [Reported] [facility] Clinical Notes 11-28-2023 to 10-28-2024 Kandy Ortega MD - 10/28/2024 3:40 PM EDJose L Ortega MD - 10/28/2024 3:40 PM EDTTelephone Encounter - Khushbu Bronson - 09/22/2024 3:14 PM Shivani Ortega MD - 08/20/2024 2:20 PM EDT Note Date & Type Note Facility 10-28-2024 History of Present illness Narrative Karma Nieto is a 44 y.o. female presents with [...] Size: Large adult) Pulse 89 Temp 98 F (Temporal) Ht 5' 8 Wt 248 lb 9.6 oz LMP 04/22/2023 (Approximate) SpO2 99% BMI 37.80 kg/m OB Status Hysterectomy Smoking Status Never BSA 2.33 m BP Readings from Last 3 Encounters: 10/28/24 132/86 08/27/24 130/90 08/20/24 120/84 Wt Readings from Last 3 Encounters: 10/28/24 248 lb 9.6 oz 08/27/24 246 lb 9.6 oz 08/20/24 244 lb 9.6 oz Physical Exam Physical Exam Results ASSESSMENT AND PLAN: Assessment & Plan Assessment/Plan Health Maintenance Due Topic Date Due Mammogram 05/15/2024 Influenza Vaccine (1) 12/07/2024 Images from the original note were not included. Karma Nieto is a 44 y.o. female presents with [...] Size: Large adult) Pulse 89 Temp 98 F (Temporal) Ht 5' 8 Wt 248 lb 9.6 oz LMP 04/22/2023 (Approximate) SpO2 99% BMI 37.80 kg/m OB Status Hysterectomy Smoking Status Never BSA 2.33 m BP Readings from Last 3 Encounters: 10/28/24 [...] (BMI) of 37.0 to 37.9 in adult ([facility]) - phentermine (Adipex-P) 37.5 MG tablet; Take [...] Vaccine (1) 12/07/2024 documented in this encounter [facility] 09-22-2024 Telephone encounter Note Pt called in today regarding the refill for her adipex. Pt states she is now out of medication. [facility] 09-22-2024 Miscellaneous Notes Pt called in today regarding the refill for her adipex. Pt states she is now out of medication. documented in this encounter [facility] 09-14-2024 Note Patient states that [place] [facility] [place] [facility] [place] [facility] and she rather go elsewhere requesting a referral to be faxed to preferred facility, will call back with number The referral in [facility] has [facility] information listed on it [facility] 09-08-2024 Note Attestation signed by Peter Michaels MD at 09/08/2024 2:31 PM I [...] will refer to PT and pain management [facility] New Patient Visit Subjective Chief [...] 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 Social: Patient works at [employer]. Alcohol use 1-2x per week. No tobacco, [...] Strain: Low Risk (01/29/2024) Received from [facility] Overall Financial Resource Strain (CARDIA) Difficulty of Paying Living Expenses: Not hard at all Food Insecurity: No Food Insecurity (01/29/2024) Received from [facility] Hunger Vital Sign Worried About Running Out of Food in the Last Year: Never true Ran Out of Food in the Last Year: Never true Transportation Needs: No Transportation Needs (01/29/2024) Received from [facility] PRAPARE - Transportation Lack of Transportation (Medical): No Lack of Transportation (Non-Medical): No Physical Activity: Insufficiently Active (01/29/2024) Received from [facility] Exercise Vital Sign Days of Exercise per Week: 2 days Minutes of Exercise per Session: 30 min Stress: No Stress Concern Present (01/29/2024) Received from [facility] [place] [facility] [employer] - Occupational Stress Questionnaire Feeling of Stress : Not at all Social Connections: Moder (more content not included)... [facility] 08-27-2024 Note Echocardiology Procedure Exam Date/Time Accession # Ordering Echo Transthoracic 08/26/2024 09:07 EDT [id number] Kandy Ortega MD Complete CPT code 59044 64822 Reason for Exam (Echo Transthoracic Complete) Chest pain R07.89 Report [facility] [address] [place] [address] Adult Echocardiogram Report Name: KARMA NIETO Study Date: 08/26/2024 08:06 AM BP: 126/92 mmHg Patient Location: [facility] Ambulatory(s) [facility] HR: 84 : 1980 Gender: Female Height: 68 in Age: 43 yrs Ethnicity: [facility] Weight: 240 lb Reason For Study: Chest pain R07.89 BSA: 2.2 m2 History: Tachycardia, new diagnosis of Rheumatoid arthritis Ordering Physician: Nusrat^Kandy^Luzma Referring Physician: Kandy Ortega Performed By: Adia Hanson, [facility] Interpretation Summary This was essentially a normal study. There is Trace mitral regurgitation. The left ventricle is normal in size. Ejection Fraction = 60-65%. Procedure A complete two-dimensional transthoracic echocardiogram was performed (2D, M-mode, spectral and color flow Doppler). Study quality [...] Doppler Measurements & Calculations MV E max phoenix: 93.8 cm/sec MV dec time: 0.17 sec Ao V2 max: 141.2 cm/sec LV V1 max P.6 mmHg MV A max [place]: 84.9 cm/sec Ao max P.0 mmHg LV V1 max: 95.4 cm/sec MV E/A: 1.1 Echocardiology Report Lat Peak E' [place]: 13.2 cm/sec NIKOS(V,D): 3.3 cm2 E/E' Lat: 7.1 Med Peak E' [place]: 9.2 cm/sec E/E' Med: 10.2 RAP systole: 3.0 mmHg AV VR: 0.68 FINAL REPORT Dictated: 08/26/2024 8:06 am Grabile Phelps MD Signed (Electronic Signature): 08/27/2024 9:57 am Signed by: Grabiel Phelps MD Transcribed by: [facility] Technologist: OPAL Delacruz [facility] 08-20-2024 Telephone encounter Note Pt called back stated she needs a refill on Norflex 100 mg to be sent to [facility]. Thank You [facility] 08-20-2024 Miscellaneous Notes Pt called back stated she needs a refill on Norflex 100 mg to be sent to [facility]. Thank You documented in this encounter [facility] 08-20-2024 Telephone encounter Note Pt called regarding her EKG. [facility] are both booked until end or first few weeks of September. [facility] 08-20-2024 Miscellaneous Notes Pt called regarding her EKG. [facility] and [facility] are both booked until end or first few weeks of September. documented in this encounter [facility] 08-20-2024 History of Present illness Narrative Images from the original note were not included. Karma Nieto is a 43 y.o. female presents with chief complaint of No chief complaint on file. HPI: History of Present Illness The patient is a 43-year-old female who presents for follow-up on chest pain. She reports persistent chest pain, which has not shown significant improvement since her last visit. The pain is described as a bruising sensation, although no visible bruising is present. The pain is exacerbated by movement and occasionally by breathing. She has been attending physical therapy sessions on Mondays and Wednesdays, but the severity of her pain and inflammation has limited her ability to participate fully. On 08/17/2024, she had a chest x-ray at [place], which indicated clear lungs and heart. The pain, initially localized to the right side, has now shifted to the left over the past two days. She experienced an allergy attack on Saturday, characterized by frequent sneezing, which intensified her chest pain. Despite this, she was able to dress herself on Saturday, but her condition deteriorated on Saturday. She reported feeling better on Saturday morning, but the pain recurred after washing her hair. Bending forward exacerbates her pain, necessitating support for her chest when performing tasks such as shaving her legs. She is able to hunch forward without difficulty during physical therapy, but experiences pain upon returning to an upright position. She reports no associated fever. An EKG performed at [place] was normal, and blood work ruled out clotting disorders. Steroids have not provided relief, but muscle relaxers have improved her sleep quality. However, severe pain episodes still disrupt her sleep. She has also experienced intermittent tingling and numbness in her pinky finger. MEDICATIONS: Current Outpatient Medications Medication Instructions albuterol HFA 90 mcg/act inhaler 2 puffs, Inhalation, Every 4 hours PRN diclofenac (VOLTAREN) 75 mg, 2 times daily PRN ergocalciferol (VITAMIN D-2) 1.25 mg, Weekly etodolac XL (LODINE XL) 600 mg, Oral, Daily famotidine (PEPCID) 20 mg, 2 times daily levothyroxine (Synthroid, Levoxyl) 125 MCG tablet TAKE 1 TABSULE BY MOUTH DAILY loratadine (Claritin) 10 MG tablet Every 24 hours orphenadrine (NORFLEX) 100 mg, Oral, 2 times daily PRN phentermine (ADIPEX-P) 37.5 mg, Oral, Daily before breakfast predniSONE (Deltasone) 10 MG tablet Take 6 tabs for 3 days, 4 tabs x 3 days, 3 tabs x 3 days, 2 tabs x 3 days, 1 tab x 3 day ALLERGIES: No Known Allergies Review of Systems Constitutional: Negative for chills and fever. Respiratory: Negative for cough, chest tightness, shortness of breath and wheezing. Cardiovascular: Positive for chest pain. Gastrointestinal: Negative for diarrhea, nausea and vomiting. Neurological: Negative for headaches. Medical, Surgical, Family, and Social History reviewed. OBJECTIVE: Visit Vitals BP 120/84 (BP Location: Left arm, Patient Position: Sitting, BP Cuff Size: Adult) Pulse 86 Temp 98.3 F (Temporal) Ht 5' 8 Wt 244 lb 9.6 oz LMP 04/22/2023 (Approximate) SpO2 99% BMI 37.19 kg/m OB Status Hysterectomy Smoking Status Never BSA 2.31 m BP Readings from Last 3 Encounters: 08/20/24 120/84 07/29/24 118/62 05/01/24 116/72 Wt Readings from Last 3 Encounters: 08/20/24 244 lb 9.6 oz 07/29/24 242 lb 9.6 oz 05/01/24 252 lb 12.8 oz Physical Exam Physical Exam General Appearance: normal appearance, normal weight Vital signs: Within normal limits. HEENT: Within normal limits. Conjunctivate normal, ears patent Respiratory: Clear to auscultation, no wheezing, rales or rhonchi Cardiovascular: Regular rate and rhythm, no murmurs, rubs or gallops Gastrointestinal: soft Genitourinary: Lymphatic: Back, Musculoskeletal: Extremities: Skin: Warm and dry, no rash. Neurological: alert and oriented Psychiatric: thought content normal Other observations: Results - Imaging: - Chest x-ray (08/17/2024): Clear lungs and heart - Diagnostic Testing: - EKG: Normal ASSESSMENT AND PLAN: Assessment & Plan 1. Chest pain. - The patient's chest pain has persisted despite physical therapy and previous treatments. She reports that the pain is not associated with pressing on the chest but occurs with movement and occasionally with breathing. There is no tenderness to touch or visible bruising. The pain worsens with bending forward. - Previous EKG and chest x-ray results were normal. - Blood work will be conducted today to assess inflammatory markers such as CRP and ESR, and an autoimmune workup including AVILA and rheumatoid factor. An echocardiogram will be ordered to further evaluate cardiac function. - She is advised to schedule the echocardiogram as soon as possible and to contact the office if the appointment is delayed beyond a week. Follow-up appointment is scheduled for 1 week. Assessment/Plan Diagnoses and all orders for this visit: Chest pain, musculoskeletal - C-reactive protein; Future - Sedimentation rate, automated; Future - Avila screen, qual, reflex; Future - Rheumatoid factor; Future - Echocardiogram 2D complete; Future Health Maintenance Due Topic Date Due Mammogram 05/15/2024 documented in this encounter [facility] 08-11-2024 Telephone encounter Note Would recommend PT and repeat xray Orders created please call and notify pt [facility] 08-11-2024 Miscellaneous Notes Would recommend PT and repeat xray Orders created please call and notify pt documented in this encounter [facility] 07-29-2024 History of Present illness Narrative Images from the original note were not included. Karma Nieto is a 43 y.o. female presents with chief complaint of ER Follow-up and Breast Cancer Screening (Had latest one done at [facility] 12/30) HPI: History of Present Illness The patient presents for evaluation of costochondritis. She sought emergency care on 07/25/2024 due to severe chest pain, which she initially attributed to a dislocated rib or muscle strain. The pain escalated to the point where she was unable to rise from her chair without assistance. At the hospital, cardiac and thrombotic events were ruled out, and she was diagnosed with costochondritis. Morphine was administered, but dizziness occurred after consuming less than half a dose. Intermittent chest pain has been experienced throughout the week, reminiscent of recovery from a severe chest cold. Certain movements exacerbate the pain, leading to difficulty in breathing and hyperventilation. An episode of heartburn was recalled on 07/18/2024, which was unusual for her, and she wonders if it could be related to her current symptoms. Despite the discomfort, work continued until Saturday. Pain management has included occasional ibuprofen and Norflex, but no significant relief has been noticed. Diclofenac was prescribed upon discharge from the hospital, but again, no substantial improvement has been observed. No history of falls or car accidents is reported. Her job involves heavy lifting, particularly involving the shoulders and chest, and she speculates that this could have contributed to her condition. Improvement is believed to be occurring, as long as complete stillness is maintained. She has been off work since 07/27/2024 and was advised against lifting anything over 5 pounds for two weeks. Plans to return to work on 08/11/[address] An injection of a muscle relaxant was given, and Pepcid was prescribed, which has not been taken. Flowsheet Row Office Visit from 07/29/2024 in [facility] with Kandy Ortega MD Hospital Information ED, Hospital or Fdc Facility Discharge? ED Patient has been contacted within 2 days of being seen in the ED Yes Diagnosis Costachrondritis/acute chest wall pain Discharge Date 07/25/24 Discharged To: Home Setting Discharge Hospital [facility] Engagement Admission Date 07/25/24 Medications Discharge medications reviewed and reconciled from hospital? Yes Is the patient having any side effects they believe may be caused by any medication additions or changes? No Does the patient have all medications ordered at discharge? Yes Is the patient taking all medications as directed (includes completed medication regime)? Yes Appointments Self Management Patient Teaching Wrap Up MEDICATIONS: Current Outpatient Medications Medication Instructions albuterol HFA 90 mcg/act inhaler 2 puffs, Inhalation, Every 4 hours PRN diclofenac (VOLTAREN) 75 mg, 2 times daily PRN ergocalciferol (VITAMIN D-2) 1.25 mg, Weekly etodolac XL (LODINE XL) 600 mg, Oral, Daily famotidine (PEPCID) 20 mg, 2 times daily levothyroxine (Synthroid, Levoxyl) 125 MCG tablet TAKE 1 TABSULE BY MOUTH DAILY loratadine (Claritin) 10 MG tablet Every 24 hours orphenadrine (NORFLEX) 100 mg, 2 times daily PRN phentermine (ADIPEX-P) 37.5 mg, Oral, Daily before breakfast ALLERGIES: No Known Allergies Review of Systems Constitutional: Negative for chills and fever. Respiratory: Negative for shortness of breath. Cardiovascular: Negative for chest pain. Gastrointestinal: Negative for diarrhea, nausea and vomiting. Neurological: Negative for headaches. Medical, Surgical, Family, and Social History reviewed. OBJECTIVE: Visit Vitals BP 118/62 (BP Location: Right arm, Patient Position: Sitting, BP Cuff Size: Large adult) Pulse 76 Temp 98.2 F (Temporal) Ht 5' 8 Wt 242 lb 9.6 oz LMP 04/22/2023 (Approximate) SpO2 97% BMI 36.89 kg/m OB Status Hysterectomy Smoking Status Never BSA 2.3 m BP Readings from Last 3 Encounters: 07/29/24 118/62 05/01/24 116/72 01/30/24 110/82 Wt Readings from Last 3 Encounters: 07/29/24 242 lb 9.6 oz 05/01/24 252 lb 12.8 oz 04/24/24 259 lb Physical Exam Constitutional: General: She [...] and Affect: Mood normal. Physical Exam Results - Imaging: - X-ray: Came out okay - Diagnostic Testing: - EKG: Came out okay ASSESSMENT AND PLAN: Assessment & Plan 1. Costochondritis. - Reports acute chest wall pain diagnosed as costochondritis following an ER visit. - X-rays, blood work, and EKG were normal. - A 5-day course of prednisone, 2 tablets daily with food, will be initiated to reduce inflammation and swelling. - Advised to discontinue diclofenac, ibuprofen, and etodolac during this period. Expected to return to work on 08/11/2024. 2. Medication management. - Has been taking ibuprofen occasionally and was prescribed diclofenac but has not noticed significant improvement. - A prescription for Adipex will be provided. 3. Follow-up. - Will follow up in 3 months or sooner if necessary. Assessment/Plan Diagnoses and all orders for this visit: Costochondritis - predniSONE (Deltasone) 20 MG tablet; Take 2 tablets (40 mg) by mouth Daily for 5 days BMI 36.0-36.9,adult - phentermine (Adipex-P) 37.5 MG tablet; Take 1 tablet (37.5 mg) by mouth in the morning. Take before meals. Class 2 severe obesity due to excess calories with serious comorbidity and body mass index (BMI) of 36.0 to 36.9 in adult ([facility]) - phentermine (Adipex-P) 37.5 MG tablet; Take 1 tablet (37.5 mg) by mouth in the morning. Take before meals. BMI 38.0-38.9,adult Class 2 severe obesity due to excess calories with serious comorbidity and body mass index (BMI) of 38.0 to 38.9 in adult ([facility]) Health Maintenance Due Topic Date Due Mammogram 05/15/2024 documented in this encounter [facility] 05-01-2024 History of Present illness Narrative Images [...] approximately 1 to 2 weeks prior to [place], during which she experienced a complete loss [...] out again a week or two before [place]. She received an injection last week but [...] (BMI) of 38.0 to 38.9 in adult ([facility]) - phentermine (Adipex-P) 37.5 MG tablet; Take 1 tablet (37.5 mg) by mouth in the morning. Take before meals. BMI 39.0-39.9,adult Class 2 severe obesity due to excess calories with serious comorbidity and body mass index (BMI) of 39.0 to 39.9 in adult ([facility]) Health Maintenance Due Topic Date Due Mammogram 05/15/2024 documented in this encounter [facility] 04-24-2024 History of Present illness Narrative [...] questions were answered. documented in this encounter [facility] 03-26-2024 History of Present illness Narrative [...] History: Procedure Laterality Date CARPAL TUNNEL RELEASE 2012 DILATION AND CURETTAGE OF UTERUS 05/24/2023 hysteroscopy with myosure HYSTEROSCOPY 2012? KNEE SURGERY Left 07/27/2022 L knee scope- MTP PELVIC LAPAROSCOPY MA KNEE SCOPE,DIAGNOSTIC Left 07/27/2022 ROBOTIC ASSISTED HYSTERECTOMY [...] 2:04 PM EST documented in this encounter [facility] 03-24-2024 Telephone encounter Note Patient called & is requesting an off work note as of 03/23/24 until 03/27/24 patient is seeing [facility] thur. 03/26/24 for Lt knee OA/increased pain (hx scope 07/27/22) Can we write patient off of work even though we have not seen patient for almost 1 year?? Advised patient we usually need to see them prior to writing them off but can talk to [facility]TP & check.... [facility] 03-24-2024 Miscellaneous Notes Patient called & [...] MTP & check.... documented in this encounter [facility] 03-10-2024 Telephone encounter Note Pt requesting refill on etodolac to be sent to [facility]. [facility] 03-10-2024 Miscellaneous Notes Pt requesting refill on etodolac to be sent to [facility]. Sent in 90 day supply but needs to have tsh checked order placed please call and notify pt thanks Sent in 90 day supply but needs to have tsh checked order placed please call and notify pt thanks documented in this encounter [facility] 03-10-2024 Telephone encounter Note Sent in 90 day supply but needs to have tsh checked order placed please call and notify pt thanks [facility] 03-10-2024 Telephone encounter Note Sent in 90 day supply but needs to have tsh checked order placed please call and notify pt thanks [facility] 01-30-2024 History of Present illness Narrative [...] (BMI) of 39.0 to 39.9 in adult ([facility]) - phentermine (Adipex-P) 37.5 MG tablet; Take 1 tablet (37.5 mg) by mouth in the morning. Take before meals. There are no preventive care reminders to display for this patient. documented in this encounter [facility] 12-31-2023 History of Present illness Narrative [...] three weeks ago, delaying the start until Labor Day weekend to monitor for potential side [...] management. The patient started the medication around and has been on it for a [...] was emphasized. The prescription was sent to [facility] in [place]. 2. Recurrent urinary tract infection. She reports [...] to investigate further. The patient will call [place] to schedule the ultrasound. Follow-up Return in one month for follow up. Assessment/Plan Diagnoses and all orders for this visit: BMI 40.0-44.9, adult ([facility]) - phentermine (Adipex-P) 37.5 MG tablet; Take 1 tablet (37.5 mg) by mouth in the morning. Take before meals. Class 3 severe obesity due to excess calories with serious comorbidity and body mass index (BMI) of 40.0 to 44.9 in adult ([facility]) - phentermine (Adipex-P) 37.5 MG [...] Vaccine (1) 12/08/2023 documented in this encounter [facility] 11-28-2023 History of Present illness Narrative Images from [...] morning. The prescription will be sent to [facility] pharmacy. She was instructed to report any [...] Vaccine (1) 12/08/2023 documented in this encounter [facility] Healthcare Evaluation + Plan note No data available for this section [facility] Evaluation note No assessment inform ation available [facility] Work Phone: Evaluation note Diagnosis Exercise induced [...] in adult (CMS/HCC) documented in this encounter [facility] HealthcareEvaluation note* Diagnosis Exercise induced bronchospasm (CMS/HCC)- [...] symptom in breast documented in this encounter [facility]* Diagnosis Exercise induced bronchospasm (CMS/HCC)- [...] left knee- Primary documented in this encounter [facility]* Diagnosis Exercise induced bronchospasm (CMS/HCC)- [...] left knee- Primary documented in this encounter [facility]* Diagnosis BMI 38.0-38.9,adult- Primary Class 2 severe obesity due to excess calories with serious comorbidity and body mass index (BMI) of 38.0 to 38.9 in adult (CMS/HCC) BMI 39.0-39.9,adult Class 2 severe obesity due to excess calories with serious comorbidity and body mass index (BMI) of 39.0 to 39.9 in adult ([facility]) documented in this encounter [facility] HealthcareEvaluation note* Diagnosis Hypothyroidism, unspecified type ([facility]) documented in this encounter [facility] HealthcareEvaluation note* Diagnosis Costochondritis- Primary Tietze's disease BMI 36.0-36.9,adult Class 2 severe obesity due to excess calories with serious comorbidity and body mass index (BMI) of 36.0 to 36.9 in adult ([facility]) BMI 38.0-38.9,adult Class 2 severe obesity due to excess calories with serious comorbidity and body mass index (BMI) of 38.0 to 38.9 in adult ([facility]) documented in this encounter [facility] HealthcareEvaluation note* Diagnosis Chest pain, musculoskeletal- Primary Other chest pain documented in this encounter [facility] HealthcareEvaluation note* Diagnosis Costochondritis- Primary Tietze's disease documented in this encounter [facility] HealthcareEvaluation note* Diagnosis Chest pain, musculoskeletal- Primary Other chest pain documented in this encounter [facility] HealthcareEvaluation note* Diagnosis Costochondritis- Primary Tietze's disease documented in this encounter [facility] HealthcareEvaluation note* Diagnosis Chest pain, musculoskeletal- Primary Other chest pain documented in this encounter [facility] HealthcareEvaluation note* Diagnosis BMI 39.0-39.9,adult Class 2 severe obesity due to excess calories with serious comorbidity and body mass index (BMI) of 39.0 to 39.9 in adult ([facility]) documented in this encounter [facility] HealthcareEvaluation note* Diagnosis Acquired hypothyroidism- Primary Unspecified hypothyroidism BMI 37.0-37.9, adult Class 2 severe obesity due to excess calories with serious comorbidity and body mass index (BMI) of 37.0 to 37.9 in adult ([facility]) Routine general medical examination at a health care facility Screening for diabetes mellitus Screening for cardiovascular condition Screening for other and unspecified cardiovascular conditions documented in this encounter [facility] HealthcareHospital Discharge instructions No data available for this section [facility] Progress note No data available for this section [facility] Reason for visit Narrative* Rehabilitation - Outpatient (Routine) - Authorized Specialty Diagnoses / Procedures Referred By Power t Referred To Contact Physical Therapy Diagnoses Chest pain, musculoskeletal Procedures MA OFFICE/OUTPATIENT NEW HIGH MDM 60 MINUTES Kandy Ortega MD [address] [place] [address] Phone: tel: fax: [facility] [address] [facility] [address] [place] [address] Phone: tel: fax: Referral ID Status Reason Start Date Expiration Date Visits Requested Visits Authorized [id number] Authorized Specialty Services Required 08/12/2024 02/08/2025 99 99 [facility] Narrative* Rehabilitation - Outpatient (Routine) - Authorized Specialty Diagnoses / Procedures Referred By Power le Referred To Contact Physical Therapy Diagnoses Chest pain, musculoskeletal Procedures MA OFFICE/OUTPATIENT NEW HIGH MDM 60 MINUTES Kandy Ortega MD [address] [place] [address] Phone: tel: fax: [facility] [address] [facility] [address] [place] [address] Phone: tel: fax: Referral ID Status Reason Start Date Expiration Date Visits Requested Visits Authorized [id number] Authorized Specialty Services Required 08/12/2024 04/07/2025 99 99 [facility] Summary Purpose Family History No Family History Records FoundNo Family History Records FoundNo Family History Records Found No data available for this section No Family History Records FoundNo Family History [...] section and content) DATE CREATED AUTHOR 01/07/2022 [facility] dical Specialist DATE CREATED AUTHOR AUTHOR'S ORGANIZ ATION 04/06/2022 [facility] DATE CREATED AUTHOR AUTHOR'S ORGANIZ ATION 05/26/2023 [facility] DATE CREATED AUTHOR AUTHOR'S ORGANIZ ATION 09/06/2024 [facility] DATE CREATED AUTHOR AUTHOR'S ORGANIZ ATION 09/15/2024 [facility] DATE CREATED AUTHOR AUTHOR'S ORGANIZ ATION 10/25/2024 [facility] DATE CREATED AUTHOR AUTHOR'S ORGANIZ ATION 10/30/2024 [facility] dical Specialists [facility] Care Teams (unrecognized sec tion and content) Team Status: Inactive Member Role Status Dates Vincent Emdonds Attending Provider Active Start: Carla galicia 2023 End: May 24, 2023 Team Status: Inactive Member Role Status Dates Vincent Edmonds Attending Provider Active Start: Brianna rodriguez 2023 End: September 04, 2023 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 Relationship Specialty Start Date End Date Kandy Ortega MD [address] [place] [address] PCP - General Family Medicine 08/24/22 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 Relationship Specialty Start Date End Date Kandy Ortega MD [address] [place] [address] PCP - General Family Medicine 08/24/22 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 Relationship Specialty Start Date End Date Kandy Ortega MD [address] [place] [address] PCP - General Family Medicine 08/24/22 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 Relationship Specialty Start Date End Date Kandy Ortega MD [address] [place] [address] PCP - General Family Medicine 08/24/22 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 Relationship Specialty Start Date End Date Kandy Ortega MD [address] [place] [address] PCP - General Family Medicine 08/24/22 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 Relationship Specialty Start Date End Date Kandy Ortega MD [address] [place] [address] PCP - General Family Medicine 08/24/22 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 Relationship Specialty Start Date End Date Kandy Ortega MD [address] [place] [address] PCP - General Family Medicine 08/24/22 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 Relationship Specialty Start Date End Date Kandy Ortega MD [address] [place] [address] PCP - General Family Medicine 08/24/22 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 Relationship Specialty Start Date End Date aKndy Ortega MD [address] [place] [address] PCP - General Family Medicine 08/24/22 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 Relationship Specialty Start Date End Date Kandy Ortega MD [address] [place] [address] PCP - General Family Medicine 08/24/22 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 Relationship Specialty Start Date End Date Kandy Ortega MD [address] [place] [address] PCP - General Family Medicine 08/24/22 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 Relationship Specialty Start Date End Date Kandy Ortega MD [address] [place] [address] PCP - General Family Medicine 08/24/22 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 Relationship Specialty Start Date End Date Kandy Ortega MD [address] [place] [address] PCP - General Family Medicine 08/24/22 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 Relationship Specialty Start Date End Date Kandy Ortega MD [address] [place] [address] PCP - General Family Medicine 08/24/22 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 Relationship Specialty Start Date End Date Kandy Ortega MD [address] [place] [address] PCP - General Family Medicine 08/24/22 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 Relationship Specialty Start Date End Date Kandy Ortega MD [address] [place] [address] PCP - General Family Medicine 08/24/22 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 Relationship Specialty Start Date End Date Kandy Ortega MD [address] [place] [address] PCP - General Family Medicine 08/24/22 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 Immunizations Patient declines at this time. Reason Comments Pain Reason Comments Follow-up Med Refill Reason Comments ER Follow-up Breast Cancer Screening Had latest one d one at [facility] 12/30 Reason Onset Date Comments Care Coordination 08/20/2024 Reason Onset Date Comments Med Refill 08/20/2024 Reason Comments Follow-up FOR RECORDS PERTAINING TO PATIENTS WHO ARE [...] BE BASED ON THE PRIMARY CLINICAL RECORDS. [employer] [facility] provides no warranty or guarantee of the accuracy or completeness of information in this document.
[2024-11-02 10:41] LABS: Alanine Aminotransferase 27 U/L (14-59); Albumin Globulin Ratio 1.0; Albumin Level 3.7 g/dL (3.4-5.0); Alkaline Phosphatase 77 U/L (46-116); Anion Gap 11.9; Aspartate Amino Transferase 18 U/L (15-37); Blood Urea Nitrogen 12.0 mg/dL (7.0-18.0); Calcium 8.7 mg/dL (8.5-10.1); Carbon Dioxide 28.3 mmol/L (21.0-32.0); Chloride 103 mmol/L (98-107); Cholesterol 186 mg/dL (<=200); Estimated GFR (African America >60 (>=60 mL/min/1.73m^2); Estimated GFR (Non-African Ame >60 (>=60 mL/min/1.73m^2); Globulin 3.6 g/dL; Glucose 94 mg/dL (74-106); HDL Cholesterol 46 mg/dL (40-60); Potassium 4.2 mmol/L (3.5-5.1); Sodium 139 mmol/L (136-145); TSH W/ REFLEX FT4 0.786 uIU/mL (0.358-3.740); Total Protein 7.3 g/dL (6.4-8.2); Triglycerides 106 mg/dL (<=150); VLDL CHOLESTEROL 21.2 mg/dL
== END 2024-11-02 09:16 | disposition home or self-care (01) ==
LOC: LAB 09:16
DX: Z00.00 Encounter for general adult medical examination without abnormal findings (principal); E03.9 Hypothyroidism, unspecified; Z13.1 Encounter for screening for diabetes mellitus; Z13.6 Encounter for screening for cardiovascular disorders
CPT/HCPCS: 36415; 80053; 80061; 84443

== ENCOUNTER 2024-11-02 09:17 | Outpatient (OUT) | payer OTHER, SELFPAY ==
--- OUTSIDE RECORDS SUMMARY | 2024-11-02 09:20 | XMS_ITS | Encounter Summary ---
Author Organization [facility] Address [address] [place] [address] Care Team Providers Care Lpta Name Role Phone Kandy Silverio MD Primary Care Provider [phone] Encounter Details Date Type Department Care Team (Late st Contact Info) Description 05/13/2023 Clinisync Result Encounter [facility] Unsolicited Dwayne Edmonds, DO [address] [place] [address] Social History Tobacco Use Types Packs/Day Years [...] often do you attend chur ch or cheondoism services? Never 12/19/2022 Do you belong to any clubs o r organizations such as temple groups, unions, fraternal or athletic groups, or [...] and heating? Not hard at all 12/19/2022 [facility] - Occupational Stress [...] health care facility (including now)? No 12/19/2022 Comments No Sex [...] [facility] [address] [place] [address] Kandy Silverio MD [address] [place] [address] documented as of this encounter Procedures Procedure Name Priority Date/Time Associated Diagnosis Comments ECG 12-LEAD 05/13/2023 9:25 AM EST documented in this encounter Results * ECG 12-LEAD (05/13/2023 9:25 AM EST) Anatomical Region Laterality Modality Other 05/13/2023 9:25 AM EST Narrative 05/16/2023 5:28 AM EST The [address] [address] Electrocardiograph Report Signed Patient: KARMA NIETO MR#: [id number] : 1980 Acct:[id number] Age/Sex: 42 / F ADM Date: 05/13/23 Loc: PST Attending Dr: Dwayne Edmonds D.O. Ordering Physician: Dwayne Edmonds D.O. Date of Service: 05/13/23 Procedure(s): ECG 12 lead Accession Number(s): [id number] cc: [facility] Test Date: 2023-05-13 Pat Name: KARMA NIETO Department: Room: - Gender: Female Occupational Health And Safety Manager: : 1980 Requested By: DWAYNE EDMONDS Order Number: [id number] Reading MD: MARV MALDONADO Measurements Intervals [place] Rate: 73 P: 10 WA: 167 QRS: 46 QRSD: 100 T: 7 QT: 369 QTc: 407 Interpretive Statements SINUS RHYTHM Non-Specific T wave inversion in III LOW QRS VOLTAGE IN PRECORDIAL LEADS [QRS DEFLECTION < 1.0 mV IN CHEST LEADS] No previous ECG available for comparison Electronically Signed On 05-16-2023 5:28:06 EST by MARV MALDONADO Dictated By: Marv Maldonado M.D. Signed By: 05/16/23527 DD/ 4 TD/TT: Recycling Assistant: Procedure Note Radiology, Radiologist, MD - 05/16/2023 [place] [address] Electrocardiograph Report Signed Patient: KARMA NIETO JMR#: [id number] : 1980Acct:[id number] Age/Sex: 42 / FADM Date: 05/13/23 Loc: [facility] Attending Dr: Dwayne Edmonds D.O. Ordering Physician: Dwayne Edmonds D.O. Date of Service: 05/13/23 Procedure(s): ECG 12 lead Accession Number(s): [id number] cc: [facility] Test Date: 2023-05-13 Pat Name: KARMA NIETO Department: Room: - Gender: Female Occupational Health And Safety Manager: : 1980 Requested By: DWAYNE EDMONDS Order Number: [id number] Reading MD: MARV MALDONADO Measurements Intervals [place] Rate: 73 P: 10 WA: 167 QRS: 46 QRSD: 100 T: 7 QT: 369 QTc: 407 Interpretive Statements SINUS RHYTHM Non-Specific T wave inversion in III LOW QRS VOLTAGE IN PRECORDIAL LEADS [QRS DEFLECTION < 1.0 mV IN CHESTLEADS] No previous ECG available for comparison Electronically Signed On 05-16-2023 5:28:06 EST by MARV MALDONADO Dictated By: Marv Maldonado M.D. Signed By:05/16/2328 DD/ 4 TD/TT: Recycling Assistant: us Dwayne Kendal DO [facility] Final Result documented in this encounter Visit Diagnoses Not on filedocumented in this encounter Care Teams Lpta Relationship Specialty Start Date End Date Kandy Silverio MD [address] [place] [address] PCP - General Family Medicine 08/24/22 documented as of this encounter
--- NOTE | 2024-11-02 09:37 | XR_ITS ---
The [address] [address] Patient Name: RUIZ NIETO MRN: [id number] date: 1980 Sex: F Assigned Patient Location: [facility] Current Patient Location: [facility] Accession/Order Number: [id number] Exam Date: 11/02/2024 10:08 Report Date: 11/02/2024 10:14 At the request of: RADHA QUIROZ MD Procedure: XR elbow RT min 3V CLINICAL DATA: Chronic right heel pain. Chronic right lateral elbow pain. No injury. RIGHT FOOT - 3 views COMPARISON: 10/06/2020 AP, lateral and oblique views were obtained. There is no acute fracture or dislocation. A large plantar calcaneal spur is again visualized. There are no significant soft tissue abnormalities. XR/XR foot RT min 3V IMPRESSION: CALCANEAL SPUR. NO ACUTE BONY FINDINGS. RIGHT ELBOW - 3 VIEWS COMPARISON: None AP, lateral and oblique views were obtained. There is no evidence of fracture or dislocation. There are no significant soft tissue abnormalities. There is no elbow effusion. IMPRESSION: NO ACUTE BONY FINDINGS. Impression dictated by: Oneida Becker M.D. 11/02/2024 10:14 AM Dictation Location: [place] [address] Electronically authenticated by: [id number] Y Date: 11/02/2024 10:14
--- NOTE | 2024-11-02 09:37 | XR_ITS ---
The [address] [address] Patient Name: RUIZ NIETO MRN: [id number] date: 1980 Sex: F Assigned Patient Location: [facility] Current Patient Location: [facility] Accession/Order Number: [id number] Exam Date: 11/02/2024 10:08 Report Date: 11/02/2024 10:14 At the request of: RADHA QUIROZ MD Procedure: XR elbow RT min 3V CLINICAL DATA: Chronic right heel pain. Chronic right lateral elbow pain. No injury. RIGHT FOOT - 3 views COMPARISON: 10/06/2020 AP, lateral and oblique views were obtained. There is no acute fracture or dislocation. A large plantar calcaneal spur is again visualized. There are no significant soft tissue abnormalities. XR/XR elbow RT min 3V IMPRESSION: CALCANEAL SPUR. NO ACUTE BONY FINDINGS. RIGHT ELBOW - 3 VIEWS COMPARISON: None AP, lateral and oblique views were obtained. There is no evidence of fracture or dislocation. There are no significant soft tissue abnormalities. There is no elbow effusion. IMPRESSION: NO ACUTE BONY FINDINGS. Impression dictated by: Oneida Becker M.D. 11/02/2024 10:14 AM Dictation Location: [place] [address] Electronically authenticated by: [id number] Y Date: 11/02/2024 10:14
== END 2024-11-02 09:18 | disposition home or self-care (01) ==
PROVIDERS: Visit Provider Anesthesiology
DX: M25.521 Pain in right elbow (principal); M79.671 Pain in right foot; Z00.00 Encounter for general adult medical examination without abnormal findings; E03.9 Hypothyroidism, unspecified; Z13.1 Encounter for screening for diabetes mellitus; Z13.6 Encounter for screening for cardiovascular disorders; M77.31 Calcaneal spur, right foot
CPT/HCPCS: 36415; 73080; 73630; 80053; 80061; 84443

== ENCOUNTER 2024-11-11 14:41 | Outpatient (OUT) | payer OTHER, SELFPAY ==
--- NOTE | 2024-11-11 15:09 | PM.CN ---
Consult Note: HPI Data of Consult Patient: known to practice within the last 3 years Requesting Physician: Jaymie Mckinnon NP Primary Care Provider: LEONARD ORTEGA Consult Narrative Reason for consult: right ankle and right elbow pain Narrative: Karma Sarmiento a pleasant 44 year old female presents for evaluation of right ankle and right elbow pain. recently completed xray imaging which revealed no remarkable findings on the right elbow and a right calcaneal spur to right foot. she utilizes tylenol and etodolac prn with unknown benefit without side effects. pain 2-3/10 throbbing. no recent PT or injections. has not been evaluated by podiatry, orthopedics, sports medicine. cc:: CC: Jaymie Mckinnon NP Review of Systems ROS Musculoskeletal Reports: extremity pain and joint pain PFSH PFS Medical History Dyspareunia Dysmenorrhea ?N94.6 - Dysmenorrhea, unspecified (ICD-10) Menorrhagia ?N92.0 - Excessive and frequent menstruation with regular cycle (ICD-10) Migraine ?G43.909 - Migraine, unspecified, not intractable, without status migrainosus (ICD-10) Postoperative nausea and vomiting ?R11.2 - Nausea with vomiting, unspecified (ICD-10) ?Z98.890 - Other specified postprocedural states (ICD-10) Abnormal EKG ?R94.31 - Abnormal electrocardiogram [ECG] [EKG] (ICD-10) Back pain ?M54.9 - Dorsalgia, unspecified (ICD-10) Carpal tunnel syndrome ?G56.00 - Carpal tunnel syndrome, unspecified upper limb (ICD-10) Arthritis ?M19.90 - Unspecified osteoarthritis, unspecified site (ICD-10) Anemia ?D64.9 - Anemia, unspecified (ICD-10) COVID-19 (03/30/23) ?U07.1 - COVID-19 (ICD-10) Pneumonia ?J18.9 - Pneumonia, unspecified organism (ICD-10) Exercise induced bronchospasm ?J45.990 - Exercise induced bronchospasm (ICD-10) Dysfunctional uterine bleeding ?N93.8 - Other specified abnormal uterine and vaginal bleeding (ICD-10) Seasonal allergies ?J30.2 - Other seasonal allergic rhinitis (ICD-10) Heartburn ?R12 - Heartburn (ICD-10) Hypothyroidism ?E03.9 - Hypothyroidism, unspecified (ICD-10) Pelvic pain ?R10.2 - Pelvic and perineal pain (ICD-10) Irregular periods/menstrual cycles ?N92.6 - Irregular menstruation, unspecified (ICD-10) Bicornate uterus ?Q51.3 - Bicornate uterus (ICD-10) Surgical History H/O dilation and curettage (05/24/23) ?Z98.890 - Other specified postprocedural states (ICD-10) History of wisdom tooth extraction ?K08.409 - Partial loss of teeth, unspecified cause, unspecified class (ICD-10) History of carpal tunnel release ?Z98.890 - Other specified postprocedural states (ICD-10) History of foot surgery ?Z98.890 - Other specified postprocedural states (ICD-10) History of arthroscopy of knee ?Z98.890 - Other specified postprocedural states (ICD-10) History of tonsillectomy ?Z90.89 - Acquired absence of other organs (ICD-10) History of laparoscopy ?Z98.890 - Other specified postprocedural states (ICD-10) Family History Other Family history of colon cancer Family history of diabetes mellitus Family history of hypertension Family history of renal failure Family history of skin cancer Social History Within the past year, how often did you have a drink containing alcohol: 2-4 times a month Smoking status: Never smoker Non-prescribed substance use: denies use Previous occupational history: [employer] Highest level of school completed/degree received: high school graduate Little interest or pleasure in doing things: not at all Feeling down, depressed, or hopeless: not at all Meds Home Medications and Allergies Home Medications ?Medication ?Instructions ?Recorded ?Confirmed ?Type albuterol sulfate 90 mcg/actuation 2 inh inhalation Q6H PRN shortness 05/13/23 07/25/24 History aerosol inhaler (ProAir HFA) of breath or wheezing levothyroxine 125 mcg capsule 125 mcg PO DAILY 05/13/23 07/25/24 History loratadine 10 mg tablet 10 mg PO DAILY 05/13/23 07/25/24 History diclofenac sodium 75 mg 75 mg PO BID PRN pain #20 tabs 07/25/24 Rx tablet,delayed release famotidine 20 mg tablet (Pepcid) 20 mg PO BID #10 tabs 07/25/24 Rx orphenadrine citrate 100 mg 100 mg PO BID PRN muscle spasm #20 07/25/24 Rx tablet,extended release tabs Allergies Allergy/AdvReac Type Severity Reaction Status Date / Time No Known Drug Allergies Allergy Verified 08/21/23 10:07 Exam Narrative Exam Narrative: Psych-alert and oriented x 3.? Attentive and appropriate, constitutionally normal, displays normal mood and affect per situation.? There are no obvious deficits in memory, reasoning, or intellect. Examination of the right lower extremity reveals tenderness to palpation. increased pain with internal and external rotation of right foot right elbow nontender to touch, full ROM with extension/flexion Coordination remains intact.? Gait remains non-antalgic. Assessment and Plan Assessment and Plan (1) Calcaneal spur of right foot: (2) Right foot pain: (3) Chronic pain of right elbow: Plan refer to dr garduno for right foot pain and calcaneal spur PT for right elbow pain recommend pt f/u with PCP for further care of right elbow pain, or we could refer to orthopedics/sports medicine if pain persists after PT
--- NOTE | 2024-11-11 15:12 | P.CN_ITS ---
Consult Note: HPI Data of Consult Requesting Physician: Jaymie Mckinnon NP Primary Care Provider: LEONARD ORTEGA Consult Narrative cc:: CC: Jaymie Mckinnon NP [facility] Medical History Dyspareunia Dysmenorrhea ?N94.6 - Dysmenorrhea, unspecified (ICD-10) Menorrhagia ?N92.0 - Excessive and frequent menstruation with regular cycle (ICD-10) Migraine ?G43.909 - Migraine, unspecified, not intractable, without status migrainosus (ICD-10) Postoperative nausea and vomiting ?R11.2 - Nausea with vomiting, unspecified (ICD-10) ?Z98.890 - Other specified postprocedural states (ICD-10) Abnormal EKG ?R94.31 - Abnormal electrocardiogram [ECG] [EKG] (ICD-10) Back pain ?M54.9 - Dorsalgia, unspecified (ICD-10) Carpal tunnel syndrome ?G56.00 - Carpal tunnel syndrome, unspecified upper limb (ICD-10) Arthritis ?M19.90 - Unspecified osteoarthritis, unspecified site (ICD-10) Anemia ?D64.9 - Anemia, unspecified (ICD-10) COVID-19 (03/30/23) ?U07.1 - COVID-19 (ICD-10) Pneumonia ?J18.9 - Pneumonia, unspecified organism (ICD-10) Exercise induced bronchospasm ?J45.990 - Exercise induced bronchospasm (ICD-10) Dysfunctional uterine bleeding ?N93.8 - Other specified abnormal uterine and vaginal bleeding (ICD-10) Seasonal allergies ?J30.2 - Other seasonal allergic rhinitis (ICD-10) Heartburn ?R12 - Heartburn (ICD-10) Hypothyroidism ?E03.9 - Hypothyroidism, unspecified (ICD-10) Pelvic pain ?R10.2 - Pelvic and perineal pain (ICD-10) Irregular periods/menstrual cycles ?N92.6 - Irregular menstruation, unspecified (ICD-10) Bicornate uterus ?Q51.3 - Bicornate uterus (ICD-10) Surgical History H/O dilation and curettage (05/24/23) ?Z98.890 - Other specified postprocedural states (ICD-10) History of wisdom tooth extraction ?K08.409 - Partial loss of teeth, unspecified cause, unspecified class (ICD- 10) History of carpal tunnel release ?Z98.890 - Other specified postprocedural states (ICD-10) History of foot surgery ?Z98.890 - Other specified postprocedural states (ICD-10) History of arthroscopy of knee ?Z98.890 - Other specified postprocedural states (ICD-10) History of tonsillectomy ?Z90.89 - Acquired absence of other organs (ICD-10) History of laparoscopy ?Z98.890 - Other specified postprocedural states (ICD-10) Family History Other Family history of colon cancer Family history of diabetes mellitus Family history of hypertension Family history of renal failure Family history of skin cancer Social History Within the past year, how often did you have a drink containing alcohol: 2-4 times a month Smoking status: Never smoker Non-prescribed substance use: denies use Previous occupational history: [employer] Highest level of school completed/degree received: high school graduate Little interest or pleasure in doing things: not at all Feeling down, depressed, or hopeless: not at all Meds Home Medications and Allergies Home Medications ?Medication ?Instructions ?Recorded ?Confirmed ?Type albuterol sulfate 90 mcg/actuation 2 inh inhalation Q6 H PRN shortness 05/13/23 07/25/24 History aerosol inhaler (ProAir HFA) of breath or wheezing levothyroxine 125 mcg capsule 125 mcg PO DAILY 4 07/25/24 History loratadine 10 mg tablet 10 mg PO DAILY 05/13/2307/07 History diclofenac sodium 75 mg 75 mg PO BID PRN pain #20 ta bs 07/25/24 Rx tablet,delayed release famotidine 20 mg tablet (Pepcid) 20 mg PO BID #10 tabs 07/25/24 Rx orphenadrine citrate 100 mg 100 mg PO BID PRN muscle s pasm #20 07/25/24 Rx tablet,extended release tabs Allergies Allergy/AdvReac Type Severity Reaction Status Date / Time No Known Drug Allergies Allergy Verified 08/21/23 10:07 Assessment and Plan Assessment and Plan (1) Calcaneal spur of right foot: (2) Right foot pain: (3) Chronic pain of right elbow: Plan refer to dr garduno for right foot pain and calcaneal spur PT for right elbow pain recommend pt f/u with PCP for further care of right elbow pain, or we could refer to orthopedics/sports medicine if pain persists after PT
== END 2024-11-11 14:42 | disposition home or self-care (01) ==
LOC: PM 14:41
PROVIDERS: Visit Provider Nurse Practitioner
DX: M77.31 Calcaneal spur, right foot (principal); M79.671 Pain in right foot; M25.521 Pain in right elbow
CPT/HCPCS: G0463